=== PATIENT | male | born 1935 | race Caucasian/White ===

== ENCOUNTER 2016-09-10 13:18 | Emergency (ER) | payer MEDICARE, OTHER ==
--- NOTE | 2016-09-10 13:53 | Diagnostic Imaging Report ---
Exam: Portable image of the chest. HISTORY: Chest pain. Portable examination of the chest at 1337 hours reviewed, the study compared to prior examination of 01/09/2016 demonstrates normal aeration of the lung parenchyma bilaterally. Mediastinal structures are midline ,bony thorax is intact. The costophrenic angles are clear. IMPRESSION: No active disease.
[2016-09-10 13:55] LABS: % BASOPHILS 0.4 % (0.0-2.0); % EOSINOPHILS 3.5 % (0.0-5.0); % LYMPHOCYTES 19.5 % (20.0-50.0); % MONOCYTES 5.1 % (2.0-10.0); % NEUTROPHILS 71.5 % (40.0-80.0); HEMATOCRIT 41.7 % (39.0-49.0); MEAN CELL VOLUME 90.7 fl (80-99); MEAN CORPUSCULAR HEMOGLOBIN 30.6 pg (27.0-31.0); MEAN CORPUSCULAR HGB CONC 33.7 pg (28.0-36.0); MEAN PLATELET VOLUME 9.6 fl; NEUTROPHILE ABSOLUTE 7.2 Th/cmm (1.8-8.0); PLATELET COUNT 182 Th/cmm (150-400); RED BLOOD COUNT 4.59 Mil/cmm (3.80-5.80); RED CELL DISTRIBUTION WIDTH 13.1 % (11.5-20.0); WHITE BLOOD COUNT 10.1 Th/cmm (4.8-10.8)
[2016-09-10 14:07] LABS: ALB/GLOB RATIO 0.9 (1.0-1.8); ALKALINE PHOSPHATASE 86 U/L (34-104); ANION GAP 8.6 (7.0-16.0); BILIRUBIN,TOTAL 0.8 mg/dL (0.3-1.0); BUN - UREA NITROGEN 19 mg/dL (7-25); BUN/CREATININE RATIO 21.1; CALCIUM SERUM 9.9 mg/dL (8.6-10.3); CARBON DIOXIDE 26.8 mEq/L (21.0-31.0); CHLORIDE 99 mEq/L (98-107); CREATININE - SERUM 0.9 mg/dL (0.7-1.3); GLUCOSE 88 mg/dL (70-105); POTASSIUM SERUM 4.4 mEq/L (3.5-5.1); SGOT 18 U/L (13-39); SGPT/ALT 11 U/L (7-52); SODIUM SERUM 130 mEq/L (136-145)
[2016-09-10 14:08] LABS: CHOLESTEROL 113 mg/dL (<200); TRIGLYCERIDES 129 mg/dL (<150)
--- NOTE | 2016-09-10 14:08 | ED Physician Chart ---
Chief Complaint/HPI - Patient Information Date Seen:: 09/10/16 Time Seen:: 13:40 Chief Complaint:: VOMITING History of Present Illness:: THIS IS AN 80 YR OLD MALE SENT SNF FOR AN EVALUATION AND TREATMENT. THE VOMITING HAS BEEN ON GOING FOR THREE WEEKS. THE PATIENT IS A NO CODE. THE PATIENT IS NOT HAVING DIARRHEA OR CONSTIPATION AND HAS DIFFICULTY WITH THOUGHT PROCESS. Allergies:: Allergies Allergy/AdvReac Type Severity Reaction Status Date / Time piperacillin Allergy Verified 09/10/16 13:25 tazobactam Allergy Verified 09/10/16 13:26 Vitals:: Vital Signs - 8 hr 09/10/16 13:26 Temp 97.4 F HR 61 RR 18 BP 135/72 O2 Sat % 98 Historian:: Family Member Review:: Nurse's Note Reviewed, Old Chart Reviewed, Transfer documents Reviewed , Patient unable to respond Review of Systems - Review of Systems General/Constitutional: Other (THIS PATIENT IS UNABLE TO GIVE A REVIEW OF SYSTEM.) Past Medical History - Past Medical History Obtainable: Yes Past Medical History: HTN, DM, Asthma/COPD, Arthritis, Dementia Family History: None Social History: Non Smoker, No Alcohol, No Drug Use, Care Facility Surgical History: PEG/GTube Psychiatricy History: Dementia Medication: Reviewed Family Medical History - Family Member Father History Unknown: Yes Ethnicity: Unknown Living Status: Unknown Physical Exam - Physical Examination General/Constitutional: Awake, Well-developed, well-nourished, Alert, No distress, GCS 15, Non-toxic appearing, Ambulatory Head: Atraumatic Eyes: Lids, conjuctiva normal, PERRL, EOMI Skin: Nl inspection, No rash, No skin lesions, No ecchymosis, Well hydrated, No lymphadenopathy ENMT: External ears, nose nl, Nasal exam nl, Lips, teeth, gums nl Neck: Nontender, Full ROM w/o pain, No JVD, No nuchal rigidity, No bruit, No mass, No stridor Respiratory: Nl effort/Exclusion, Clear to Auscultation Other Respiratory comments:: BILATERAL RHONCHI HEARD Cardio Vascular: RRR, No murmur, gallop, rubs, NL S1 S2 GI: No tenderness/rebounding/guarding, No organomegaly, No hernia, Normal BS's, Nondistended, No mass/bruits, No McBurney tenderness : No CVA tenderness Extremities: No tenderness or effusion, Full ROM, normal strength in all extremities, No edema, Normal digits & nails Neuro/Psych: DTR's symmetric, Normal sensory exam, Normal motor strength, Mood normal, Normal gait, No focal deficits Other Neuro/Psych comments:: THE PATIENT IS DISORIENT TIMES FOUR. Misc: normal gait, Normal back, No paraspinal tenderness Labs/Radiology/EKG Results - EKG Interpretations EKG Time:: 13:41 Rate & Rhythm: 61 , SINUS Blanchard: RIGHT Intervals: NO ECTOPY SEEN ED Septic Shock - . Is Septic Shock (SBP<90, OR Lactate>4 mmol\L) present?: No - <6hrs of presentation: Vital Signs: Vital Signs - 8 hr 09/10/16 13:26 Temp 97.4 F HR 61 RR 18 BP 135/72 O2 Sat % 98
[2016-09-10 14:17] LABS: INR 0.9 (0.5-1.4); PROTHROMBIN TIME (TEST) 9.3 SECONDS (9.5-11.5)
[2016-09-10 14:29] LABS: URINE BILIRUBIN NEGATIVE (NEGATIVE); URINE BLOOD MODERATE (NEGATIVE); URINE COLOR YELLOW; URINE GLUCOSE (UA) NEGATIVE (NEGATIVE); URINE KETONE NEGATIVE (NEGATIVE); URINE PROTEIN NEGATIVE (NEGATIVE); URINE UROBILINOGEN 0.2 E.U./dL (0.2 - 1.0)
[2016-09-10 14:30] LABS: URINE AMORPHOUS SEDIMENT MODERATE URATES (NONE SEEN); URINE BACTERIA FEW /hpf (NONE SEEN); URINE EPITHELIAL CELLS OCCASIONAL /lpf (FEW)
== END 2016-09-10 18:32 ==
LOC: ER 13:18
DX: R11.10 Vomiting, unspecified (principal); I10 Essential (primary) hypertension; E11.9 Type 2 diabetes mellitus without complications; J45.909 Unspecified asthma, uncomplicated; J44.9 Chronic obstructive pulmonary disease, unspecified; Z88.1 Allergy status to other antibiotic agents; Z88.8 Allergy status to other drugs, medicaments and biological substances
CPT/HCPCS: 99285; 96372; 93005; 71010; 84484; 36415; 84443; 86592; 85025; 85610; 85730; 81001; 80053; 80061; J0696; Z7502; Z7610

== ENCOUNTER 2016-10-03 14:03 | Inpatient (IN) | payer MEDICARE, OTHER ==
[2016-10-03] MEDS ORDERED: Sodium Chloride 0.9% 1,000 ML IV ONE (14:09)
--- NOTE | 2016-10-03 14:16 | ED Physician Chart ---
Chief Complaint/HPI - Patient Information Date Seen:: 10/03/16 Time Seen:: 14:00 Chief Complaint:: G-Tube Stoma Redness History of Present Illness:: onset x 2 days of G-Tube Stoma redness, swelling, and erythema; no report of H/ As, Neck pain, Chest Pain, cough, Dyspnea, Abd. Pain, A/N/V/D/C, fever, chills, or urinary s/s Allergies:: Allergies Allergy/AdvReac Type Severity Reaction Status Date / Time piperacillin Allergy Verified 09/10/16 13:25 tazobactam Allergy Verified 09/10/16 13:26 Historian:: EMS Review:: Nurse's Note Reviewed Review of Systems - Review of Systems General/Constitutional: Fever, Chills, No weight loss, Weakness, No diaphoresis , No edema, No loss of appetite Skin: Skin lesions, No rash, No bruising Head: No headache, No light-headedness Eyes: No loss of vision, No pain, No diplopia ENT: No earache, No nasal drainage, No sore throat, No tinnitus Neck: No neck pain, No swelling, No thyromegaly, No stiffness, No mass noted Cardio Vascular: No chest pain, No palpitations, No PND, No orthopnea, No edema Pulmonary: SOB, Cough, No sputum, Wheezing GI: Nausea, Vomiting, Diarrhea, No pain, No melena, No hematochezia, No constipation, No hematemesis G/U: No dysuria, No frequency, No hematuria Musculoskeletal: No bone or joint pain, No back pain, No muscle pain Endocrine: No polyuria, No polydipsia Psychiatric: No prior psych history, No depression, No anxiety, No suicidal ideation, No homicidal ideation, No auditory hallucination, No visual hallucination Hematopoietic: No bruising, No lymphadenopathy Allergic/Immuno: No urticaria, No angioedema Neurological: No syncope, No focal symptoms, Weakness, No paresthesia, No headache, No seizure, No dizziness, Confusion, No vertigo Past Medical History - Past Medical History Obtainable: Yes Past Medical History: HTN, DM, Asthma/COPD, Seizures Family History: Diabetes Melitus, HTN Social History: Non Smoker, No Alcohol, No Drug Use, Single, Care Facility Surgical History: PEG/GTube Psychiatricy History: Dementia Medication: Reviewed Family Medical History - Family Member Father History Unknown: Yes Ethnicity: Unknown Living Status: Unknown Physical Exam - Physical Examination General/Constitutional: Awake, Well-developed, well-nourished, Alert, No distress, GCS 15, Non-toxic appearing, Ambulatory Head: Atraumatic Eyes: Lids, conjuctiva normal, PERRL, EOMI Skin: Nl inspection, No rash, No skin lesions, No ecchymosis, Well hydrated, No lymphadenopathy Other Skin comments:: + Cellulitis around G-Tube region ENMT: External ears, nose nl, Nasal exam nl, Lips, teeth, gums nl Neck: Nontender, Full ROM w/o pain, No JVD, No nuchal rigidity, No bruit, No mass, No stridor Respiratory: Nl effort/Exclusion, Clear to Auscultation, No Wheeze/Rhonchi/Rales Cardio Vascular: RRR, No murmur, gallop, rubs, NL S1 S2 GI: No tenderness/rebounding/guarding, No organomegaly, No hernia, Normal BS's, Nondistended, No mass/bruits, No McBurney tenderness : No CVA tenderness Extremities: No tenderness or effusion, Full ROM, normal strength in all extremities, No edema, Normal digits & nails Neuro/Psych: Alert/oriented, DTR's symmetric, Normal sensory exam, Normal motor strength, Judgement/insight normal, Mood normal, Normal gait, No focal deficits Other Neuro/Psych comments:: Disoriented and Confused Misc: normal gait, Normal back, No paraspinal tenderness Labs/Radiology/EKG Results - Lab Results Results: Na+: 128' Cl-: 95 - Radiology Results Results: NAD - EKG Interpretations EKG Time:: 14:25 Rate & Rhythm: NSR Comments:: non-specific st-t changes ED Septic Shock - . Is Septic Shock (SBP<90, OR Lactate>4 mmol\L) present?: No Reassessment (Disposition) - Reassessment Reassessment Condition:: Improved - Diagnosis Diagnosis:: Cellulitis; Hyponatremia; G-Tube Cellulitis - Aftercare/Follow up Instructions Aftercare/Follow-Up Instructions:: Counseled pt regarding lab results/diagnosis & need follow up, Counseled pt & family regarding lab results/diagnosis & need follow up - Patient Disposition Discharge/Transfer:: Acute Care w/in this hosp Accepting Physician:: Dr. Patel Time Called:: [id number] Time Responded:: 16:15 Admitted to:: Med/Surg Spoke to:: Dr. Patel Admitting Medical Physician:: Dr. Patel Condition at Disposition:: Stable, Improved
[2016-10-03] MEDS ORDERED: Levofloxacin 500mg/100mL 500 MG/100 ML BAG IV ONE ×2 (14:18→14:29)
[2016-10-03 14:34] LABS: % BASOPHILS 0.4 % (0.0-2.0); % LYMPHOCYTES 11.2 % (20.0-50.0); % MONOCYTES 6.1 % (2.0-10.0); % NEUTROPHILS 78.3 % (40.0-80.0); HEMATOCRIT 38.8 % (39.0-49.0); HEMOGLOBIN 12.9 gm/dL (12.6-17.4); MEAN CELL VOLUME 91.3 fl (80-99); MEAN CORPUSCULAR HEMOGLOBIN 30.4 pg (27.0-31.0); MEAN CORPUSCULAR HGB CONC 33.3 pg (28.0-36.0); MEAN PLATELET VOLUME 8.8 fl; NEUTROPHILE ABSOLUTE 7.6 Th/cmm (1.8-8.0); RED BLOOD COUNT 4.25 Mil/cmm (3.80-5.80); RED CELL DISTRIBUTION WIDTH 13.2 % (11.5-20.0); WHITE BLOOD COUNT 9.7 Th/cmm (4.8-10.8)
[2016-10-03 14:46] LABS: INR 0.99 (0.5-1.4); PROTHROMBIN TIME (TEST) 10.3 SECONDS (9.5-11.5)
--- NOTE | 2016-10-03 14:46 | Diagnostic Imaging Report ---
Portable chest x-ray HISTORY: Pain Compared with the prior exam of September 10, 2016, there has developed density within the right and left lower hemithoracic regions consistent with bilateral pleural effusions. The heart size appears generous. Atherosclerotic calcification seen in the aorta. IMPRESSION: 1. Findings consistent with interval development of bilateral pleural effusions since a prior exam of September 10, 2016.
[2016-10-03 14:48] LABS: ALB/GLOB RATIO 0.8 (1.0-1.8); ALKALINE PHOSPHATASE 91 U/L (34-104); AMYLASE SERUM 27 U/L (29-103); ANION GAP 13.6 (7.0-16.0); BILIRUBIN,TOTAL 0.4 mg/dL (0.3-1.0); BUN - UREA NITROGEN 21 mg/dL (7-25); BUN/CREATININE RATIO 19.1; CALCIUM SERUM 10.3 mg/dL (8.6-10.3); CARBON DIOXIDE 24.1 mEq/L (21.0-31.0); CHLORIDE 95 mEq/L (98-107); CREATININE - SERUM 1.1 mg/dL (0.7-1.3); GLUCOSE 68 mg/dL (70-105); POTASSIUM SERUM 4.7 mEq/L (3.5-5.1); SGOT 17 U/L (13-39); SGPT/ALT 9 U/L (7-52); SODIUM SERUM 128 mEq/L (136-145)
[2016-10-03 15:08] LABS: PLATELET COUNT 303 Th/cmm (150-400)
[2016-10-03 15:13] LABS: LIPASE 3 U/L (11-82)
[2016-10-03] MEDS ORDERED: GUAIFENESIN GT PRN (18:07)
[2016-10-03] MEDS ORDERED: Magnesium Hydroxide (MOM) 30 mL UDC GT PRN (18:07)
[2016-10-03] MEDS ORDERED: Sodium Chloride 0.9% 1,000 ML IV SCH (18:15)
[2016-10-03] MEDS: Levofloxacin 500mg/100mL 500 MG/100 ML BAG IV SCH (20:01)
[2016-10-03] MEDS ORDERED: LEVALBUTEROL 0.63 MG IH SCH (21:00)
[2016-10-03] MEDS ORDERED: LACTOBACILLUS ACIDOPHILUS GT SCH (21:00)
[2016-10-03] MEDS ORDERED: IPRATROPIUM BROMIDE 0.02% IH SCH (21:00)
[2016-10-03] MEDS ORDERED: [UNRECOGNIZED DRUG - OTHER] GT SCH (21:00)
--- NOTE | 2016-10-03 21:02 | History and Physical ---
History of Present Illness - HPI Chief Complaint: pus coming out around gt, redness HPI: 81 yo male w ho dm, parkinson, htn dementia sent from snf 2 pus coming around gt area. pt previosly on po bactrim but condition was not improving. pt also noted to be more lethargic and felt feverish per nursing staff pt seen by dr begum in th e er and recommended for pt to be admitted w high lactic acid pt is nonverbal Vital Signs: Last Vital Signs Temp 97.8 F 10/03/16 20:00 Pulse 81 10/03/16 20:00 Resp 18 10/03/16 20:00 BP 137/73 10/03/16 20:00 Pulse Ox 95 10/03/16 20:00 Past Medical History Cardiovascular: Report: HTN Pulmonary: Report: COPD [employer]: Report: Dementia GI: Report: Gastritis Psych: Report: No Pertinent Hx Musculoskeletal: Report: Muscle Atrophy, Stiffness Rheumatologic: Report: No pertinent Hx Infectious Disease: Report: No Pertinent Hx Renal/: Report: No Pertinent Hx Endocrine: Report: No Pertinent Hx Dermatology: Report: No Pertinent Hx - Past Surgical History Past Surgical History: Other (gt) Family Medical History - Family Member Father History Unknown: Yes Ethnicity: Living Status: Unknown Hx Family Cancer: No Hx Family Coronary Artery Disease: No Hx Family Congestive Heart Failure: No Hx Family Hypertension: No Hx Family Stroke: No Hx Family Diabetes: No Hx Family Seizures: No Hx Family Dementia: No Hx Family AIDS: No Hx Family HIV: No Hx Family COPD: No Hx Family Hepatitis: No Hx Family Psychiatric Problems: No Hx Family Tuberculosis: No Social History Smoke: No Alcohol: None Drugs: None Lives: [facility] Domestic Violence: Negative - Medications Home Medications: Home Medication Medication Instructions Recorded Type Magnesium Hydroxide [Milk of 30 ml GT DAILY PRN 01/08/13 History Magnesia] Insulin Human Regular [NovoLIN R*] 0 units SUBQ BID 02/17/13 History Carbidopa/Levodopa [Carbidopa-Levo 2 odt GT BID 03/07/14 History 25-100 mg Odt] Donepezil Hcl [Aricept] 10 mg GT HS 03/07/14 History Ascorbic Acid [Vitamin C] 500 mg GT DAILY 01/09/16 History Bisacodyl [Dulcolax 10 Mg Supp] 10 mg RC DAILY PRN 01/09/16 History Bismuth Subsalicylate 30 ml GT Q8H PRN 01/09/16 History [Pepto-Bismol] Levalbuterol [Xopenex] 0.63 mg IH QID 01/09/16 History Metoprolol Tartrate [Lopressor] 100 mg GT BID 01/09/16 History Acetaminophen [Tylenol] 650 mg GT Q8H PRN 09/10/16 History Esomeprazole Magnesium [Nexium] 40 mg GT DAILY 09/10/16 History Ferrous Sulfate 7.5 ml GT DAILY 09/10/16 History Glipizide [Glucotrol] 5 mg GT BID 09/10/16 History Guaifenesin 1.5 tab GT Q4H PRN 09/10/16 History Ipratropium Lignite [Atrovent Hfa] 0.02 % IH QID 09/10/16 History Lactobacillus Acidophilus/La1 2 ctb GT TID 09/10/16 History [Floranex 0.2 mg-0.2 mg] Loperamide HCl [Anti-Diarrheal] 2 mg GT Q4H PRN 09/10/16 History Metformin HCl [Glucophage] 1,000 mg GT BID 09/10/16 History Multivitamin [Multi-Delyn 5 ml] 5 ml GT DAILY 09/10/16 History Oxybutynin Chloride [Ditropan] 5 mg GT BID 09/10/16 History Timolol Maleate/Pf [Timoptic 0.5% 1 each OP BID 09/10/16 History Ocudose Drop] Sulfamethoxazole/TMP [Bactrim Ds] 1 tab GT BID 10/03/16 History - Allergies Allergies/Adverse Reactions: Allergies Allergy/AdvReac Type Severity Reaction Status Date / Time piperacillin Allergy Verified 09/10/16 13:25 tazobactam Allergy Verified 09/10/16 13:26 Review of Systems - Review of Systems Constitutional: Report: Weakness Eyes: Report: No Significant ENT: Report: No Significant Respiratory: Report: Cough Cardiovascular: Report: No Significant Gastrointestinal: Report: Abdominal Pain Genitourinary: Report: No Significant Musculoskeletal: Report: No Significant Skin: Report: No Significant Neurological: Report: No Significant Physical Exam - Physical Exam HEENT: Report: Ears Nose Throat within normal limits Neck: Report: Within normal limits Cardiovascular Systems: Report: +s1/s2 noted, Regular, Rate and Rhythm, Systolic Murmur Respiratory: Report: Crackles, Rhonchi Abdomen: Report: Rebound upon palpation, Bowel Sounds are within normal limits Back: Report: Inspection of back is within normal limits. Extremities: Report: Extremities are contracted Skin: Report: Color of skin is within normal limits Neuro/Psych: Report: Disoriented to name time or place, Depressed affect - Lab Results All Lab Results last 24 hours: Laboratory Last Values WBC 9.7 Th/cmm (4.8-10.8) 10/03/16 14:22 RBC 4.25 Mil/cmm (3.80-5.80) 10/03/16 14:22 Hgb 12.9 gm/dL (12.6-17.4) 10/03/16 14:22 Hct 38.8 % (39.0-49.0) L 10/03/16 14:22 MCV 91.3 fl (80-99) 10/03/16 14:22 MCH 30.4 pg (27.0-31.0) 10/03/16 14:22 MCHC Differential 33.3 pg (28.0-36.0) 10/03/16 14:22 RDW 13.2 % (11.5-20.0) 10/03/16 14:22 Plt Count 303 Th/cmm (150-400) D 10/03/16 14:22 MPV 8.8 fl 10/03/16 14:22 Neutrophils % 78.3 % (40.0-80.0) 10/03/16 14:22 Lymphocytes % 11.2 % (20.0-50.0) L 10/03/16 14:22 Monocytes % 6.1 % (2.0-10.0) 10/03/16 14:22 Eosinophils % 4.0 % (0.0-5.0) 10/03/16 14:22 Basophils % 0.4 % (0.0-2.0) 10/03/16 14:22 PT 10.3 SECONDS (9.5-11.5) 10/03/16 14:22 INR 0.99 (0.5-1.4) 10/03/16 14:22 PTT (Actin FS) 27.0 SECONDS (26.0-38.0) 10/03/16 14:22 Sodium 128 mEq/L (136-145) L 10/03/16 14:22 Potassium 4.7 mEq/L (3.5-5.1) 10/03/16 14:22 Chloride 95 mEq/L (98-107) L 10/03/16 14:22 Carbon Dioxide 24.1 mEq/L (21.0-31.0) 10/03/16 14:22 Anion Gap 13.6 (7.0-16.0) 10/03/16 14:22 BUN 21 mg/dL (7-25) 10/03/16 14:22 Creatinine 1.1 mg/dL (0.7-1.3) 10/03/16 14:22 Est GFR ( Amer) TNP 10/03/16 14:22 Est GFR (Non-Af Amer) TNP 10/03/16 14:22 BUN/Creatinine Ratio 19.1 10/03/16 14:22 Glucose 68 mg/dL (70-105) L 10/03/16 14:22 Whole Bld Lactic Acid 4.46 mmol/L (0.60-1.99) H* 10/03/16 16:48 Calcium 10.3 mg/dL (8.6-10.3) 10/03/16 14:22 Total Bilirubin 0.4 mg/dL (0.3-1.0) 10/03/16 14:22 AST 17 U/L (13-39) 10/03/16 14:22 ALT 9 U/L (7-52) 10/03/16 14:22 Alkaline Phosphatase 91 U/L (34-104) 10/03/16 14:22 Creatine Kinase 40 U/L (30-223) 10/03/16 14:22 Troponin I 0.01 ng/mL (0.01-0.05) 10/03/16 14:22 Total Protein 8.6 gm/dL (6.0-8.3) H 10/03/16 14:22 Albumin 3.9 gm/dL (4.2-5.5) L 10/03/16 14:22 Globulin 4.7 gm/dL 10/03/16 14:22 Albumin/Globulin Ratio 0.8 (1.0-1.8) L 10/03/16 14:22 Amylase 27 U/L (29-103) L 10/03/16 14:22 Lipase 3 U/L (11-82) L 10/03/16 14:22 Laboratory Results - last 24 hr 10/03/16 16:48 Whole Bld Lactic Acid 4.46 H* - Assessment Assessment: gt cellulitis parkinson dementia dm dysphagia contracture htn lactic acidosis hyponatremia anemia Current Active Problems Problem Status Onset REDNESS AND TENDERNESS TO GASTRIC STOMA Acute - Plan Plan: pt failed bactrim outpt cont on iv levaquin and iv vancomycin will dc metformin for now cont on ada cont w aggressive iv hydration cont w currnt care see order dw rn
[2016-10-03] MEDS: Sodium Chloride 0.9% 1,000 ML IV SCH (23:46)
--- NOTE | 2016-10-04 04:26 | Admit Criteria Form ---
Admit Criteria Forms - Admit Criteria Diagnosis: CELLULITIS Clinical Indications for Admission to Inpatient Care (Place 'X' for any and all applicable criteria): Admission is indicated for ANY ONE of the following(1)(2)(3)(4)(5): [ ]I. Limb-threatening infection [ ]II. High-risk comorbid condition as indicated by ANY ONE of the following: [ ]a) Uncontrolled diabetes (eg, HbA1c greater than 10% (0.1)) [ ]b) Cirrhosis [ ]c) Neutropenia [ ]d) Asplenia [ ]e) Immunosuppression [ ]f) Symptomatic heart failure [ ]III. Failure of outpatient therapy as indicated by ALL of the following: [ ]a) Progression or no improvement after adequate trial (minimum of 48 hours, with longer period for stable lower extremity infection) [ ]b) Adequate antibiotic regimen as indicated by use of ANY ONE of the following: [ ]i) First-generation cephalosporin (e.g., cephalexin) [ ]ii) Antistaphylococcal penicillin (e.g., dicloxacillin) [ ]iii) Penicillin-allergic patient regimen (clindamycin, extended-spectrum fluoroquinolone, or doxycycline) [ ]iv) Resistant organism (eg, methicillin-resistant Staphylococcus aureus) regimen (6) [ ]c) Outpatient intravenous therapy regimen is not appropriate due to ANY ONE of the following. (7)(8)(9)(10): [ ]i) It was tried and was not successful (eg, progression of infection). [ ]ii) It is not available or cannot be arranged in a clinically appropriate time frame (e.g., the next day). [ ]iii) Clinical presentation (eg, acuity of infection, rapidity of progression, confirmed or suspected bacteremia) is judged to require ALL of the following: [ ]1) Immediate initiation of intravenous therapy ( eg, cannot wait for next day) [ ]2) Intensity of patient monitoring and observation (eg, vital sign measurement, checks for infection progression) that cannot be provided at other than inpatient level of care [ ]IV. Mental status changes [ ]V. Bacteremia [ ]. Hemodynamic instability [ ]VII. Suspected necrotizing soft tissue infection (e.g., gas in tissue)(11)( 12) [ ]VIII. Orbital infection (13)(14) [ ]IX. Associated surgical procedure (e.g., abscess drainage, debridement) not amenable to outpatient, emergency department, or observation care [ ]X. Cutaneous gangrene [ ]XI. High fever (temperature greater than 39.5 degrees C (103.1 degrees F) (oral)) not responsive to outpatient, emergency department, or observation care therapy [ X]XIII. Inpatient admission required rather than observation care (Also use Cellulitis: Observation Care as appropriate) because of ANY ONE of the following : [ ]a) Periorbital or perineal infection that is severe or worsening [ ]b) Severe pain requiring acute inpatient management [ ]c) IV fluid to replace significant ongoing (e.g., for over 24 hours) losses (greater than 3L/m2 per day) [ ]d) Compartment syndrome monitoring (17) [ ]e) Strict or protective (eg, laminar flow) isolation [ ]f) Urgent debridement or skin grafting [ ]g) Bone or joint debridement [ ]h) Immediate inpatient surgery [X ]i) Other condition, treatment or monitoring requiring inpatient admission Extended stay beyond goal length of stay may be needed for (1)(18): [ ]a) Necrotizing soft tissue infection or fasciitis [ ]b) Gram-negative infection [ ]c) Methicillin-resistant Staphylococcal aureus (MRSA) infection [ ]d) Peripheral venous insufficiency with cellulitis [ ]e) Extensive edema [ ]f) Sepsis or continued Hemodynamic instability [ ]g) Continued high fever or mental status change [ ]h) Bacteremia [ ]i) Active serious comorbid conditions ( eg, heart failure, renal insufficiency) The original [facility] [employer] content created by [facility] [facility] [employer] has been revised. The portions of the content which have been revised are identified through the use of italic text or in bold, and [facility] has neither reviewed nor approved the modified material. All other unmodified content is copyright [facility] Please see references footnoted in the original [facility] edition 2016 Admit Criteria Met?: Yes
[2016-10-04 07:17] LABS: % BASOPHILS 0.4 % (0.0-2.0); % EOSINOPHILS 3.5 % (0.0-5.0); % LYMPHOCYTES 14.8 % (20.0-50.0); % MONOCYTES 7.3 % (2.0-10.0); HEMOGLOBIN 12.3 gm/dL (12.6-17.4); MEAN CELL VOLUME 90.2 fl (80-99); MEAN CORPUSCULAR HEMOGLOBIN 30.8 pg (27.0-31.0); MEAN CORPUSCULAR HGB CONC 34.1 pg (28.0-36.0); MEAN PLATELET VOLUME 9.1 fl; NEUTROPHILE ABSOLUTE 4.8 Th/cmm (1.8-8.0); RED CELL DISTRIBUTION WIDTH 12.8 % (11.5-20.0)
[2016-10-04 07:21] LABS: PLATELET COUNT 236 Th/cmm (150-400); WHITE BLOOD COUNT 6.5 Th/cmm (4.8-10.8)
[2016-10-04 07:33] LABS: ANION GAP 12.1 (7.0-16.0); BUN - UREA NITROGEN 16 mg/dL (7-25); CALCIUM SERUM 9.6 mg/dL (8.6-10.3); CARBON DIOXIDE 23.2 mEq/L (21.0-31.0); CHLORIDE 98 mEq/L (98-107); GLUCOSE 87 mg/dL (70-105); MAGNESIUM 1.9 mg/dL (1.9-2.7); POTASSIUM SERUM 4.3 mEq/L (3.5-5.1); SODIUM SERUM 129 mEq/L (136-145)
[2016-10-04] MEDS: Ascorbic Acid 500 mg/5 mL UDC GT SCH (08:49)
[2016-10-04] MEDS: Pantoprazole 40 mg/Packet GT SCH (08:50)
[2016-10-04] MEDS ORDERED: Non-Formulary Item 1 EA (Ferrous Sulfate [Ferrous Sulfate] 7.5 ML) GT SCH (09:00)
[2016-10-04] MEDS ORDERED: TIMOLOL MALEATE OP SCH (09:00)
[2016-10-04] MEDS: Multivitamin 5 mL UDC GT SCH (09:59)
--- NOTE | 2016-10-04 12:30 | Internal Medicine Prog Note ---
Internal Medicine Subjective - Subjective Service Date: 10/04/16 Patient seen and examined:: with staff Patient is:: awake Per staff patient has:: other (PUS DRAINING FROM GT) Internal Medicine Objective - Results Result Diagrams: 10/04/16 06:20 10/04/16 06:20 Recent Labs: Laboratory Last Values WBC 6.5 Th/cmm (4.8-10.8) D 10/04/16 06:20 RBC 4.00 Mil/cmm (3.80-5.80) 10/04/16 06:20 Hgb 12.3 gm/dL (12.6-17.4) L 10/04/16 06:20 Hct 36.0 % (39.0-49.0) L 10/04/16 06:20 MCV 90.2 fl (80-99) 10/04/16 06:20 MCH 30.8 pg (27.0-31.0) 10/04/16 06:20 MCHC Differential 34.1 pg (28.0-36.0) 10/04/16 06:20 RDW 12.8 % (11.5-20.0) 10/04/16 06:20 Plt Count 236 Th/cmm (150-400) D 10/04/16 06:20 MPV 9.1 fl 10/04/16 06:20 Neutrophils % 74.0 % (40.0-80.0) 10/04/16 06:20 Lymphocytes % 14.8 % (20.0-50.0) L 10/04/16 06:20 Monocytes % 7.3 % (2.0-10.0) 10/04/16 06:20 Eosinophils % 3.5 % (0.0-5.0) 10/04/16 06:20 Basophils % 0.4 % (0.0-2.0) 10/04/16 06:20 PT 10.3 SECONDS (9.5-11.5) 10/03/16 14:22 INR 0.99 (0.5-1.4) 10/03/16 14:22 PTT (Actin FS) 27.0 SECONDS (26.0-38.0) 10/03/16 14:22 Sodium 129 mEq/L (136-145) L 10/04/16 06:20 Potassium 4.3 mEq/L (3.5-5.1) 10/04/16 06:20 Chloride 98 mEq/L (98-107) 10/04/16 06:20 Carbon Dioxide 23.2 mEq/L (21.0-31.0) 10/04/16 06:20 Anion Gap 12.1 (7.0-16.0) 10/04/16 06:20 BUN 16 mg/dL (7-25) 10/04/16 06:20 Creatinine 1.0 mg/dL (0.7-1.3) 10/04/16 06:20 Est GFR ( Amer) TNP 10/04/16 06:20 Est GFR (Non-Af Amer) TNP 10/04/16 06:20 BUN/Creatinine Ratio 16.0 10/04/16 06:20 Glucose 87 mg/dL (70-105) 10/04/16 06:20 Hemoglobin A1c % 5.7 % (4.0-6.0) 10/04/16 06:20 Whole Bld Lactic Acid 4.46 mmol/L (0.60-1.99) H* 10/03/16 16:48 Calcium 9.6 mg/dL (8.6-10.3) 10/04/16 06:20 Magnesium 1.9 mg/dL (1.9-2.7) 10/04/16 06:20 Total Bilirubin 0.4 mg/dL (0.3-1.0) 10/03/16 14:22 AST 17 U/L (13-39) 10/03/16 14:22 ALT 9 U/L (7-52) 10/03/16 14:22 Alkaline Phosphatase 91 U/L (34-104) 10/03/16 14:22 Ammonia 50 umol/L (16-53) 10/04/16 06:20 Creatine Kinase 40 U/L (30-223) 10/03/16 14:22 Troponin I 0.01 ng/mL (0.01-0.05) 10/03/16 14:22 Total Protein 8.6 gm/dL (6.0-8.3) H 10/03/16 14:22 Albumin 3.9 gm/dL (4.2-5.5) L 10/03/16 14:22 Globulin 4.7 gm/dL 10/03/16 14:22 Albumin/Globulin Ratio 0.8 (1.0-1.8) L 10/03/16 14:22 Amylase 27 U/L (29-103) L 10/03/16 14:22 Lipase 3 U/L (11-82) L 10/03/16 14:22 - Physical Exam Vitals and I&O: Vital Signs Temp 98.4 F 10/04/16 08:00 Pulse 88 10/04/16 08:49 Resp 19 10/04/16 08:00 BP 146/95 10/04/16 08:49 Pulse Ox 95 10/04/16 08:00 Intake & Output 10/03/16 10/04/16 10/04/16 18:59 06:59 18:59 Intake Total 575 250 Balance 575 250 Weight (lbs) 175 lb 153 lb Intake: Intake, IV Amount 250 250 Vancomycin HCl 0.75 gm In 250 250 Sodium Chloride 0.9% 250 ml @ 165 mls/hr IV Q12H [facility] Rx#:[id number] Oral 0 Tube Feeding 325 Other: # Voids 1 Active Medications: Current Medications Acetaminophen (Tylenol 650mg/20.3ml Suspension) 650 mg GT Q8H PRN PRN Reason: PAIN/TEMP>101 Stop: 12/02/16 18:06 Acetaminophen (Tylenol) 650 mg PO Q4H PRN PRN Reason: Pain Or Fever above 101 Stop: 12/02/16 18:10 Ascorbic Acid (Vitamin C) 500 mg GT DAILY [facility] Stop: 12/03/16 08:59 Last Admin: 10/04/16 08:49 Dose: 500 mg Bisacodyl (Dulcolax 10 Mg Supp) 10 mg RC DAILY PRN PRN Reason: Constipation Stop: 12/02/16 18:06 Donepezil HCl (Aricept) 10 mg GT HS [facility] Stop: 12/02/16 20:59 Last Admin: 10/03/16 23:42 Dose: 10 mg Ferrous Sulfate (Iron) 450 mg GT DAILY [facility] Stop: 12/04/16 08:59 Glipizide (Glucotrol) 5 mg GT BID [facility] Stop: 12/03/16 08:59 Last Admin: 10/04/16 08:50 Dose: 5 mg Guaifenesin (Mucinex) 900 mg PO Q4H PRN PRN Reason: CONGESTION Stop: 12/03/16 10:16 Heparin Sodium (Porcine) (Heparin) 5,000 units SUBQ Q12HR [facility] Stop: 12/02/16 20:59 Last Admin: 10/04/16 08:49 Dose: 5,000 units Levofloxacin (Levaquin Pb) 500 mg in 100 mls @ 100 mls/hr IV Q24HR [facility] Stop: 12/02/16 18:14 Last Admin: 10/03/16 20:01 Dose: Not Given Vancomycin HCl 0.75 gm/ Sodium (Chloride) 250 mls @ 165 mls/hr IV Q12H [facility] Stop: 12/02/16 19:59 Last Infusion: 10/04/16 10:20 Dose: Infused Sodium Chloride (Nacl 0.9%) 1,000 mls @ 100 mls/hr IV .Q10H [facility] Stop: 12/02/16 18:14 Last Admin: 10/03/16 23:46 Dose: 100 mls/hr Lactobacillus Rhamnosus (Culturelle) 2 each PO TID [facility] Stop: 12/03/16 13:59 Loperamide HCl (Imodium 1mg/5ml Suspension) 2 mg GT Q4H PRN PRN Reason: Diarrhea Magnesium Hydroxide (Milk Of Magnesia) 30 ml GT DAILY PRN PRN Reason: Constipation Stop: 12/02/16 18:06 Metoprolol Tartrate (Lopressor) 100 mg GT BID [facility] Stop: 12/03/16 08:59 Last Admin: 10/04/16 08:49 Dose: 100 mg Miscellaneous (Carbidopa/Levodopa [Carbidopa-Levo 25-100 Mg Odt]) 2 odt GT BID [facility] Stop: 12/03/16 08:59 Miscellaneous (Ipratropium [place] [Atrovent Hfa]) 0.02 % IH QID [facility] Stop: 12/02/16 20:59 Miscellaneous (Levalbuterol [Xopenex]) 0.63 mg IH QID [facility] Stop: 12/02/16 20:59 Miscellaneous (Vancomycin Iv Per Pharmacy) 1 ea MC DAILY [facility] Stop: 12/03/16 08:59 Multivitamins/Vitamin C (Theragran) 5 ml GT DAILY [facility] Stop: 12/03/16 08:59 Last Admin: 10/04/16 09:59 Dose: Not Given Ondansetron HCl (Zofran) 4 mg IV Q8H PRN PRN Reason: Nausea / Vomiting Stop: 12/02/16 18:10 Oxybutynin Chloride (Ditropan) 5 mg GT BID [facility] Stop: 12/03/16 08:59 Last Admin: 10/04/16 08:50 Dose: 5 mg Pantoprazole Sodium (Protonix) 40 mg GT DAILY [facility] Stop: 12/03/16 08:59 Last Admin: 10/04/16 08:50 Dose: 40 mg Timolol Maleate (Timoptic 0.5% Ophth Soln) 1 drop EACH EYE BID [facility] Stop: 12/03/16 16:59 General: weak, alert HEENT: NC/AT, PERRLA Neck: Supple Lungs: CTAB Cardiovascular: RRR, Normal S1, Normal S2, without murmur Abdomen: soft, non-distended, distended, +GT - redness, +GT - discharge Extremities: excoriation Neurological: no change - Procedures Procedures: Procedures Procedure Code Date BLOOD TRANSFUSION SERVICE 62449 02/17/13 CHANGE FEEDING DEVICE IN UP INTEST TRACT, 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 [id number] 01/09/16 CHANGE GASTROSTOMY TUBE 73333 01/09/[address] GASTROSTOMY TUBE 63147 03/07/14 EMERGENCY DEPT VISIT 27152 06/07/11 FREEING OF BOWEL ADHESION 31845 01/08/13 INJECT ANTICOAGULANT 99.19 06/07/11 OTH LYSIS-PERITONEAL ADHES 54.59 01/08/13 OTHER ENDOSCOPY OF SM INTEST 45.13 03/07/14 PACKED CELL TRANSFUSION 99.04 02/17/13 PRP I/LINDSAY INIT REDUC >5 YR 13956 01/08/13 REPLACE GASTROSTOMY TUBE 97.02 03/07/14 UNILAT ING LINDSAY REP NOS 53.00 01/08/13 Internal Medicine Assmt/Plan - Assessment Assessment: gt cellulitis parkinson dementia dm dysphagia contracture htn lactic acidosis hyponatremia anemia - Plan Plan: CULTURE GT SITE TODAY AM LABS IVF FOR HYDRATION EMPIRIC IVABX CONTINUE CURRENT PLAN OF CARE
[2016-10-04] MEDS: Lactobacillus Rhamnosus 10 Billion CFU Capsule PO SCH ×2 (13:58→23:11)
[2016-10-04] MEDS: Albuterol Nebulizer 2.5mg/3mL HHN SCH ×2 (15:38→19:26)
[2016-10-04] MEDS: Ipratropium Neb 0.5 mg/2.5 mL UD IH SCH ×2 (15:39→19:26)
[2016-10-04] MEDS: Levofloxacin 500mg/100mL 500 MG/100 ML BAG IV SCH (20:41)
[2016-10-05] MEDS: Albuterol Nebulizer 2.5mg/3mL HHN SCH ×4 (07:15→19:15)
[2016-10-05] MEDS: Ipratropium Neb 0.5 mg/2.5 mL UD IH SCH ×4 (07:15→19:15)
[2016-10-05 07:30] LABS: % BASOPHILS 0.2 % (0.0-2.0); % EOSINOPHILS 5.2 % (0.0-5.0); % LYMPHOCYTES 16.1 % (20.0-50.0); % MONOCYTES 7.1 % (2.0-10.0); % NEUTROPHILS 71.4 % (40.0-80.0); HEMATOCRIT 37.6 % (39.0-49.0); HEMOGLOBIN 12.5 gm/dL (12.6-17.4); MEAN CORPUSCULAR HEMOGLOBIN 30.5 pg (27.0-31.0); MEAN CORPUSCULAR HGB CONC 33.2 pg (28.0-36.0); MEAN PLATELET VOLUME 8.8 fl; NEUTROPHILE ABSOLUTE 4.6 Th/cmm (1.8-8.0); PLATELET COUNT 250 Th/cmm (150-400); RED BLOOD COUNT 4.09 Mil/cmm (3.80-5.80); RED CELL DISTRIBUTION WIDTH 13.2 % (11.5-20.0); WHITE BLOOD COUNT 6.3 Th/cmm (4.8-10.8)
[2016-10-05 07:45] LABS: ANION GAP 11.4 (7.0-16.0); BUN - UREA NITROGEN 11 mg/dL (7-25); BUN/CREATININE RATIO 12.2; CALCIUM SERUM 9.5 mg/dL (8.6-10.3); CARBON DIOXIDE 21.5 mEq/L (21.0-31.0); CHLORIDE 100 mEq/L (98-107); CREATININE - SERUM 0.9 mg/dL (0.7-1.3); GLUCOSE 106 mg/dL (70-105); POTASSIUM SERUM 3.9 mEq/L (3.5-5.1); SODIUM SERUM 129 mEq/L (136-145)
[2016-10-05 11:12] LABS: FOLIC ACID >20.0 ng/mL (>3.0)
--- NOTE | 2016-10-05 11:28 | Internal Medicine Prog Note ---
Internal Medicine Subjective - Subjective Service Date: 10/05/16 Patient seen and examined:: with staff Patient is:: awake, non-verbal, in bed Per staff patient has:: other (PUS DRAINING FROM GT) Internal Medicine Objective - Results Result Diagrams: 10/05/16 07:19 10/05/16 07:19 Recent Labs: Laboratory Last Values WBC 6.3 Th/cmm (4.8-10.8) 10/05/16 07:19 RBC 4.09 Mil/cmm (3.80-5.80) 10/05/16 07:19 Hgb 12.5 gm/dL (12.6-17.4) L 10/05/16 07:19 Hct 37.6 % (39.0-49.0) L 10/05/16 07:19 MCV 92.0 fl (80-99) 10/05/16 07:19 MCH 30.5 pg (27.0-31.0) 10/05/16 07:19 MCHC Differential 33.2 pg (28.0-36.0) 10/05/16 07:19 RDW 13.2 % (11.5-20.0) 10/05/16 07:19 Plt Count 250 Th/cmm (150-400) 10/05/16 07:19 MPV 8.8 fl 10/05/16 07:19 Neutrophils % 71.4 % (40.0-80.0) 10/05/16 07:19 Lymphocytes % 16.1 % (20.0-50.0) L 10/05/16 07:19 Monocytes % 7.1 % (2.0-10.0) 10/05/16 07:19 Eosinophils % 5.2 % (0.0-5.0) H 10/05/16 07:19 Basophils % 0.2 % (0.0-2.0) 10/05/16 07:19 PT 10.3 SECONDS (9.5-11.5) 10/03/16 14:22 INR 0.99 (0.5-1.4) 10/03/16 14:22 PTT (Actin FS) 27.0 SECONDS (26.0-38.0) 10/03/16 14:22 Sodium 129 mEq/L (136-145) L 10/05/16 07:19 Potassium 3.9 mEq/L (3.5-5.1) 10/05/16 07:19 Chloride 100 mEq/L (98-107) 10/05/16 07:19 Carbon Dioxide 21.5 mEq/L (21.0-31.0) 10/05/16 07:19 Anion Gap 11.4 (7.0-16.0) 10/05/16 07:19 BUN 11 mg/dL (7-25) 10/05/16 07:19 Creatinine 0.9 mg/dL (0.7-1.3) 10/05/16 07:19 Est GFR ( Amer) TNP 10/05/16 07:19 Est GFR (Non-Af Amer) TNP 10/05/16 07:19 BUN/Creatinine Ratio 12.2 10/05/16 07:19 Glucose 106 mg/dL (70-105) H 10/05/16 07:19 Hemoglobin A1c % 5.7 % (4.0-6.0) 10/04/16 06:20 Whole Bld Lactic Acid 4.46 mmol/L (0.60-1.99) H* 10/03/16 16:48 Calcium 9.5 mg/dL (8.6-10.3) 10/05/16 07:19 Magnesium 1.9 mg/dL (1.9-2.7) 10/04/16 06:20 Total Bilirubin 0.4 mg/dL (0.3-1.0) 10/03/16 14:22 AST 17 U/L (13-39) 10/03/16 14:22 ALT 9 U/L (7-52) 10/03/16 14:22 Alkaline Phosphatase 91 U/L (34-104) 10/03/16 14:22 Ammonia 50 umol/L (16-53) 10/04/16 06:20 Creatine Kinase 40 U/L (30-223) 10/03/16 14:22 Troponin I 0.01 ng/mL (0.01-0.05) 10/03/16 14:22 Total Protein 8.6 gm/dL (6.0-8.3) H 10/03/16 14:22 Albumin 3.9 gm/dL (4.2-5.5) L 10/03/16 14:22 Globulin 4.7 gm/dL 10/03/16 14:22 Albumin/Globulin Ratio 0.8 (1.0-1.8) L 10/03/16 14:22 Amylase 27 U/L (29-103) L 10/03/16 14:22 Lipase 3 U/L (11-82) L 10/03/16 14:22 Vitamin B12 306 pg/mL (211-946) 10/04/16 06:20 Folic Acid >20.0 ng/mL (>3.0) 10/04/16 06:20 Vancomycin Trough 15.4 ug/mL (10-20) 10/05/16 07:19 - Physical Exam Vitals and I&O: Vital Signs Temp 98.3 F 10/05/16 08:25 Pulse 91 10/05/16 08:25 Resp 19 10/05/16 08:25 BP 174/96 10/05/16 08:25 Pulse Ox 100 10/05/16 08:25 Intake & Output 10/04/16 10/05/16 10/05/16 18:59 06:59 18:59 Intake Total 250 250 Balance 250 250 Weight (lbs) 153 lb Intake: Intake, IV Amount 250 250 Vancomycin HCl 0.75 gm In 250 250 Sodium Chloride 0.9% 250 ml @ 165 mls/hr IV Q12H [facility] Rx#:[id number] Active Medications: Current Medications Acetaminophen (Tylenol 650mg/20.3ml Suspension) 650 mg GT Q4H PRN PRN Reason: PAIN/TEMP>101 Stop: 12/02/16 18:06 Albuterol Sulfate (Albuterol 2.5mg/3ml Neb Ud) 2.5 mg HHN QIDRT [facility] Stop: 12/03/16 14:59 Last Admin: 10/05/16 07:15 Dose: 2.5 mg Ascorbic Acid (Vitamin C) 500 mg GT DAILY [facility] Stop: 12/03/16 08:59 Last Admin: 10/04/16 08:49 Dose: 500 mg Bisacodyl (Dulcolax 10 Mg Supp) 10 mg RC DAILY PRN PRN Reason: Constipation Stop: 12/02/16 18:06 Carbidopa/Levodopa (Sinemet 25mg-100 Mg) 2 tab GT BID [facility] Stop: 12/03/16 08:59 Donepezil HCl (Aricept) 10 mg GT HS [facility] Stop: 12/02/16 20:59 Last Admin: 10/03/16 23:42 Dose: 10 mg Ferrous Sulfate (Iron) 450 mg GT DAILY [facility] Stop: 12/04/16 08:59 Glipizide (Glucotrol) 5 mg GT BID [facility] Stop: 12/03/16 08:59 Last Admin: 10/04/16 16:31 Dose: Not Given Guaifenesin (Mucinex) 900 mg PO Q4H PRN PRN Reason: CONGESTION Stop: 12/03/16 10:16 Heparin Sodium (Porcine) (Heparin) 5,000 units SUBQ Q12HR [facility] Stop: 12/02/16 20:59 Last Admin: 10/05/16 08:48 Dose: 5,000 units Levofloxacin (Levaquin Pb) 500 mg in 100 mls @ 100 mls/hr IV Q24HR [facility] Stop: 12/02/16 18:14 Last Admin: 10/04/16 20:41 Dose: 100 mls/hr Vancomycin HCl 0.75 gm/ Sodium (Chloride) 250 mls @ 165 mls/hr IV Q12H [facility] Stop: 12/02/16 19:59 Last Admin: 10/05/16 08:47 Dose: 165 mls/hr Sodium Chloride (Nacl 0.9%) 1,000 mls @ 100 mls/hr IV .Q10H [facility] Stop: 12/02/16 18:14 Last Admin: 10/03/16 23:46 Dose: 100 mls/hr Ipratropium [place] (Atrovent Neb 0.5mg/2.5ml) 0.5 mg IH QIDRT [facility] Stop: 12/03/16 14:59 Last Admin: 10/05/16 07:15 Dose: 0.5 mg Lactobacillus Rhamnosus (Culturelle) 2 each PO TID [facility] Stop: 12/03/16 13:59 Last Admin: 10/04/16 23:11 Dose: Not Given Loperamide HCl (Imodium 1mg/5ml Suspension) 2 mg GT Q4H PRN PRN Reason: Diarrhea Magnesium Hydroxide (Milk Of Magnesia) 30 ml GT DAILY PRN PRN Reason: Constipation Stop: 12/02/16 18:06 Metoprolol Tartrate (Lopressor) 100 mg GT BID [facility] Stop: 12/03/16 08:59 Last Admin: 10/04/16 16:29 Dose: Not Given Miscellaneous (Vancomycin Iv Per Pharmacy) 1 ea MC DAILY [facility] Stop: 12/03/16 08:59 Multivitamins/Vitamin C (Theragran) 5 ml GT DAILY [facility] Stop: 12/03/16 08:59 Last Admin: 10/04/16 09:59 Dose: Not Given Ondansetron HCl (Zofran) 4 mg IV Q8H PRN PRN Reason: Nausea / Vomiting Stop: 12/02/16 18:10 Oxybutynin Chloride (Ditropan) 5 mg GT BID [facility] Stop: 12/03/16 08:59 Last Admin: 10/04/16 16:31 Dose: Not Given Pantoprazole Sodium (Protonix) 40 mg GT DAILY [facility] Stop: 12/03/16 08:59 Last Admin: 10/04/16 08:50 Dose: 40 mg Timolol Maleate (Timoptic 0.5% Oph Soln) 1 drop EACH EYE BID [facility] Stop: 12/03/16 16:59 Last Admin: 10/05/16 08:48 Dose: 1 drop General: weak, alert HEENT: NC/AT, PERRLA Neck: Supple Lungs: CTAB Cardiovascular: RRR, Normal S1, Normal S2, without murmur Abdomen: soft, non-distended, distended, +GT - redness, +GT - discharge Extremities: excoriation Neurological: no change - Procedures Procedures: Procedures Procedure Code Date BLOOD TRANSFUSION SERVICE 03204 02/17/13 CHANGE FEEDING DEVICE IN UP INTEST TRACT, 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 [id number] 01/09/16 CHANGE GASTROSTOMY TUBE 04901 01/09/[address] GASTROSTOMY TUBE 42437 03/07/14 EMERGENCY DEPT VISIT 73277 06/07/11 FREEING OF BOWEL ADHESION 30511 01/08/13 INJECT ANTICOAGULANT 99.19 06/07/11 OTH LYSIS-PERITONEAL ADHES 54.59 01/08/13 OTHER ENDOSCOPY OF SM INTEST 45.13 03/07/14 PACKED CELL TRANSFUSION 99.04 02/17/13 PRP I/LINDSAY INIT REDUC >5 YR 98925 01/08/13 REPLACE GASTROSTOMY TUBE 97.02 03/07/14 UNILAT ING LINDSAY REP NOS 53.00 01/08/13 Internal Medicine Assmt/Plan - Assessment Assessment: gt cellulitis parkinson dementia dm dysphagia contracture htn lactic acidosis hyponatremia anemia - Plan Plan: AM LABS IVF FOR HYDRATION EMPIRIC IVABX CONTINUE CURRENT PLAN OF CARE Nutritional Asmnt/Malnutr-PDOC - Dietary Evaluation Malnutrition Findings (Please click <Entered> for more info): Nutritional Asmnt/Malnutrition Start: 10/04/16 15: 39 Text: Status: Complete Freq: Document 10/04/16 15:39 GSUN (Rec: 10/04/16 16:00 GSUN [email or web address]) Nutritional Asmnt/Malnutrition Patient General Information Nutritional Screening High Risk Screening Diagnosis Gtube cellulitis, DM, lactic acidosis Pertinent Medical Hx/Surgical Hx HTN, COPD, dementia, gastritis , muscle atrophy, stiffness, g -tube, Parkinson's Subjective Information 81 year old male from SNF. H&P : "dc metformin for now, agressive IV hydration." Visited pt around 11am, observed Isosource infusing at 65ml/hr. Re-visited pt around 3:30pm, observed tube feeding off, spoke to RN, RN stated gtube malfunction, pending replacement tomorrow. Pt appeared appropriate, no significant wasting noted. CBW 155.6lb via bedscale. Current Diet Order/ Nutrition Support Unclear tube feeding order, currently NPO. Pertinent Medications Vitamin C, Iron, Dulcolax, Iron, Glucotrol, Culturelle, MOM, Vancomycin, Theragran, Zofran, Protonix, Nacl 0.9% Pertinent Labs 10/03: glucose 68L Nutritional Hx/Data Height 5 ft 8 in Height (Calculated Centimeters) 172.7 Current Weight (lbs) 155 lb 9.6 oz Weight (Calculated Kilograms) 70.6 Weight (Calculated Grams) 94804.0 [place] Body Weight 154 Weight Status Approriate GI Symptoms Food Allergies No Cultural/Ethnic/[employer] [facility] : Jevity 1.2 at 65ml/hr x 20hrs, providing 1300ml total volume, 1560kcal, 70g protein. Skin Integrity/Comment: Ron 14. G-tube site cellulitis. Estimated Nutritional Goals BEE in Kcals: Using Current wt Calories/Kcals/Kg CBW 155.6lb/70.7kg Kcals Calculated 1768-2121kcal (25-30kcal/kg) Protein: Using Current wt Protein Calculated 71g (1g/kg) Fluid: ml 1768-2121ml (1ml/kcal) Nutritional Problem 1. Problem Problem Inadequate nutrition intake from enteral nutrition infusion related to Etiology g-tube malfunction, g-tube site cellulitis aeb Signs/Symptoms: g-tube replacement pending Intervention/Recommendation Comments 1. When g-tube replaced and appropriate to resume feeding, recommend Fibersource at 65ml /hr x 24hrs, providing 1560ml total volume, 1872kcal, 84g protein. Expected Outcomes/Goals Expected Outcomes/Goals 1. Pt to meet 100% of estimated nutritional needs on tube feeding with tolerance.
[2016-10-05] MEDS: Ascorbic Acid 500 mg/5 mL UDC GT SCH (12:31)
[2016-10-05] MEDS: Ferrous Sulfate 300 MG/5 ML UDC GT SCH (12:31)
[2016-10-05] MEDS: Multivitamin 5 mL UDC GT SCH (12:32)
[2016-10-05] MEDS: Lactobacillus Rhamnosus 10 Billion CFU Capsule PO SCH ×3 (12:32→22:46)
[2016-10-05] MEDS: Pantoprazole 40 mg/Packet GT SCH (12:33)
--- NOTE | 2016-10-05 13:46 | Operative Report ---
DATE OF SURGERY: 10/05/2016 NAME OF PROCEDURE: G-tube change. REFERRING PHYSICIAN: Dr. Patel. REASON FOR PROCEDURE: Malfunctioning G-tube, dysphagia. PREOPERATIVE DIAGNOSES: Malfunctioning G-tube and dysphagia. POSTOPERATIVE DIAGNOSIS: New 20-Bulgarian gastrostomy tube placed. DESCRIPTION OF PROCEDURE: The patient was placed on his back. The old G-tube was identified, is actually a Miranda tube that was in place and the internal balloon was not inflated. At this point, the Miranda was removed by pulling it out. A new gastrostomy tube was lubricated at the tip and inserted into the stomach lumen. Internal balloon was inflated with 15 mL of sterile saline. Outer flange was secured in position. Procedure was then completed. COMPLICATIONS: None. FINDINGS: New 20-Bulgarian gastrostomy tube placed in the stomach. RECOMMENDATIONS: 1. KUB or Gastrografin to confirm placement. 2. If it is in stomach, may begin using it. Thank you for allowing me to participate. Please call me if any questions. JOB# [id number]
[2016-10-05] MEDS: Sodium Chloride 0.9% 1,000 ML IV SCH (14:07)
--- NOTE | 2016-10-05 15:56 | Diagnostic Imaging Report ---
CT abdomen and pelvis without intravenous contrast Indication: G-tube site cellulitis, pain Comparison: None, Technique: Axial images were obtained from the lung bases to the bilateral proximal femurs without IV contrast. Coronal reconstructions were made. total DLP: 449, CTDI9.3 FINDINGS: There are multifocal nodular right basal infiltrates the largest measuring 8 mm. No pleural effusions. Assessment of the solid organs is limited due to lack of IV contrast. Interposed bowel loops are seen under the right hemidiaphragm. There is a subcentimeter low-density lesion within the right lobe of liver too small to characterize but suggestive of a cyst. No focal splenic lesions. Nonspecific calcification is seen adjacent to the spleen. soft tissue density also seen in this region. This area measures up to 1.8 cm. Severe pancreatic gland atrophy is noted. No focal adrenal lesions. No hydronephrosis or nephrolithiasis. Distended urinary bladder is seen with calcification seen along the posterior aspect measuring 1.1 cm. Prostate gland calcifications are noted. Diverticulosis is noted. There is minimal haziness of the perisigmoid fat planes. Appendix is not well-visualized. A percutaneous gastric feeding tube is seen with inflammatory changes seen along the entrance site. No evidence of free abdominal air or free fluid. An IVC filter is seen at the L1/L2 level. There is a small fat-containing right inguinal hernia. Degenerative changes of the spine and pelvis are noted. There is also a 2 mm anterolisthesis of L4 on L5 likely due to facet arthropathy. IMPRESSION: Percutaneous gastric feeding tube noted. There are inflammatory changes and prominent soft tissue density along the entrance site. Findings may be due to cellulitis of the G-tube site, given patient's clinical history. Diverticulosis. Minimal haziness of the perisigmoid fat planes are noted. Changes associated with mild diverticulitis cannot be excluded. No evidence of free fluid. Distended urinary bladder. 1.2 cm calcification along the posterior aspect may represent small urinary bladder stones versus less likely bladder wall calcifications. Small right fat-containing right inguinal hernia. 1.8 cm soft tissue density calcifications adjacent to the spleen nonspecific but may be due to infectious or inflammatory process. Multifocal bibasal nodular infiltrates in largest measuring 7 mm. Neoplastic process cannot be excluded. As such, follow up CTs surveillance examination 3-4 months is recommended. Atherosclerotic vascular disease. IVC filter. Please refer to above for details.
[2016-10-05] MEDS ORDERED: Diatrizoate Meglumine/Diatri 30 mL Sol ONE (20:49)
--- NOTE | 2016-10-06 00:28 | Consultation ---
DATE OF CONSULTATION: 10/05/2016 INPATIENT CONSULTATION NOTE REFERRING PHYSICIAN: Dr. Patel. REASON FOR CONSULTATION: Malfunctioning G-tube. HISTORY OF PRESENT ILLNESS: An 81-year-old male with multiple medical problems who was sent to the hospital because of some discharge coming from the G-tube. The patient was admitted and being treated for cellulitis around the G-tube site. The patient is otherwise a poor historian. PAST MEDICAL HISTORY: Hypertension, COPD, dementia, gastritis. PAST SURGICAL HISTORY: G-tube. FAMILY HISTORY: Noncontributory. SOCIAL HISTORY: No tobacco, alcohol or IV drug usage. ALLERGIES: ZOSYN. CURRENT MEDICATIONS: Tylenol, amikacin, vitamin C, ____, Aricept, iron, Glucotrol, Mucinex, heparin, Imodium, milk of magnesia, Lopressor, Zofran, Protonix. REVIEW OF SYSTEMS: Unobtainable. PHYSICAL EXAMINATION: VITAL SIGNS: Temperature 98.3, breathing 19, pulse of 91, blood pressure ____, satting 100%. GENERAL: In no apparent distress. HEENT: Normocephalic, atraumatic. Moist mucous membranes. Eyes are anicteric. NECK: Soft, supple. LUNGS: Some coarse breath sounds. CARDIOVASCULAR: Regular rate and rhythm. ABDOMEN: Soft, nontender, nondistended with the G-tube. SKIN: Warm and dry. EXTREMITIES: Reveal no cyanosis. PSYCHOLOGICAL: Awake. LABORATORY DATA: Show white count of 6.3, hemoglobin 12.5, platelets of 250. INR is 0.99. LFTs were within normal limits. Lipase within normal limits. IMPRESSION: An 81-year-old male with a malfunctioning G-tube, underlying dysphagia, has some leakage coming from it. PLAN: 1.G-tube can be changed. 2.Have a CT scan can make sure that there is no abscess below the surface. 3.Continue antibiotics per primary team. Thank you for allowing me to participate. Please call me if any questions. JOB# [id number]
[2016-10-06] MEDS: Sodium Chloride 0.9% 1,000 ML IV SCH ×2 (01:13→23:17)
[2016-10-06 07:27] LABS: BUN - UREA NITROGEN 11 mg/dL (7-25); BUN/CREATININE RATIO 13.8; CALCIUM SERUM 8.4 mg/dL (8.6-10.3); CARBON DIOXIDE 19.3 mEq/L (21.0-31.0); CHLORIDE 104 mEq/L (98-107); CREATININE - SERUM 0.8 mg/dL (0.7-1.3); GLUCOSE 114 mg/dL (70-105); POTASSIUM SERUM 3.3 mEq/L (3.5-5.1); SODIUM SERUM 133 mEq/L (136-145)
[2016-10-06] MEDS: Ipratropium Neb 0.5 mg/2.5 mL UD IH SCH ×4 (07:28→19:53)
[2016-10-06] MEDS: Albuterol Nebulizer 2.5mg/3mL HHN SCH ×4 (07:28→19:52)
[2016-10-06 07:53] LABS: % BASOPHILS 0.1 % (0.0-2.0); % EOSINOPHILS 1.1 % (0.0-5.0); % MONOCYTES 4.6 % (2.0-10.0); % NEUTROPHILS 81.2 % (40.0-80.0); HEMATOCRIT 36.6 % (39.0-49.0); HEMOGLOBIN 12.6 gm/dL (12.6-17.4); MEAN CELL VOLUME 90.8 fl (80-99); MEAN CORPUSCULAR HEMOGLOBIN 31.2 pg (27.0-31.0); MEAN CORPUSCULAR HGB CONC 34.3 pg (28.0-36.0); MEAN PLATELET VOLUME 9.9 fl; NEUTROPHILE ABSOLUTE 7.4 Th/cmm (1.8-8.0); PLATELET COUNT 249 Th/cmm (150-400); RED BLOOD COUNT 4.03 Mil/cmm (3.80-5.80); RED CELL DISTRIBUTION WIDTH 12.9 % (11.5-20.0)
[2016-10-06 07:56] LABS: WHITE BLOOD COUNT 9.1 Th/cmm (4.8-10.8)
--- NOTE | 2016-10-06 09:23 | Diagnostic Imaging Report ---
Upper GI with Gastrografin HISTORY: G-tube confirmation COMPARISON: CT abdomen and pelvis performed the same day FINDINGS: Lead [employer] Developer view demonstrates a percutaneous feeding tube. Generalized gas-filled loops of bowel are noted. An IVC filter is seen at the L2/L3 level. The second image demonstrates contrast opacification of the stomach and proximal small bowel loops. Note, when compared to recent CT examination performed same day, the distal stomach courses superiorly to the right upper quadrant. IMPRESSION: Intraluminal confirmation of patient's percutaneous gastric feeding tube. Possible mild ileus.
[2016-10-06] MEDS: Ferrous Sulfate 300 MG/5 ML UDC GT SCH (10:01)
[2016-10-06] MEDS: Lactobacillus Rhamnosus 10 Billion CFU Capsule PO SCH ×3 (10:01→21:50)
[2016-10-06] MEDS: Ascorbic Acid 500 mg/5 mL UDC GT SCH (10:01)
[2016-10-06] MEDS: Multivitamin 5 mL UDC GT SCH (10:02)
[2016-10-06] MEDS ORDERED: Metoclopramide 5 mg/mL 2mL Vial IVP PRN (10:54)
--- NOTE | 2016-10-06 11:14 | Internal Medicine Prog Note ---
Internal Medicine Subjective - Subjective Service Date: 10/06/16 Patient seen and examined:: with staff Patient is:: awake, non-verbal, in bed Per staff patient has:: other (PUS DRAINING FROM GT) Internal Medicine Objective - Results Result Diagrams: 10/06/16 06:26 10/06/16 06:26 Recent Labs: Laboratory Last Values WBC 9.1 Th/cmm (4.8-10.8) D 10/06/16 06:26 RBC 4.03 Mil/cmm (3.80-5.80) 10/06/16 06:26 Hgb 12.6 gm/dL (12.6-17.4) 10/06/16 06:26 Hct 36.6 % (39.0-49.0) L 10/06/16 06:26 MCV 90.8 fl (80-99) 10/06/16 06:26 MCH 31.2 pg (27.0-31.0) H 10/06/16 06:26 MCHC Differential 34.3 pg (28.0-36.0) 10/06/16 06:26 RDW 12.9 % (11.5-20.0) 10/06/16 06:26 Plt Count 249 Th/cmm (150-400) 10/06/16 06:26 MPV 9.9 fl 10/06/16 06:26 Neutrophils % 81.2 % (40.0-80.0) H 10/06/16 06:26 Lymphocytes % 13.0 % (20.0-50.0) L 10/06/16 06:26 Monocytes % 4.6 % (2.0-10.0) 10/06/16 06:26 Eosinophils % 1.1 % (0.0-5.0) 10/06/16 06:26 Basophils % 0.1 % (0.0-2.0) 10/06/16 06:26 PT 10.3 SECONDS (9.5-11.5) 10/03/16 14:22 INR 0.99 (0.5-1.4) 10/03/16 14:22 PTT (Actin FS) 27.0 SECONDS (26.0-38.0) 10/03/16 14:22 Sodium 133 mEq/L (136-145) L 10/06/16 06:26 Potassium 3.3 mEq/L (3.5-5.1) L 10/06/16 06:26 Chloride 104 mEq/L (98-107) 10/06/16 06:26 Carbon Dioxide 19.3 mEq/L (21.0-31.0) L 10/06/16 06:26 Anion Gap 13.0 (7.0-16.0) 10/06/16 06:26 BUN 11 mg/dL (7-25) 10/06/16 06:26 Creatinine 0.8 mg/dL (0.7-1.3) 10/06/16 06:26 Est GFR ( Amer) TNP 10/06/16 06:26 Est GFR (Non-Af Amer) TNP 10/06/16 06:26 BUN/Creatinine Ratio 13.8 10/06/16 06:26 Glucose 114 mg/dL (70-105) H 10/06/16 06:26 Hemoglobin A1c % 5.7 % (4.0-6.0) 10/04/16 06:20 Whole Bld Lactic Acid 4.46 mmol/L (0.60-1.99) H* 10/03/16 16:48 Calcium 8.4 mg/dL (8.6-10.3) L 10/06/16 06:26 Magnesium 1.9 mg/dL (1.9-2.7) 10/04/16 06:20 Total Bilirubin 0.4 mg/dL (0.3-1.0) 10/03/16 14:22 AST 17 U/L (13-39) 10/03/16 14:22 ALT 9 U/L (7-52) 10/03/16 14:22 Alkaline Phosphatase 91 U/L (34-104) 10/03/16 14:22 Ammonia 50 umol/L (16-53) 10/04/16 06:20 Creatine Kinase 40 U/L (30-223) 10/03/16 14:22 Troponin I 0.01 ng/mL (0.01-0.05) 10/03/16 14:22 Total Protein 8.6 gm/dL (6.0-8.3) H 10/03/16 14:22 Albumin 3.9 gm/dL (4.2-5.5) L 10/03/16 14:22 Globulin 4.7 gm/dL 10/03/16 14:22 Albumin/Globulin Ratio 0.8 (1.0-1.8) L 10/03/16 14:22 Amylase 27 U/L (29-103) L 10/03/16 14:22 Lipase 3 U/L (11-82) L 10/03/16 14:22 Vitamin B12 306 pg/mL (211-946) 10/04/16 06:20 Folic Acid >20.0 ng/mL (>3.0) 10/04/16 06:20 Vancomycin Trough 15.4 ug/mL (10-20) 10/05/16 07:19 - Physical Exam Vitals and I&O: Vital Signs Temp 96.6 F 10/06/16 10:54 Pulse 83 10/06/16 10:54 Resp 14 10/06/16 10:56 BP 128/78 10/06/16 10:54 Pulse Ox 100 10/06/16 10:54 Intake & Output 10/05/16 10/06/16 10/06/16 18:59 06:59 18:59 Intake Total 101.6 1000 Balance 101.6 1000 Weight (lbs) 150 lb 151 lb Intake: Intake, IV Amount 101.6 1000 Amikacin 400 mg In 101.6 Dextrose 5% 100 ml @ 100 mls/hr IV Q12H [facility] Rx#: [id number] Sodium Chloride 0.9% 1, 1000 000 ml @ 100 mls/hr IV . Q10H [facility] Rx#:[id number] Other: # Voids 1 Active Medications: Current Medications Acetaminophen (Tylenol 650mg/20.3ml Suspension) 650 mg GT Q4H PRN PRN Reason: PAIN/TEMP>101 Stop: 12/02/16 18:06 Albuterol Sulfate (Albuterol 2.5mg/3ml Neb Ud) 2.5 mg HHN QIDRT [facility] Stop: 12/03/16 14:59 Last Admin: 10/06/16 10:40 Dose: 2.5 mg Ascorbic Acid (Vitamin C) 500 mg GT DAILY [facility] Stop: 12/03/16 08:59 Last Admin: 10/06/16 10:01 Dose: Not Given Bisacodyl (Dulcolax 10 Mg Supp) 10 mg RC DAILY PRN PRN Reason: Constipation Stop: 12/02/16 18:06 Carbidopa/Levodopa (Sinemet 25mg-100 Mg) 2 tab GT BID REBA Stop: 12/03/16 08:59 Last Admin: 10/06/16 10:00 Dose: Not Given Donepezil HCl (Aricept) 10 mg GT HS REBA Stop: 12/02/16 20:59 Last Admin: 10/05/16 22:48 Dose: 10 mg Ferrous Sulfate (Iron) 450 mg GT DAILY REBA Stop: 12/04/16 08:59 Last Admin: 10/06/16 10:01 Dose: Not Given Glipizide (Glucotrol) 5 mg GT BID REBA Stop: 12/03/16 08:59 Last Admin: 10/06/16 10:01 Dose: Not Given Guaifenesin (Mucinex) 900 mg PO Q4H PRN PRN Reason: CONGESTION Stop: 12/03/16 10:16 Heparin Sodium (Porcine) (Heparin) 5,000 units SUBQ Q12HR [facility] Stop: 12/02/16 20:59 Last Admin: 10/06/16 10:07 Dose: 5,000 units Sodium Chloride (Nacl 0.9%) 1,000 mls @ 100 mls/hr IV .Q10H [facility] Stop: 12/02/16 18:14 Last Admin: 10/06/16 01:13 Dose: 100 mls/hr Amikacin Sulfate 400 mg/ (Dextrose) 101.6 mls @ 100 mls/hr IV Q12H [facility] Stop: 12/04/16 13:59 Last Admin: 10/06/16 01:13 Dose: 100 mls/hr Ipratropium [place] (Atrovent Neb 0.5mg/2.5ml) 0.5 mg IH QIDRT RE[facility] Stop: 12/03/16 14:59 Last Admin: 10/06/16 10:40 Dose: 0.5 mg Lactobacillus Rhamnosus (Culturelle) 2 each PO TID REBA Stop: 12/03/16 13:59 Last Admin: 10/06/16 10:01 Dose: Not Given Loperamide HCl (Imodium 1mg/5ml Suspension) 2 mg GT Q4H PRN PRN Reason: Diarrhea Magnesium Hydroxide (Milk Of Magnesia) 30 ml GT DAILY PRN PRN Reason: Constipation Stop: 12/02/16 18:06 Metoclopramide HCl (Reglan) 5 mg IVP Q4HR PRN PRN Reason: Vomiting Stop: 12/05/16 10:53 Metoprolol Tartrate (Lopressor) 100 mg GT BID REBA Stop: 12/03/16 08:59 Last Admin: 10/06/16 10:02 Dose: Not Given Miscellaneous (Amikacin Iv Per Pharmacy) 1 ea MC PRN PRN PRN Reason: RX DOSING Stop: 12/04/16 12:12 Multivitamins/Vitamin C (Theragran) 5 ml GT DAILY REBA Stop: 12/03/16 08:59 Last Admin: 10/06/16 10:02 Dose: Not Given Ondansetron HCl (Zofran) 4 mg IV Q8H PRN PRN Reason: Nausea / Vomiting Stop: 12/02/16 18:10 Last Admin: 10/06/16 01:04 Dose: 4 mg Oxybutynin Chloride (Ditropan) 5 mg GT BID [facility] Stop: 12/03/16 08:59 Last Admin: 10/06/16 10:02 Dose: Not Given Pantoprazole Sodium (Protonix) 40 mg IVP Q12HR [facility] Stop: 12/05/16 03:59 Last Admin: 10/06/16 04:27 Dose: 40 mg Timolol Maleate (Timoptic 0.5% Oph Sol) 1 drop EACH EYE BID [facility] Stop: 12/03/16 16:59 Last Admin: 10/06/16 10:02 Dose: Not Given General: weak, alert HEENT: NC/AT, PERRLA Neck: Supple Lungs: CTAB Cardiovascular: RRR, Normal S1, Normal S2, without murmur Abdomen: soft, non-distended, distended, +GT - redness, +GT - discharge Extremities: excoriation Neurological: no change - Procedures Procedures: Procedures Procedure Code Date BLOOD TRANSFUSION SERVICE 73598 02/17/13 CHANGE FEEDING DEVICE IN UP INTEST TRACT, [employer] APPROACH [id number] 01/09/16 CHANGE GASTROSTOMY TUBE 76518 01/09/[address] GASTROSTOMY TUBE 81818 03/07/14 EMERGENCY DEPT VISIT 92168 06/07/11 FREEING OF BOWEL ADHESION 46224 01/08/13 INJECT ANTICOAGULANT 99.19 06/07/11 OTH LYSIS-PERITONEAL ADHES 54.59 01/08/13 OTHER ENDOSCOPY OF SM INTEST 45.13 03/07/14 PACKED CELL TRANSFUSION 99.04 02/17/13 PRP I/LINDSAY INIT REDUC >5 YR 76241 01/08/13 REPLACE GASTROSTOMY TUBE 97.02 03/07/14 UNILAT ING LINDSAY REP NOS 53.00 01/08/13 Internal Medicine Assmt/Plan - Assessment Assessment: gt cellulitis parkinson dementia dm dysphagia contracture htn lactic acidosis hyponatremia anemia - Plan Plan: AM LABS IVF FOR HYDRATION EMPIRIC IVABX CONTINUE CURRENT PLAN OF CARE Nutritional Asmnt/Malnutr-PDOC - Dietary Evaluation Malnutrition Findings (Please click <Entered> for more info): Nutritional Asmnt/Malnutrition Start: 10/04/16 15: 39 Text: Status: Complete Freq: Document 10/04/16 15:39 GSCESARIO (Rec: 10/04/16 16:00 GSCESARIO [email or web address]) Nutritional Asmnt/Malnutrition Patient General Information Nutritional Screening High Risk Screening Diagnosis Gtube cellulitis, DM, lactic acidosis Pertinent Medical Hx/Surgical Hx HTN, COPD, dementia, gastritis , muscle atrophy, stiffness, g -tube, Parkinson's Subjective Information 81 year old male from SNF. H&P : "dc metformin for now, agressive IV hydration." Visited pt around 11am, observed Isosource infusing at 65ml/hr. Re-visited pt around 3:30pm, observed tube feeding off, spoke to RN, RN stated gtube malfunction, pending replacement tomorrow. Pt appeared appropriate, no significant wasting noted. CBW 155.6lb via bedscale. Current Diet Order/ Nutrition Support Unclear tube feeding order, currently NPO. Pertinent Medications Vitamin C, Iron, Dulcolax, Iron, Glucotrol, Culturelle, MOM, Vancomycin, Theragran, Zofran, Protonix, Nacl 0.9% Pertinent Labs 10/03: glucose 68L Nutritional Hx/Data Height 5 ft 8 in Height (Calculated Centimeters) 172.7 Current Weight (lbs) 155 lb 9.6 oz Weight (Calculated Kilograms) 70.6 Weight (Calculated Grams) 85523.0 [place] Body Weight 154 Weight Status Approriate GI Symptoms Food Allergies No Cultural/Ethnic/[employer] Belief [facility] : Jevity 1.2 at 65ml/hr x 20hrs, providing 1300ml total volume, 1560kcal, 70g protein. Skin Integrity/Comment: Ron 14. G-tube site cellulitis. Estimated Nutritional Goals BEE in Kcals: Using Current wt Calories/Kcals/Kg CBW 155.6lb/70.7kg Kcals Calculated 1768-2121kcal (25-30kcal/kg) Protein: Using Current wt Protein Calculated 71g (1g/kg) Fluid: ml 1768-2121ml (1ml/kcal) Nutritional Problem 1. Problem Problem Inadequate nutrition intake from enteral nutrition infusion related to Etiology g-tube malfunction, g-tube site cellulitis aeb Signs/Symptoms: g-tube replacement pending Intervention/Recommendation Comments 1. When g-tube replaced and appropriate to resume feeding, recommend Fibersource at 65ml /hr x 24hrs, providing 1560ml total volume, 1872kcal, 84g protein. Expected Outcomes/Goals Expected Outcomes/Goals 1. Pt to meet 100% of estimated nutritional needs on tube feeding with tolerance.
[2016-10-06] MEDS ORDERED: Potassium Chloride 20 mEq ER Tab PO ONE (11:15)
[2016-10-07 05:29] LABS: % BASOPHILS 1.5 % (0.0-2.0); % EOSINOPHILS 6.2 % (0.0-5.0); % LYMPHOCYTES 19.7 % (20.0-50.0); % MONOCYTES 4.7 % (2.0-10.0); % NEUTROPHILS 67.9 % (40.0-80.0); HEMATOCRIT 35.6 % (39.0-49.0); HEMOGLOBIN 11.9 gm/dL (12.6-17.4); MEAN CELL VOLUME 90.4 fl (80-99); MEAN CORPUSCULAR HEMOGLOBIN 30.1 pg (27.0-31.0); MEAN CORPUSCULAR HGB CONC 33.3 pg (28.0-36.0); MEAN PLATELET VOLUME 9.3 fl; NEUTROPHILE ABSOLUTE 5.2 Th/cmm (1.8-8.0); PLATELET COUNT 227 Th/cmm (150-400); RED BLOOD COUNT 3.94 Mil/cmm (3.80-5.80); RED CELL DISTRIBUTION WIDTH 13.1 % (11.5-20.0); WHITE BLOOD COUNT 7.7 Th/cmm (4.8-10.8)
[2016-10-07 06:12] LABS: ANION GAP 9.9 (7.0-16.0); BUN - UREA NITROGEN 13 mg/dL (7-25); BUN/CREATININE RATIO 16.3; CARBON DIOXIDE 21.1 mEq/L (21.0-31.0); CHLORIDE 104 mEq/L (98-107); CREATININE - SERUM 0.8 mg/dL (0.7-1.3); GLUCOSE 113 mg/dL (70-105); SODIUM SERUM 131 mEq/L (136-145)
[2016-10-07] MEDS: Ipratropium Neb 0.5 mg/2.5 mL UD IH SCH ×4 (06:56→19:28)
[2016-10-07] MEDS: Albuterol Nebulizer 2.5mg/3mL HHN SCH ×4 (06:56→19:28)
[2016-10-07] MEDS: Ferrous Sulfate 300 MG/5 ML UDC GT SCH (08:06)
[2016-10-07] MEDS: Lactobacillus Rhamnosus 10 Billion CFU Capsule PO SCH ×3 (08:07→21:33)
[2016-10-07] MEDS: Ascorbic Acid 500 mg/5 mL UDC GT SCH (08:07)
[2016-10-07] MEDS: Multivitamin 5 mL UDC GT SCH (10:41)
[2016-10-07] MEDS: Sodium Chloride 0.9% 1,000 ML IV SCH ×2 (11:44→23:43)
--- NOTE | 2016-10-07 13:12 | Internal Medicine Prog Note ---
Internal Medicine Subjective - Subjective Service Date: 10/07/16 Patient is:: awake, non-verbal, in bed Per staff patient has:: other (PUS DRAINING FROM GT) Internal Medicine Objective - Results Result Diagrams: 10/07/16 05:15 10/07/16 05:15 Recent Labs: Laboratory Last Values WBC 7.7 Th/cmm (4.8-10.8) 10/07/16 05:15 RBC 3.94 Mil/cmm (3.80-5.80) 10/07/16 05:15 Hgb 11.9 gm/dL (12.6-17.4) L 10/07/16 05:15 Hct 35.6 % (39.0-49.0) L 10/07/16 05:15 MCV 90.4 fl (80-99) 10/07/16 05:15 MCH 30.1 pg (27.0-31.0) 10/07/16 05:15 MCHC Differential 33.3 pg (28.0-36.0) 10/07/16 05:15 RDW 13.1 % (11.5-20.0) 10/07/16 05:15 Plt Count 227 Th/cmm (150-400) 10/07/16 05:15 MPV 9.3 fl 10/07/16 05:15 Neutrophils % 67.9 % (40.0-80.0) 10/07/16 05:15 Lymphocytes % 19.7 % (20.0-50.0) L 10/07/16 05:15 Monocytes % 4.7 % (2.0-10.0) 10/07/16 05:15 Eosinophils % 6.2 % (0.0-5.0) H 10/07/16 05:15 Basophils % 1.5 % (0.0-2.0) 10/07/16 05:15 PT 10.3 SECONDS (9.5-11.5) 10/03/16 14:22 INR 0.99 (0.5-1.4) 10/03/16 14:22 PTT (Actin FS) 27.0 SECONDS (26.0-38.0) 10/03/16 14:22 Sodium 131 mEq/L (136-145) L 10/07/16 05:15 Potassium 4.0 mEq/L (3.5-5.1) 10/07/16 05:15 Chloride 104 mEq/L (98-107) 10/07/16 05:15 Carbon Dioxide 21.1 mEq/L (21.0-31.0) 10/07/16 05:15 Anion Gap 9.9 (7.0-16.0) 10/07/16 05:15 BUN 13 mg/dL (7-25) 10/07/16 05:15 Creatinine 0.8 mg/dL (0.7-1.3) 10/07/16 05:15 Est GFR ( Amer) TNP 10/07/16 05:15 Est GFR (Non-Af Amer) TNP 10/07/16 05:15 BUN/Creatinine Ratio 16.3 10/07/16 05:15 Glucose 113 mg/dL (70-105) H 10/07/16 05:15 Hemoglobin A1c % 5.7 % (4.0-6.0) 10/04/16 06:20 Whole Bld Lactic Acid 4.46 mmol/L (0.60-1.99) H* 10/03/16 16:48 Calcium 9.0 mg/dL (8.6-10.3) 10/07/16 05:15 Magnesium 1.9 mg/dL (1.9-2.7) 10/04/16 06:20 Total Bilirubin 0.4 mg/dL (0.3-1.0) 10/03/16 14:22 AST 17 U/L (13-39) 10/03/16 14:22 ALT 9 U/L (7-52) 10/03/16 14:22 Alkaline Phosphatase 91 U/L (34-104) 10/03/16 14:22 Ammonia 50 umol/L (16-53) 10/04/16 06:20 Creatine Kinase 40 U/L (30-223) 10/03/16 14:22 Troponin I 0.01 ng/mL (0.01-0.05) 10/03/16 14:22 Total Protein 8.6 gm/dL (6.0-8.3) H 10/03/16 14:22 Albumin 3.9 gm/dL (4.2-5.5) L 10/03/16 14:22 Globulin 4.7 gm/dL 10/03/16 14:22 Albumin/Globulin Ratio 0.8 (1.0-1.8) L 10/03/16 14:22 Amylase 27 U/L (29-103) L 10/03/16 14:22 Lipase 3 U/L (11-82) L 10/03/16 14:22 Vitamin B12 306 pg/mL (211-946) 10/04/16 06:20 Folic Acid >20.0 ng/mL (>3.0) 10/04/16 06:20 Vancomycin Trough 15.4 ug/mL (10-20) 10/05/16 07:19 - Physical Exam Vitals and I&O: Vital Signs Temp 98.0 F 10/07/16 04:00 Pulse 52 10/07/16 11:08 Resp 12 10/07/16 11:08 BP 122/59 10/07/16 08:09 Pulse Ox 97 10/07/16 11:08 Intake & Output 10/06/16 10/07/16 10/07/16 18:59 06:59 18:59 Intake Total 280 1101.6 1000 Balance 280 1101.6 1000 Weight (lbs) 151 lb 150 lb Intake: Intake, IV Amount 1101.6 1000 Amikacin 400 mg In 101.6 Dextrose 5% 100 ml @ 100 mls/hr IV Q12H [facility] Rx#: [id number] Sodium Chloride 0.9% 1, 1000 1000 000 ml @ 100 mls/hr IV . Q10H [facility] Rx#:[id number] Tube Feeding 280 Active Medications: Current Medications Acetaminophen (Tylenol 650mg/20.3ml Suspension) 650 mg GT Q4H PRN PRN Reason: PAIN/TEMP>101 Stop: 12/02/16 18:06 Albuterol Sulfate (Albuterol 2.5mg/3ml Neb Ud) 2.5 mg HHN QIDRT [facility] Stop: 12/03/16 14:59 Last Admin: 10/07/16 10:53 Dose: 2.5 mg Ascorbic Acid (Vitamin C) 500 mg GT DAILY [facility] Stop: 12/03/16 08:59 Last Admin: 10/07/16 08:07 Dose: 500 mg Bisacodyl (Dulcolax 10 Mg Supp) 10 mg RC DAILY PRN PRN Reason: Constipation Stop: 12/02/16 18:06 Carbidopa/Levodopa (Sinemet 25mg-100 Mg) 2 tab GT BID [facility] Stop: 12/03/16 08:59 Last Admin: 10/07/16 08:07 Dose: 2 tab Donepezil HCl (Aricept) 10 mg GT HS REBA Stop: 12/02/16 20:59 Last Admin: 10/05/16 22:48 Dose: 10 mg Ferrous Sulfate (Iron) 450 mg GT DAILY [facility] Stop: 12/04/16 08:59 Last Admin: 10/07/16 08:06 Dose: 450 mg Glipizide (Glucotrol) 5 mg GT BID [facility] Stop: 12/03/16 08:59 Last Admin: 10/07/16 08:06 Dose: 5 mg Guaifenesin (Mucinex) 900 mg PO Q4H PRN PRN Reason: CONGESTION Stop: 12/03/16 10:16 Heparin Sodium (Porcine) (Heparin) 5,000 units SUBQ Q12HR [facility] Stop: 12/02/16 20:59 Last Admin: 10/07/16 08:06 Dose: 5,000 units Sodium Chloride (Nacl 0.9%) 1,000 mls @ 100 mls/hr IV .Q10H [facility] Stop: 12/02/16 18:14 Last Admin: 10/07/16 11:44 Dose: 100 mls/hr Amikacin Sulfate 400 mg/ (Dextrose) 101.6 mls @ 100 mls/hr IV Q12H [facility] Stop: 12/04/16 13:59 Last Admin: 10/07/16 04:34 Dose: 100 mls/hr Ipratropium [place] (Atrovent Neb 0.5mg/2.5ml) 0.5 mg IH QIDRT [facility] Stop: 12/03/16 14:59 Last Admin: 10/07/16 10:53 Dose: 0.5 mg Lactobacillus Rhamnosus (Culturelle) 2 each PO TID [facility] Stop: 12/03/16 13:59 Last Admin: 10/07/16 08:07 Dose: 2 each Loperamide HCl (Imodium 1mg/5ml Suspension) 2 mg GT Q4H PRN PRN Reason: Diarrhea Magnesium Hydroxide (Milk Of Magnesia) 30 ml GT DAILY PRN PRN Reason: Constipation Stop: 12/02/16 18:06 Metoclopramide HCl (Reglan) 5 mg IVP Q4HR PRN PRN Reason: Vomiting Stop: 12/05/16 10:53 Last Admin: 10/06/16 12:52 Dose: 5 mg Metoprolol Tartrate (Lopressor) 100 mg GT BID [facility] Stop: 12/03/16 08:59 Last Admin: 10/07/16 08:09 Dose: 100 mg Miscellaneous (Amikacin Iv Per Pharmacy) 1 ea MC PRN PRN PRN Reason: RX DOSING Stop: 12/04/16 12:12 Multivitamins/Vitamin C (Theragran) 5 ml GT DAILY [facility] Stop: 12/03/16 08:59 Last Admin: 10/07/16 10:41 Dose: Not Given Ondansetron HCl (Zofran) 4 mg IV Q8H PRN PRN Reason: Nausea / Vomiting Stop: 12/02/16 18:10 Last Admin: 10/06/16 01:04 Dose: 4 mg Oxybutynin Chloride (Ditropan) 5 mg GT BID [facility] Stop: 12/03/16 08:59 Last Admin: 10/07/16 08:07 Dose: 5 mg Pantoprazole Sodium (Protonix) 40 mg IVP Q12HR [facility] Stop: 12/05/16 03:59 Last Admin: 10/07/16 10:42 Dose: Not Given Timolol Maleate (Timoptic 0.5% [facility]) 1 drop EACH EYE BID [facility] Stop: 12/03/16 16:59 Last Admin: 10/07/16 08:07 Dose: 1 drop General: weak, alert HEENT: NC/AT, PERRLA Neck: Supple Lungs: CTAB Cardiovascular: RRR, Normal S1, Normal S2, without murmur Abdomen: soft, non-distended, distended, +GT - redness, +GT - discharge Extremities: excoriation Neurological: no change - Procedures Procedures: Procedures Procedure Code Date BLOOD TRANSFUSION SERVICE 63313 02/17/13 CHANGE FEEDING DEVICE IN UP INTEST TRACT, SENIOR [employer]AFF [employer]ED EMPLOYMENT APPROACH [id number] 01/09/16 CHANGE GASTROSTOMY TUBE 58160 01/09/[address] GASTROSTOMY TUBE 90739 03/07/14 EMERGENCY DEPT VISIT 80985 06/07/11 FREEING OF BOWEL ADHESION 12390 01/08/13 INJECT ANTICOAGULANT 99.19 06/07/11 OTH LYSIS-PERITONEAL ADHES 54.59 10/31/13 OTHER ENDOSCOPY OF SM INTEST 45.13 03/07/14 PACKED CELL TRANSFUSION 99.04 02/17/13 PRP I/LINDSAY INIT REDUC >5 YR 58483 01/08/13 REPLACE GASTROSTOMY TUBE 97.02 03/07/14 UNILAT ING LINDSAY REP NOS 53.00 01/08/13 Internal Medicine Assmt/Plan - Assessment Assessment: gt cellulitis parkinson dementia dm dysphagia contracture htn lactic acidosis hyponatremia anemia - Plan Plan: AM LABS IVF FOR HYDRATION EMPIRIC IVABX CONTINUE CURRENT PLAN OF CARE Nutritional Asmnt/Malnutr-PDOC - Dietary Evaluation Malnutrition Findings (Please click <Entered> for more info): Nutritional Asmnt/Malnutrition Start: 10/04/16 15: 39 Text: Status: Complete Freq: Document 10/04/16 15:39 GSUN (Rec: 10/04/16 16:00 GSCESARIO [email or web address]) Nutritional Asmnt/Malnutrition Patient General Information Nutritional Screening High Risk Screening Diagnosis Gtube cellulitis, DM, lactic acidosis Pertinent Medical Hx/Surgical Hx HTN, COPD, dementia, gastritis , muscle atrophy, stiffness, g -tube, Parkinson's Subjective Information 81 year old male from SNF. H&P : "dc metformin for now, agressive IV hydration." Visited pt around 11am, observed Isosource infusing at 65ml/hr. Re-visited pt around 3:30pm, observed tube feeding off, spoke to RN, RN stated gtube malfunction, pending replacement tomorrow. Pt appeared appropriate, no significant wasting noted. CBW 155.6lb via bedscale. Current Diet Order/ Nutrition Support Unclear tube feeding order, currently NPO. Pertinent Medications Vitamin C, Iron, Dulcolax, Iron, Glucotrol, Culturelle, MOM, Vancomycin, Theragran, Zofran, Protonix, Nacl 0.9% Pertinent Labs 10/03: glucose 68L Nutritional Hx/Data Height 5 ft 8 in Height (Calculated Centimeters) 172.7 Current Weight (lbs) 155 lb 9.6 oz Weight (Calculated Kilograms) 70.6 Weight (Calculated Grams) 83645.0 [place] Body Weight 154 Weight Status Approriate GI Symptoms Food Allergies No Cultural/Ethnic/Rastafarian Belief [facility] : Jevity 1.2 at 65ml/hr x 20hrs, providing 1300ml total volume, 1560kcal, 70g protein. Skin Integrity/Comment: Ron 14. G-tube site cellulitis. Estimated Nutritional Goals BEE in Kcals: Using Current wt Calories/Kcals/Kg CBW 155.6lb/70.7kg Kcals Calculated 1768-2121kcal (25-30kcal/kg) Protein: Using Current wt Protein Calculated 71g (1g/kg) Fluid: ml 1768-2121ml (1ml/kcal) Nutritional Problem 1. Problem Problem Inadequate nutrition intake from enteral nutrition infusion related to Etiology g-tube malfunction, g-tube site cellulitis aeb Signs/Symptoms: g-tube replacement pending Intervention/Recommendation Comments 1. When g-tube replaced and appropriate to resume feeding, recommend Fibersource at 65ml /hr x 24hrs, providing 1560ml total volume, 1872kcal, 84g protein. Expected Outcomes/Goals Expected Outcomes/Goals 1. Pt to meet 100% of estimated nutritional needs on tube feeding with tolerance.
[2016-10-08 05:56] LABS: % BASOPHILS 1.8 % (0.0-2.0); % EOSINOPHILS 5.8 % (0.0-5.0); % LYMPHOCYTES 15.9 % (20.0-50.0); % MONOCYTES 5.2 % (2.0-10.0); % NEUTROPHILS 71.3 % (40.0-80.0); HEMOGLOBIN 13.5 gm/dL (12.6-17.4); MEAN CELL VOLUME 91.4 fl (80-99); MEAN CORPUSCULAR HEMOGLOBIN 30.8 pg (27.0-31.0); MEAN CORPUSCULAR HGB CONC 33.7 pg (28.0-36.0); MEAN PLATELET VOLUME 9.2 fl; NEUTROPHILE ABSOLUTE 5.6 Th/cmm (1.8-8.0); PLATELET COUNT 256 Th/cmm (150-400); RED BLOOD COUNT 4.37 Mil/cmm (3.80-5.80); RED CELL DISTRIBUTION WIDTH 13.4 % (11.5-20.0); WHITE BLOOD COUNT 7.7 Th/cmm (4.8-10.8)
[2016-10-08 06:07] LABS: ANION GAP 7.8 (7.0-16.0); BUN - UREA NITROGEN 8 mg/dL (7-25); CALCIUM SERUM 9.7 mg/dL (8.6-10.3); CHLORIDE 100 mEq/L (98-107); CREATININE - SERUM 0.8 mg/dL (0.7-1.3); GLUCOSE 115 mg/dL (70-105); POTASSIUM SERUM 3.8 mEq/L (3.5-5.1); SODIUM SERUM 130 mEq/L (136-145)
[2016-10-08] MEDS: Albuterol Nebulizer 2.5mg/3mL HHN SCH ×2 (07:08→10:37)
[2016-10-08] MEDS: Ipratropium Neb 0.5 mg/2.5 mL UD IH SCH ×2 (07:08→10:37)
[2016-10-08] MEDS: Ascorbic Acid 500 mg/5 mL UDC GT SCH (09:36)
[2016-10-08] MEDS: Ferrous Sulfate 300 MG/5 ML UDC GT SCH (09:36)
[2016-10-08] MEDS: Lactobacillus Rhamnosus 10 Billion CFU Capsule PO SCH ×3 (09:37→21:38)
--- NOTE | 2016-10-08 12:11 | Internal Medicine Prog Note ---
Internal Medicine Subjective - Subjective Service Date: 10/08/16 Patient is:: awake, non-verbal, in bed Per staff patient has:: other (PUS DRAINING FROM [facility]) Internal Medicine Objective - Results Result Diagrams: 10/08/16 05:15 10/08/16 05:15 Recent Labs: Laboratory Last Values WBC 7.7 Th/cmm (4.8-10.8) 10/08/16 05:15 RBC 4.37 Mil/cmm (3.80-5.80) 10/08/16 05:15 Hgb 13.5 gm/dL (12.6-17.4) 10/08/16 05:15 Hct 40.0 % (39.0-49.0) D 10/08/16 05:15 MCV 91.4 fl (80-99) 10/08/16 05:15 MCH 30.8 pg (27.0-31.0) 10/08/16 05:15 MCHC Differential 33.7 pg (28.0-36.0) 10/08/16 05:15 RDW 13.4 % (11.5-20.0) 10/08/16 05:15 Plt Count 256 Th/cmm (150-400) 10/08/16 05:15 MPV 9.2 fl 10/08/16 05:15 Neutrophils % 71.3 % (40.0-80.0) 10/08/16 05:15 Lymphocytes % 15.9 % (20.0-50.0) L 10/08/16 05:15 Monocytes % 5.2 % (2.0-10.0) 10/08/16 05:15 Eosinophils % 5.8 % (0.0-5.0) H 10/08/16 05:15 Basophils % 1.8 % (0.0-2.0) 10/08/16 05:15 PT 10.3 SECONDS (9.5-11.5) 10/03/16 14:22 INR 0.99 (0.5-1.4) 10/03/16 14:22 PTT (Actin FS) 27.0 SECONDS (26.0-38.0) 10/03/16 14:22 Sodium 130 mEq/L (136-145) L 10/08/16 05:15 Potassium 3.8 mEq/L (3.5-5.1) 10/08/16 05:15 Chloride 100 mEq/L (98-107) 10/08/16 05:15 Carbon Dioxide 26.0 mEq/L (21.0-31.0) 10/08/16 05:15 Anion Gap 7.8 (7.0-16.0) 10/08/16 05:15 BUN 8 mg/dL (7-25) 10/08/16 05:15 Creatinine 0.8 mg/dL (0.7-1.3) 10/08/16 05:15 Est GFR ( Amer) TNP 10/08/16 05:15 Est GFR (Non-Af Amer) TNP 10/08/16 05:15 BUN/Creatinine Ratio 10.0 10/08/16 05:15 Glucose 115 mg/dL (70-105) H 10/08/16 05:15 Hemoglobin A1c % 5.7 % (4.0-6.0) 10/04/16 06:20 Whole Bld Lactic Acid 4.46 mmol/L (0.60-1.99) H* 10/03/16 16:48 Calcium 9.7 mg/dL (8.6-10.3) 10/08/16 05:15 Magnesium 1.9 mg/dL (1.9-2.7) 10/04/16 06:20 Total Bilirubin 0.4 mg/dL (0.3-1.0) 10/03/16 14:22 AST 17 U/L (13-39) 10/03/16 14:22 ALT 9 U/L (7-52) 10/03/16 14:22 Alkaline Phosphatase 91 U/L (34-104) 10/03/16 14:22 Ammonia 50 umol/L (16-53) 10/04/16 06:20 Creatine Kinase 40 U/L (30-223) 10/03/16 14:22 Troponin I 0.01 ng/mL (0.01-0.05) 10/03/16 14:22 Total Protein 8.6 gm/dL (6.0-8.3) H 10/03/16 14:22 Albumin 3.9 gm/dL (4.2-5.5) L 10/03/16 14:22 Globulin 4.7 gm/dL 10/03/16 14:22 Albumin/Globulin Ratio 0.8 (1.0-1.8) L 10/03/16 14:22 Amylase 27 U/L (29-103) L 10/03/16 14:22 Lipase 3 U/L (11-82) L 10/03/16 14:22 Vitamin B12 306 pg/mL (211-946) 10/04/16 06:20 Folic Acid >20.0 ng/mL (>3.0) 10/04/16 06:20 Amikacin Peak 31.2 ug/mL (20.0-30.0) H 10/06/16 15:45 Amikacin Trough 7.1 ug/mL (1.0-8.0) 10/06/16 13:00 Vancomycin Trough 15.4 ug/mL (10-20) 10/05/16 07:19 - Physical Exam Vitals and I&O: Vital Signs Temp 97.3 F 10/08/16 11:50 Pulse 93 10/08/16 11:50 Resp 18 10/08/16 11:50 BP 149/90 10/08/16 11:50 Pulse Ox 95 10/08/16 11:50 Intake & Output 10/07/16 10/08/16 10/08/16 18:59 06:59 18:59 Intake Total 1101.6 1000 Balance 1101.6 1000 Weight (lbs) 149 lb Intake: Intake, IV Amount 1101.6 1000 Amikacin 400 mg In 101.6 Dextrose 5% 100 ml @ 100 mls/hr IV Q12H [facility] Rx#: [id number] Sodium Chloride 0.9% 1, 1000 1000 000 ml @ 100 mls/hr IV . Q10H [facility] Rx#:[id number] Active Medications: Current Medications Acetaminophen (Tylenol 650mg/20.3ml Suspension) 650 mg GT Q4H PRN PRN Reason: PAIN/TEMP>101 Stop: 12/02/16 18:06 Albuterol Sulfate (Albuterol 2.5mg/3ml Neb Ud) 2.5 mg HHN QIDRT [facility] Stop: 12/03/16 14:59 Last Admin: 10/08/16 10:37 Dose: 2.5 mg Ascorbic Acid (Vitamin C) 500 mg GT DAILY [facility] Stop: 12/03/16 08:59 Last Admin: 10/08/16 09:36 Dose: 500 mg Bisacodyl (Dulcolax 10 Mg Supp) 10 mg RC DAILY PRN PRN Reason: Constipation Stop: 12/02/16 18:06 Carbidopa/Levodopa (Sinemet 25mg-100 Mg) 2 tab GT BID REBA Stop: 12/03/16 08:59 Last Admin: 10/08/16 09:36 Dose: 2 tab Donepezil HCl (Aricept) 10 mg GT HS REBA Stop: 12/02/16 20:59 Last Admin: 10/07/16 21:33 Dose: 10 mg Ferrous Sulfate (Iron) 450 mg GT DAILY REBA Stop: 12/04/16 08:59 Last Admin: 10/08/16 09:36 Dose: 450 mg Glipizide (Glucotrol) 5 mg GT BID REBA Stop: 12/03/16 08:59 Last Admin: 10/08/16 09:37 Dose: 5 mg Guaifenesin (Mucinex) 900 mg PO Q4H PRN PRN Reason: CONGESTION Stop: 12/03/16 10:16 Heparin Sodium (Porcine) (Heparin) 5,000 units SUBQ Q12HR REBA Stop: 12/02/16 20:59 Last Admin: 10/08/16 09:36 Dose: 5,000 units Sodium Chloride (Nacl 0.9%) 1,000 mls @ 100 mls/hr IV .Q10H RE[facility] Stop: 12/02/16 18:14 Last Admin: 10/07/16 23:43 Dose: 100 mls/hr Amikacin Sulfate 400 mg/ (Dextrose) 101.6 mls @ 100 mls/hr IV Q12H RE[facility] Stop: 12/04/16 13:59 Last Admin: 10/08/16 01:48 Dose: 100 mls/hr Ipratropium [place] (Atrovent Neb 0.5mg/2.5ml) 0.5 mg IH QIDRT REBA Stop: 12/03/16 14:59 Last Admin: 10/08/16 10:37 Dose: 0.5 mg Lactobacillus Rhamnosus (Culturelle) 2 each PO TID REBA Stop: 12/03/16 13:59 Last Admin: 10/08/16 09:37 Dose: 2 each Loperamide HCl (Imodium 1mg/5ml Suspension) 2 mg GT Q4H PRN PRN Reason: Diarrhea Magnesium Hydroxide (Milk Of Magnesia) 30 ml GT DAILY PRN PRN Reason: Constipation Stop: 12/02/16 18:06 Metoclopramide HCl (Reglan) 5 mg IVP Q4HR PRN PRN Reason: Vomiting Stop: 12/05/16 10:53 Last Admin: 10/06/16 12:52 Dose: 5 mg Metoprolol Tartrate (Lopressor) 100 mg GT BID REBA Stop: 12/03/16 08:59 Last Admin: 10/08/16 09:37 Dose: 100 mg Miscellaneous (Amikacin Iv Per Pharmacy) 1 ea MC PRN PRN PRN Reason: RX DOSING Stop: 12/04/16 12:12 Multivitamins/Vitamin C (Theragran) 5 ml GT DAILY REBA Stop: 12/03/16 08:59 Last Admin: 10/07/16 10:41 Dose: Not Given Ondansetron HCl (Zofran) 4 mg IV Q8H PRN PRN Reason: Nausea / Vomiting Stop: 12/02/16 18:10 Last Admin: 10/08/16 09:33 Dose: 4 mg Oxybutynin Chloride (Ditropan) 5 mg GT BID REBA Stop: 12/03/16 08:59 Last Admin: 10/08/16 09:37 Dose: 5 mg Pantoprazole Sodium (Protonix) 40 mg IVP Q12HR REBA Stop: 12/05/16 03:59 Last Admin: 10/07/16 21:47 Dose: Not Given Timolol Maleate (Timoptic 0.5% Oph Soln) 1 drop EACH EYE BID REBA Stop: 12/03/16 16:59 Last Admin: 10/08/16 09:36 Dose: 1 drop General: weak, alert HEENT: NC/AT, PERRLA Neck: Supple Lungs: CTAB Cardiovascular: RRR, Normal S1, Normal S2, without murmur Abdomen: soft, non-distended, distended, +GT - redness, +GT - discharge Extremities: excoriation Neurological: no change - Procedures Procedures: Procedures Procedure Code Date BLOOD TRANSFUSION SERVICE 85031 02/17/13 CHANGE FEEDING DEVICE IN UP INTEST TRACT, 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 [id number] 10/03/16 CHANGE GASTROSTOMY TUBE 44117 10/03/[address] GASTROSTOMY TUBE 74046 03/07/14 EMERGENCY DEPT VISIT 14602 06/07/11 FREEING OF BOWEL ADHESION 67306 01/08/13 INJECT ANTICOAGULANT 99.19 06/07/11 OTH LYSIS-PERITONEAL ADHES 54.59 01/08/13 OTHER ENDOSCOPY OF SM INTEST 45.13 03/07/14 PACKED CELL TRANSFUSION 99.04 02/17/13 PRP I/LINDSAY INIT REDUC >5 YR 90282 01/08/13 REPLACE GASTROSTOMY TUBE 97.02 03/07/14 UNILAT ING LINDSAY REP NOS 53.00 01/08/13 Internal Medicine Assmt/Plan - Assessment Assessment: gt cellulitis parkinson dementia dm dysphagia contracture htn lactic acidosis hyponatremia anemia - Plan Plan: AM LABS IVF FOR HYDRATION EMPIRIC IVABX CONTINUE CURRENT PLAN OF CARE Nutritional Asmnt/Malnutr-PDOC - Dietary Evaluation Malnutrition Findings (Please click <Entered> for more info): Nutritional Asmnt/Malnutrition Start: 10/04/16 15: 39 Text: Status: Complete Freq: Document 10/04/16 15:39 GSUN (Rec: 10/04/16 16:00 GSUN [email or web address]) Nutritional Asmnt/Malnutrition Patient General Information Nutritional Screening High Risk Screening Diagnosis Gtube cellulitis, DM, lactic acidosis Pertinent Medical Hx/Surgical Hx HTN, COPD, dementia, gastritis , muscle atrophy, stiffness, g -tube, Parkinson's Subjective Information 81 year old male from SNF. H&P : "dc metformin for now, agressive IV hydration." Visited pt around 11am, observed Isosource infusing at 65ml/hr. Re-visited pt around 3:30pm, observed tube feeding off, spoke to RN, RN stated gtube malfunction, pending replacement tomorrow. Pt appeared appropriate, no significant wasting noted. CBW 155.6lb via bedscale. Current Diet Order/ Nutrition Support Unclear tube feeding order, currently NPO. Pertinent Medications Vitamin C, Iron, Dulcolax, Iron, Glucotrol, Culturelle, MOM, Vancomycin, Theragran, Zofran, Protonix, Nacl 0.9% Pertinent Labs 10/03: glucose 68L Nutritional Hx/Data Height 5 ft 8 in Height (Calculated Centimeters) 172.7 Current Weight (lbs) 155 lb 9.6 oz Weight (Calculated Kilograms) 70.6 Weight (Calculated Grams) 44581.0 [place] Body Weight 154 Weight Status Approriate GI Symptoms Food Allergies No Cultural/Ethnic/Confucianist Belief [facility] : Jevity 1.2 at 65ml/hr x 20hrs, providing 1300ml total volume, 1560kcal, 70g protein. Skin Integrity/Comment: Ron 14. G-tube site cellulitis. Estimated Nutritional Goals BEE in Kcals: Using Current wt Calories/Kcals/Kg CBW 155.6lb/70.7kg Kcals Calculated 1768-2121kcal (25-30kcal/kg) Protein: Using Current wt Protein Calculated 71g (1g/kg) Fluid: ml 1768-2121ml (1ml/kcal) Nutritional Problem 1. Problem Problem Inadequate nutrition intake from enteral nutrition infusion related to Etiology g-tube malfunction, g-tube site cellulitis aeb Signs/Symptoms: g-tube replacement pending Intervention/Recommendation Comments 1. When g-tube replaced and appropriate to resume feeding, recommend Fibersource at 65ml /hr x 24hrs, providing 1560ml total volume, 1872kcal, 84g protein. Expected Outcomes/Goals Expected Outcomes/Goals 1. Pt to meet 100% of estimated nutritional needs on tube feeding with tolerance.
--- NOTE | 2016-10-08 12:41 | Internal Medicine Prog Note ---
Internal Medicine Subjective - Subjective Service Date: 10/08/16 ([id number]) Patient is:: awake, non-verbal, in bed Per staff patient has:: other (PUS DRAINING FROM [facility]) Internal Medicine Objective - Results Result Diagrams: 10/08/16 05:15 10/08/16 05:15 Recent Labs: Laboratory Last Values WBC 7.7 Th/cmm (4.8-10.8) 10/08/16 05:15 RBC 4.37 Mil/cmm (3.80-5.80) 10/08/16 05:15 Hgb 13.5 gm/dL (12.6-17.4) 10/08/16 05:15 Hct 40.0 % (39.0-49.0) D 10/08/16 05:15 MCV 91.4 fl (80-99) 10/08/16 05:15 MCH 30.8 pg (27.0-31.0) 10/08/16 05:15 MCHC Differential 33.7 pg (28.0-36.0) 10/08/16 05:15 RDW 13.4 % (11.5-20.0) 10/08/16 05:15 Plt Count 256 Th/cmm (150-400) 10/08/16 05:15 MPV 9.2 fl 10/08/16 05:15 Neutrophils % 71.3 % (40.0-80.0) 10/08/16 05:15 Lymphocytes % 15.9 % (20.0-50.0) L 10/08/16 05:15 Monocytes % 5.2 % (2.0-10.0) 10/08/16 05:15 Eosinophils % 5.8 % (0.0-5.0) H 10/08/16 05:15 Basophils % 1.8 % (0.0-2.0) 10/08/16 05:15 PT 10.3 SECONDS (9.5-11.5) 10/03/16 14:22 INR 0.99 (0.5-1.4) 10/03/16 14:22 PTT (Actin FS) 27.0 SECONDS (26.0-38.0) 10/03/16 14:22 Sodium 130 mEq/L (136-145) L 10/08/16 05:15 Potassium 3.8 mEq/L (3.5-5.1) 10/08/16 05:15 Chloride 100 mEq/L (98-107) 10/08/16 05:15 Carbon Dioxide 26.0 mEq/L (21.0-31.0) 10/08/16 05:15 Anion Gap 7.8 (7.0-16.0) 10/08/16 05:15 BUN 8 mg/dL (7-25) 10/08/16 05:15 Creatinine 0.8 mg/dL (0.7-1.3) 10/08/16 05:15 Est GFR ( Amer) TNP 10/08/16 05:15 Est GFR (Non-Af Amer) TNP 10/08/16 05:15 BUN/Creatinine Ratio 10.0 10/08/16 05:15 Glucose 115 mg/dL (70-105) H 10/08/16 05:15 Hemoglobin A1c % 5.7 % (4.0-6.0) 10/04/16 06:20 Whole Bld Lactic Acid 4.46 mmol/L (0.60-1.99) H* 10/03/16 16:48 Calcium 9.7 mg/dL (8.6-10.3) 10/08/16 05:15 Magnesium 1.9 mg/dL (1.9-2.7) 10/04/16 06:20 Total Bilirubin 0.4 mg/dL (0.3-1.0) 10/03/16 14:22 AST 17 U/L (13-39) 10/03/16 14:22 ALT 9 U/L (7-52) 10/03/16 14:22 Alkaline Phosphatase 91 U/L (34-104) 10/03/16 14:22 Ammonia 50 umol/L (16-53) 10/04/16 06:20 Creatine Kinase 40 U/L (30-223) 10/03/16 14:22 Troponin I 0.01 ng/mL (0.01-0.05) 10/03/16 14:22 Total Protein 8.6 gm/dL (6.0-8.3) H 10/03/16 14:22 Albumin 3.9 gm/dL (4.2-5.5) L 10/03/16 14:22 Globulin 4.7 gm/dL 10/03/16 14:22 Albumin/Globulin Ratio 0.8 (1.0-1.8) L 10/03/16 14:22 Amylase 27 U/L (29-103) L 10/03/16 14:22 Lipase 3 U/L (11-82) L 10/03/16 14:22 Vitamin B12 306 pg/mL (211-946) 10/04/16 06:20 Folic Acid >20.0 ng/mL (>3.0) 10/04/16 06:20 Amikacin Peak 31.2 ug/mL (20.0-30.0) H 10/06/16 15:45 Amikacin Trough 7.1 ug/mL (1.0-8.0) 10/06/16 13:00 Vancomycin Trough 15.4 ug/mL (10-20) 10/05/16 07:19 - Physical Exam Vitals and I&O: Vital Signs Temp 97.3 F 10/08/16 11:50 Pulse 93 10/08/16 11:50 Resp 18 10/08/16 11:50 BP 149/90 10/08/16 11:50 Pulse Ox 95 10/08/16 11:50 Intake & Output 10/07/16 10/08/16 10/08/16 18:59 06:59 18:59 Intake Total 1101.6 1000 Balance 1101.6 1000 Weight (lbs) 149 lb Intake: Intake, IV Amount 1101.6 1000 Amikacin 400 mg In 101.6 Dextrose 5% 100 ml @ 100 mls/hr IV Q12H COUNTS INCLUDE 234 BEDS AT THE [facility] Rx#: [id number] Sodium Chloride 0.9% 1, 1000 1000 000 ml @ 100 mls/hr IV . Q10H COUNTS INCLUDE 234 BEDS AT THE [facility] Rx#:[id number] Active Medications: Current Medications Acetaminophen (Tylenol 650mg/20.3ml Suspension) 650 mg GT Q4H PRN PRN Reason: PAIN/TEMP>101 Stop: 12/02/16 18:06 Albuterol Sulfate (Albuterol 2.5mg/3ml Neb Ud) 2.5 mg HHN QIDRT COUNTS INCLUDE 234 BEDS AT THE [facility] Stop: 12/03/16 14:59 Last Admin: 10/08/16 10:37 Dose: 2.5 mg Ascorbic Acid (Vitamin C) 500 mg GT DAILY COUNTS INCLUDE 234 BEDS AT THE [facility] Stop: 12/03/16 08:59 Last Admin: 10/08/16 09:36 Dose: 500 mg Bisacodyl (Dulcolax 10 Mg Supp) 10 mg RC DAILY PRN PRN Reason: Constipation Stop: 12/02/16 18:06 Carbidopa/Levodopa (Sinemet 25mg-100 Mg) 2 tab GT BID REBA Stop: 12/03/16 08:59 Last Admin: 10/08/16 09:36 Dose: 2 tab Donepezil HCl (Aricept) 10 mg GT HS REBA Stop: 12/02/16 20:59 Last Admin: 10/07/16 21:33 Dose: 10 mg Ferrous Sulfate (Iron) 450 mg GT DAILY REBA Stop: 12/04/16 08:59 Last Admin: 10/08/16 09:36 Dose: 450 mg Glipizide (Glucotrol) 5 mg GT BID REBA Stop: 12/03/16 08:59 Last Admin: 10/08/16 09:37 Dose: 5 mg Guaifenesin (Mucinex) 900 mg PO Q4H PRN PRN Reason: CONGESTION Stop: 12/03/16 10:16 Heparin Sodium (Porcine) (Heparin) 5,000 units SUBQ Q12HR REBA Stop: 12/02/16 20:59 Last Admin: 10/08/16 09:36 Dose: 5,000 units Sodium Chloride (Nacl 0.9%) 1,000 mls @ 100 mls/hr IV .Q10H RE[facility] Stop: 12/02/16 18:14 Last Admin: 10/07/16 23:43 Dose: 100 mls/hr Amikacin Sulfate 400 mg/ (Dextrose) 101.6 mls @ 100 mls/hr IV Q12H REBA Stop: 12/04/16 13:59 Last Admin: 10/08/16 01:48 Dose: 100 mls/hr Ipratropium [place] (Atrovent Neb 0.5mg/2.5ml) 0.5 mg IH QIDRT REBA Stop: 12/03/16 14:59 Last Admin: 10/08/16 10:37 Dose: 0.5 mg Lactobacillus Rhamnosus (Culturelle) 2 each PO TID REBA Stop: 12/03/16 13:59 Last Admin: 10/08/16 09:37 Dose: 2 each Loperamide HCl (Imodium 1mg/5ml Suspension) 2 mg GT Q4H PRN PRN Reason: Diarrhea Magnesium Hydroxide (Milk Of Magnesia) 30 ml GT DAILY PRN PRN Reason: Constipation Stop: 12/02/16 18:06 Metoclopramide HCl (Reglan) 5 mg IVP Q4HR PRN PRN Reason: Vomiting Stop: 12/05/16 10:53 Last Admin: 10/06/16 12:52 Dose: 5 mg Metoprolol Tartrate (Lopressor) 100 mg GT BID REBA Stop: 12/03/16 08:59 Last Admin: 10/08/16 09:37 Dose: 100 mg Miscellaneous (Amikacin Iv Per Pharmacy) 1 ea MC PRN PRN PRN Reason: RX DOSING Stop: 12/04/16 12:12 Multivitamins/Vitamin C (Theragran) 5 ml GT DAILY REBA Stop: 12/03/16 08:59 Last Admin: 10/07/16 10:41 Dose: Not Given Ondansetron HCl (Zofran) 4 mg IV Q8H PRN PRN Reason: Nausea / Vomiting Stop: 12/02/16 18:10 Last Admin: 10/08/16 09:33 Dose: 4 mg Oxybutynin Chloride (Ditropan) 5 mg GT BID REBA Stop: 12/03/16 08:59 Last Admin: 10/08/16 09:37 Dose: 5 mg Pantoprazole Sodium (Protonix) 40 mg IVP Q12HR COUNTS INCLUDE 234 BEDS AT THE [facility] Stop: 12/05/16 03:59 Last Admin: 10/07/16 21:47 Dose: Not Given Timolol Maleate (Timoptic 0.5% Oph Soln) 1 drop EACH EYE BID REBA Stop: 12/03/16 16:59 Last Admin: 10/08/16 09:36 Dose: 1 drop General: weak, alert HEENT: NC/AT, PERRLA Neck: Supple Lungs: CTAB Cardiovascular: RRR, Normal S1, Normal S2, without murmur Abdomen: soft, non-distended, distended, +GT - redness, +GT - discharge Extremities: excoriation Neurological: no change - Procedures Procedures: Procedures Procedure Code Date BLOOD TRANSFUSION SERVICE 88711 02/17/13 CHANGE FEEDING DEVICE IN UP INTEST TRACT, 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 [id number] 10/03/16 CHANGE GASTROSTOMY TUBE 93162 10/03/[address] GASTROSTOMY TUBE 02342 03/07/14 EMERGENCY DEPT VISIT 46130 06/07/11 FREEING OF BOWEL ADHESION 32358 01/08/13 INJECT ANTICOAGULANT 99.19 06/07/11 OTH LYSIS-PERITONEAL ADHES 54.59 01/08/13 OTHER ENDOSCOPY OF SM INTEST 45.13 03/07/14 PACKED CELL TRANSFUSION 99.04 02/17/13 PRP I/LINDSAY INIT REDUC >5 YR 92841 01/08/13 REPLACE GASTROSTOMY TUBE 97.02 03/07/14 UNILAT ING LINDSAY REP NOS 53.00 01/08/13 Internal Medicine Assmt/Plan - Assessment Assessment: gt cellulitis parkinson dementia dm dysphagia contracture htn lactic acidosis hyponatremia anemia Nutritional Asmnt/Malnutr-PDOC - Dietary Evaluation Malnutrition Findings (Please click <Entered> for more info): Nutritional Asmnt/Malnutrition Start: 10/04/16 15: 39 Text: Status: Complete Freq: Document 10/04/16 15:39 GSUN (Rec: 10/04/16 16:00 GSUN [email or web address]) Nutritional Asmnt/Malnutrition Patient General Information Nutritional Screening High Risk Screening Diagnosis Gtube cellulitis, DM, lactic acidosis Pertinent Medical Hx/Surgical Hx HTN, COPD, dementia, gastritis , muscle atrophy, stiffness, g -tube, Parkinson's Subjective Information 81 year old male from SNF. H&P : "dc metformin for now, agressive IV hydration." Visited pt around 11am, observed Isosource infusing at 65ml/hr. Re-visited pt around 3:30pm, observed tube feeding off, spoke to RN, RN stated gtube malfunction, pending replacement tomorrow. Pt appeared appropriate, no significant wasting noted. CBW 155.6lb via bedscale. Current Diet Order/ Nutrition Support Unclear tube feeding order, currently NPO. Pertinent Medications Vitamin C, Iron, Dulcolax, Iron, Glucotrol, Culturelle, MOM, Vancomycin, Theragran, Zofran, Protonix, Nacl 0.9% Pertinent Labs 10/03: glucose 68L Nutritional Hx/Data Height 5 ft 8 in Height (Calculated Centimeters) 172.7 Current Weight (lbs) 155 lb 9.6 oz Weight (Calculated Kilograms) 70.6 Weight (Calculated Grams) 14666.0 [place] Body Weight 154 Weight Status Approriate GI Symptoms Food Allergies No Cultural/Ethnic/[facility] Belief [facility] : Jevity 1.2 at 65ml/hr x 20hrs, providing 1300ml total volume, 1560kcal, 70g protein. Skin Integrity/Comment: Ron 14. G-tube site cellulitis. Estimated Nutritional Goals BEE in Kcals: Using Current wt Calories/Kcals/Kg CBW 155.6lb/70.7kg Kcals Calculated 1768-2121kcal (25-30kcal/kg) Protein: Using Current wt Protein Calculated 71g (1g/kg) Fluid: ml 1768-2121ml (1ml/kcal) Nutritional Problem 1. Problem Problem Inadequate nutrition intake from enteral nutrition infusion related to Etiology g-tube malfunction, g-tube site cellulitis aeb Signs/Symptoms: g-tube replacement pending Intervention/Recommendation Comments 1. When g-tube replaced and appropriate to resume feeding, recommend Fibersource at 65ml /hr x 24hrs, providing 1560ml total volume, 1872kcal, 84g protein. Expected Outcomes/Goals Expected Outcomes/Goals 1. Pt to meet 100% of estimated nutritional needs on tube feeding with tolerance.
[2016-10-08] MEDS: Multivitamin 5 mL UDC GT SCH (15:51)
--- NOTE | 2016-10-08 19:43 | Discharge Summary ---
DATE OF DISCHARGE: 10/08/2016 DISCHARGE DIAGNOSES: G-tube cellulitis, Parkinson dementia, diabetes, dysphagia, contractures, hypertension, lactic acidosis, hyponatremia, anemia. HISTORY OF PRESENT ILLNESS: This is an 81-year-old male with a history of diabetes, Parkinson's, hypertension, dementia, sent from [facility] secondary to blood coming around the G-tube area. The patient previously on p.o. Bactrim, but condition was not improving. The patient was noted to be lethargic and with fever. For this reason, the patient was admitted to [facility] [place]. PHYSICAL EXAMINATION: GENERAL: The patient is well developed, well nourished, no acute distress. VITAL SIGNS: Stable. HEENT: Normocephalic, atraumatic. NECK: Supple. No mass. LUNGS: Clear bilaterally. CARDIOVASCULAR: Regular rate and rhythm. ABDOMEN: Soft, nontender. HOSPITAL COURSE: During the hospital stay, the patient was admitted to the Med/Surg unit. The patient was on IV Levaquin and IV vancomycin and also patient had a consultation with GI. The patient had upper GI series done on 10/05/2016 and the impression is intraluminal confirmation of patient's percutaneous PEG tubing. The patient had a PEG replaced on 10/05/2016. The patient tolerated the procedure well. The patient's culture around his G-tube site was positive for E. coli, so patient's vancomycin was discontinued. The patient was placed on Merrem. The patient did not have any fevers during the hospital stay. For this reason, the patient is stable for discharge. CONDITION UPON DISCHARGE: Fair. DISPOSITION: The patient is going back to [facility]. JOB# [id number]
== END 2016-10-08 21:50 | DRG 393 ==
LOC: ER 14:03 → MSI 16:23
PROVIDERS: ADMIT Internal Medicine; ATTEND Internal Medicine
PROC: 0D20XUZ Change Feeding Device in Upper Intestinal Tract, External Approach (ICD-10-PCS; principal; 2016-10-05)
DX: K94.22 Gastrostomy infection (principal); R53.2 Functional quadriplegia; E87.2 Acidosis; G20 Parkinson's disease; F03.90 Unspecified dementia, unspecified severity, without behavioral disturbance, psychotic disturbance, mood disturbance, and anxiety; R13.10 Dysphagia, unspecified; E87.1 Hypo-osmolality and hyponatremia; L03.311 Cellulitis of abdominal wall; F02.80 Dementia in other diseases classified elsewhere, unspecified severity, without behavioral disturbance, psychotic disturbance, mood disturbance, and anxiety; K94.23 Gastrostomy malfunction; B96.20 Unspecified Escherichia coli [E. coli] as the cause of diseases classified elsewhere; E11.9 Type 2 diabetes mellitus without complications; I10 Essential (primary) hypertension; D64.9 Anemia, unspecified; J44.9 Chronic obstructive pulmonary disease, unspecified; J45.909 Unspecified asthma, uncomplicated; R56.9 Unspecified convulsions; Y83.8 Other surgical procedures as the cause of abnormal reaction of the patient, or of later complication, without mention of misadventure at the time of the procedure; Y92.89 Other specified places as the place of occurrence of the external cause; Z83.3 Family history of diabetes mellitus; Z82.49 Family history of ischemic heart disease and other diseases of the circulatory system; Z79.4 Long term (current) use of insulin; Z88.8 Allergy status to other drugs, medicaments and biological substances
CPT/HCPCS: 36415-UA; 71010-TC; 80048-TC; 80053-TC; 80150-TC; 80202-TC; 82140-TC; 82150-TC; 82550-TC; 82607-90; 82746-90; 83036-90; 83605; 83690-TC; 83735-TC; 84484-TC; 85025-TC; 85610-TC; 85730-TC; 87070-90; 90779; 94640; 94760; C9113; J0278; J1644; J1956; J2405; J2765; J3370; J7030; J7613; Z7610

== ENCOUNTER 2016-11-26 14:58 | Inpatient (IN) | payer MEDICARE, OTHER ==
[2016-11-26 15:36] LABS: % BASOPHILS 0.7 % (0.0-2.0); % EOSINOPHILS 3.4 % (0.0-5.0); % LYMPHOCYTES 15.2 % (20.0-50.0); % NEUTROPHILS 74.7 % (40.0-80.0); HEMOGLOBIN 14.9 gm/dL (12-16); MEAN CELL VOLUME 91.4 fl (80-99); MEAN CORPUSCULAR HEMOGLOBIN 30.7 pg (27.0-31.0); MEAN CORPUSCULAR HGB CONC 33.6 pg (28.0-36.0); MEAN PLATELET VOLUME 9.9 fl; NEUTROPHILE ABSOLUTE 7.6 Th/cmm (1.8-8.0); PLATELET COUNT 218 Th/cmm (150-400); RED BLOOD COUNT 4.84 Mil/cmm (3.80-5.80)
[2016-11-26 15:40] LABS: HEMATOCRIT 44.3 % (41.0-60); WHITE BLOOD COUNT 10.3 Th/cmm (4.8-10.8)
--- NOTE | 2016-11-26 15:52 | ED Physician Chart ---
ED Chief Complaint/HPI - Patient Information Date Seen:: 11/26/16 Time Seen:: 15:16 Chief Complaint:: DIARRHEA History of Present Illness:: THIS IS AN 81 YR OLD MALE SENT TO ER FOR AN EVALUATION OF HIS DIARRHEA FROM THE CUSTODIAL. THE PATIENT DENIES HAVING ANY DIARRHEA TODAY. HE IS ORIENTED TO PLACE AND SITUATION. Allergies:: Allergies Allergy/AdvReac Type Severity Reaction Status Date / Time piperacillin Allergy Verified 09/10/16 13:25 tazobactam Allergy Verified 09/10/16 13:26 Vitals:: Vital Signs - 8 hr 11/26/16 15:31 Temp 97.7 F HR 60 RR 17 BP 144/81 O2 Sat % 96 ED Past Medical History - Past Medical History Obtainable: Yes Past Medical History: DM, Dementia, Other (PARKINSON'S) Family History: None Social History: Non Smoker, No Alcohol, No Drug Use, Care Facility Surgical History: PEG/GTube Psychiatricy History: None Family Medical History - Family Member Father History Unknown: Yes Ethnicity: Living Status: Unknown Hx Family Cancer: No Hx Family Coronary Artery Disease: No Hx Family Congestive Heart Failure: No Hx Family Hypertension: No Hx Family Stroke: No Hx Family Diabetes: No Hx Family Seizures: No Hx Family Dementia: No Hx Family AIDS: No Hx Family HIV: No Hx Family COPD: No Hx Family Hepatitis: No Hx Family Psychiatric Problems: No Hx Family Tuberculosis: No ED Physical Exam - Physical Examination General/Constitutional: Awake, Well-developed, well-nourished, Alert, No distress, GCS 15, Non-toxic appearing, Ambulatory Head: Atraumatic Eyes: Lids, conjuctiva normal, PERRL, EOMI Skin: Nl inspection, No rash, No skin lesions, No ecchymosis, Well hydrated, No lymphadenopathy ENMT: External ears, nose nl, Nasal exam nl, Lips, teeth, gums nl Neck: Nontender, Full ROM w/o pain, No JVD, No nuchal rigidity, No bruit, No mass, No stridor Respiratory: Nl effort/Exclusion, Clear to Auscultation, No Wheeze/Rhonchi/Rales Cardio Vascular: RRR, No murmur, gallop, rubs, NL S1 S2 GI: No tenderness/rebounding/guarding, No organomegaly, No hernia, Normal BS's, Nondistended, No mass/bruits, No McBurney tenderness Other GI comments:: NORMAL FUNCTIONING G-TUBE NOTED IN THE LEFT ABDOMINAL AREA. : No CVA tenderness Extremities: No tenderness or effusion, Full ROM, normal strength in all extremities, No edema, Normal digits & nails Neuro/Psych: Alert/oriented, DTR's symmetric, Normal sensory exam, Normal motor strength, Judgement/insight normal, Mood normal, Normal gait, No focal deficits Misc: normal gait, Normal back, No paraspinal tenderness ED Labs/Radiology/EKG Results - Lab Results Results: Laboratory Tests 11/26/16 15:25 WBC 10.3 D RBC 4.84 Hgb 14.9 Hct 44.3 D MCV 91.4 MCH 30.7 MCHC Differential 33.6 RDW 13.0 Plt Count 218 MPV 9.9 Neutrophils % 74.7 Lymphocytes % 15.2 L Monocytes % 6.0 Eosinophils % 3.4 Basophils % 0.7 - EKG Interpretations EKG Time:: 15:42 Rate & Rhythm: RATE =57 NSR Sargents: RIGHT ED Assessment - Assessment General Assessment: DIARRHEA ED Septic Shock - . Is Septic Shock (SBP<90, OR Lactate>4 mmol\L) present?: No - <6hrs of presentation: Vital Signs: Vital Signs - 8 hr 11/26/16 15:31 Temp 97.7 F HR 60 RR 17 BP 144/81 O2 Sat % 96 ED Reassessment (Disposition) - Reassessment Reassessment Condition:: Unchanged - Diagnosis Diagnosis:: VOMITING AND DIARRHEA DEHYDRATION DEMENTIA - Aftercare/Follow up Instructions Aftercare/Follow-Up Instructions:: Counseled pt regarding lab results/diagnosis & need follow up, Refer to Discharge Instructions, Counseled pt & family regarding lab results/diagnosis & need follow up - Patient Disposition Discharge/Transfer:: Acute Care w/in this hosp Admitting Medical Physician:: Nikhil Patel Condition at Disposition:: Improved ED Discharge Plan - Patient Disposition Admit/Discharge/Transfer: PT DISCHARGED HOME Condition at Disposition: Unchanged
[2016-11-26 15:54] LABS: INR 0.96 (0.5-1.4)
[2016-11-26 15:58] LABS: ALB/GLOB RATIO 0.9 (1.0-1.8); ALKALINE PHOSPHATASE 98 U/L (34-104); ANION GAP 9.5 (7.0-16.0); BUN - UREA NITROGEN 30 mg/dL (7-25); CALCIUM SERUM 10.3 mg/dL (8.6-10.3); CARBON DIOXIDE 29.2 mEq/L (21.0-31.0); CHLORIDE 100 mEq/L (98-107); GLUCOSE 154 mg/dL (70-105); POTASSIUM SERUM 4.7 mEq/L (3.5-5.1); SGOT 18 U/L (13-39); SGPT/ALT 11 U/L (7-52); SODIUM SERUM 134 mEq/L (136-145)
[2016-11-26 15:59] LABS: CHOLESTEROL 141 mg/dL (<200); TRIGLYCERIDES 198 mg/dL (<150)
[2016-11-26] MEDS ORDERED: Magnesium Hydroxide (MOM) 30 mL UDC GT PRN (19:18)
[2016-11-26] MEDS ORDERED: Hydrocodone/APAP 5mg/325mg Tab PO PRN (19:21)
[2016-11-26] MEDS ORDERED: Albuterol Nebulizer 2.5mg/3mL HHN PRN (19:21)
[2016-11-26] MEDS ORDERED: Ipratropium Neb 0.5 mg/2.5 mL UD HHN PRN (19:21)
[2016-11-26 21:15] VITALS: BP 147/72
[2016-11-26] MEDS: Lactobacillus Rhamnosus 10 Billion CFU Capsule GT SCH (22:16)
[2016-11-26] MEDS: Sodium Chloride 0.45% 1,000 ML IV SCH (22:16)
--- NOTE | 2016-11-27 08:09 | Diagnostic Imaging Report ---
CHEST X-RAY: AP view INDICATION: Shortness of breath COMPARISON: 10/03/2016 Findings: There is mild elevation of the right hemidiaphragm. No focal consolidation or effusions. Heart size is normal. Mild tortuous aorta is noted with atherosclerosis. Interposed loops of bowel are seen under the right hemidiaphragm. No evidence of free air. Degenerative changes of the spine are noted. IMPRESSION: Chronic lung changes with no focal consolidation identified. Atherosclerotic vascular disease.
[2016-11-27] MEDS: Multivitamin w/ Minerals Tab GT SCH (08:27)
[2016-11-27] MEDS: Lactobacillus Rhamnosus 10 Billion CFU Capsule GT SCH ×3 (08:27→21:52)
[2016-11-27] MEDS: Ferrous Sulfate 300 MG/5 ML UDC GT SCH (08:28)
[2016-11-27] MEDS ORDERED: Non-Formulary Item 1 EA (Collagenase Clostridium Hist. [Santyl] 1 APPL) TP SCH (09:00)
[2016-11-27] MEDS ORDERED: guaiFENesin 200 MG/10 ML UDC GT PRN (09:30)
[2016-11-27] MEDS ORDERED: VTE Chemical Prophylaxis Screen/Admission MC PRN (11:33)
[2016-11-27] MEDS: Sodium Chloride 0.45% 1,000 ML IV SCH (11:38)
--- NOTE | 2016-11-27 12:26 | Internal Medicine Prog Note ---
Internal Medicine Subjective - Subjective Service Date: 11/27/16 ([id number] HNP DICTATED) Internal Medicine Objective - Results Result Diagrams: 11/26/16 15:25 11/26/16 15:25 Recent Labs: Laboratory Last Values WBC 10.3 Th/cmm (4.8-10.8) D 11/26/16 15:25 RBC 4.84 Mil/cmm (3.80-5.80) 11/26/16 15:25 Hgb 14.9 gm/dL (12-16) 11/26/16 15:25 Hct 44.3 % (41.0-60) D 11/26/16 15:25 MCV 91.4 fl (80-99) 11/26/16 15:25 MCH 30.7 pg (27.0-31.0) 11/26/16 15:25 MCHC Differential 33.6 pg (28.0-36.0) 11/26/16 15:25 RDW 13.0 % (11.5-20.0) 11/26/16 15:25 Plt Count 218 Th/cmm (150-400) 11/26/16 15:25 MPV 9.9 fl 11/26/16 15:25 Neutrophils % 74.7 % (40.0-80.0) 11/26/16 15:25 Lymphocytes % 15.2 % (20.0-50.0) L 11/26/16 15:25 Monocytes % 6.0 % (2.0-10.0) 11/26/16 15:25 Eosinophils % 3.4 % (0.0-5.0) 11/26/16 15:25 Basophils % 0.7 % (0.0-2.0) 11/26/16 15:25 PT 10.0 SECONDS (9.5-11.5) 11/26/16 15:25 INR 0.96 (0.5-1.4) 11/26/16 15:25 PTT (Actin FS) 27.3 SECONDS (26.0-38.0) 11/26/16 15:25 Sodium 134 mEq/L (136-145) L 11/26/16 15:25 Potassium 4.7 mEq/L (3.5-5.1) 11/26/16 15:25 Chloride 100 mEq/L (98-107) 11/26/16 15:25 Carbon Dioxide 29.2 mEq/L (21.0-31.0) 11/26/16 15:25 Anion Gap 9.5 (7.0-16.0) 11/26/16 15:25 BUN 30 mg/dL (7-25) H 11/26/16 15:25 Creatinine 1.0 mg/dL (0.7-1.3) 11/26/16 15:25 Est GFR ( Amer) TNP 11/26/16 15:25 Est GFR (Non-Af Amer) TNP 11/26/16 15:25 BUN/Creatinine Ratio 30.0 11/26/16 15:25 Glucose 154 mg/dL (70-105) H 11/26/16 15:25 POC Glucose 146 MG/DL (70 - 105) H 11/27/16 11:57 Calcium 10.3 mg/dL (8.6-10.3) 11/26/16 15:25 Total Bilirubin 1.0 mg/dL (0.3-1.0) 11/26/16 15:25 AST 18 U/L (13-39) 11/26/16 15:25 ALT 11 U/L (7-52) 11/26/16 15:25 Alkaline Phosphatase 98 U/L (34-104) 11/26/16 15:25 Troponin I 0.01 ng/mL (0.01-0.05) 11/26/16 15:25 Total Protein 8.4 gm/dL (6.0-8.3) H 11/26/16 15:25 Albumin 4.0 gm/dL (4.2-5.5) L 11/26/16 15:25 Globulin 4.4 gm/dL 11/26/16 15:25 Albumin/Globulin Ratio 0.9 (1.0-1.8) L 11/26/16 15:25 Triglycerides 198 mg/dL (<150) H 11/26/16 15:25 Cholesterol 141 mg/dL (<200) 11/26/16 15:25 LDL Cholesterol Direct 85 mg/dL (75-193) 11/26/16 15:25 HDL Cholesterol 38 mg/dL (23-92) 11/26/16 15:25 TSH 0.99 uIU/ml (0.34-5.60) 11/26/16 15:25 RPR NONREACTIVE (NONREACTIVE) 11/26/16 15:25 - Physical Exam Vitals and I&O: Vital Signs Temp 97.2 F 11/27/16 08:07 Pulse 49 11/27/16 08:07 Resp 18 11/27/16 08:07 BP 152/75 11/27/16 08:07 Pulse Ox 100 11/27/16 08:07 Intake & Output 11/26/16 11/27/16 11/27/16 18:59 06:59 18:59 Intake Total 100 1000 Balance 100 1000 Weight (lbs) 137 lb 1.6 oz Intake: Intake, IV Amount 1000 Sodium Chloride 0.45% 1, 1000 000 ml @ 80 mls/hr IV . [id number] [facility] Rx#:[id number] Other 100 Other: # Voids 2 # Bowel Movements 2 Stool Characteristics Liquid Active Medications: Current Medications Acetaminophen (Tylenol) 650 mg GT Q8H PRN PRN Reason: PAIN/TEMP>101 Stop: 01/25/17 19:17 Acetaminophen (Tylenol) 650 mg PO Q4H PRN PRN Reason: Pain Or Fever above 101 Stop: 01/25/17 19:20 Acetaminophen/Hydrocodone Bitart ([place] 5mg/325mg) 1 tab PO Q4H PRN PRN Reason: Pain (Severe) Stop: 01/25/17 19:20 Albuterol Sulfate (Albuterol 2.5mg/3ml Neb Ud) 2.5 mg HHN Q2HRT PRN PRN Reason: Shortness of Breath or Wheeze Stop: 01/25/17 19:20 Ascorbic Acid (Vitamin C) 500 mg GT DAILY REBA Stop: 01/26/17 08:59 Last Admin: 11/27/16 08:28 Dose: 500 mg Bisacodyl (Dulcolax 10 Mg Supp) 10 mg RC DAILY PRN PRN Reason: Constipation Stop: 01/25/17 19:17 Carbidopa/Levodopa (Sinemet 25mg-100 Mg) 2 tab GT BID [facility] Stop: 01/26/17 08:59 Last Admin: 11/27/16 08:27 Dose: 2 tab Donepezil HCl (Aricept) 10 mg GT HS REBA Stop: 01/25/17 20:59 Last Admin: 11/26/16 22:14 Dose: 10 mg Famotidine (Pepcid) 20 mg GT Q12H [facility] Stop: 01/25/17 19:29 Last Admin: 11/27/16 06:51 Dose: 20 mg Ferrous Sulfate (Iron) 440 mg GT DAILY [facility] Stop: 01/26/17 08:59 Last Admin: 11/27/16 08:28 Dose: 440 mg Guaifenesin (Robitussin) 200 mg GT Q4H PRN PRN Reason: CoughING Stop: 01/26/17 09:29 Heparin Sodium (Porcine) (Heparin) 5,000 units SUBQ Q12HR [facility] Stop: 01/26/17 20:59 Sodium Chloride (Nacl 0.45%) 1,000 mls @ 80 mls/hr IV .[id number] [facility] Stop: 01/25/17 19:29 Last Admin: 11/27/16 11:38 Dose: 80 mls/hr Insulin Aspart (Novolog Insulin Sliding Scale) 0 units SUBQ Q6HR [facility] PRN Reason: Protocol Stop: 01/26/17 11:59 Ipratropium [place] (Atrovent Neb 0.5mg/2.5ml) 0.5 mg HHN Q2HRT PRN PRN Reason: Shortness of Breath or Wheeze Stop: 01/25/17 19:20 Lactobacillus Rhamnosus (Culturelle) 2 each GT TID [facility] Stop: 01/25/17 20:59 Last Admin: 11/27/16 08:27 Dose: 2 each Loperamide HCl (Imodium 1mg/5ml Suspension) 2 mg GT Q4H PRN PRN Reason: Diarrhea Magnesium Hydroxide (Milk Of Magnesia) 30 ml GT DAILY PRN PRN Reason: Constipation Stop: 01/25/17 19:17 Metoprolol Tartrate (Lopressor) 100 mg GT Q12H [facility] Stop: 01/25/17 19:29 Last Admin: 11/27/16 06:45 Dose: 100 mg Metronidazole (Flagyl) 250 mg PO TID [facility] Stop: 01/25/17 20:59 Last Admin: 11/27/16 08:27 Dose: 250 mg Miscellaneous (Collagenase Clostridium Hist. [Santyl]) 1 appl TP DAILY [facility] Stop: 01/26/17 08:59 Miscellaneous (Ipratropium [place] [Atrovent Hfa]) 0.02 % IH QID [facility] Stop: 01/25/17 20:59 Miscellaneous (Levalbuterol [Xopenex]) 0.63 mg IH QID [facility] Stop: 01/25/17 20:59 Miscellaneous (Vte Chemical Prophylaxis Screen/ Admission) 1 ea MC PRN PRN PRN Reason: PROTOCOL Stop: 01/26/17 11:32 Ondansetron HCl (Zofran) 4 mg IV Q8H PRN PRN Reason: Nausea / Vomiting Stop: 01/25/17 19:20 Oxybutynin Chloride (Ditropan) 5 mg GT Q12H [facility] Stop: 01/25/17 19:29 Last Admin: 11/27/16 06:44 Dose: 5 mg Timolol Maleate (Timoptic 0.5% [facility]) 1 drop EACH EYE BID [facility] Stop: 01/26/17 08:59 Last Admin: 11/27/16 10:50 Dose: 1 drop - Procedures Procedures: Procedures Procedure Code Date BLOOD TRANSFUSION SERVICE 17073 02/17/13 CHANGE FEEDING DEVICE IN UP INTEST TRACT, SWIMMING POOL SERVICEPERSON APPROACH [id number] 10/03/16 CHANGE GASTROSTOMY TUBE 90210 10/03/[address] GASTROSTOMY TUBE 69313 03/07/14 EMERGENCY DEPT VISIT 42214 06/07/11 FREEING OF BOWEL ADHESION 20494 01/08/13 INJECT ANTICOAGULANT 99.19 06/07/11 OTH LYSIS-PERITONEAL ADHES 54.59 01/08/13 OTHER ENDOSCOPY OF SM INTEST 45.13 03/07/14 PACKED CELL TRANSFUSION 99.04 02/17/13 PRP I/LINDSAY INIT REDUC >5 YR 42145 01/08/13 REPLACE GASTROSTOMY TUBE 97.02 03/07/14 UNILAT ING LINDSAY REP NOS 53.00 01/08/13 Internal Medicine Assmt/Plan - Assessment Assessment: vomiting diarrhea dehydratioN hyponatremia protein calorie malnutrition htn dm2 parkinson's dementia
[2016-11-27] MEDS: INSULIN ASPART SLIDING SCALE 100 UNITS/ML UNIT SUBQ SCH ×2 (12:56→17:26)
--- NOTE | 2016-11-27 14:19 | History & Physical ---
ADMIT DATE: 11/27/2016 CHIEF COMPLAINT: Diarrhea. HISTORY OF PRESENT ILLNESS: This is an 81-year-old male who is a resident of [facility], was brought here to [facility] for 1-day history of diarrhea. The patient did not have any fevers or any chills at the nursing facility. PAST MEDICAL HISTORY: Diabetes, Parkinson's, hypertension, dementia. PAST SURGICAL HISTORY: PEG. ALLERGIES: No drug allergies. MEDICATIONS: Tylenol, Sinemet, glipizide, lactobacillus, loperamide, magnesium, metoprolol, oxybutynin. FAMILY HISTORY: Noncontributory. SOCIAL HISTORY: The patient is a long-term resident, requiring 24-hour nursing care. REVIEW OF SYSTEMS: GENERAL: Denies any fever vision, chills. CARDIOVASCULAR: Denies chest pain. RESPIRATORY: Denies any shortness of breath. GASTROINTESTINAL: Denies any abdominal pain, but complains of diarrhea. GENITOURINARY: Denies dysuria. All other systems are reviewed by me and are negative. PHYSICAL EXAMINATION: EXTREMITIES: The patient is well developed, well nourished, no acute distress. VITAL SIGNS: Temperature 97.2, heart rate 49, blood pressure 152/75, respirations 18, O2 100%. HEENT: Head; normocephalic, atraumatic. NECK: Supple. No mass. LUNGS: Clear bilaterally. HEART: Regular rate and rhythm. ABDOMEN: Soft, nontender. LABORATORY DATA: WBC ____, H and H 14.8 and 44.3, platelet 218. Sodium 134, potassium 4.7, chloride 100, BUN 30, creatinine 1.0. Glucose 154. Albumin 4.0. DIAGNOSTICS: The patient had a chest x-ray done and the impression is, chronic lung changes with no focal consolidation identified, atherosclerotic vascular disease. ASSESSMENT: Vomiting, diarrhea, dehydration, hypertension, Parkinson's, type 2 diabetes. PLAN: The patient to be admitted to the med/surg unit. The patient to be kept n.p.o. for now. We will collect stool for C. diff and for cultures. Keep the patient on IV fluids for hydration. The patient will be on empiric antibiotic. We will monitor patient's electrolytes level. JOB# [id number]
[2016-11-28] MEDS: INSULIN ASPART SLIDING SCALE 100 UNITS/ML UNIT SUBQ SCH ×4 (00:20→17:20)
[2016-11-28 06:08] LABS: % BASOPHILS 0.2 % (0.0-2.0); % EOSINOPHILS 4.4 % (0.0-5.0); % LYMPHOCYTES 20.6 % (20.0-50.0); % MONOCYTES 6.8 % (2.0-10.0); HEMATOCRIT 42.4 % (41.0-60); HEMOGLOBIN 14.6 gm/dL (12-16); MEAN CELL VOLUME 89.7 fl (80-99); MEAN CORPUSCULAR HEMOGLOBIN 30.8 pg (27.0-31.0); MEAN CORPUSCULAR HGB CONC 34.3 pg (28.0-36.0); MEAN PLATELET VOLUME 10.8 fl; NEUTROPHILE ABSOLUTE 6.9 Th/cmm (1.8-8.0); PLATELET COUNT 196 Th/cmm (150-400); RED BLOOD COUNT 4.73 Mil/cmm (3.80-5.80); RED CELL DISTRIBUTION WIDTH 12.8 % (11.5-20.0); WHITE BLOOD COUNT 10.1 Th/cmm (4.8-10.8)
[2016-11-28 06:29] LABS: ALB/GLOB RATIO 0.9 (1.0-1.8); ALKALINE PHOSPHATASE 94 U/L (34-104); ANION GAP 12.9 (7.0-16.0); BILIRUBIN,TOTAL 1.7 mg/dL (0.3-1.0); BUN - UREA NITROGEN 18 mg/dL (7-25); BUN/CREATININE RATIO 22.5; CALCIUM SERUM 9.6 mg/dL (8.6-10.3); CARBON DIOXIDE 22.8 mEq/L (21.0-31.0); CHLORIDE 98 mEq/L (98-107); CREATININE - SERUM 0.8 mg/dL (0.7-1.3); GLUCOSE 90 mg/dL (70-105); MAGNESIUM 1.9 mg/dL (1.9-2.7); POTASSIUM SERUM 3.7 mEq/L (3.5-5.1); SGOT 25 U/L (13-39); SGPT/ALT 9 U/L (7-52); SODIUM SERUM 130 mEq/L (136-145)
[2016-11-28] MEDS: Multivitamin w/ Minerals Tab GT SCH (08:51)
[2016-11-28] MEDS: Ferrous Sulfate 300 MG/5 ML UDC GT SCH (08:51)
[2016-11-28] MEDS: Lactobacillus Rhamnosus 10 Billion CFU Capsule GT SCH ×2 (09:11→13:08)
[2016-11-28] MEDS ORDERED: Albuterol Nebulizer 2.5mg/3mL HHN SCH (11:00)
[2016-11-28] MEDS ORDERED: Ipratropium Neb 0.5 mg/2.5 mL UD HHN SCH (11:00)
[2016-11-28] MEDS: Sodium Chloride 0.45% 1,000 ML IV SCH (11:53)
--- NOTE | 2016-11-28 13:04 | Internal Medicine Prog Note ---
Internal Medicine Subjective - Subjective Service Date: 11/28/16 Patient seen and examined:: with staff Patient is:: awake Per staff patient has:: no adverse event Internal Medicine Objective - Results Result Diagrams: 11/28/16 05:35 11/28/16 05:35 Recent Labs: Laboratory Last Values WBC 10.1 Th/cmm (4.8-10.8) 11/28/16 05:35 RBC 4.73 Mil/cmm (3.80-5.80) 11/28/16 05:35 Hgb 14.6 gm/dL (12-16) 11/28/16 05:35 Hct 42.4 % (41.0-60) 11/28/16 05:35 MCV 89.7 fl (80-99) 11/28/16 05:35 MCH 30.8 pg (27.0-31.0) 11/28/16 05:35 MCHC Differential 34.3 pg (28.0-36.0) 11/28/16 05:35 RDW 12.8 % (11.5-20.0) 11/28/16 05:35 Plt Count 196 Th/cmm (150-400) 11/28/16 05:35 MPV 10.8 fl 11/28/16 05:35 Neutrophils % 68.0 % (40.0-80.0) 11/28/16 05:35 Lymphocytes % 20.6 % (20.0-50.0) 11/28/16 05:35 Monocytes % 6.8 % (2.0-10.0) 11/28/16 05:35 Eosinophils % 4.4 % (0.0-5.0) 11/28/16 05:35 Basophils % 0.2 % (0.0-2.0) 11/28/16 05:35 PT 10.0 SECONDS (9.5-11.5) 11/26/16 15:25 INR 0.96 (0.5-1.4) 11/26/16 15:25 PTT (Actin FS) 27.3 SECONDS (26.0-38.0) 11/26/16 15:25 Sodium 130 mEq/L (136-145) L 11/28/16 05:35 Potassium 3.7 mEq/L (3.5-5.1) 11/28/16 05:35 Chloride 98 mEq/L (98-107) 11/28/16 05:35 Carbon Dioxide 22.8 mEq/L (21.0-31.0) 11/28/16 05:35 Anion Gap 12.9 (7.0-16.0) 11/28/16 05:35 BUN 18 mg/dL (7-25) 11/28/16 05:35 Creatinine 0.8 mg/dL (0.7-1.3) 11/28/16 05:35 Est GFR ( Amer) TNP 11/28/16 05:35 Est GFR (Non-Af Amer) TNP 11/28/16 05:35 BUN/Creatinine Ratio 22.5 11/28/16 05:35 Glucose 90 mg/dL (70-105) 11/28/16 05:35 POC Glucose 118 MG/DL (70 - 105) H 11/28/16 12:02 Calcium 9.6 mg/dL (8.6-10.3) 11/28/16 05:35 Magnesium 1.9 mg/dL (1.9-2.7) 11/28/16 05:35 Total Bilirubin 1.7 mg/dL (0.3-1.0) H 11/28/16 05:35 AST 25 U/L (13-39) 11/28/16 05:35 ALT 9 U/L (7-52) 11/28/16 05:35 Alkaline Phosphatase 94 U/L (34-104) 11/28/16 05:35 Ammonia 45 umol/L (16-53) 11/28/16 05:35 Troponin I 0.01 ng/mL (0.01-0.05) 11/26/16 15:25 B-Natriuretic Peptide 28.5 pg/mL (5.0-100.0) 11/28/16 05:35 Total Protein 8.1 gm/dL (6.0-8.3) 11/28/16 05:35 Albumin 3.9 gm/dL (4.2-5.5) L 11/28/16 05:35 Globulin 4.2 gm/dL 11/28/16 05:35 Albumin/Globulin Ratio 0.9 (1.0-1.8) L 11/28/16 05:35 Triglycerides 198 mg/dL (<150) H 11/26/16 15:25 Cholesterol 141 mg/dL (<200) 11/26/16 15:25 LDL Cholesterol Direct 85 mg/dL (75-193) 11/26/16 15:25 HDL Cholesterol 38 mg/dL (23-92) 11/26/16 15:25 TSH 0.99 uIU/ml (0.34-5.60) 11/26/16 15:25 RPR NONREACTIVE (NONREACTIVE) 11/26/16 15:25 - Physical Exam Vitals and I&O: Vital Signs Temp 97.7 F 11/28/16 11:50 Pulse 51 11/28/16 11:50 Resp 16 11/28/16 11:50 BP 146/76 11/28/16 11:50 Pulse Ox 97 11/28/16 11:50 Intake & Output 11/27/16 11/28/16 11/28/16 18:59 06:59 18:59 Intake Total 1600 1000 Balance 1600 1000 Weight (lbs) 137 lb 1.6 oz 150 lb 6.4 oz Intake: Intake, IV Amount 1000 1000 Sodium Chloride 0.45% 1, 1000 1000 000 ml @ 80 mls/hr IV . [id number] [facility] Rx#:[id number] Other 600 Other: # Voids 3 4 # Bowel Movements 0 Active Medications: Current Medications Acetaminophen (Tylenol) 650 mg GT Q8H PRN PRN Reason: PAIN/TEMP>101 Stop: 01/25/17 19:17 Acetaminophen (Tylenol) 650 mg PO Q4H PRN PRN Reason: Pain Or Fever above 101 Stop: 01/25/17 19:20 Acetaminophen/Hydrocodone Bitart ([place] 5mg/325mg) 1 tab PO Q4H PRN PRN Reason: Pain (Severe) Stop: 01/25/17 19:20 Albuterol Sulfate (Albuterol 2.5mg/3ml Neb Ud) 2.5 mg HHN QIDRT [facility] Stop: 01/27/17 10:59 Albuterol Sulfate (Albuterol 2.5mg/3ml Neb Ud) 2.5 mg HHN Q2HRT PRN PRN Reason: Shortness of Breath or Wheeze Stop: 01/25/17 19:20 Ascorbic Acid (Vitamin C) 500 mg GT DAILY [facility] Stop: 01/26/17 08:59 Last Admin: 11/28/16 08:52 Dose: 500 mg Bisacodyl (Dulcolax 10 Mg Supp) 10 mg RC DAILY PRN PRN Reason: Constipation Stop: 01/25/17 19:17 Carbidopa/Levodopa (Sinemet 25mg-100 Mg) 2 tab GT BID [facility] Stop: 01/26/17 08:59 Last Admin: 11/28/16 08:51 Dose: 2 tab Donepezil HCl (Aricept) 10 mg GT HS [facility] Stop: 01/25/17 20:59 Last Admin: 11/27/16 21:55 Dose: 10 mg Famotidine (Pepcid) 20 mg GT Q12H [facility] Stop: 01/25/17 19:29 Last Admin: 11/28/16 06:36 Dose: 20 mg Ferrous Sulfate (Iron) 440 mg GT DAILY [facility] Stop: 01/26/17 08:59 Last Admin: 11/28/16 08:51 Dose: 440 mg Guaifenesin (Robitussin) 200 mg GT Q4H PRN PRN Reason: CoughING Stop: 01/26/17 09:29 Heparin Sodium (Porcine) (Heparin) 5,000 units SUBQ Q12HR [facility] Stop: 01/26/17 20:59 Last Admin: 11/28/16 08:47 Dose: 5,000 units Sodium Chloride (Nacl 0.45%) 1,000 mls @ 80 mls/hr IV .[id number] [facility] Stop: 01/25/17 19:29 Last Admin: 11/28/16 11:53 Dose: 80 mls/hr Insulin Aspart (Novolog Insulin Sliding Scale) 0 units SUBQ Q6HR [facility] PRN Reason: Protocol Stop: 01/26/17 11:59 Last Admin: 11/28/16 12:02 Dose: Not Given Ipratropium [place] (Atrovent Neb 0.5mg/2.5ml) 0.5 mg HHN QIDRT [facility] Stop: 01/27/17 10:59 Ipratropium [place] (Atrovent Neb 0.5mg/2.5ml) 0.5 mg HHN Q2HRT PRN PRN Reason: Shortness of Breath or Wheeze Stop: 01/25/17 19:20 Lactobacillus Rhamnosus (Culturelle) 2 each GT TID [facility] Stop: 01/25/17 20:59 Last Admin: 11/28/16 09:11 Dose: 2 each Loperamide HCl (Imodium 1mg/5ml Suspension) 2 mg GT Q4H PRN PRN Reason: Diarrhea Magnesium Hydroxide (Milk Of Magnesia) 30 ml GT DAILY PRN PRN Reason: Constipation Stop: 01/25/17 19:17 Metoprolol Tartrate (Lopressor) 100 mg GT Q12H [facility] Stop: 01/25/17 19:29 Last Admin: 11/28/16 06:34 Dose: 100 mg Metronidazole (Flagyl) 250 mg PO TID [facility] Stop: 01/25/17 20:59 Last Admin: 11/28/16 08:51 Dose: 250 mg Miscellaneous (Vte Chemical Prophylaxis Screen/ Admission) 1 ea MC PRN PRN PRN Reason: PROTOCOL Stop: 01/26/17 11:32 Ondansetron HCl (Zofran) 4 mg IV Q8H PRN PRN Reason: Nausea / Vomiting Stop: 01/25/17 19:20 Oxybutynin Chloride (Ditropan) 5 mg GT Q12H [facility] Stop: 01/25/17 19:29 Last Admin: 11/28/16 06:36 Dose: 5 mg Timolol Maleate (Timoptic 0.5% [facility]) 1 drop EACH EYE BID [facility] Stop: 01/26/17 08:59 Last Admin: 11/28/16 08:51 Dose: 1 drop General: weak, alert HEENT: NC/AT, PERRLA Neck: Supple Lungs: CTAB Cardiovascular: RRR, Normal S1, Normal S2, without murmur Abdomen: soft, non-tender, non-distended, +GT Extremities: excoriation Neurological: alert - Procedures Procedures: Procedures Procedure Code Date BLOOD TRANSFUSION SERVICE 01431 02/17/13 CHANGE FEEDING DEVICE IN UP INTEST TRACT, TIRE MANAGER APPROACH [id number] 10/03/16 CHANGE GASTROSTOMY TUBE 10448 10/03/[address] GASTROSTOMY TUBE 55383 03/07/14 EMERGENCY DEPT VISIT 23372 06/07/11 FREEING OF BOWEL ADHESION 67069 01/08/13 INJECT ANTICOAGULANT 99.19 06/07/11 OTH LYSIS-PERITONEAL ADHES 54.59 01/08/13 OTHER ENDOSCOPY OF SM INTEST 45.13 03/07/14 PACKED CELL TRANSFUSION 99.04 02/17/13 PRP I/LINDSAY INIT REDUC >5 YR 40086 01/08/13 REPLACE GASTROSTOMY TUBE 97.02 03/07/14 UNILAT ING LINDSAY REP NOS 53.00 01/08/13 Internal Medicine Assmt/Plan - Assessment Assessment: vomiting diarrhea dehydratioN hyponatremia protein calorie malnutrition htn dm2 parkinson's dementia - Plan Plan: continue gtf discharge planning once patient tolerates feeding am labs
[2016-11-30 05:11] LABS: FOLIC ACID >20.0 ng/mL (>3.0)
--- NOTE | 2016-12-07 20:34 | Discharge Summary ---
DATE OF DISCHARGE: 11/28/[address] Nikhil Patel. DISCHARGE DIAGNOSES: Vomiting, resolved; diarrhea, resolved; dehydration, resolved; hyponatremia; protein-calorie malnutrition; hypertension; diabetes, and Parkinson's dementia. HISTORY OF PRESENT ILLNESS: This is an 81-year-old male resident of [facility] who was brought to [facility] for 1-day history of diarrhea. The patient does not have any fevers or any chills at the nursing facility. PHYSICAL EXAMINATION: GENERAL: The patient is well developed, well nourished, no acute distress. VITAL SIGNS: Stable. HEENT: Head is normocephalic and atraumatic. NECK: Supple. No mass. LUNGS: Clear bilaterally. HEART: Regular rate and rhythm. ABDOMEN: Soft and nontender. HOSPITAL COURSE: During the hospital stay, the patient was admitted to the med/surg unit. The patient was on IV fluids for hydration. We collected stool for C. difficile and also stool cultures as well. The patient was kept on the empiric IV antibiotics. The patient was negative for C. diff. Stool cultures were negative as well. For this reason, the patient is stable for discharge. CONDITION UPON DISCHARGE: Fair. [facility]# [id number]
== END 2016-11-28 18:30 | disposition home or self-care (01) | DRG 641 ==
LOC: ER 14:58 → MSI 16:42
PROVIDERS: ADMIT Internal Medicine; ATTEND Internal Medicine
DX: E87.1 Hypo-osmolality and hyponatremia (principal); E86.0 Dehydration; E44.0 Moderate protein-calorie malnutrition; G20 Parkinson's disease; F03.90 Unspecified dementia, unspecified severity, without behavioral disturbance, psychotic disturbance, mood disturbance, and anxiety; Z93.1 Gastrostomy status; I10 Essential (primary) hypertension; E11.9 Type 2 diabetes mellitus without complications; R11.10 Vomiting, unspecified; R19.7 Diarrhea, unspecified; Z68.22 Body mass index [BMI] 22.0-22.9, adult; Z88.8 Allergy status to other drugs, medicaments and biological substances
CPT/HCPCS: 36415-UA; 71010-TC; 80053-TC; 80061-TC; 82140-TC; 82607-90; 82746-90; 82948-90; 83735-TC; 83880-TC; 84443-TC; 84484-TC; 85025-TC; 85610-TC; 85730-TC; 86592-TC; 87230-TC; 93005; 94760; J1644; J1815; J7030; Z7610

== ENCOUNTER 2017-01-13 18:23 | Inpatient (IN) | payer MEDICARE, OTHER ==
--- NOTE | 2017-01-13 18:40 | ED Physician Chart ---
ED Chief Complaint/HPI - Patient Information Date Seen:: 01/13/17 Time Seen:: 18:26 Chief Complaint:: Pt is here for G-tube replacement. History of Present Illness:: Brought in by ambulance from nursing facility because pt's G-tube was pulled out accidentally. A [place] catheter was already inserted to keep stoma open. Pt appears to be comfortable and is in no distress. Pt has h/o dementia and is essentially nonverbal. H & P are limited because pt is not cooperative. Info is primarily from review of limited transfer documents. Allergies:: Allergies Allergy/AdvReac Type Severity Reaction Status Date / Time piperacillin Allergy Verified 09/10/16 13:25 tazobactam Allergy Verified 09/10/16 13:26 Vitals:: see Nurse Note. Historian:: Medical Records (from transferring facility) Family MD/PCP:: Dr. Ham Ocampo LMP:: N/A Review:: Nurse's Note Reviewed, Transfer documents Reviewed ED Review of Systems - Review of Systems General/Constitutional: Other (Pt does not cooperate for ROS.) ED Past Medical History - Past Medical History Past Medical History: HTN, DM, Asthma/COPD, PUD/GERD, Dementia, Other (Parkinson 's Disease.) Family History: Other (Pt does not cooperate to provide info on FHx.) Social History: Care Facility, Other (Pt does not cooperate to provide info on SHx.) Surgical History: other (Pt does not cooperate to provide info on Surgical Hx.) Psychiatricy History: Dementia Medication: Reviewed Family Medical History - Family Member Father History Unknown: Yes Ethnicity: Living Status: Unknown Hx Family Cancer: No Hx Family Coronary Artery Disease: No Hx Family Congestive Heart Failure: No Hx Family Hypertension: No Hx Family Stroke: No Hx Family Diabetes: No Hx Family Seizures: No Hx Family Dementia: No Hx Family AIDS: No Hx Family HIV: No Hx Family COPD: No Hx Family Hepatitis: No Hx Family Psychiatric Problems: No Hx Family Tuberculosis: No ED Physical Exam - Physical Examination General/Constitutional: Awake, Well-developed, well-nourished, Alert, No distress Other Gen/Cons comments:: Breathes comfortably, responds to tactile stimuli. Pt is essentially nonverbal. Head: Atraumatic Eyes: Lids, conjuctiva normal, PERRL, EOMI Skin: No ecchymosis, No lymphadenopathy ENMT: External ears, nose nl, Nasal exam nl, Oropharynx nl Other ENMT comments:: Mucous membrane appears to be dry. Neck: Nontender, Full ROM w/o pain, No JVD, No nuchal rigidity, No mass, No stridor Respiratory: Nl effort/Exclusion, Clear to Auscultation, No Wheeze/Rhonchi/Rales Cardio Vascular: RRR, No murmur, gallop, rubs GI: No tenderness/rebounding/guarding, No organomegaly, No hernia, Normal BS's, Nondistended, No mass/bruits Other GI comments:: A catheter is in place in epigastric region with clean dressing. Stoma appears to be clean without erythema or exudate. No bleeding. Extremities: No edema Other Extremities comments:: There is mild erythema in R groin area without swelling or open wound. No red steaking. Other Neuro/Psych comments:: Alert and responsive to voice and tactile stimuli. Spontaneous movements noticed in all 4 extremities. Pt does not cooperate for full neurological exam. ED Labs/Radiology/EKG Results - Lab Results Results: Laboratory Tests 01/13/17 01/13/17 01/13/17 18:50 19:13 19:13 WBC 21.0 H* D RBC 4.30 Hgb 13.2 Hct 39.9 L MCV 92.6 MCH 30.6 MCHC Differential 33.0 RDW 16.7 Plt Count 258 D MPV 14.2 Band Neutrophils % 1 Neutrophils (Manual) 79 Lymphocytes 15 L Monocytes 4 Platelet Estimate ADEQUATE PT 10.3 INR 0.99 PTT (Actin FS) 22.9 L Sodium Potassium Chloride Carbon Dioxide Anion Gap BUN Creatinine Est GFR ( Amer) Est GFR (Non-Af Amer) BUN/Creatinine Ratio Glucose POC Glucose 116 H Whole Bld Lactic Acid Calcium Total Bilirubin AST ALT Alkaline Phosphatase Total Protein Albumin Globulin Albumin/Globulin Ratio Urine Source Urine Color Urine Clarity Urine pH Ur Specific [place] Urine Protein Urine Glucose (UA) Urine Ketones Urine Blood Urine Nitrate Urine Bilirubin Urine Urobilinogen Ur Leukocyte Esterase Urine RBC Urine WBC Ur Epithelial Cells Urine Bacteria Urine Yeast 01/13/17 01/13/17 01/13/17 19:13 19:13 19:30 WBC RBC Hgb Hct MCV MCH MCHC Differential RDW Plt Count MPV Band Neutrophils % Neutrophils (Manual) Lymphocytes Monocytes Platelet Estimate PT INR PTT (Actin FS) Sodium 160 H* D Potassium 4.1 Chloride 127 H Carbon Dioxide 23.9 Anion Gap 13.2 BUN 100 H* Creatinine 1.8 H Est GFR ( Amer) TNP Est GFR (Non-Af Amer) TNP BUN/Creatinine Ratio 55.6 Glucose 114 POC Glucose Whole Bld Lactic Acid 3.09 H* Calcium 10.7 H Total Bilirubin 0.3 AST 24 ALT 4 L Alkaline Phosphatase 121 H Total Protein 9.3 H Albumin 3.1 L Globulin 6.2 Albumin/Globulin Ratio 0.5 L Urine Source [place] Urine Color YELLOW Urine Clarity HAZY Urine pH 5.5 Ur Specific [place] 1.015 Urine Protein TRACE Urine Glucose (UA) NEGATIVE Urine Ketones NEGATIVE Urine Blood NEGATIVE Urine Nitrate NEGATIVE Urine Bilirubin NEGATIVE Urine Urobilinogen 0.2 Ur Leukocyte Esterase SMALL H Urine RBC NONE SEEN Urine WBC 2-5 H Ur Epithelial Cells OCCASIONAL Urine Bacteria FEW Urine Yeast MANY H ED Septic Shock - . Is Septic Shock (SBP<90, OR Lactate>4 mmol\L) present?: No ED Reassessment (Disposition) - Reassessment Reassessment:: 2009 Pt has been repeatedly evaluated. Pt has been receiving IV hydration. Pt is now more awake and responsive. Lab results just became available and have been reviewed. Pt is to be given antibiotic therapy with Levaquin. Admitting physician is to be contacted. 2047 Pt remains stable. Case was discussed with Dr. Patel with pertinent H & P , and lab findings reviewed. He concurred with present management. Pt is to be admitted to Tele[facility] under his care. Reassessment Condition:: Improved - Diagnosis Diagnosis:: Early cellulitis of R groin region. Dehydration with hypernatremia and renal insufficiency. Diabetes mellitus G-tube dislodgement. Yeast noticed in urinalysis of unknown significance. Dementia - Patient Disposition Admitted to:: Telemetry Admitting Medical Physician:: Nikhil Patel Time:: 20:49 Condition at Disposition:: Stable, Improved ED Discharge Plan - Patient Disposition Admit/Discharge/Transfer: Acute Care w/in this hosp
[2017-01-13] MEDS ORDERED: Sodium Chloride 0.9% 1,000 ML IV ONE ×2 (18:51)
[2017-01-13 19:23] LABS: EOSINOPHILE ABSOLUTE 0.3 Th/cmm (0.1-0.4); HEMATOCRIT 39.9 % (41.0-60); HEMOGLOBIN 13.2 gm/dL (12-16); MANUAL DIFF REQUIRED? YES; MEAN CELL VOLUME 92.6 fl (80-99); MEAN CORPUSCULAR HEMOGLOBIN 30.6 pg (27.0-31.0); MEAN PLATELET VOLUME 14.2 fl; MONOCYTE ABSOLUTE 0.9 Th/cmm (0.3-1.0); NEUTROPHILE ABSOLUTE 17.8 Th/cmm (1.8-8.0); RED CELL DISTRIBUTION WIDTH 16.7 % (11.5-20.0)
[2017-01-13 19:25] LABS: PLATELET COUNT 258 Th/cmm (150-400)
[2017-01-13 19:31] LABS: URINE BILIRUBIN NEGATIVE (NEGATIVE); URINE BLOOD NEGATIVE (NEGATIVE); URINE GLUCOSE (UA) NEGATIVE (NEGATIVE); URINE KETONE NEGATIVE (NEGATIVE); URINE LEUKOCYTE ESTERASE SMALL (NEGATIVE); URINE MICROSCOPIC INDICATED? YES; URINE NITRATE NEGATIVE (NEGATIVE); URINE PH 5.5 (4.6 - 8.0); URINE PROTEIN TRACE mg/dL (NEGATIVE); URINE SOURCE FOLEY PORT; URINE UROBILINOGEN 0.2 E.U./dL (0.2 - 1.0)
[2017-01-13 19:31] LABS: INR 0.99 (0.5-1.4); PROTHROMBIN TIME (TEST) 10.3 SECONDS (9.5-11.5)
[2017-01-13 19:35] LABS: ALB/GLOB RATIO 0.5 (1.0-1.8); ALBUMIN 3.1 gm/dL (4.2-5.5); ALKALINE PHOSPHATASE 121 U/L (34-104); ANION GAP 13.2 (7.0-16.0); BILIRUBIN,TOTAL 0.3 mg/dL (0.3-1.0); CALCIUM SERUM 10.7 mg/dL (8.6-10.3); CARBON DIOXIDE 23.9 mEq/L (21.0-31.0); CHLORIDE 127 mEq/L (98-107); CREATININE - SERUM 1.8 mg/dL (0.7-1.3); GLUCOSE 114 mg/dL; POTASSIUM SERUM 4.1 mEq/L (3.5-5.1); SGOT 24 U/L (13-39); SGPT/ALT 4 U/L (7-52); TOTAL PROTEIN,SERUM 9.3 gm/dL (6.0-8.3)
[2017-01-13 19:49] LABS: URINE CLARITY HAZY (CLEAR); URINE COLOR YELLOW; URINE RBC NONE SEEN /hpf (0-5)
[2017-01-13 19:50] LABS: URINE BACTERIA FEW /hpf (NONE SEEN); URINE EPITHELIAL CELLS OCCASIONAL /lpf (FEW); URINE YEAST MANY /hpf (NONE SEEN)
[2017-01-13 19:54] LABS: SODIUM SERUM 160 mEq/L (136-145)
[2017-01-13 19:55] LABS: BUN - UREA NITROGEN 100 mg/dL (7-25)
[2017-01-13 20:07] LABS: BAND NEUTROPHILE 1 % (0-10); LYMPHOCYTE 15 % (20-50); MONOCYTE 4 % (2-10); NEUTROPHILS 79 % (40-80); PLATELET ESTIMATE ADEQUATE (NORMAL)
[2017-01-13] MEDS ORDERED: Levofloxacin 500mg/100mL 500 MG/100 ML BAG IV ONE ×4 (20:23→20:52)
[2017-01-13] MEDS ORDERED: Maalox 30 mL Cup GT PRN ×2 (20:52)
[2017-01-13] MEDS ORDERED: Magnesium Hydroxide (MOM) 30 mL UDC GT PRN ×2 (20:52)
[2017-01-13] MEDS ORDERED: Hydrocodone/APAP 5mg/325mg Tab PO PRN ×2 (20:55)
[2017-01-13] MEDS: Sodium Chloride 0.45% 1,000 ML IV SCH ×2 (23:17)
[2017-01-13] MEDS: Insulin Detemir 100 units/mL 10mL Vial SUBQ SCH ×2 (23:32)
[2017-01-13 23:53] VITALS: BP 102/54
--- NOTE | 2017-01-14 00:57 | History & Physical ---
ADMIT DATE: 01/13/2017 CHIEF COMPLAINT: Fever and G-tube came out per the nursing staff. HISTORY OF PRESENT ILLNESS: This is a 81-year-old male well known to my service, recently discharged from long-term acute care with multiple medical problems including dysphagia with G-tube, malnutrition, diabetes, Parkinson's, dementia, hypertension, decubitus ulcer, was admitted per nursing facility secondary to reported low-grade fever, recent G-tube came out and unable to be put back by the nursing staff. There is no Miranda catheter in place. The patient was evaluated in the ER by ____, noted the patient to have elevated white count and lactic acid and low-grade fever. The patient admitted for further management. PAST MEDICAL HISTORY: As mentioned in history present illness. PAST SURGICAL HISTORY: Status post G-tube. ALLERGIES: ZOSYN. MEDICATIONS: Insulin, metformin, Tylenol, amino acid, ascorbic acid, Sinemet, Nexium, glipizide, Lantus, albuterol, Atrovent, oxybutynin, zinc. FAMILY HISTORY: Noncontributory. SOCIAL HISTORY: The patient is a senior living patient requiring 24-hour total care. REVIEW OF SYSTEMS: This is limited secondary to the patient's current mental state. We will try to obtain more detailed review of system at a later date by talking to family members as well as from nursing staff from [facility] at [phone]. PHYSICAL EXAMINATION: VITAL SIGNS: Blood pressure 123/66, respiration 20, pulse 96, temperature 99.6. GENERAL: Elderly male, appears stated age, appears chronically ill. NECK: Supple. No mass. LUNGS: Equal breath sounds, few rhonchi. HEART: Regular rate and rhythm without systolic ejection murmur. ABDOMEN: Soft, globular. EXTREMITIES: Positive excoriations. NEUROLOGIC: Limited, moving all 4 extremities. LABORATORY DATA: WBC 21, hemoglobin 13, platelets 258. Sodium 160, potassium 4.1, BUN 100, creatinine 1.8. Lactic acid 3.09. Calcium 10.7, albumin 3.1. UA, 5 WBC, many yeast. ASSESSMENT: Fever, sepsis, lactic acidosis, leukocytosis, malfunction G-tube, acute hypernatremia, acute renal failure, moderate protein-calorie malnutrition, candiduria, diabetes, Parkinson's, dementia, hypertension, and decubitus ulceration. PLAN: We will continue the patient on oxygen and bronchodilator treatments, continue Lantus insulin sliding scale. We will start the patient on Maxipime as well as IV hydration. We will follow the patient's urine C and S as well as blood culture. We will admit the patient to telemetry. The patient's condition is guarded. JOB# [id number]
--- NOTE | 2017-01-14 00:57 | History & Physical ---
ADMIT DATE: 01/13/2017 CHIEF COMPLAINT: Fever and G-tube came out per the nursing staff. HISTORY OF PRESENT ILLNESS: This is a 81-year-old male well known to my service, recently discharged from long-term acute care with multiple medical problems including dysphagia with G-tube, malnutrition, diabetes, Parkinson's, dementia, hypertension, decubitus ulcer, was admitted per nursing facility secondary to reported low-grade fever, recent G-tube came out and unable to be put back by the nursing staff. There is no Miranda catheter in place. The patient was evaluated in the ER by ____, noted the patient to have elevated white count and lactic acid and low-grade fever. The patient admitted for further management. PAST MEDICAL HISTORY: As mentioned in history present illness. PAST SURGICAL HISTORY: Status post G-tube. ALLERGIES: ZOSYN. MEDICATIONS: Insulin, metformin, Tylenol, amino acid, ascorbic acid, Sinemet, Nexium, glipizide, Lantus, albuterol, Atrovent, oxybutynin, zinc. FAMILY HISTORY: Noncontributory. SOCIAL HISTORY: The patient is a fdc patient requiring 24-hour total care. REVIEW OF SYSTEMS: This is limited secondary to the patient's current mental state. We will try to obtain more detailed review of system at a later date by talking to family members as well as from nursing staff from [facility] at [phone]. PHYSICAL EXAMINATION: VITAL SIGNS: Blood pressure 123/66, respiration 20, pulse 96, temperature 99.6. GENERAL: Elderly male, appears stated age, appears chronically ill. NECK: Supple. No mass. LUNGS: Equal breath sounds, few rhonchi. HEART: Regular rate and rhythm without systolic ejection murmur. ABDOMEN: Soft, globular. EXTREMITIES: Positive excoriations. NEUROLOGIC: Limited, moving all 4 extremities. LABORATORY DATA: WBC 21, hemoglobin 13, platelets 258. Sodium 160, potassium 4.1, BUN 100, creatinine 1.8. Lactic acid 3.09. Calcium 10.7, albumin 3.1. UA, 5 WBC, many yeast. ASSESSMENT: Fever, sepsis, lactic acidosis, leukocytosis, malfunction G-tube, acute hypernatremia, acute renal failure, moderate protein-calorie malnutrition, candiduria, diabetes, Parkinson's, dementia, hypertension, and decubitus ulceration. PLAN: We will continue the patient on oxygen and bronchodilator treatments, continue Lantus insulin sliding scale. We will start the patient on Maxipime as well as IV hydration. We will follow the patient's urine C and S as well as blood culture. We will admit the patient to telemetry. The patient's condition is guarded. JOB# [id number]
[2017-01-14 06:37] LABS: ANION GAP 12.5 (7.0-16.0); CALCIUM SERUM 10.2 mg/dL (8.6-10.3); CARBON DIOXIDE 21.7 mEq/L (21.0-31.0); CHLORIDE 129 mEq/L (98-107); CREATININE - SERUM 2.2 mg/dL (0.7-1.3); GLUCOSE 105 mg/dL; POTASSIUM SERUM 4.2 mEq/L (3.5-5.1)
[2017-01-14 06:39] LABS: % BASOPHILS 0.4 % (0.0-2.0); % EOSINOPHILS 1.5 % (0.0-5.0); % LYMPHOCYTES 10.3 % (20.0-50.0); % MONOCYTES 4.9 % (2.0-10.0); % NEUTROPHILS 82.9 % (40.0-80.0); BASOPHILE ABSOLUTE 0.1 Th/cumm (0-0.2); EOSINOPHILE ABSOLUTE 0.3 Th/cmm (0.1-0.4); HEMOGLOBIN 11.7 gm/dL (12-16); LYMPHOCYTE ABSOLUTE 1.7 Th/cmm (1.5-3.0); MEAN CELL VOLUME 93.5 fl (80-99); MEAN CORPUSCULAR HEMOGLOBIN 30.3 pg (27.0-31.0); MEAN CORPUSCULAR HGB CONC 32.5 pg (28.0-36.0); MEAN PLATELET VOLUME 11.6 fl; MONOCYTE ABSOLUTE 0.8 Th/cmm (0.3-1.0); PLATELET COUNT 121 Th/cmm (150-400); RED BLOOD COUNT 3.86 Mil/cmm (3.80-5.80)
[2017-01-14] MEDS: Albuterol Nebulizer 2.5mg/3mL HHN SCH ×8 (06:39→19:31)
[2017-01-14 06:48] LABS: WHITE BLOOD COUNT 16.9 Th/cmm (4.8-10.8)
[2017-01-14] MEDS ORDERED: Ipratropium Neb 0.5 mg/2.5 mL UD IH SCH ×2 (07:00)
[2017-01-14 07:17] LABS: BUN - UREA NITROGEN 108 mg/dL (7-25); SODIUM SERUM 159 mEq/L (136-145)
[2017-01-14 07:38] LABS: BNP 20.2 pg/mL (5.0-100.0)
[2017-01-14] MEDS ORDERED: [UNRECOGNIZED DRUG - OTHER] GT SCH ×2 (09:00)
[2017-01-14] MEDS ORDERED: Non-Formulary Item 1 EA (Amino Acids/Protein Hydrolys [Pro-Stat Sugar Free Liquid] 30 ML) GT SCH ×2 (09:00)
[2017-01-14] MEDS: Ascorbic Acid 500 mg/5 mL UDC GT SCH ×2 (09:07)
[2017-01-14] MEDS: Multivitamin w/ Minerals Tab GT SCH ×2 (09:08)
[2017-01-14] MEDS: Pantoprazole 40 mg/Packet GT SCH ×2 (09:09)
[2017-01-14] MEDS ORDERED: Diatrizoate Meglumine/Diatri 30 mL Sol PO ONE ×2 (10:40)
[2017-01-14] MEDS: Ipratropium Neb 0.5 mg/2.5 mL UD HHN SCH ×6 (10:50→19:31)
[2017-01-14] MEDS ORDERED: Albuterol Nebulizer 2.5mg/3mL HHN SCH ×2 (11:00)
[2017-01-14] MEDS: Sodium Chloride 0.45% 1,000 ML IV SCH ×4 (11:03→22:29)
[2017-01-14] MEDS: Insulin Detemir 100 units/mL 10mL Vial SUBQ SCH ×4 (11:23→22:34)
--- NOTE | 2017-01-14 11:24 | Diagnostic Imaging Report ---
Upper GI (Limited) HISTORY: Gastrostomy tube placement Water-soluble contrast was instilled through the patient's gastrostomy tube. The exam demonstrates opacification of the gastric lumen. Flow contrast into the small bowel. IMPRESSION: 1. Confirmation of gastrostomy tube within the gastric lumen.
--- NOTE | 2017-01-14 12:49 | Internal Medicine Prog Note ---
Internal Medicine Subjective - Subjective Service Date: 01/14/17 Patient seen and examined:: with staff Patient is:: awake, confused Per staff patient has:: tolerating meds Internal Medicine Objective - Results Result Diagrams: 01/14/17 05:50 01/14/17 05:50 Recent Labs: Laboratory Last Values WBC 16.9 Th/cmm (4.8-10.8) H 01/14/17 05:50 RBC 3.86 Mil/cmm (3.80-5.80) 01/14/17 05:50 Hgb 11.7 gm/dL (12-16) L 01/14/17 05:50 Hct 36.0 % (41.0-60) L 01/14/17 05:50 MCV 93.5 fl (80-99) 01/14/17 05:50 MCH 30.3 pg (27.0-31.0) 01/14/17 05:50 MCHC Differential 32.5 pg (28.0-36.0) 01/14/17 05:50 RDW 17.0 % (11.5-20.0) 01/14/17 05:50 Plt Count 121 Th/cmm (150-400) L D 01/14/17 05:50 MPV 11.6 fl 01/14/17 05:50 Neutrophils % 82.9 % (40.0-80.0) H 01/14/17 05:50 Band Neutrophils % 1 % (0-10) 01/13/17 19:13 Lymphocytes % 10.3 % (20.0-50.0) L 01/14/17 05:50 Monocytes % 4.9 % (2.0-10.0) 01/14/17 05:50 Eosinophils % 1.5 % (0.0-5.0) 01/14/17 05:50 Basophils % 0.4 % (0.0-2.0) 01/14/17 05:50 Neutrophils (Manual) 79 % (40-80) 01/13/17 19:13 Lymphocytes 15 % (20-50) L 01/13/17 19:13 Monocytes 4 % (2-10) 01/13/17 19:13 Platelet Estimate ADEQUATE (NORMAL) 01/13/17 19:13 PT 10.3 SECONDS (9.5-11.5) 01/13/17 19:13 INR 0.99 (0.5-1.4) 01/13/17 19:13 PTT (Actin FS) 22.9 SECONDS (26.0-38.0) L 01/13/17 19:13 Sodium 159 mEq/L (136-145) H* 01/14/17 05:50 Potassium 4.2 mEq/L (3.5-5.1) 01/14/17 05:50 Chloride 129 mEq/L (98-107) H 01/14/17 05:50 Carbon Dioxide 21.7 mEq/L (21.0-31.0) 01/14/17 05:50 Anion Gap 12.5 (7.0-16.0) 01/14/17 05:50 BUN 108 mg/dL (7-25) H* 01/14/17 05:50 Creatinine 2.2 mg/dL (0.7-1.3) H 01/14/17 05:50 Est GFR ( Amer) TNP 01/14/17 05:50 Est GFR (Non-Af Amer) TNP 01/14/17 05:50 BUN/Creatinine Ratio 49.1 01/14/17 05:50 Glucose 105 mg/dL 01/14/17 05:50 POC Glucose 113 MG/DL (70 - 105) H 01/14/17 09:40 Hemoglobin A1c % 8.0 % (4.0-6.0) H D 01/14/17 05:50 Whole Bld Lactic Acid 2.94 mmol/L (0.60-1.99) H* 01/13/17 21:34 Calcium 10.2 mg/dL (8.6-10.3) 01/14/17 05:50 Total Bilirubin 0.3 mg/dL (0.3-1.0) 01/13/17 19:13 AST 24 U/L (13-39) 01/13/17 19:13 ALT 4 U/L (7-52) L 01/13/17 19:13 Alkaline Phosphatase 121 U/L (34-104) H 01/13/17 19:13 Ammonia 52 umol/L (16-53) 01/14/17 05:50 B-Natriuretic Peptide 20.2 pg/mL (5.0-100.0) 01/14/17 05:50 Total Protein 9.3 gm/dL (6.0-8.3) H 01/13/17 19:13 Albumin 3.1 gm/dL (4.2-5.5) L 01/13/17 19:13 Globulin 6.2 gm/dL 01/13/17 19:13 Albumin/Globulin Ratio 0.5 (1.0-1.8) L 01/13/17 19:13 TSH 1.45 uIU/ml (0.34-5.60) 01/14/17 05:50 Urine Source [place] 01/13/17 19:30 Urine Color YELLOW 01/13/17 19:30 Urine Clarity HAZY (CLEAR) 01/13/17 19:30 Urine pH 5.5 (4.6 - 8.0) 01/13/17 19:30 Ur Specific [place] 1.015 (1.005-1.030) 01/13/17 19:30 Urine Protein TRACE mg/dL (NEGATIVE) 01/13/17 19:30 Urine Glucose (UA) NEGATIVE mg/dL (NEGATIVE) 01/13/17 19:30 Urine Ketones NEGATIVE mg/dL (NEGATIVE) 01/13/17 19:30 Urine Blood NEGATIVE (NEGATIVE) 01/13/17 19:30 Urine Nitrate NEGATIVE (NEGATIVE) 01/13/17 19:30 Urine Bilirubin NEGATIVE (NEGATIVE) 01/13/17 19:30 Urine Urobilinogen 0.2 E.U./dL (0.2 - 1.0) 01/13/17 19:30 Ur Leukocyte Esterase SMALL (NEGATIVE) H 01/13/17 19:30 Urine RBC NONE SEEN /hpf (0-5) 01/13/17 19:30 Urine WBC 2-5 /hpf (0-5) H 01/13/17 19:30 Ur Epithelial Cells OCCASIONAL /lpf (FEW) 01/13/17 19:30 Urine Bacteria FEW /hpf (NONE SEEN) 01/13/17 19:30 Urine Yeast MANY /hpf (NONE SEEN) H 01/13/17 19:30 - Physical Exam Vitals and I&O: Vital Signs Temp 98.8 F 01/14/17 11:30 Pulse 82 01/14/17 11:30 Resp 18 01/14/17 11:30 BP 120/63 01/14/17 11:30 Pulse Ox 97 01/14/17 11:30 Intake & Output 01/13/17 01/14/17 01/14/17 18:59 06:59 18:59 Intake Total 1000 Output Total 250 Balance -250 1000 Weight (lbs) 144 lb Intake: Intake, IV Amount 1000 Sodium Chloride 0.45% 1, 1000 000 ml @ 100 mls/hr IV . Q10H [facility] Rx#:[id number] Output: Urine 250 Other: # Bowel Movements 0 Active Medications: Current Medications Acetaminophen (Tylenol) 650 mg GT Q8H PRN PRN Reason: PAIN/TEMP>100 Stop: 03/14/17 20:51 Acetaminophen/Hydrocodone Bitart ([place] 5mg/325mg) 1 tab PO Q4H PRN PRN Reason: Pain (Severe) Stop: 03/14/17 20:54 Al Hydrox/Mg Hydrox/Simethicone (Maalox) 30 ml GT Q3HR PRN PRN Reason: Indigestion Stop: 03/14/17 20:51 Albuterol Sulfate (Albuterol 2.5mg/3ml Neb Ud) 2.5 mg HHN QIDRT [facility] Stop: 03/15/17 06:59 Last Admin: 01/14/17 10:50 Dose: 2.5 mg Ascorbic Acid (Vitamin C) 500 mg GT DAILY [facility] Stop: 03/15/17 08:59 Last Admin: 01/14/17 09:07 Dose: Not Given Carbidopa/Levodopa (Sinemet 25mg-100 Mg) 2 tab GT BID [facility] Stop: 03/15/17 08:59 Last Admin: 01/14/17 09:07 Dose: Not Given Donepezil HCl (Aricept) 10 mg GT HS [facility] Stop: 03/14/17 20:59 Last Admin: 01/13/17 23:32 Dose: Not Given Glipizide (Glucotrol) 5 mg GT BID [facility] Stop: 03/15/17 08:59 Last Admin: 01/14/17 09:08 Dose: Not Given Heparin Sodium (Porcine) (Heparin) 5,000 units SUBQ Q12HR [facility] Stop: 03/14/17 20:59 Last Admin: 01/14/17 09:00 Dose: 5,000 units Cefepime HCl 1 gm/ Dextrose 50 mls @ 100 mls/hr IV Q24H [facility] Stop: 03/14/17 21:59 Last Admin: 01/13/17 23:22 Dose: 100 mls/hr Sodium Chloride (Nacl 0.45%) 1,000 mls @ 100 mls/hr IV .Q10H [facility] Stop: 03/14/17 20:59 Last Admin: 01/14/17 11:03 Dose: 100 mls/hr Vancomycin HCl 1.25 gm/ Sodium (Chloride) 250 mls @ 165 mls/hr IV Q24H [facility] Stop: 03/15/17 10:59 Last Admin: 01/14/17 11:01 Dose: 165 mls/hr Insulin Detemir (Levemir Insulin) 18 units SUBQ Q12H [facility] Stop: 03/14/17 20:59 Last Admin: 01/14/17 11:23 Dose: Not Given Ipratropium [place] (Atrovent Neb 0.5mg/2.5ml) 0.5 mg HHN QIDRT [facility] Stop: 03/15/17 10:59 Last Admin: 01/14/17 10:50 Dose: 0.5 mg Ipratropium [place] (Atrovent Neb 0.5mg/2.5ml) 0.5 mg IH QIDRT [facility] Stop: 03/15/17 06:59 Last Admin: 01/14/17 06:39 Dose: 0.5 mg Magnesium Hydroxide (Milk Of Magnesia) 30 ml GT DAILY PRN PRN Reason: Constipation Stop: 03/14/17 20:51 Metoprolol Tartrate (Lopressor) 100 mg GT BID [facility] Stop: 03/15/17 08:59 Last Admin: 01/14/17 09:08 Dose: Not Given Miscellaneous (Amino Acids/Protein Hydrolys [Pro-Stat Sugar Free Liquid]) 30 ml GT BID [facility] Stop: 03/15/17 08:59 Miscellaneous (Juren Powder Pake) 1 pkg GT DAILY [facility] Stop: 03/15/17 08:59 Miscellaneous (Vancomycin Iv Per Pharmacy) 1 ea MC DAILY [facility] Stop: 03/16/17 08:59 Nitroglycerin (Nitrostat) 0.4 mg SL Q5MIN PRN PRN Reason: Chest Pain Stop: 03/14/17 20:51 Ondansetron HCl (Zofran) 4 mg IV Q8H PRN PRN Reason: Nausea / Vomiting Stop: 03/14/17 20:54 Last Admin: 01/14/17 11:46 Dose: 4 mg Oxybutynin Chloride (Ditropan) 5 mg GT BID [facility] Stop: 03/15/17 08:59 Last Admin: 01/14/17 09:09 Dose: Not Given Pantoprazole Sodium (Protonix) 40 mg GT DAILY [facility] Stop: 03/15/17 08:59 Last Admin: 01/14/17 09:09 Dose: Not Given Pneumococcal Polyvalent Vaccine (Pneumovax) 0.5 ml IM .ONCE ONE Stop: 01/16/17 09:01 Timolol Maleate (Timoptic 0.5% Ophth Soln) 1 drop EACH EYE BID [facility] Stop: 03/15/17 08:59 Last Admin: 01/14/17 11:02 Dose: 1 drop Zinc Sulfate (Zinc Sulfate) 220 mg GT DAILY [facility] Stop: 03/15/17 08:59 Last Admin: 01/14/17 09:09 Dose: Not Given General: weak, alert HEENT: NC/AT, PERRLA Neck: Supple Lungs: ronchi Cardiovascular: RRR, Normal S1, Normal S2, without murmur Abdomen: soft, non-tender, non-distended, positive bowel sound Extremities: excoriation Neurological: alert - Procedures Procedures: Procedures Procedure Code Date BLOOD TRANSFUSION SERVICE 45116 02/17/13 CHANGE FEEDING DEVICE IN UP INTEST TRACT, DENTAL LABORATORY MANAGER APPROACH [id number] 10/03/16 CHANGE GASTROSTOMY TUBE 94144 10/03/[address] GASTROSTOMY TUBE 10536 03/07/14 EMERGENCY DEPT VISIT 08781 06/07/11 FREEING OF BOWEL ADHESION 90954 01/08/13 INJECT ANTICOAGULANT 99.19 06/07/11 OTH LYSIS-PERITONEAL ADHES 54.59 01/08/13 OTHER ENDOSCOPY OF SM INTEST 45.13 03/07/14 PACKED CELL TRANSFUSION 99.04 02/17/13 PRP I/LINDSAY INIT REDUC >5 YR 35414 01/08/13 REPLACE GASTROSTOMY TUBE 97.02 03/07/14 UNILAT ING LINDSAY REP NOS 53.00 01/08/13 Internal Medicine Assmt/Plan - Assessment Assessment: fever sepsis lactic acidosis leukocytosis malfunction gt acute hypernatremia acute renal failure moderate protein calorie malnutrition candiduria dm-2 parkinsons dementia htn decubitus ulcer - Plan Plan: continue ivf and iv antibiotics wound care monitor glucose am labs continue current plan of care Nutritional Asmnt/Malnutr-PDOC - Dietary Evaluation Malnutrition Findings (Please click <Entered> for more info): Nutritional Asmnt/Malnutrition Start: 01/14/17 12: 05 Text: Status: Active Freq: Document 01/14/17 12:06 KAVITA (Rec: 01/14/17 12:27 KAVITA [email or web address]) Nutritional Asmnt/Malnutrition Patient General Information Nutritional Screening High Risk Consult Diagnosis Malfunctioning G-Tube, Sepsis, Acute Renal Failure Pertinent Medical Hx/Surgical Hx Dementia, HTN, DM, Althma/COPD , PUD/GERD, Parkinson's Disease Subjective Information Pt came from SNF, admitted for G-Tube replacement. Noted pt is nonverbal. TF resumed this morning... Current Diet Order/ Nutrition Support Nutren Pulmonary start with 10ml/hr, increase to goal rate [id number] Pertinent Medications Vitamin C, Glucontrol, Levemir Insulin, Nacl 100ml/hr, Zn Pertinent Labs 01/14: Na 159H, K 4.2, Cl 129H, BUN 108H, Cr 2.2H, A1C 8.0, Ca 10.2 01/13: Alb 3.1 L POC: 113-116 (01/13-01/14) Nutritional Hx/Data Height 5 ft 8 in Height (Calculated Centimeters) 172.7 Current Weight (lbs) 144 lb Weight (Calculated Kilograms) 65.3 Weight (Calculated Grams) 41637.3 [place] Body Weight 154 % [place] Body Weight 94 Body Mass Index (BMI) 21.9 Weight Status Approriate GI Symptoms Usual diet at home [facility]oc[facility] 65ml/hr x 24hr daily
--- NOTE | 2017-01-14 12:49 | Internal Medicine Prog Note ---
Internal Medicine Subjective - Subjective Service Date: 01/14/17 Patient seen and examined:: with staff Patient is:: awake, confused Per staff patient has:: tolerating meds Internal Medicine Objective - Results Result Diagrams: 01/14/17 05:50 01/14/17 05:50 Recent Labs: Laboratory Last Values WBC 16.9 Th/cmm (4.8-10.8) H 01/14/17 05:50 RBC 3.86 Mil/cmm (3.80-5.80) 01/14/17 05:50 Hgb 11.7 gm/dL (12-16) L 01/14/17 05:50 Hct 36.0 % (41.0-60) L 01/14/17 05:50 MCV 93.5 fl (80-99) 01/14/17 05:50 MCH 30.3 pg (27.0-31.0) 01/14/17 05:50 MCHC Differential 32.5 pg (28.0-36.0) 01/14/17 05:50 RDW 17.0 % (11.5-20.0) 01/14/17 05:50 Plt Count 121 Th/cmm (150-400) L D 01/14/17 05:50 MPV 11.6 fl 01/14/17 05:50 Neutrophils % 82.9 % (40.0-80.0) H 01/14/17 05:50 Band Neutrophils % 1 % (0-10) 01/13/17 19:13 Lymphocytes % 10.3 % (20.0-50.0) L 01/14/17 05:50 Monocytes % 4.9 % (2.0-10.0) 01/14/17 05:50 Eosinophils % 1.5 % (0.0-5.0) 01/14/17 05:50 Basophils % 0.4 % (0.0-2.0) 01/14/17 05:50 Neutrophils (Manual) 79 % (40-80) 01/13/17 19:13 Lymphocytes 15 % (20-50) L 01/13/17 19:13 Monocytes 4 % (2-10) 01/13/17 19:13 Platelet Estimate ADEQUATE (NORMAL) 01/13/17 19:13 PT 10.3 SECONDS (9.5-11.5) 01/13/17 19:13 INR 0.99 (0.5-1.4) 01/13/17 19:13 PTT (Actin FS) 22.9 SECONDS (26.0-38.0) L 01/13/17 19:13 Sodium 159 mEq/L (136-145) H* 01/14/17 05:50 Potassium 4.2 mEq/L (3.5-5.1) 01/14/17 05:50 Chloride 129 mEq/L (98-107) H 01/14/17 05:50 Carbon Dioxide 21.7 mEq/L (21.0-31.0) 01/14/17 05:50 Anion Gap 12.5 (7.0-16.0) 01/14/17 05:50 BUN 108 mg/dL (7-25) H* 01/14/17 05:50 Creatinine 2.2 mg/dL (0.7-1.3) H 01/14/17 05:50 Est GFR ( Amer) TNP 01/14/17 05:50 Est GFR (Non-Af Amer) TNP 01/14/17 05:50 BUN/Creatinine Ratio 49.1 01/14/17 05:50 Glucose 105 mg/dL 01/14/17 05:50 POC Glucose 113 MG/DL (70 - 105) H 01/14/17 09:40 Hemoglobin A1c % 8.0 % (4.0-6.0) H D 01/14/17 05:50 Whole Bld Lactic Acid 2.94 mmol/L (0.60-1.99) H* 01/13/17 21:34 Calcium 10.2 mg/dL (8.6-10.3) 01/14/17 05:50 Total Bilirubin 0.3 mg/dL (0.3-1.0) 01/13/17 19:13 AST 24 U/L (13-39) 01/13/17 19:13 ALT 4 U/L (7-52) L 01/13/17 19:13 Alkaline Phosphatase 121 U/L (34-104) H 01/13/17 19:13 Ammonia 52 umol/L (16-53) 01/14/17 05:50 B-Natriuretic Peptide 20.2 pg/mL (5.0-100.0) 01/14/17 05:50 Total Protein 9.3 gm/dL (6.0-8.3) H 01/13/17 19:13 Albumin 3.1 gm/dL (4.2-5.5) L 01/13/17 19:13 Globulin 6.2 gm/dL 01/13/17 19:13 Albumin/Globulin Ratio 0.5 (1.0-1.8) L 01/13/17 19:13 TSH 1.45 uIU/ml (0.34-5.60) 01/14/17 05:50 Urine Source [place] 01/13/17 19:30 Urine Color YELLOW 01/13/17 19:30 Urine Clarity HAZY (CLEAR) 01/13/17 19:30 Urine pH 5.5 (4.6 - 8.0) 01/13/17 19:30 Ur Specific [place] 1.015 (1.005-1.030) 01/13/17 19:30 Urine Protein TRACE mg/dL (NEGATIVE) 01/13/17 19:30 Urine Glucose (UA) NEGATIVE mg/dL (NEGATIVE) 01/13/17 19:30 Urine Ketones NEGATIVE mg/dL (NEGATIVE) 01/13/17 19:30 Urine Blood NEGATIVE (NEGATIVE) 01/13/17 19:30 Urine Nitrate NEGATIVE (NEGATIVE) 01/13/17 19:30 Urine Bilirubin NEGATIVE (NEGATIVE) 01/13/17 19:30 Urine Urobilinogen 0.2 E.U./dL (0.2 - 1.0) 01/13/17 19:30 Ur Leukocyte Esterase SMALL (NEGATIVE) H 01/13/17 19:30 Urine RBC NONE SEEN /hpf (0-5) 01/13/17 19:30 Urine WBC 2-5 /hpf (0-5) H 01/13/17 19:30 Ur Epithelial Cells OCCASIONAL /lpf (FEW) 01/13/17 19:30 Urine Bacteria FEW /hpf (NONE SEEN) 01/13/17 19:30 Urine Yeast MANY /hpf (NONE SEEN) H 01/13/17 19:30 - Physical Exam Vitals and I&O: Vital Signs Temp 98.8 F 01/14/17 11:30 Pulse 82 01/14/17 11:30 Resp 18 01/14/17 11:30 BP 120/63 01/14/17 11:30 Pulse Ox 97 01/14/17 11:30 Intake & Output 01/13/17 01/14/17 01/14/17 18:59 06:59 18:59 Intake Total 1000 Output Total 250 Balance -250 1000 Weight (lbs) 144 lb Intake: Intake, IV Amount 1000 Sodium Chloride 0.45% 1, 1000 000 ml @ 100 mls/hr IV . Q10H [facility] Rx#:[id number] Output: Urine 250 Other: # Bowel Movements 0 Active Medications: Current Medications Acetaminophen (Tylenol) 650 mg GT Q8H PRN PRN Reason: PAIN/TEMP>100 Stop: 03/14/17 20:51 Acetaminophen/Hydrocodone Bitart ([place] 5mg/325mg) 1 tab PO Q4H PRN PRN Reason: Pain (Severe) Stop: 03/14/17 20:54 Al Hydrox/Mg Hydrox/Simethicone (Maalox) 30 ml GT Q3HR PRN PRN Reason: Indigestion Stop: 03/14/17 20:51 Albuterol Sulfate (Albuterol 2.5mg/3ml Neb Ud) 2.5 mg HHN QIDRT [facility] Stop: 03/15/17 06:59 Last Admin: 01/14/17 10:50 Dose: 2.5 mg Ascorbic Acid (Vitamin C) 500 mg GT DAILY [facility] Stop: 03/15/17 08:59 Last Admin: 01/14/17 09:07 Dose: Not Given Carbidopa/Levodopa (Sinemet 25mg-100 Mg) 2 tab GT BID [facility] Stop: 03/15/17 08:59 Last Admin: 01/14/17 09:07 Dose: Not Given Donepezil HCl (Aricept) 10 mg GT HS [facility] Stop: 03/14/17 20:59 Last Admin: 01/13/17 23:32 Dose: Not Given Glipizide (Glucotrol) 5 mg GT BID [facility] Stop: 03/15/17 08:59 Last Admin: 01/14/17 09:08 Dose: Not Given Heparin Sodium (Porcine) (Heparin) 5,000 units SUBQ Q12HR [facility] Stop: 03/14/17 20:59 Last Admin: 01/14/17 09:00 Dose: 5,000 units Cefepime HCl 1 gm/ Dextrose 50 mls @ 100 mls/hr IV Q24H [facility] Stop: 03/14/17 21:59 Last Admin: 01/13/17 23:22 Dose: 100 mls/hr Sodium Chloride (Nacl 0.45%) 1,000 mls @ 100 mls/hr IV .Q10H [facility] Stop: 03/14/17 20:59 Last Admin: 01/14/17 11:03 Dose: 100 mls/hr Vancomycin HCl 1.25 gm/ Sodium (Chloride) 250 mls @ 165 mls/hr IV Q24H [facility] Stop: 03/15/17 10:59 Last Admin: 01/14/17 11:01 Dose: 165 mls/hr Insulin Detemir (Levemir Insulin) 18 units SUBQ Q12H [facility] Stop: 03/14/17 20:59 Last Admin: 01/14/17 11:23 Dose: Not Given Ipratropium [place] (Atrovent Neb 0.5mg/2.5ml) 0.5 mg HHN QIDRT [facility] Stop: 03/15/17 10:59 Last Admin: 01/14/17 10:50 Dose: 0.5 mg Ipratropium [place] (Atrovent Neb 0.5mg/2.5ml) 0.5 mg IH QIDRT [facility] Stop: 03/15/17 06:59 Last Admin: 01/14/17 06:39 Dose: 0.5 mg Magnesium Hydroxide (Milk Of Magnesia) 30 ml GT DAILY PRN PRN Reason: Constipation Stop: 03/14/17 20:51 Metoprolol Tartrate (Lopressor) 100 mg GT BID [facility] Stop: 03/15/17 08:59 Last Admin: 01/14/17 09:08 Dose: Not Given Miscellaneous (Amino Acids/Protein Hydrolys [Pro-Stat Sugar Free Liquid]) 30 ml GT BID [facility] Stop: 03/15/17 08:59 Miscellaneous (Juren Powder Pake) 1 pkg GT DAILY [facility] Stop: 03/15/17 08:59 Miscellaneous (Vancomycin Iv Per Pharmacy) 1 ea MC DAILY [facility] Stop: 03/16/17 08:59 Nitroglycerin (Nitrostat) 0.4 mg SL Q5MIN PRN PRN Reason: Chest Pain Stop: 03/14/17 20:51 Ondansetron HCl (Zofran) 4 mg IV Q8H PRN PRN Reason: Nausea / Vomiting Stop: 03/14/17 20:54 Last Admin: 01/14/17 11:46 Dose: 4 mg Oxybutynin Chloride (Ditropan) 5 mg GT BID [facility] Stop: 03/15/17 08:59 Last Admin: 01/14/17 09:09 Dose: Not Given Pantoprazole Sodium (Protonix) 40 mg GT DAILY [facility] Stop: 03/15/17 08:59 Last Admin: 01/14/17 09:09 Dose: Not Given Pneumococcal Polyvalent Vaccine (Pneumovax) 0.5 ml IM .ONCE ONE Stop: 01/16/17 09:01 Timolol Maleate (Timoptic 0.5% Ophth Soln) 1 drop EACH EYE BID [facility] Stop: 03/15/17 08:59 Last Admin: 01/14/17 11:02 Dose: 1 drop Zinc Sulfate (Zinc Sulfate) 220 mg GT DAILY [facility] Stop: 03/15/17 08:59 Last Admin: 01/14/17 09:09 Dose: Not Given General: weak, alert HEENT: NC/AT, PERRLA Neck: Supple Lungs: ronchi Cardiovascular: RRR, Normal S1, Normal S2, without murmur Abdomen: soft, non-tender, non-distended, positive bowel sound Extremities: excoriation Neurological: alert - Procedures Procedures: Procedures Procedure Code Date BLOOD TRANSFUSION SERVICE 57661 02/17/13 CHANGE FEEDING DEVICE IN UP INTEST TRACT, TRANSFER DRIVER APPROACH [id number] 10/03/16 CHANGE GASTROSTOMY TUBE 24580 10/03/[address] GASTROSTOMY TUBE 66664 03/07/14 EMERGENCY DEPT VISIT 30583 06/07/11 FREEING OF BOWEL ADHESION 26791 01/08/13 INJECT ANTICOAGULANT 99.19 06/07/11 OTH LYSIS-PERITONEAL ADHES 54.59 01/08/13 OTHER ENDOSCOPY OF SM INTEST 45.13 03/07/14 PACKED CELL TRANSFUSION 99.04 02/17/13 PRP I/LINDSAY INIT REDUC >5 YR 82816 01/08/13 REPLACE GASTROSTOMY TUBE 97.02 03/07/14 UNILAT ING LINDSAY REP NOS 53.00 01/08/13 Internal Medicine Assmt/Plan - Assessment Assessment: fever sepsis lactic acidosis leukocytosis malfunction gt acute hypernatremia acute renal failure moderate protein calorie malnutrition candiduria dm-2 parkinsons dementia htn decubitus ulcer - Plan Plan: continue ivf and iv antibiotics wound care monitor glucose am labs continue current plan of care Nutritional Asmnt/Malnutr-PDOC - Dietary Evaluation Malnutrition Findings (Please click <Entered> for more info): Nutritional Asmnt/Malnutrition Start: 01/14/17 12: 05 Text: Status: Active Freq: Document 01/14/17 12:06 KAVITA (Rec: 01/14/17 12:27 [email or web address]) Nutritional Asmnt/Malnutrition Patient General Information Nutritional Screening High Risk Consult Diagnosis Malfunctioning G-Tube, Sepsis, Acute Renal Failure Pertinent Medical Hx/Surgical Hx Dementia, HTN, DM, Althma/COPD , PUD/GERD, Parkinson's Disease Subjective Information Pt came from SNF, admitted for G-Tube replacement. Noted pt is nonverbal. TF resumed this morning... Current Diet Order/ Nutrition Support Nutren Pulmonary start with 10ml/hr, increase to goal rate [id number] Pertinent Medications Vitamin C, Glucontrol, Levemir Insulin, Nacl 100ml/hr, Zn Pertinent Labs 01/14: Na 159H, K 4.2, Cl 129H, BUN 108H, Cr 2.2H, A1C 8.0, Ca 10.2 01/13: Alb 3.1 L POC: 113-116 (01/13-01/14) Nutritional Hx/Data Height 5 ft 8 in Height (Calculated Centimeters) 172.7 Current Weight (lbs) 144 lb Weight (Calculated Kilograms) 65.3 Weight (Calculated Grams) 34301.3 [place] Body Weight 154 % [place] Body Weight 94 Body Mass Index (BMI) 21.9 Weight Status Approriate GI Symptoms Usual diet at home [facility] 65ml/hr x 24hr daily
--- NOTE | 2017-01-14 12:49 | Internal Medicine Prog Note ---
Internal Medicine Subjective - Subjective Service Date: 01/14/17 Patient seen and examined:: with staff Patient is:: awake, confused Per staff patient has:: tolerating meds Internal Medicine Objective - Results Result Diagrams: 01/14/17 05:50 01/14/17 05:50 Recent Labs: Laboratory Last Values WBC 16.9 Th/cmm (4.8-10.8) H 01/14/17 05:50 RBC 3.86 Mil/cmm (3.80-5.80) 01/14/17 05:50 Hgb 11.7 gm/dL (12-16) L 01/14/17 05:50 Hct 36.0 % (41.0-60) L 01/14/17 05:50 MCV 93.5 fl (80-99) 01/14/17 05:50 MCH 30.3 pg (27.0-31.0) 01/14/17 05:50 MCHC Differential 32.5 pg (28.0-36.0) 01/14/17 05:50 RDW 17.0 % (11.5-20.0) 01/14/17 05:50 Plt Count 121 Th/cmm (150-400) L D 01/14/17 05:50 MPV 11.6 fl 01/14/17 05:50 Neutrophils % 82.9 % (40.0-80.0) H 01/14/17 05:50 Band Neutrophils % 1 % (0-10) 01/13/17 19:13 Lymphocytes % 10.3 % (20.0-50.0) L 01/14/17 05:50 Monocytes % 4.9 % (2.0-10.0) 01/14/17 05:50 Eosinophils % 1.5 % (0.0-5.0) 01/14/17 05:50 Basophils % 0.4 % (0.0-2.0) 01/14/17 05:50 Neutrophils (Manual) 79 % (40-80) 01/13/17 19:13 Lymphocytes 15 % (20-50) L 01/13/17 19:13 Monocytes 4 % (2-10) 01/13/17 19:13 Platelet Estimate ADEQUATE (NORMAL) 01/13/17 19:13 PT 10.3 SECONDS (9.5-11.5) 01/13/17 19:13 INR 0.99 (0.5-1.4) 01/13/17 19:13 PTT (Actin FS) 22.9 SECONDS (26.0-38.0) L 01/13/17 19:13 Sodium 159 mEq/L (136-145) H* 01/14/17 05:50 Potassium 4.2 mEq/L (3.5-5.1) 01/14/17 05:50 Chloride 129 mEq/L (98-107) H 01/14/17 05:50 Carbon Dioxide 21.7 mEq/L (21.0-31.0) 01/14/17 05:50 Anion Gap 12.5 (7.0-16.0) 01/14/17 05:50 BUN 108 mg/dL (7-25) H* 01/14/17 05:50 Creatinine 2.2 mg/dL (0.7-1.3) H 01/14/17 05:50 Est GFR ( Amer) TNP 01/14/17 05:50 Est GFR (Non-Af Amer) TNP 01/14/17 05:50 BUN/Creatinine Ratio 49.1 01/14/17 05:50 Glucose 105 mg/dL 01/14/17 05:50 POC Glucose 113 MG/DL (70 - 105) H 01/14/17 09:40 Hemoglobin A1c % 8.0 % (4.0-6.0) H D 01/14/17 05:50 Whole Bld Lactic Acid 2.94 mmol/L (0.60-1.99) H* 01/13/17 21:34 Calcium 10.2 mg/dL (8.6-10.3) 01/14/17 05:50 Total Bilirubin 0.3 mg/dL (0.3-1.0) 01/13/17 19:13 AST 24 U/L (13-39) 01/13/17 19:13 ALT 4 U/L (7-52) L 01/13/17 19:13 Alkaline Phosphatase 121 U/L (34-104) H 01/13/17 19:13 Ammonia 52 umol/L (16-53) 01/14/17 05:50 B-Natriuretic Peptide 20.2 pg/mL (5.0-100.0) 01/14/17 05:50 Total Protein 9.3 gm/dL (6.0-8.3) H 01/13/17 19:13 Albumin 3.1 gm/dL (4.2-5.5) L 01/13/17 19:13 Globulin 6.2 gm/dL 01/13/17 19:13 Albumin/Globulin Ratio 0.5 (1.0-1.8) L 01/13/17 19:13 TSH 1.45 uIU/ml (0.34-5.60) 01/14/17 05:50 Urine Source [place] 01/13/17 19:30 Urine Color YELLOW 01/13/17 19:30 Urine Clarity HAZY (CLEAR) 01/13/17 19:30 Urine pH 5.5 (4.6 - 8.0) 01/13/17 19:30 Ur Specific [place] 1.015 (1.005-1.030) 01/13/17 19:30 Urine Protein TRACE mg/dL (NEGATIVE) 01/13/17 19:30 Urine Glucose (UA) NEGATIVE mg/dL (NEGATIVE) 01/13/17 19:30 Urine Ketones NEGATIVE mg/dL (NEGATIVE) 01/13/17 19:30 Urine Blood NEGATIVE (NEGATIVE) 01/13/17 19:30 Urine Nitrate NEGATIVE (NEGATIVE) 01/13/17 19:30 Urine Bilirubin NEGATIVE (NEGATIVE) 01/13/17 19:30 Urine Urobilinogen 0.2 E.U./dL (0.2 - 1.0) 01/13/17 19:30 Ur Leukocyte Esterase SMALL (NEGATIVE) H 01/13/17 19:30 Urine RBC NONE SEEN /hpf (0-5) 01/13/17 19:30 Urine WBC 2-5 /hpf (0-5) H 01/13/17 19:30 Ur Epithelial Cells OCCASIONAL /lpf (FEW) 01/13/17 19:30 Urine Bacteria FEW /hpf (NONE SEEN) 01/13/17 19:30 Urine Yeast MANY /hpf (NONE SEEN) H 01/13/17 19:30 - Physical Exam Vitals and I&O: Vital Signs Temp 98.8 F 01/14/17 11:30 Pulse 82 01/14/17 11:30 Resp 18 01/14/17 11:30 BP 120/63 01/14/17 11:30 Pulse Ox 97 01/14/17 11:30 Intake & Output 01/13/17 01/14/17 01/14/17 18:59 06:59 18:59 Intake Total 1000 Output Total 250 Balance -250 1000 Weight (lbs) 144 lb Intake: Intake, IV Amount 1000 Sodium Chloride 0.45% 1, 1000 000 ml @ 100 mls/hr IV . Q10H [facility] Rx#:[id number] Output: Urine 250 Other: # Bowel Movements 0 Active Medications: Current Medications Acetaminophen (Tylenol) 650 mg GT Q8H PRN PRN Reason: PAIN/TEMP>100 Stop: 03/14/17 20:51 Acetaminophen/Hydrocodone Bitart ([place] 5mg/325mg) 1 tab PO Q4H PRN PRN Reason: Pain (Severe) Stop: 03/14/17 20:54 Al Hydrox/Mg Hydrox/Simethicone (Maalox) 30 ml GT Q3HR PRN PRN Reason: Indigestion Stop: 03/14/17 20:51 Albuterol Sulfate (Albuterol 2.5mg/3ml Neb Ud) 2.5 mg HHN QIDRT [facility] Stop: 03/15/17 06:59 Last Admin: 01/14/17 10:50 Dose: 2.5 mg Ascorbic Acid (Vitamin C) 500 mg GT DAILY [facility] Stop: 03/15/17 08:59 Last Admin: 01/14/17 09:07 Dose: Not Given Carbidopa/Levodopa (Sinemet 25mg-100 Mg) 2 tab GT BID [facility] Stop: 03/15/17 08:59 Last Admin: 01/14/17 09:07 Dose: Not Given Donepezil HCl (Aricept) 10 mg GT HS [facility] Stop: 03/14/17 20:59 Last Admin: 01/13/17 23:32 Dose: Not Given Glipizide (Glucotrol) 5 mg GT BID [facility] Stop: 03/15/17 08:59 Last Admin: 01/14/17 09:08 Dose: Not Given Heparin Sodium (Porcine) (Heparin) 5,000 units SUBQ Q12HR [facility] Stop: 03/14/17 20:59 Last Admin: 01/14/17 09:00 Dose: 5,000 units Cefepime HCl 1 gm/ Dextrose 50 mls @ 100 mls/hr IV Q24H [facility] Stop: 03/14/17 21:59 Last Admin: 01/13/17 23:22 Dose: 100 mls/hr Sodium Chloride (Nacl 0.45%) 1,000 mls @ 100 mls/hr IV .Q10H [facility] Stop: 03/14/17 20:59 Last Admin: 01/14/17 11:03 Dose: 100 mls/hr Vancomycin HCl 1.25 gm/ Sodium (Chloride) 250 mls @ 165 mls/hr IV Q24H [facility] Stop: 03/15/17 10:59 Last Admin: 01/14/17 11:01 Dose: 165 mls/hr Insulin Detemir (Levemir Insulin) 18 units SUBQ Q12H [facility] Stop: 03/14/17 20:59 Last Admin: 01/14/17 11:23 Dose: Not Given Ipratropium [place] (Atrovent Neb 0.5mg/2.5ml) 0.5 mg HHN QIDRT [facility] Stop: 03/15/17 10:59 Last Admin: 01/14/17 10:50 Dose: 0.5 mg Ipratropium [place] (Atrovent Neb 0.5mg/2.5ml) 0.5 mg IH QIDRT [facility] Stop: 03/15/17 06:59 Last Admin: 01/14/17 06:39 Dose: 0.5 mg Magnesium Hydroxide (Milk Of Magnesia) 30 ml GT DAILY PRN PRN Reason: Constipation Stop: 03/14/17 20:51 Metoprolol Tartrate (Lopressor) 100 mg GT BID [facility] Stop: 03/15/17 08:59 Last Admin: 01/14/17 09:08 Dose: Not Given Miscellaneous (Amino Acids/Protein Hydrolys [Pro-Stat Sugar Free Liquid]) 30 ml GT BID [facility] Stop: 03/15/17 08:59 Miscellaneous (Juren Powder Pake) 1 pkg GT DAILY [facility] Stop: 03/15/17 08:59 Miscellaneous (Vancomycin Iv Per Pharmacy) 1 ea MC DAILY [facility] Stop: 03/16/17 08:59 Nitroglycerin (Nitrostat) 0.4 mg SL Q5MIN PRN PRN Reason: Chest Pain Stop: 03/14/17 20:51 Ondansetron HCl (Zofran) 4 mg IV Q8H PRN PRN Reason: Nausea / Vomiting Stop: 03/14/17 20:54 Last Admin: 01/14/17 11:46 Dose: 4 mg Oxybutynin Chloride (Ditropan) 5 mg GT BID [facility] Stop: 03/15/17 08:59 Last Admin: 01/14/17 09:09 Dose: Not Given Pantoprazole Sodium (Protonix) 40 mg GT DAILY [facility] Stop: 03/15/17 08:59 Last Admin: 01/14/17 09:09 Dose: Not Given Pneumococcal Polyvalent Vaccine (Pneumovax) 0.5 ml IM .ONCE ONE Stop: 01/16/17 09:01 Timolol Maleate (Timoptic 0.5% Ophth Soln) 1 drop EACH EYE BID [facility] Stop: 03/15/17 08:59 Last Admin: 01/14/17 11:02 Dose: 1 drop Zinc Sulfate (Zinc Sulfate) 220 mg GT DAILY [facility] Stop: 03/15/17 08:59 Last Admin: 01/14/17 09:09 Dose: Not Given General: weak, alert HEENT: NC/AT, PERRLA Neck: Supple Lungs: ronchi Cardiovascular: RRR, Normal S1, Normal S2, without murmur Abdomen: soft, non-tender, non-distended, positive bowel sound Extremities: excoriation Neurological: alert - Procedures Procedures: Procedures Procedure Code Date BLOOD TRANSFUSION SERVICE 05309 02/17/13 CHANGE FEEDING DEVICE IN UP INTEST TRACT, SORT OPERATIONS SUPERVISOR APPROACH [id number] 10/03/16 CHANGE GASTROSTOMY TUBE 19370 10/03/[address] GASTROSTOMY TUBE 08829 03/07/14 EMERGENCY DEPT VISIT 10418 06/07/11 FREEING OF BOWEL ADHESION 67835 01/08/13 INJECT ANTICOAGULANT 99.19 06/07/11 OTH LYSIS-PERITONEAL ADHES 54.59 01/08/13 OTHER ENDOSCOPY OF SM INTEST 45.13 03/07/14 PACKED CELL TRANSFUSION 99.04 02/17/13 PRP I/LINDSAY INIT REDUC >5 YR 79952 01/08/13 REPLACE GASTROSTOMY TUBE 97.02 03/07/14 UNILAT ING LINDSAY REP NOS 53.00 01/08/13 Internal Medicine Assmt/Plan - Assessment Assessment: fever sepsis lactic acidosis leukocytosis malfunction gt acute hypernatremia acute renal failure moderate protein calorie malnutrition candiduria dm-2 parkinsons dementia htn decubitus ulcer - Plan Plan: continue ivf and iv antibiotics wound care monitor glucose am labs continue current plan of care Nutritional Asmnt/Malnutr-PDOC - Dietary Evaluation Malnutrition Findings (Please click <Entered> for more info): Nutritional Asmnt/Malnutrition Start: 01/14/17 12: 05 Text: Status: Active Freq: Document 01/14/17 12:06 KAVITA (Rec: 01/14/17 12:27 KAVITA [email or web address]) Nutritional Asmnt/Malnutrition Patient General Information Nutritional Screening High Risk Consult Diagnosis Malfunctioning G-Tube, Sepsis, Acute Renal Failure Pertinent Medical Hx/Surgical Hx Dementia, HTN, DM, Althma/COPD , PUD/GERD, Parkinson's Disease Subjective Information Pt came from SNF, admitted for G-Tube replacement. Noted pt is nonverbal. TF resumed this morning... Current Diet Order/ Nutrition Support Nutren Pulmonary start with 10ml/hr, increase to goal rate [id number] Pertinent Medications Vitamin C, Glucontrol, Levemir Insulin, Nacl 100ml/hr, Zn Pertinent Labs 01/14: Na 159H, K 4.2, Cl 129H, BUN 108H, Cr 2.2H, A1C 8.0, Ca 10.2 01/13: Alb 3.1 L POC: 113-116 (01/13-01/14) Nutritional Hx/Data Height 5 ft 8 in Height (Calculated Centimeters) 172.7 Current Weight (lbs) 144 lb Weight (Calculated Kilograms) 65.3 Weight (Calculated Grams) 94846.3 [place] Body Weight 154 % [place] Body Weight 94 Body Mass Index (BMI) 21.9 Weight Status Approriate GI Symptoms Usual diet at home [facility] 65ml/hr x 24hr daily
--- NOTE | 2017-01-14 14:32 | Operative Report ---
DATE OF SURGERY: 01/14/2017 INPATIENT G-TUBE CHANGE PROCEDURALIST: Usman Beckwith MD PREOPERATIVE DIAGNOSIS: G-tube malfunction. POSTOPERATIVE DIAGNOSIS: G-tube replacement. INDICATION: The patient is an 81-year-old male, who is a permanent resident of a nursing facility with Parkinson's dementia and dysphagia, who by report pulled out his G-tube yesterday. He is now here for replacement. Consent was not obtained prior to this change given this procedure is a bedside procedure and not requiring anesthesia or endoscopy. PROCEDURE IN DETAIL: There was a Miranda catheter taped to the abdomen with the distal edge inserted into the gastrocutaneous fistula. The Miranda catheter was gently pulled out of the gastrocutaneous fistula and a new 20-N[place]ien G-tube was inserted with ease into the gastrocutaneous tract. There was no resistance on insertion. The internal balloon was then blown up to 15 mL as per the bank messenger recommendation. Gentle traction on this new G-tube showed that it was likely in place within the stomach lumen. The site was then cleaned and gauze was placed on the skin. There was no sign of complication at the end of this procedure. RECOMMENDATIONS: 1. We will confirm placement with a contrast KUB study. 2. If confirmed, the G-tube can be used immediately for medications and feeding. 3. Hold for residuals greater than 100 mL. 4. Flush with water 100 mL every 6 hours. 5. Please ensure that an abdominal binder is in place to prevent the tube from being pulled out in the future. Thank you for allowing me to participate in this patient's care. Please call with any further questions. JOB# [id number]
--- NOTE | 2017-01-14 14:32 | Operative Report ---
DATE OF SURGERY: 01/14/2017 INPATIENT G-TUBE CHANGE PROCEDURALIST: Usman Beckwith MD PREOPERATIVE DIAGNOSIS: G-tube malfunction. POSTOPERATIVE DIAGNOSIS: G-tube replacement. INDICATION: The patient is an 81-year-old male, who is a permanent resident of a nursing facility with Parkinson's dementia and dysphagia, who by report pulled out his G-tube yesterday. He is now here for replacement. Consent was not obtained prior to this change given this procedure is a bedside procedure and not requiring anesthesia or endoscopy. PROCEDURE IN DETAIL: There was a Miranda catheter taped to the abdomen with the distal edge inserted into the gastrocutaneous fistula. The Miranda catheter was gently pulled out of the gastrocutaneous fistula and a new 20-Cym[place] G-tube was inserted with ease into the gastrocutaneous tract. There was no resistance on insertion. The internal balloon was then blown up to 15 mL as per the architectural technologist recommendation. Gentle traction on this new G-tube showed that it was likely in place within the stomach lumen. The site was then cleaned and gauze was placed on the skin. There was no sign of complication at the end of this procedure. RECOMMENDATIONS: 1. We will confirm placement with a contrast KUB study. 2. If confirmed, the G-tube can be used immediately for medications and feeding. 3. Hold for residuals greater than 100 mL. 4. Flush with water 100 mL every 6 hours. 5. Please ensure that an abdominal binder is in place to prevent the tube from being pulled out in the future. Thank you for allowing me to participate in this patient's care. Please call with any further questions. JOB# [id number]
--- NOTE | 2017-01-14 14:32 | Operative Report ---
DATE OF SURGERY: 01/14/2017 INPATIENT G-TUBE CHANGE PROCEDURALIST: Usman Beckwith MD PREOPERATIVE DIAGNOSIS: G-tube malfunction. POSTOPERATIVE DIAGNOSIS: G-tube replacement. INDICATION: The patient is an 81-year-old male, who is a permanent resident of a nursing facility with Parkinson's dementia and dysphagia, who by report pulled out his G-tube yesterday. He is now here for replacement. Consent was not obtained prior to this change given this procedure is a bedside procedure and not requiring anesthesia or endoscopy. PROCEDURE IN DETAIL: There was a [place]nada catheter taped to the abdomen with the distal edge inserted into the gastrocutaneous fistula. The Miranda catheter was gently pulled out of the gastrocutaneous fistula and a new 20-Monts[place]ian G-tube was inserted with ease into the gastrocutaneous tract. There was no resistance on insertion. The internal balloon was then blown up to 15 mL as per the first line supervisor recommendation. Gentle traction on this new G-tube showed that it was likely in place within the stomach lumen. The site was then cleaned and gauze was placed on the skin. There was no sign of complication at the end of this procedure. RECOMMENDATIONS: 1. We will confirm placement with a contrast KUB study. 2. If confirmed, the G-tube can be used immediately for medications and feeding. 3. Hold for residuals greater than 100 mL. 4. Flush with water 100 mL every 6 hours. 5. Please ensure that an abdominal binder is in place to prevent the tube from being pulled out in the future. Thank you for allowing me to participate in this patient's care. Please call with any further questions. JOB# [id number]
[2017-01-15 05:34] LABS: HEMOGLOBIN 10.3 gm/dL (12-16); MEAN CELL VOLUME 92.1 fl (80-99); MEAN CORPUSCULAR HEMOGLOBIN 31.4 pg (27.0-31.0); MEAN PLATELET VOLUME 13.6 fl; PLATELET COUNT 144 Th/cmm (150-400); RED CELL DISTRIBUTION WIDTH 16.9 % (11.5-20.0)
[2017-01-15 05:40] LABS: ANION GAP 8.3 (7.0-16.0); CALCIUM SERUM 9.3 mg/dL (8.6-10.3); CARBON DIOXIDE 24.2 mEq/L (21.0-31.0); CHLORIDE 123 mEq/L (98-107); CREATININE - SERUM 3.1 mg/dL (0.7-1.3); GLUCOSE 217 mg/dL; POTASSIUM SERUM 4.5 mEq/L (3.5-5.1); SODIUM SERUM 151 mEq/L (136-145)
[2017-01-15 05:46] LABS: MANUAL DIFF REQUIRED? YES; WHITE BLOOD COUNT 13.9 Th/cmm (4.8-10.8)
[2017-01-15 05:47] LABS: HEMATOCRIT 30.4 % (41.0-60)
[2017-01-15 05:55] LABS: BUN - UREA NITROGEN 117 mg/dL (7-25)
[2017-01-15 06:05] LABS: TOTAL CELLS COUNTED 100
[2017-01-15 06:06] LABS: BAND NEUTROPHILE 3 % (0-10); EOSINOPHIL 7 % (0-5); LYMPHOCYTE 7 % (20-50); MONOCYTE 2 % (2-10); NEUTROPHILS 81 % (40-80)
[2017-01-15] MEDS: Ipratropium Neb 0.5 mg/2.5 mL UD HHN SCH ×8 (07:19→19:24)
[2017-01-15] MEDS: Albuterol Nebulizer 2.5mg/3mL HHN SCH ×8 (07:19→19:24)
--- NOTE | 2017-01-15 07:22 | Consultation ---
DATE OF CONSULTATION: 01/14/2017 INPATIENT GI CONSULTATION CONSULTING PHYSICIAN: Dr. Patel. REASON FOR CONSULTATION: Malfunctioning G-tube. HISTORY OF PRESENT ILLNESS: The patient is an 81-year-old male, who has past medical history significant for dysphagia, type 2 diabetes, Parkinson's dementia and decubitus ulcer, who is sent from his nursing facility given fever and G-tube malfunction. By report, the patient's G-tube was pulled out either yesterday or the day before at the nursing facility and was unable to be replaced. At the time of his presentation, he did not have a Miranda catheter within the gastrocutaneous fistula, although at the current time, there is a Miranda catheter there. In the ER, it was determined that the G-tube was unable to be replaced at bedside and thus he was admitted. Additionally, the patient had a mild lactate and low grade fever. PAST MEDICAL HISTORY: Parkinson's dementia, G-tube dependence, type 2 diabetes, hypertension, and decubitus ulcer. PAST SURGICAL HISTORY: G-tube placement. FAMILY HISTORY: Noncontributory. SOCIAL HISTORY: The patient is a permanent resident of a correction. There is no history of alcohol or cigarettes use. ALLERGIES: Reports an allergy to Zosyn. MEDICATIONS: Insulin, metformin, Tylenol, ascorbic acid, Sinemet, Nexium, glipizide, Lantus, albuterol, Atrovent, oxybutynin, and zinc. REVIEW OF SYSTEMS: Limited review of systems was negative other than the pertinent positives mentioned in the history of present illness given that the patient has reduced mental status and unable to communicate. PHYSICAL EXAMINATION: VITAL SIGNS: Blood pressure is 116/63, temperature 97.4, pulse of 94 beats per minute, respiratory rate 19, and oxygenation 96%. GENERAL: The patient is lying flat in bed. He is alert and oriented x 0, no apparent distress. HEAD, EARS, EYES, NOSE, AND THROAT: There is no scleral icterus. Pupils are equal and reactive to light. Extraocular muscles are intact. Moist mucous membranes. Normocephalic head otherwise. NECK: Supple, no JVD, no thyromegaly, no lymphadenopathy. CHEST: Clear to auscultation bilaterally with reduced breath sounds at the bases. CARDIOVASCULAR: S1 and S2 are present, regular rate and rhythm. ABDOMEN: There is a Miranda catheter taped in place with the distal end of the catheter within the gastrocutaneous fistula. The fistula itself appears noninfected and nonerythematous. There is no guarding or rebound. EXTREMITIES: There is mild nonpitting edema. SKIN: No obvious jaundice or other rashes on the legs. LABORATORY DATA AND DIAGNOSTIC STUDIES: White blood cell count was 21 on admission, is 16.9 today; hemoglobin is 11.7; platelet count 121. INR 0.9. Sodium 159, BUN 108, creatinine 2.2. AST 24, ALT 4. There is no imaging performed. IMPRESSION: This is an 81-year-old man with Parkinson's dementia and dysphagia, who is G-tube dependent, who had his G-tube pulled out either yesterday or the day before and is now admitted for replacement and leukocytosis. 1. G-tube malfunction. 2. Leukocytosis. 3. Low grade fever. 4. History of Parkinson's dementia and dysphagia. DISCUSSION: The patient currently has a Miranda tube within the gastrocutaneous fistula and thus it should be rather straightforward to replace the G-tube at bedside, so the patient can regain enteral feeding. He also has leukocytosis on presentation that he may have sepsis as well. RECOMMENDATION: 1. We will plan on bedside G-tube change. 2. We will need to confirm G-tube after change with contrast study. After confirmation, the G-tube can be used immediately for feeds and medication. 3. We will need to ensure that there is an abdominal binder in place to prevent patient from pulling out his G-tube in the future. Thank you for allowing me to participate in this patient's care. Please call with any further questions. JOB# [id number]
[2017-01-15] MEDS: Pantoprazole 40 mg/Packet GT SCH ×2 (09:42)
--- NOTE | 2017-01-15 09:42 | GI Progress Note ---
Subjective - Review of Systems Service Date: 01/15/17 Subjective: G tube confirmed, tolerating feeds. Objective - Results Result Diagrams: 01/15/17 05:05 01/15/17 05:05 Recent Labs: Laboratory Last Values WBC 13.9 Th/cmm (4.8-10.8) H 01/15/17 05:05 RBC 3.30 Mil/cmm (3.80-5.80) L 01/15/17 05:05 Hgb 10.3 gm/dL (12-16) L 01/15/17 05:05 Hct 30.4 % (41.0-60) L D 01/15/17 05:05 MCV 92.1 fl (80-99) 01/15/17 05:05 MCH 31.4 pg (27.0-31.0) H 01/15/17 05:05 MCHC Differential 34.0 pg (28.0-36.0) 01/15/17 05:05 RDW 16.9 % (11.5-20.0) 01/15/17 05:05 Plt Count 144 Th/cmm (150-400) L 01/15/17 05:05 MPV 13.6 fl 01/15/17 05:05 Neutrophils % 82.9 % (40.0-80.0) H 01/14/17 05:50 Band Neutrophils % 3 % (0-10) 01/15/17 05:05 Lymphocytes % 10.3 % (20.0-50.0) L 01/14/17 05:50 Monocytes % 4.9 % (2.0-10.0) 01/14/17 05:50 Eosinophils % 1.5 % (0.0-5.0) 01/14/17 05:50 Basophils % 0.4 % (0.0-2.0) 01/14/17 05:50 Neutrophils (Manual) 81 % (40-80) H 01/15/17 05:05 Lymphocytes 7 % (20-50) L 01/15/17 05:05 Monocytes 2 % (2-10) 01/15/17 05:05 Eosinophils 7 % (0-5) H 01/15/17 05:05 Nucleated RBCs 1.0 % (0-0) H 01/15/17 05:05 Platelet Estimate ADEQUATE (NORMAL) 01/13/17 19:13 PT 10.3 SECONDS (9.5-11.5) 01/13/17 19:13 INR 0.99 (0.5-1.4) 01/13/17 19:13 PTT (Actin FS) 22.9 SECONDS (26.0-38.0) L 01/13/17 19:13 Sodium 151 mEq/L (136-145) H 01/15/17 05:05 Potassium 4.5 mEq/L (3.5-5.1) 01/15/17 05:05 Chloride 123 mEq/L (98-107) H 01/15/17 05:05 Carbon Dioxide 24.2 mEq/L (21.0-31.0) 01/15/17 05:05 Anion Gap 8.3 (7.0-16.0) 01/15/17 05:05 BUN 117 mg/dL (7-25) H* 01/15/17 05:05 Creatinine 3.1 mg/dL (0.7-1.3) H 01/15/17 05:05 Est GFR ( Amer) TNP 01/15/17 05:05 Est GFR (Non-Af Amer) TNP 01/15/17 05:05 BUN/Creatinine Ratio 37.7 01/15/17 05:05 Glucose 217 mg/dL 01/15/17 05:05 POC Glucose 219 MG/DL (70 - 105) H 01/14/17 22:33 Hemoglobin A1c % 8.0 % (4.0-6.0) H D 01/14/17 05:50 Whole Bld Lactic Acid 2.94 mmol/L (0.60-1.99) H* 01/13/17 21:34 Calcium 9.3 mg/dL (8.6-10.3) 01/15/17 05:05 Total Bilirubin 0.3 mg/dL (0.3-1.0) 01/13/17 19:13 AST 24 U/L (13-39) 01/13/17 19:13 ALT 4 U/L (7-52) L 01/13/17 19:13 Alkaline Phosphatase 121 U/L (34-104) H 01/13/17 19:13 Ammonia 52 umol/L (16-53) 01/14/17 05:50 B-Natriuretic Peptide 20.2 pg/mL (5.0-100.0) 01/14/17 05:50 Total Protein 9.3 gm/dL (6.0-8.3) H 01/13/17 19:13 Albumin 3.1 gm/dL (4.2-5.5) L 01/13/17 19:13 Globulin 6.2 gm/dL 01/13/17 19:13 Albumin/Globulin Ratio 0.5 (1.0-1.8) L 01/13/17 19:13 TSH 1.45 uIU/ml (0.34-5.60) 01/14/17 05:50 Urine Source [place] 01/13/17 19:30 Urine Color YELLOW 01/13/17 19:30 Urine Clarity HAZY (CLEAR) 01/13/17 19:30 Urine pH 5.5 (4.6 - 8.0) 01/13/17 19:30 Ur Specific [place] 1.015 (1.005-1.030) 01/13/17 19:30 Urine Protein TRACE mg/dL (NEGATIVE) 01/13/17 19:30 Urine Glucose (UA) NEGATIVE mg/dL (NEGATIVE) 01/13/17 19:30 Urine Ketones NEGATIVE mg/dL (NEGATIVE) 01/13/17 19:30 Urine Blood NEGATIVE (NEGATIVE) 01/13/17 19:30 Urine Nitrate NEGATIVE (NEGATIVE) 01/13/17 19:30 Urine Bilirubin NEGATIVE (NEGATIVE) 01/13/17 19:30 Urine Urobilinogen 0.2 E.U./dL (0.2 - 1.0) 01/13/17 19:30 Ur Leukocyte Esterase SMALL (NEGATIVE) H 01/13/17 19:30 Urine RBC NONE SEEN /hpf (0-5) 01/13/17 19:30 Urine WBC 2-5 /hpf (0-5) H 01/13/17 19:30 Ur Epithelial Cells OCCASIONAL /lpf (FEW) 01/13/17 19:30 Urine Bacteria FEW /hpf (NONE SEEN) 01/13/17 19:30 Urine Yeast MANY /hpf (NONE SEEN) H 01/13/17 19:30 - Physical Exam Vitals and I&O: Vital Signs Temp 97.5 F 01/15/17 08:00 Pulse 86 01/15/17 08:00 Resp 20 01/15/17 08:00 BP 116/52 01/15/17 08:00 Pulse Ox 94 01/15/17 08:00 Intake & Output 01/14/17 01/15/17 01/15/17 18:59 06:59 18:59 Intake Total 1000 1780 Output Total 250 Balance 1000 1530 Weight (lbs) 65.317 kg Intake: Intake, IV Amount 1000 1000 Sodium Chloride 0.45% 1, 1000 1000 000 ml @ 100 mls/hr IV . Q10H [facility] Rx#:[id number] Tube Feeding 780 Output: Urine 250 Active Medications: Current Medications Acetaminophen (Tylenol) 650 mg GT Q8H PRN PRN Reason: PAIN/TEMP>100 Stop: 03/14/17 20:51 Acetaminophen/Hydrocodone Bitart ([place] 5mg/325mg) 1 tab PO Q4H PRN PRN Reason: Pain (Severe) Stop: 03/14/17 20:54 Al Hydrox/Mg Hydrox/Simethicone (Maalox) 30 ml GT Q3HR PRN PRN Reason: Indigestion Stop: 03/14/17 20:51 Albuterol Sulfate (Albuterol 2.5mg/3ml Neb Ud) 2.5 mg HHN QIDRT [facility] Stop: 03/15/17 06:59 Last Admin: 01/15/17 07:19 Dose: 2.5 mg Ascorbic Acid (Vitamin C) 500 mg GT DAILY [facility] Stop: 03/15/17 08:59 Last Admin: 01/14/17 09:07 Dose: Not Given Carbidopa/Levodopa (Sinemet 25mg-100 Mg) 2 tab GT BID [facility] Stop: 03/15/17 08:59 Last Admin: 01/14/17 17:11 Dose: 2 tab Donepezil HCl (Aricept) 10 mg GT HS [facility] Stop: 03/14/17 20:59 Last Admin: 01/14/17 21:10 Dose: 10 mg Glipizide (Glucotrol) 5 mg GT BID [facility] Stop: 03/15/17 08:59 Last Admin: 01/14/17 17:10 Dose: 5 mg Heparin Sodium (Porcine) (Heparin) 5,000 units SUBQ Q12HR [facility] Stop: 03/14/17 20:59 Last Admin: 01/14/17 21:10 Dose: 5,000 units Cefepime HCl 1 gm/ Dextrose 50 mls @ 100 mls/hr IV Q24H [facility] Stop: 03/14/17 21:59 Last Admin: 01/14/17 21:09 Dose: 100 mls/hr Sodium Chloride (Nacl 0.45%) 1,000 mls @ 100 mls/hr IV .Q10H [facility] Stop: 03/14/17 20:59 Last Admin: 01/14/17 22:29 Dose: 100 mls/hr Vancomycin HCl 1.25 gm/ Sodium (Chloride) 250 mls @ 165 mls/hr IV Q24H [facility] Stop: 03/15/17 10:59 Last Admin: 01/14/17 11:01 Dose: 165 mls/hr Insulin Detemir (Levemir Insulin) 18 units SUBQ Q12H [facility] Stop: 03/14/17 20:59 Last Admin: 01/14/17 22:34 Dose: 18 units Ipratropium [place] (Atrovent Neb 0.5mg/2.5ml) 0.5 mg HHN QIDRT [facility] Stop: 03/15/17 10:59 Last Admin: 01/15/17 07:19 Dose: 0.5 mg Magnesium Hydroxide (Milk Of Magnesia) 30 ml GT DAILY PRN PRN Reason: Constipation Stop: 03/14/17 20:51 Metoprolol Tartrate (Lopressor) 100 mg GT BID [facility] Stop: 03/15/17 08:59 Last Admin: 01/14/17 17:18 Dose: 100 mg Miscellaneous (Vancomycin Iv Per Pharmacy) 1 ea MC DAILY [facility] Stop: 03/16/17 08:59 Nitroglycerin (Nitrostat) 0.4 mg SL Q5MIN PRN PRN Reason: Chest Pain Stop: 03/14/17 20:51 Ondansetron HCl (Zofran) 4 mg IV Q8H PRN PRN Reason: Nausea / Vomiting Stop: 03/14/17 20:54 Last Admin: 01/14/17 11:46 Dose: 4 mg Oxybutynin Chloride (Ditropan) 5 mg GT BID [facility] Stop: 03/15/17 08:59 Last Admin: 01/14/17 17:10 Dose: 5 mg Pantoprazole Sodium (Protonix) 40 mg GT DAILY [facility] Stop: 03/15/17 08:59 Last Admin: 01/14/17 09:09 Dose: Not Given Pneumococcal Polyvalent Vaccine (Pneumovax) 0.5 ml IM .ONCE ONE Stop: 01/16/17 09:01 Timolol Maleate (Timoptic 0.5% Ophth Soln) 1 drop EACH EYE BID [facility] Stop: 03/15/17 08:59 Last Admin: 01/14/17 17:10 Dose: 1 drop Zinc Sulfate (Zinc Sulfate) 220 mg GT DAILY [facility] Stop: 03/15/17 08:59 Last Admin: 01/14/17 09:09 Dose: Not Given General: Alert Abdomen: Soft, Other (non tender, G tube c/d/i) - Procedures Procedures: Procedures Procedure Code Date BLOOD TRANSFUSION SERVICE 79141 02/17/13 CHANGE FEEDING DEVICE IN UP INTEST TRACT, FASHION INTERN APPROACH [id number] 10/03/16 CHANGE GASTROSTOMY TUBE 88131 10/03/[address] GASTROSTOMY TUBE 88259 03/07/14 EMERGENCY DEPT VISIT 77186 06/07/11 FREEING OF BOWEL ADHESION 56129 01/08/13 INJECT ANTICOAGULANT 99.19 06/07/11 OTH LYSIS-PERITONEAL ADHES 54.59 01/08/13 OTHER ENDOSCOPY OF SM INTEST 45.13 03/07/14 PACKED CELL TRANSFUSION 99.04 02/17/13 PRP I/LINDSAY INIT REDUC >5 YR 00541 01/08/13 REPLACE GASTROSTOMY TUBE 97.02 03/07/14 UNILAT ING LINDSAY REP NOS 53.00 01/08/13 Assessment/Plan - Problem List Patient Problems: All Active Problems Gastrostomy tube dysfunction (Acute) K94.23 Malfunction of gastrostomy tube (Acute) K94.23 NAUSEA AND VOMITING (Acute) NAUSEA VOMITING AND DIARRHEA (Acute) REDNESS AND TENDERNESS TO GASTRIC STOMA (Acute) - Assessment Assessment: # Sepsis # G tube malfunction G tube replaced at bedside 01/14/17, confirmed and now functioning well. Plan: - continue feeding - antibiotic management as per primary GI to see as needed. Thank you for this consultation
--- NOTE | 2017-01-15 09:42 | GI Progress Note ---
Subjective - Review of Systems Service Date: 01/15/17 Subjective: G tube confirmed, tolerating feeds. Objective - Results Result Diagrams: 01/15/17 05:05 01/15/17 05:05 Recent Labs: Laboratory Last Values WBC 13.9 Th/cmm (4.8-10.8) H 01/15/17 05:05 RBC 3.30 Mil/cmm (3.80-5.80) L 01/15/17 05:05 Hgb 10.3 gm/dL (12-16) L 01/15/17 05:05 Hct 30.4 % (41.0-60) L D 01/15/17 05:05 MCV 92.1 fl (80-99) 01/15/17 05:05 MCH 31.4 pg (27.0-31.0) H 01/15/17 05:05 MCHC Differential 34.0 pg (28.0-36.0) 01/15/17 05:05 RDW 16.9 % (11.5-20.0) 01/15/17 05:05 Plt Count 144 Th/cmm (150-400) L 01/15/17 05:05 MPV 13.6 fl 01/15/17 05:05 Neutrophils % 82.9 % (40.0-80.0) H 01/14/17 05:50 Band Neutrophils % 3 % (0-10) 01/15/17 05:05 Lymphocytes % 10.3 % (20.0-50.0) L 01/14/17 05:50 Monocytes % 4.9 % (2.0-10.0) 01/14/17 05:50 Eosinophils % 1.5 % (0.0-5.0) 01/14/17 05:50 Basophils % 0.4 % (0.0-2.0) 01/14/17 05:50 Neutrophils (Manual) 81 % (40-80) H 01/15/17 05:05 Lymphocytes 7 % (20-50) L 01/15/17 05:05 Monocytes 2 % (2-10) 01/15/17 05:05 Eosinophils 7 % (0-5) H 01/15/17 05:05 Nucleated RBCs 1.0 % (0-0) H 01/15/17 05:05 Platelet Estimate ADEQUATE (NORMAL) 01/13/17 19:13 PT 10.3 SECONDS (9.5-11.5) 01/13/17 19:13 INR 0.99 (0.5-1.4) 01/13/17 19:13 PTT (Actin FS) 22.9 SECONDS (26.0-38.0) L 01/13/17 19:13 Sodium 151 mEq/L (136-145) H 01/15/17 05:05 Potassium 4.5 mEq/L (3.5-5.1) 01/15/17 05:05 Chloride 123 mEq/L (98-107) H 01/15/17 05:05 Carbon Dioxide 24.2 mEq/L (21.0-31.0) 01/15/17 05:05 Anion Gap 8.3 (7.0-16.0) 01/15/17 05:05 BUN 117 mg/dL (7-25) H* 01/15/17 05:05 Creatinine 3.1 mg/dL (0.7-1.3) H 01/15/17 05:05 Est GFR ( Amer) TNP 01/15/17 05:05 Est GFR (Non-Af Amer) TNP 01/15/17 05:05 BUN/Creatinine Ratio 37.7 01/15/17 05:05 Glucose 217 mg/dL 01/15/17 05:05 POC Glucose 219 MG/DL (70 - 105) H 01/14/17 22:33 Hemoglobin A1c % 8.0 % (4.0-6.0) H D 01/14/17 05:50 Whole Bld Lactic Acid 2.94 mmol/L (0.60-1.99) H* 01/13/17 21:34 Calcium 9.3 mg/dL (8.6-10.3) 01/15/17 05:05 Total Bilirubin 0.3 mg/dL (0.3-1.0) 01/13/17 19:13 AST 24 U/L (13-39) 01/13/17 19:13 ALT 4 U/L (7-52) L 01/13/17 19:13 Alkaline Phosphatase 121 U/L (34-104) H 01/13/17 19:13 Ammonia 52 umol/L (16-53) 01/14/17 05:50 B-Natriuretic Peptide 20.2 pg/mL (5.0-100.0) 01/14/17 05:50 Total Protein 9.3 gm/dL (6.0-8.3) H 01/13/17 19:13 Albumin 3.1 gm/dL (4.2-5.5) L 01/13/17 19:13 Globulin 6.2 gm/dL 01/13/17 19:13 Albumin/Globulin Ratio 0.5 (1.0-1.8) L 01/13/17 19:13 TSH 1.45 uIU/ml (0.34-5.60) 01/14/17 05:50 Urine Source [place] 01/13/17 19:30 Urine Color YELLOW 01/13/17 19:30 Urine Clarity HAZY (CLEAR) 01/13/17 19:30 Urine pH 5.5 (4.6 - 8.0) 01/13/17 19:30 Ur Specific [place] 1.015 (1.005-1.030) 01/13/17 19:30 Urine Protein TRACE mg/dL (NEGATIVE) 01/13/17 19:30 Urine Glucose (UA) NEGATIVE mg/dL (NEGATIVE) 01/13/17 19:30 Urine Ketones NEGATIVE mg/dL (NEGATIVE) 01/13/17 19:30 Urine Blood NEGATIVE (NEGATIVE) 01/13/17 19:30 Urine Nitrate NEGATIVE (NEGATIVE) 01/13/17 19:30 Urine Bilirubin NEGATIVE (NEGATIVE) 01/13/17 19:30 Urine Urobilinogen 0.2 E.U./dL (0.2 - 1.0) 01/13/17 19:30 Ur Leukocyte Esterase SMALL (NEGATIVE) H 01/13/17 19:30 Urine RBC NONE SEEN /hpf (0-5) 01/13/17 19:30 Urine WBC 2-5 /hpf (0-5) H 01/13/17 19:30 Ur Epithelial Cells OCCASIONAL /lpf (FEW) 01/13/17 19:30 Urine Bacteria FEW /hpf (NONE SEEN) 01/13/17 19:30 Urine Yeast MANY /hpf (NONE SEEN) H 01/13/17 19:30 - Physical Exam Vitals and I&O: Vital Signs Temp 97.5 F 01/15/17 08:00 Pulse 86 01/15/17 08:00 Resp 20 01/15/17 08:00 BP 116/52 01/15/17 08:00 Pulse Ox 94 01/15/17 08:00 Intake & Output 01/14/17 01/15/17 01/15/17 18:59 06:59 18:59 Intake Total 1000 1780 Output Total 250 Balance 1000 1530 Weight (lbs) 65.317 kg Intake: Intake, IV Amount 1000 1000 Sodium Chloride 0.45% 1, 1000 1000 000 ml @ 100 mls/hr IV . Q10H [facility] Rx#:[id number] Tube Feeding 780 Output: Urine 250 Active Medications: Current Medications Acetaminophen (Tylenol) 650 mg GT Q8H PRN PRN Reason: PAIN/TEMP>100 Stop: 03/14/17 20:51 Acetaminophen/Hydrocodone Bitart ([place] 5mg/325mg) 1 tab PO Q4H PRN PRN Reason: Pain (Severe) Stop: 03/14/17 20:54 Al Hydrox/Mg Hydrox/Simethicone (Maalox) 30 ml GT Q3HR PRN PRN Reason: Indigestion Stop: 03/14/17 20:51 Albuterol Sulfate (Albuterol 2.5mg/3ml Neb Ud) 2.5 mg HHN QIDRT [facility] Stop: 03/15/17 06:59 Last Admin: 01/15/17 07:19 Dose: 2.5 mg Ascorbic Acid (Vitamin C) 500 mg GT DAILY [facility] Stop: 03/15/17 08:59 Last Admin: 01/14/17 09:07 Dose: Not Given Carbidopa/Levodopa (Sinemet 25mg-100 Mg) 2 tab GT BID [facility] Stop: 03/15/17 08:59 Last Admin: 01/14/17 17:11 Dose: 2 tab Donepezil HCl (Aricept) 10 mg GT HS [facility] Stop: 03/14/17 20:59 Last Admin: 01/14/17 21:10 Dose: 10 mg Glipizide (Glucotrol) 5 mg GT BID [facility] Stop: 03/15/17 08:59 Last Admin: 01/14/17 17:10 Dose: 5 mg Heparin Sodium (Porcine) (Heparin) 5,000 units SUBQ Q12HR [facility] Stop: 03/14/17 20:59 Last Admin: 01/14/17 21:10 Dose: 5,000 units Cefepime HCl 1 gm/ Dextrose 50 mls @ 100 mls/hr IV Q24H [facility] Stop: 03/14/17 21:59 Last Admin: 01/14/17 21:09 Dose: 100 mls/hr Sodium Chloride (Nacl 0.45%) 1,000 mls @ 100 mls/hr IV .Q10H [facility] Stop: 03/14/17 20:59 Last Admin: 01/14/17 22:29 Dose: 100 mls/hr Vancomycin HCl 1.25 gm/ Sodium (Chloride) 250 mls @ 165 mls/hr IV Q24H [facility] Stop: 03/15/17 10:59 Last Admin: 01/14/17 11:01 Dose: 165 mls/hr Insulin Detemir (Levemir Insulin) 18 units SUBQ Q12H [facility] Stop: 03/14/17 20:59 Last Admin: 01/14/17 22:34 Dose: 18 units Ipratropium [place] (Atrovent Neb 0.5mg/2.5ml) 0.5 mg HHN QIDRT [facility] Stop: 03/15/17 10:59 Last Admin: 01/15/17 07:19 Dose: 0.5 mg Magnesium Hydroxide (Milk Of Magnesia) 30 ml GT DAILY PRN PRN Reason: Constipation Stop: 03/14/17 20:51 Metoprolol Tartrate (Lopressor) 100 mg GT BID [facility] Stop: 03/15/17 08:59 Last Admin: 01/14/17 17:18 Dose: 100 mg Miscellaneous (Vancomycin Iv Per Pharmacy) 1 ea MC DAILY [facility] Stop: 03/16/17 08:59 Nitroglycerin (Nitrostat) 0.4 mg SL Q5MIN PRN PRN Reason: Chest Pain Stop: 03/14/17 20:51 Ondansetron HCl (Zofran) 4 mg IV Q8H PRN PRN Reason: Nausea / Vomiting Stop: 03/14/17 20:54 Last Admin: 01/14/17 11:46 Dose: 4 mg Oxybutynin Chloride (Ditropan) 5 mg GT BID [facility] Stop: 03/15/17 08:59 Last Admin: 01/14/17 17:10 Dose: 5 mg Pantoprazole Sodium (Protonix) 40 mg GT DAILY [facility] Stop: 03/15/17 08:59 Last Admin: 01/14/17 09:09 Dose: Not Given Pneumococcal Polyvalent Vaccine (Pneumovax) 0.5 ml IM .ONCE ONE Stop: 01/16/17 09:01 Timolol Maleate (Timoptic 0.5% Ophth Soln) 1 drop EACH EYE BID [facility] Stop: 03/15/17 08:59 Last Admin: 01/14/17 17:10 Dose: 1 drop Zinc Sulfate (Zinc Sulfate) 220 mg GT DAILY [facility] Stop: 03/15/17 08:59 Last Admin: 01/14/17 09:09 Dose: Not Given General: Alert Abdomen: Soft, Other (non tender, G tube c/d/i) - Procedures Procedures: Procedures Procedure Code Date BLOOD TRANSFUSION SERVICE 26963 02/17/13 CHANGE FEEDING DEVICE IN UP INTEST TRACT, SPRINKLING SYSTEM INSTALLER APPROACH [id number] 10/03/16 CHANGE GASTROSTOMY TUBE 30138 10/03/[address] GASTROSTOMY TUBE 72897 03/07/14 EMERGENCY DEPT VISIT 15426 06/07/11 FREEING OF BOWEL ADHESION 46617 01/08/13 INJECT ANTICOAGULANT 99.19 06/07/11 OTH LYSIS-PERITONEAL ADHES 54.59 01/08/13 OTHER ENDOSCOPY OF SM INTEST 45.13 03/07/14 PACKED CELL TRANSFUSION 99.04 02/17/13 PRP I/LINDSAY INIT REDUC >5 YR 30719 01/08/13 REPLACE GASTROSTOMY TUBE 97.02 03/07/14 UNILAT ING LINDSAY REP NOS 53.00 01/08/13 Assessment/Plan - Problem List Patient Problems: All Active Problems Gastrostomy tube dysfunction (Acute) K94.23 Malfunction of gastrostomy tube (Acute) K94.23 NAUSEA AND VOMITING (Acute) NAUSEA VOMITING AND DIARRHEA (Acute) REDNESS AND TENDERNESS TO GASTRIC STOMA (Acute) - Assessment Assessment: # Sepsis # G tube malfunction G tube replaced at bedside 01/14/17, confirmed and now functioning well. Plan: - continue feeding - antibiotic management as per primary GI to see as needed. Thank you for this consultation
--- NOTE | 2017-01-15 09:42 | GI Progress Note ---
Subjective - Review of Systems Service Date: 01/15/17 Subjective: G tube confirmed, tolerating feeds. Objective - Results Result Diagrams: 01/15/17 05:05 01/15/17 05:05 Recent Labs: Laboratory Last Values WBC 13.9 Th/cmm (4.8-10.8) H 01/15/17 05:05 RBC 3.30 Mil/cmm (3.80-5.80) L 01/15/17 05:05 Hgb 10.3 gm/dL (12-16) L 01/15/17 05:05 Hct 30.4 % (41.0-60) L D 01/15/17 05:05 MCV 92.1 fl (80-99) 01/15/17 05:05 MCH 31.4 pg (27.0-31.0) H 01/15/17 05:05 MCHC Differential 34.0 pg (28.0-36.0) 01/15/17 05:05 RDW 16.9 % (11.5-20.0) 01/15/17 05:05 Plt Count 144 Th/cmm (150-400) L 01/15/17 05:05 MPV 13.6 fl 01/15/17 05:05 Neutrophils % 82.9 % (40.0-80.0) H 01/14/17 05:50 Band Neutrophils % 3 % (0-10) 01/15/17 05:05 Lymphocytes % 10.3 % (20.0-50.0) L 01/14/17 05:50 Monocytes % 4.9 % (2.0-10.0) 01/14/17 05:50 Eosinophils % 1.5 % (0.0-5.0) 01/14/17 05:50 Basophils % 0.4 % (0.0-2.0) 01/14/17 05:50 Neutrophils (Manual) 81 % (40-80) H 01/15/17 05:05 Lymphocytes 7 % (20-50) L 01/15/17 05:05 Monocytes 2 % (2-10) 01/15/17 05:05 Eosinophils 7 % (0-5) H 01/15/17 05:05 Nucleated RBCs 1.0 % (0-0) H 01/15/17 05:05 Platelet Estimate ADEQUATE (NORMAL) 01/13/17 19:13 PT 10.3 SECONDS (9.5-11.5) 01/13/17 19:13 INR 0.99 (0.5-1.4) 01/13/17 19:13 PTT (Actin FS) 22.9 SECONDS (26.0-38.0) L 01/13/17 19:13 Sodium 151 mEq/L (136-145) H 01/15/17 05:05 Potassium 4.5 mEq/L (3.5-5.1) 01/15/17 05:05 Chloride 123 mEq/L (98-107) H 01/15/17 05:05 Carbon Dioxide 24.2 mEq/L (21.0-31.0) 01/15/17 05:05 Anion Gap 8.3 (7.0-16.0) 01/15/17 05:05 BUN 117 mg/dL (7-25) H* 01/15/17 05:05 Creatinine 3.1 mg/dL (0.7-1.3) H 01/15/17 05:05 Est GFR ( Amer) TNP 01/15/17 05:05 Est GFR (Non-Af Amer) TNP 01/15/17 05:05 BUN/Creatinine Ratio 37.7 01/15/17 05:05 Glucose 217 mg/dL 01/15/17 05:05 POC Glucose 219 MG/DL (70 - 105) H 01/14/17 22:33 Hemoglobin A1c % 8.0 % (4.0-6.0) H D 01/14/17 05:50 Whole Bld Lactic Acid 2.94 mmol/L (0.60-1.99) H* 01/13/17 21:34 Calcium 9.3 mg/dL (8.6-10.3) 01/15/17 05:05 Total Bilirubin 0.3 mg/dL (0.3-1.0) 01/13/17 19:13 AST 24 U/L (13-39) 01/13/17 19:13 ALT 4 U/L (7-52) L 01/13/17 19:13 Alkaline Phosphatase 121 U/L (34-104) H 01/13/17 19:13 Ammonia 52 umol/L (16-53) 01/14/17 05:50 B-Natriuretic Peptide 20.2 pg/mL (5.0-100.0) 01/14/17 05:50 Total Protein 9.3 gm/dL (6.0-8.3) H 01/13/17 19:13 Albumin 3.1 gm/dL (4.2-5.5) L 01/13/17 19:13 Globulin 6.2 gm/dL 01/13/17 19:13 Albumin/Globulin Ratio 0.5 (1.0-1.8) L 01/13/17 19:13 TSH 1.45 uIU/ml (0.34-5.60) 01/14/17 05:50 Urine Source [place] 01/13/17 19:30 Urine Color YELLOW 01/13/17 19:30 Urine Clarity HAZY (CLEAR) 01/13/17 19:30 Urine pH 5.5 (4.6 - 8.0) 01/13/17 19:30 Ur Specific [place] 1.015 (1.005-1.030) 01/13/17 19:30 Urine Protein TRACE mg/dL (NEGATIVE) 01/13/17 19:30 Urine Glucose (UA) NEGATIVE mg/dL (NEGATIVE) 01/13/17 19:30 Urine Ketones NEGATIVE mg/dL (NEGATIVE) 01/13/17 19:30 Urine Blood NEGATIVE (NEGATIVE) 01/13/17 19:30 Urine Nitrate NEGATIVE (NEGATIVE) 01/13/17 19:30 Urine Bilirubin NEGATIVE (NEGATIVE) 01/13/17 19:30 Urine Urobilinogen 0.2 E.U./dL (0.2 - 1.0) 01/13/17 19:30 Ur Leukocyte Esterase SMALL (NEGATIVE) H 01/13/17 19:30 Urine RBC NONE SEEN /hpf (0-5) 01/13/17 19:30 Urine WBC 2-5 /hpf (0-5) H 01/13/17 19:30 Ur Epithelial Cells OCCASIONAL /lpf (FEW) 01/13/17 19:30 Urine Bacteria FEW /hpf (NONE SEEN) 01/13/17 19:30 Urine Yeast MANY /hpf (NONE SEEN) H 01/13/17 19:30 - Physical Exam Vitals and I&O: Vital Signs Temp 97.5 F 01/15/17 08:00 Pulse 86 01/15/17 08:00 Resp 20 01/15/17 08:00 BP 116/52 01/15/17 08:00 Pulse Ox 94 01/15/17 08:00 Intake & Output 01/14/17 01/15/17 01/15/17 18:59 06:59 18:59 Intake Total 1000 1780 Output Total 250 Balance 1000 1530 Weight (lbs) 65.317 kg Intake: Intake, IV Amount 1000 1000 Sodium Chloride 0.45% 1, 1000 1000 000 ml @ 100 mls/hr IV . Q10H [facility] Rx#:[id number] Tube Feeding 780 Output: Urine 250 Active Medications: Current Medications Acetaminophen (Tylenol) 650 mg GT Q8H PRN PRN Reason: PAIN/TEMP>100 Stop: 03/14/17 20:51 Acetaminophen/Hydrocodone Bitart ([place] 5mg/325mg) 1 tab PO Q4H PRN PRN Reason: Pain (Severe) Stop: 03/14/17 20:54 Al Hydrox/Mg Hydrox/Simethicone (Maalox) 30 ml GT Q3HR PRN PRN Reason: Indigestion Stop: 03/14/17 20:51 Albuterol Sulfate (Albuterol 2.5mg/3ml Neb Ud) 2.5 mg HHN QIDRT [facility] Stop: 03/15/17 06:59 Last Admin: 01/15/17 07:19 Dose: 2.5 mg Ascorbic Acid (Vitamin C) 500 mg GT DAILY [facility] Stop: 03/15/17 08:59 Last Admin: 01/14/17 09:07 Dose: Not Given Carbidopa/Levodopa (Sinemet 25mg-100 Mg) 2 tab GT BID [facility] Stop: 03/15/17 08:59 Last Admin: 01/14/17 17:11 Dose: 2 tab Donepezil HCl (Aricept) 10 mg GT HS [facility] Stop: 03/14/17 20:59 Last Admin: 01/14/17 21:10 Dose: 10 mg Glipizide (Glucotrol) 5 mg GT BID [facility] Stop: 03/15/17 08:59 Last Admin: 01/14/17 17:10 Dose: 5 mg Heparin Sodium (Porcine) (Heparin) 5,000 units SUBQ Q12HR [facility] Stop: 03/14/17 20:59 Last Admin: 01/14/17 21:10 Dose: 5,000 units Cefepime HCl 1 gm/ Dextrose 50 mls @ 100 mls/hr IV Q24H [facility] Stop: 03/14/17 21:59 Last Admin: 01/14/17 21:09 Dose: 100 mls/hr Sodium Chloride (Nacl 0.45%) 1,000 mls @ 100 mls/hr IV .Q10H [facility] Stop: 03/14/17 20:59 Last Admin: 01/14/17 22:29 Dose: 100 mls/hr Vancomycin HCl 1.25 gm/ Sodium (Chloride) 250 mls @ 165 mls/hr IV Q24H [facility] Stop: 03/15/17 10:59 Last Admin: 01/14/17 11:01 Dose: 165 mls/hr Insulin Detemir (Levemir Insulin) 18 units SUBQ Q12H [facility] Stop: 03/14/17 20:59 Last Admin: 01/14/17 22:34 Dose: 18 units Ipratropium [place] (Atrovent Neb 0.5mg/2.5ml) 0.5 mg HHN QIDRT [facility] Stop: 03/15/17 10:59 Last Admin: 01/15/17 07:19 Dose: 0.5 mg Magnesium Hydroxide (Milk Of Magnesia) 30 ml GT DAILY PRN PRN Reason: Constipation Stop: 03/14/17 20:51 Metoprolol Tartrate (Lopressor) 100 mg GT BID [facility] Stop: 03/15/17 08:59 Last Admin: 01/14/17 17:18 Dose: 100 mg Miscellaneous (Vancomycin Iv Per Pharmacy) 1 ea MC DAILY [facility] Stop: 03/16/17 08:59 Nitroglycerin (Nitrostat) 0.4 mg SL Q5MIN PRN PRN Reason: Chest Pain Stop: 03/14/17 20:51 Ondansetron HCl (Zofran) 4 mg IV Q8H PRN PRN Reason: Nausea / Vomiting Stop: 03/14/17 20:54 Last Admin: 01/14/17 11:46 Dose: 4 mg Oxybutynin Chloride (Ditropan) 5 mg GT BID [facility] Stop: 03/15/17 08:59 Last Admin: 01/14/17 17:10 Dose: 5 mg Pantoprazole Sodium (Protonix) 40 mg GT DAILY [facility] Stop: 03/15/17 08:59 Last Admin: 01/14/17 09:09 Dose: Not Given Pneumococcal Polyvalent Vaccine (Pneumovax) 0.5 ml IM .ONCE ONE Stop: 01/16/17 09:01 Timolol Maleate (Timoptic 0.5% Ophth Soln) 1 drop EACH EYE BID [facility] Stop: 03/15/17 08:59 Last Admin: 01/14/17 17:10 Dose: 1 drop Zinc Sulfate (Zinc Sulfate) 220 mg GT DAILY [facility] Stop: 03/15/17 08:59 Last Admin: 01/14/17 09:09 Dose: Not Given General: Alert Abdomen: Soft, Other (non tender, G tube c/d/i) - Procedures Procedures: Procedures Procedure Code Date BLOOD TRANSFUSION SERVICE 72770 02/17/13 CHANGE FEEDING DEVICE IN UP INTEST TRACT, FAMILY NURSE APPROACH [id number] 10/03/16 CHANGE GASTROSTOMY TUBE 07773 10/03/[address] GASTROSTOMY TUBE 41346 03/07/14 EMERGENCY DEPT VISIT 23891 06/07/11 FREEING OF BOWEL ADHESION 20384 01/08/13 INJECT ANTICOAGULANT 99.19 06/07/11 OTH LYSIS-PERITONEAL ADHES 54.59 01/08/13 OTHER ENDOSCOPY OF SM INTEST 45.13 03/07/14 PACKED CELL TRANSFUSION 99.04 02/17/13 PRP I/LINDSAY INIT REDUC >5 YR 56531 01/08/13 REPLACE GASTROSTOMY TUBE 97.02 03/07/14 UNILAT ING LINDSAY REP NOS 53.00 01/08/13 Assessment/Plan - Problem List Patient Problems: All Active Problems Gastrostomy tube dysfunction (Acute) K94.23 Malfunction of gastrostomy tube (Acute) K94.23 NAUSEA AND VOMITING (Acute) NAUSEA VOMITING AND DIARRHEA (Acute) REDNESS AND TENDERNESS TO GASTRIC STOMA (Acute) - Assessment Assessment: # Sepsis # G tube malfunction G tube replaced at bedside 01/14/17, confirmed and now functioning well. Plan: - continue feeding - antibiotic management as per primary GI to see as needed. Thank you for this consultation
[2017-01-15] MEDS: Multivitamin w/ Minerals Tab GT SCH ×2 (09:48)
[2017-01-15] MEDS: Insulin Detemir 100 units/mL 10mL Vial SUBQ SCH ×4 (09:48→20:26)
[2017-01-15] MEDS: Ascorbic Acid 500 mg/5 mL UDC GT SCH ×2 (09:52)
--- NOTE | 2017-01-15 10:43 | Internal Medicine Prog Note ---
Internal Medicine Subjective - Subjective Patient is:: awake, confused Per staff patient has:: tolerating meds Internal Medicine Objective - Results Result Diagrams: 01/15/17 05:05 01/15/17 05:05 Recent Labs: Laboratory Last Values WBC 13.9 Th/cmm (4.8-10.8) H 01/15/17 05:05 RBC 3.30 Mil/cmm (3.80-5.80) L 01/15/17 05:05 Hgb 10.3 gm/dL (12-16) L 01/15/17 05:05 Hct 30.4 % (41.0-60) L D 01/15/17 05:05 MCV 92.1 fl (80-99) 01/15/17 05:05 MCH 31.4 pg (27.0-31.0) H 01/15/17 05:05 MCHC Differential 34.0 pg (28.0-36.0) 01/15/17 05:05 RDW 16.9 % (11.5-20.0) 01/15/17 05:05 Plt Count 144 Th/cmm (150-400) L 01/15/17 05:05 MPV 13.6 fl 01/15/17 05:05 Neutrophils % 82.9 % (40.0-80.0) H 01/14/17 05:50 Band Neutrophils % 3 % (0-10) 01/15/17 05:05 Lymphocytes % 10.3 % (20.0-50.0) L 01/14/17 05:50 Monocytes % 4.9 % (2.0-10.0) 01/14/17 05:50 Eosinophils % 1.5 % (0.0-5.0) 01/14/17 05:50 Basophils % 0.4 % (0.0-2.0) 01/14/17 05:50 Neutrophils (Manual) 81 % (40-80) H 01/15/17 05:05 Lymphocytes 7 % (20-50) L 01/15/17 05:05 Monocytes 2 % (2-10) 01/15/17 05:05 Eosinophils 7 % (0-5) H 01/15/17 05:05 Nucleated RBCs 1.0 % (0-0) H 01/15/17 05:05 Platelet Estimate ADEQUATE (NORMAL) 01/13/17 19:13 PT 10.3 SECONDS (9.5-11.5) 01/13/17 19:13 INR 0.99 (0.5-1.4) 01/13/17 19:13 PTT (Actin FS) 22.9 SECONDS (26.0-38.0) L 01/13/17 19:13 Sodium 151 mEq/L (136-145) H 01/15/17 05:05 Potassium 4.5 mEq/L (3.5-5.1) 01/15/17 05:05 Chloride 123 mEq/L (98-107) H 01/15/17 05:05 Carbon Dioxide 24.2 mEq/L (21.0-31.0) 01/15/17 05:05 Anion Gap 8.3 (7.0-16.0) 01/15/17 05:05 BUN 117 mg/dL (7-25) H* 01/15/17 05:05 Creatinine 3.1 mg/dL (0.7-1.3) H 01/15/17 05:05 Est GFR ( Amer) TNP 01/15/17 05:05 Est GFR (Non-Af Amer) TNP 01/15/17 05:05 BUN/Creatinine Ratio 37.7 01/15/17 05:05 Glucose 217 mg/dL 01/15/17 05:05 POC Glucose 219 MG/DL (70 - 105) H 01/14/17 22:33 Hemoglobin A1c % 8.0 % (4.0-6.0) H D 01/14/17 05:50 Whole Bld Lactic Acid 2.94 mmol/L (0.60-1.99) H* 01/13/17 21:34 Calcium 9.3 mg/dL (8.6-10.3) 01/15/17 05:05 Total Bilirubin 0.3 mg/dL (0.3-1.0) 01/13/17 19:13 AST 24 U/L (13-39) 01/13/17 19:13 ALT 4 U/L (7-52) L 01/13/17 19:13 Alkaline Phosphatase 121 U/L (34-104) H 01/13/17 19:13 Ammonia 52 umol/L (16-53) 01/14/17 05:50 B-Natriuretic Peptide 20.2 pg/mL (5.0-100.0) 01/14/17 05:50 Total Protein 9.3 gm/dL (6.0-8.3) H 01/13/17 19:13 Albumin 3.1 gm/dL (4.2-5.5) L 01/13/17 19:13 Globulin 6.2 gm/dL 01/13/17 19:13 Albumin/Globulin Ratio 0.5 (1.0-1.8) L 01/13/17 19:13 TSH 1.45 uIU/ml (0.34-5.60) 01/14/17 05:50 Urine Source [place] 01/13/17 19:30 Urine Color YELLOW 01/13/17 19:30 Urine Clarity HAZY (CLEAR) 01/13/17 19:30 Urine pH 5.5 (4.6 - 8.0) 01/13/17 19:30 Ur Specific [place] 1.015 (1.005-1.030) 01/13/17 19:30 Urine Protein TRACE mg/dL (NEGATIVE) 01/13/17 19:30 Urine Glucose (UA) NEGATIVE mg/dL (NEGATIVE) 01/13/17 19:30 Urine Ketones NEGATIVE mg/dL (NEGATIVE) 01/13/17 19:30 Urine Blood NEGATIVE (NEGATIVE) 01/13/17 19:30 Urine Nitrate NEGATIVE (NEGATIVE) 01/13/17 19:30 Urine Bilirubin NEGATIVE (NEGATIVE) 01/13/17 19:30 Urine Urobilinogen 0.2 E.U./dL (0.2 - 1.0) 01/13/17 19:30 Ur Leukocyte Esterase SMALL (NEGATIVE) H 01/13/17 19:30 Urine RBC NONE SEEN /hpf (0-5) 01/13/17 19:30 Urine WBC 2-5 /hpf (0-5) H 01/13/17 19:30 Ur Epithelial Cells OCCASIONAL /lpf (FEW) 01/13/17 19:30 Urine Bacteria FEW /hpf (NONE SEEN) 01/13/17 19:30 Urine Yeast MANY /hpf (NONE SEEN) H 01/13/17 19:30 - Physical Exam Vitals and I&O: Vital Signs Temp 97.5 F 01/15/17 08:00 Pulse 86 01/15/17 09:42 Resp 20 01/15/17 08:00 BP 116/52 01/15/17 09:42 Pulse Ox 94 01/15/17 08:00 Intake & Output 01/14/17 01/15/17 01/15/17 18:59 06:59 18:59 Intake Total 1000 1780 Output Total 250 Balance 1000 1530 Weight (lbs) 144 lb Intake: Intake, IV Amount 1000 1000 Sodium Chloride 0.45% 1, 1000 1000 000 ml @ 100 mls/hr IV . Q10H [facility] Rx#:[id number] Tube Feeding 780 Output: Urine 250 Active Medications: Current Medications Acetaminophen (Tylenol) 650 mg GT Q8H PRN PRN Reason: PAIN/TEMP>100 Stop: 03/14/17 20:51 Acetaminophen/Hydrocodone Bitart ([place] 5mg/325mg) 1 tab PO Q4H PRN PRN Reason: Pain (Severe) Stop: 03/14/17 20:54 Al Hydrox/Mg Hydrox/Simethicone (Maalox) 30 ml GT Q3HR PRN PRN Reason: Indigestion Stop: 03/14/17 20:51 Albuterol Sulfate (Albuterol 2.5mg/3ml Neb Ud) 2.5 mg HHN QIDRT [facility] Stop: 03/15/17 06:59 Last Admin: 01/15/17 07:19 Dose: 2.5 mg Ascorbic Acid (Vitamin C) 500 mg PO DAILY [facility] Stop: 03/16/17 10:14 Carbidopa/Levodopa (Sinemet 25mg-100 Mg) 2 tab GT BID [facility] Stop: 03/15/17 08:59 Last Admin: 01/15/17 09:44 Dose: 2 tab Donepezil HCl (Aricept) 10 mg GT HS [facility] Stop: 03/14/17 20:59 Last Admin: 01/14/17 21:10 Dose: 10 mg Glipizide (Glucotrol) 5 mg GT BID [facility] Stop: 03/15/17 08:59 Last Admin: 01/15/17 09:44 Dose: 5 mg Heparin Sodium (Porcine) (Heparin) 5,000 units SUBQ Q12HR [facility] Stop: 03/14/17 20:59 Last Admin: 01/15/17 09:42 Dose: 5,000 units Cefepime HCl 1 gm/ Dextrose 50 mls @ 100 mls/hr IV Q24H [facility] Stop: 03/14/17 21:59 Last Admin: 01/14/17 21:09 Dose: 100 mls/hr Sodium Chloride (Nacl 0.45%) 1,000 mls @ 100 mls/hr IV .Q10H [facility] Stop: 03/14/17 20:59 Last Admin: 01/14/17 22:29 Dose: 100 mls/hr Insulin Detemir (Levemir Insulin) 18 units SUBQ Q12H [facility] Stop: 03/14/17 20:59 Last Admin: 01/15/17 09:48 Dose: 18 units Ipratropium [place] (Atrovent Neb 0.5mg/2.5ml) 0.5 mg HHN QIDRT [facility] Stop: 03/15/17 10:59 Last Admin: 01/15/17 07:19 Dose: 0.5 mg Magnesium Hydroxide (Milk Of Magnesia) 30 ml GT DAILY PRN PRN Reason: Constipation Stop: 03/14/17 20:51 Metoprolol Tartrate (Lopressor) 100 mg GT BID [facility] Stop: 03/15/17 08:59 Last Admin: 01/15/17 09:42 Dose: 100 mg Miscellaneous (Vancomycin Iv Per Pharmacy) 1 ea MC DAILY [facility] Stop: 03/16/17 08:59 Nitroglycerin (Nitrostat) 0.4 mg SL Q5MIN PRN PRN Reason: Chest Pain Stop: 03/14/17 20:51 Ondansetron HCl (Zofran) 4 mg IV Q8H PRN PRN Reason: Nausea / Vomiting Stop: 03/14/17 20:54 Last Admin: 01/14/17 11:46 Dose: 4 mg Oxybutynin Chloride (Ditropan) 5 mg GT BID [facility] Stop: 03/15/17 08:59 Last Admin: 01/15/17 09:48 Dose: 5 mg Pantoprazole Sodium (Protonix) 40 mg GT DAILY [facility] Stop: 03/15/17 08:59 Last Admin: 01/15/17 09:42 Dose: 40 mg Pneumococcal Polyvalent Vaccine (Pneumovax) 0.5 ml IM .ONCE ONE Stop: 01/16/17 09:01 Timolol Maleate (Timoptic 0.5% Ophth Soln) 1 drop EACH EYE BID [facility] Stop: 01/05/18 08:59 Last Admin: 01/15/17 09:41 Dose: 1 drop Zinc Sulfate (Zinc Sulfate) 220 mg GT DAILY [facility] Stop: 03/15/17 08:59 Last Admin: 01/15/17 09:43 Dose: 220 mg General: weak, alert HEENT: NC/AT, PERRLA Neck: Supple Lungs: ronchi Cardiovascular: RRR, Normal S1, Normal S2, without murmur Abdomen: soft, non-tender, non-distended, positive bowel sound Extremities: excoriation Neurological: alert - Procedures Procedures: Procedures Procedure Code Date BLOOD TRANSFUSION SERVICE 09032 02/17/13 CHANGE FEEDING DEVICE IN UP INTEST TRACT, TOOL ROOM GEAR MACHINE OPERATOR APPROACH [id number] 10/03/16 CHANGE GASTROSTOMY TUBE 63473 10/03/[address] GASTROSTOMY TUBE 54012 03/07/14 EMERGENCY DEPT VISIT 93643 06/07/11 FREEING OF BOWEL ADHESION 18446 01/08/13 INJECT ANTICOAGULANT 99.19 06/07/11 OTH LYSIS-PERITONEAL ADHES 54.59 01/08/13 OTHER ENDOSCOPY OF SM INTEST 45.13 03/07/14 PACKED CELL TRANSFUSION 99.04 02/17/13 PRP I/LINDSAY INIT REDUC >5 YR 97455 01/08/13 REPLACE GASTROSTOMY TUBE 97.02 03/07/14 UNILAT ING LINDSAY REP NOS 53.00 01/08/13 Internal Medicine Assmt/Plan - Assessment Assessment: fever sepsis lactic acidosis leukocytosis malfunction gt acute hypernatremia acute renal failure moderate protein calorie malnutrition candiduria dm-2 parkinsons dementia htn decubitus ulcer - Plan Plan: continue ivf and iv antibiotics wound care monitor glucose am labs continue current plan of care Nutritional Asmnt/Malnutr-PDOC - Dietary Evaluation Malnutrition Findings (Please click <Entered> for more info): Nutritional Asmnt/Malnutrition Start: 01/14/17 12: 05 Text: Status: Active Freq: Document 01/14/17 12:06 KAVITA (Rec: 01/14/17 12:27 KAVITA [email or web address]) Nutritional Asmnt/Malnutrition Patient General Information Nutritional Screening High Risk Consult Diagnosis Malfunctioning G-Tube, Sepsis, Acute Renal Failure Pertinent Medical Hx/Surgical Hx Dementia, HTN, DM, Althma/COPD , PUD/GERD, Parkinson's Disease Subjective Information Pt came from SNF, admitted for G-Tube replacement. Consult for Wound and low [place] score received. Pt was awake during the time of visit, able to answer questions. Noted pt does not have teeth. 01/14 G- tube replacement. Started Nutren Pulmonary at 10ml/hr, currently running at 20ml/hr. Pt stated nausea, made aware of RN. H&P noted moderate protein-calorie malnutrition. Performed physical exam, mild muscal wasting noted. UBW 153lb on 10/04/16 per EMR. Possible wt loss. Current Diet Order/ Nutrition Support Nutren Pulmonary start with 10ml/hr, increase to goal rate [id number] Pertinent Medications Vitamin C, Glucontrol, Levemir Insulin, Nacl 100ml/hr, Zn Pertinent Labs 01/14: Na 159H, K 4.2, Cl 129H, BUN 108H, Cr 2.2H, A1C 8.0, Ca 10.2 01/13: Alb 3.1 L POC: 113-116 (01/13-01/14) Nutritional Hx/Data Height 5 ft 8 in Height (Calculated Centimeters) 172.7 Current Weight (lbs) 144 lb Weight (Calculated Kilograms) 65.3 Weight (Calculated Grams) 82930.3 Usual body Weight (lbs) 153 % Usual Body Weight 94 [place] Body Weight 154 % [place] Body Weight 94 Body Mass Index (BMI) 21.9 Recent Weight Change Yes Weight Status Approriate GI Symptoms GI Symptoms Nausea Usual diet at home Pulmocare 65ml/hr x 24hr daily Skin Integrity/Comment: small non-intact area to left buttock Estimated Nutritional Goals BEE in Kcals: Using Current wt Calories/Kcals/Kg 30-35 Kcals Calculated [id number] Protein: Using Current wt Protein g/k.2-1.5 Protein Calculated 79-98g monitor renal labs Fluid: ml Per MD d/t acute renal failure Nutritional Problem 1. Problem Problem Increased nutrition needs ( calorie and protein) Etiology increased meltabolic demands with wound healing and sepsis Signs/Symptoms: dx of sepsis, [place] score 14 Malnutrition Alert Muscle Mass (Non-Severe) Mild Depletion Protein-Calorie Malnutrition N/A Is there a minimum of two criteria No selected? Query Text:Check all the applicable criteria. A minimum of two criteria are recommended for diagnosis of either severe or non-severe malnutrition. Intervention/Recommendation Comments 1. Continue current TF regimen , goal rate 65ml/hr x 24hr will provide 2340kcal, 106g protein and 782ml free water, meeting 100% of nutritional needs. 2. consider discontinuing Zinc supplementation as TF is adequate to meet high micronutrient needs for wound healing Expected Outcomes/Goals Expected Outcomes/Goals 1. Monitor TF tolerance and residual, nausea/vomiting 2. pt to meet 100% nutritional needs once TF approcah to goal rate 3. Monitor wt weekly, wt to remain stable 4. Monitor skin condition, wound to improve 5. F/U as high risk in 2-3 days, 01/16-01/17
--- NOTE | 2017-01-15 10:43 | Internal Medicine Prog Note ---
Internal Medicine Subjective - Subjective Patient is:: awake, confused Per staff patient has:: tolerating meds Internal Medicine Objective - Results Result Diagrams: 01/15/17 05:05 01/15/17 05:05 Recent Labs: Laboratory Last Values WBC 13.9 Th/cmm (4.8-10.8) H 01/15/17 05:05 RBC 3.30 Mil/cmm (3.80-5.80) L 01/15/17 05:05 Hgb 10.3 gm/dL (12-16) L 01/15/17 05:05 Hct 30.4 % (41.0-60) L D 01/15/17 05:05 MCV 92.1 fl (80-99) 01/15/17 05:05 MCH 31.4 pg (27.0-31.0) H 01/15/17 05:05 MCHC Differential 34.0 pg (28.0-36.0) 01/15/17 05:05 RDW 16.9 % (11.5-20.0) 01/15/17 05:05 Plt Count 144 Th/cmm (150-400) L 01/15/17 05:05 MPV 13.6 fl 01/15/17 05:05 Neutrophils % 82.9 % (40.0-80.0) H 01/14/17 05:50 Band Neutrophils % 3 % (0-10) 01/15/17 05:05 Lymphocytes % 10.3 % (20.0-50.0) L 01/14/17 05:50 Monocytes % 4.9 % (2.0-10.0) 01/14/17 05:50 Eosinophils % 1.5 % (0.0-5.0) 01/14/17 05:50 Basophils % 0.4 % (0.0-2.0) 01/14/17 05:50 Neutrophils (Manual) 81 % (40-80) H 01/15/17 05:05 Lymphocytes 7 % (20-50) L 01/15/17 05:05 Monocytes 2 % (2-10) 01/15/17 05:05 Eosinophils 7 % (0-5) H 01/15/17 05:05 Nucleated RBCs 1.0 % (0-0) H 01/15/17 05:05 Platelet Estimate ADEQUATE (NORMAL) 01/13/17 19:13 PT 10.3 SECONDS (9.5-11.5) 01/13/17 19:13 INR 0.99 (0.5-1.4) 01/13/17 19:13 PTT (Actin FS) 22.9 SECONDS (26.0-38.0) L 01/13/17 19:13 Sodium 151 mEq/L (136-145) H 01/15/17 05:05 Potassium 4.5 mEq/L (3.5-5.1) 01/15/17 05:05 Chloride 123 mEq/L (98-107) H 01/15/17 05:05 Carbon Dioxide 24.2 mEq/L (21.0-31.0) 01/15/17 05:05 Anion Gap 8.3 (7.0-16.0) 01/15/17 05:05 BUN 117 mg/dL (7-25) H* 01/15/17 05:05 Creatinine 3.1 mg/dL (0.7-1.3) H 01/15/17 05:05 Est GFR ( Amer) TNP 01/15/17 05:05 Est GFR (Non-Af Amer) TNP 01/15/17 05:05 BUN/Creatinine Ratio 37.7 01/15/17 05:05 Glucose 217 mg/dL 01/15/17 05:05 POC Glucose 219 MG/DL (70 - 105) H 01/14/17 22:33 Hemoglobin A1c % 8.0 % (4.0-6.0) H D 01/14/17 05:50 Whole Bld Lactic Acid 2.94 mmol/L (0.60-1.99) H* 01/13/17 21:34 Calcium 9.3 mg/dL (8.6-10.3) 01/15/17 05:05 Total Bilirubin 0.3 mg/dL (0.3-1.0) 01/13/17 19:13 AST 24 U/L (13-39) 01/13/17 19:13 ALT 4 U/L (7-52) L 01/13/17 19:13 Alkaline Phosphatase 121 U/L (34-104) H 01/13/17 19:13 Ammonia 52 umol/L (16-53) 01/14/17 05:50 B-Natriuretic Peptide 20.2 pg/mL (5.0-100.0) 01/14/17 05:50 Total Protein 9.3 gm/dL (6.0-8.3) H 01/13/17 19:13 Albumin 3.1 gm/dL (4.2-5.5) L 01/13/17 19:13 Globulin 6.2 gm/dL 01/13/17 19:13 Albumin/Globulin Ratio 0.5 (1.0-1.8) L 01/13/17 19:13 TSH 1.45 uIU/ml (0.34-5.60) 01/14/17 05:50 Urine Source [place] 01/13/17 19:30 Urine Color YELLOW 01/13/17 19:30 Urine Clarity HAZY (CLEAR) 01/13/17 19:30 Urine pH 5.5 (4.6 - 8.0) 01/13/17 19:30 Ur Specific [place] 1.015 (1.005-1.030) 01/13/17 19:30 Urine Protein TRACE mg/dL (NEGATIVE) 01/13/17 19:30 Urine Glucose (UA) NEGATIVE mg/dL (NEGATIVE) 01/13/17 19:30 Urine Ketones NEGATIVE mg/dL (NEGATIVE) 01/13/17 19:30 Urine Blood NEGATIVE (NEGATIVE) 01/13/17 19:30 Urine Nitrate NEGATIVE (NEGATIVE) 01/13/17 19:30 Urine Bilirubin NEGATIVE (NEGATIVE) 01/13/17 19:30 Urine Urobilinogen 0.2 E.U./dL (0.2 - 1.0) 01/13/17 19:30 Ur Leukocyte Esterase SMALL (NEGATIVE) H 01/13/17 19:30 Urine RBC NONE SEEN /hpf (0-5) 01/13/17 19:30 Urine WBC 2-5 /hpf (0-5) H 01/13/17 19:30 Ur Epithelial Cells OCCASIONAL /lpf (FEW) 01/13/17 19:30 Urine Bacteria FEW /hpf (NONE SEEN) 01/13/17 19:30 Urine Yeast MANY /hpf (NONE SEEN) H 01/13/17 19:30 - Physical Exam Vitals and I&O: Vital Signs Temp 97.5 F 01/15/17 08:00 Pulse 86 01/15/17 09:42 Resp 20 01/15/17 08:00 BP 116/52 01/15/17 09:42 Pulse Ox 94 01/15/17 08:00 Intake & Output 01/14/17 01/15/17 01/15/17 18:59 06:59 18:59 Intake Total 1000 1780 Output Total 250 Balance 1000 1530 Weight (lbs) 144 lb Intake: Intake, IV Amount 1000 1000 Sodium Chloride 0.45% 1, 1000 1000 000 ml @ 100 mls/hr IV . Q10H [facility] Rx#:[id number] Tube Feeding 780 Output: Urine 250 Active Medications: Current Medications Acetaminophen (Tylenol) 650 mg GT Q8H PRN PRN Reason: PAIN/TEMP>100 Stop: 03/14/17 20:51 Acetaminophen/Hydrocodone Bitart ([place] 5mg/325mg) 1 tab PO Q4H PRN PRN Reason: Pain (Severe) Stop: 03/14/17 20:54 Al Hydrox/Mg Hydrox/Simethicone (Maalox) 30 ml GT Q3HR PRN PRN Reason: Indigestion Stop: 03/14/17 20:51 Albuterol Sulfate (Albuterol 2.5mg/3ml Neb Ud) 2.5 mg HHN QIDRT [facility] Stop: 03/15/17 06:59 Last Admin: 01/15/17 07:19 Dose: 2.5 mg Ascorbic Acid (Vitamin C) 500 mg PO DAILY [facility] Stop: 03/16/17 10:14 Carbidopa/Levodopa (Sinemet 25mg-100 Mg) 2 tab GT BID [facility] Stop: 03/15/17 08:59 Last Admin: 01/15/17 09:44 Dose: 2 tab Donepezil HCl (Aricept) 10 mg GT HS [facility] Stop: 03/14/17 20:59 Last Admin: 01/14/17 21:10 Dose: 10 mg Glipizide (Glucotrol) 5 mg GT BID [facility] Stop: 03/15/17 08:59 Last Admin: 01/15/17 09:44 Dose: 5 mg Heparin Sodium (Porcine) (Heparin) 5,000 units SUBQ Q12HR [facility] Stop: 03/14/17 20:59 Last Admin: 01/15/17 09:42 Dose: 5,000 units Cefepime HCl 1 gm/ Dextrose 50 mls @ 100 mls/hr IV Q24H [facility] Stop: 03/14/17 21:59 Last Admin: 01/14/17 21:09 Dose: 100 mls/hr Sodium Chloride (Nacl 0.45%) 1,000 mls @ 100 mls/hr IV .Q10H [facility] Stop: 03/14/17 20:59 Last Admin: 01/14/17 22:29 Dose: 100 mls/hr Insulin Detemir (Levemir Insulin) 18 units SUBQ Q12H [facility] Stop: 03/14/17 20:59 Last Admin: 01/15/17 09:48 Dose: 18 units Ipratropium [place] (Atrovent Neb 0.5mg/2.5ml) 0.5 mg HHN QIDRT [facility] Stop: 03/15/17 10:59 Last Admin: 01/15/17 07:19 Dose: 0.5 mg Magnesium Hydroxide (Milk Of Magnesia) 30 ml GT DAILY PRN PRN Reason: Constipation Stop: 03/14/17 20:51 Metoprolol Tartrate (Lopressor) 100 mg GT BID [facility] Stop: 03/15/17 08:59 Last Admin: 01/15/17 09:42 Dose: 100 mg Miscellaneous (Vancomycin Iv Per Pharmacy) 1 ea MC DAILY [facility] Stop: 03/16/17 08:59 Nitroglycerin (Nitrostat) 0.4 mg SL Q5MIN PRN PRN Reason: Chest Pain Stop: 03/14/17 20:51 Ondansetron HCl (Zofran) 4 mg IV Q8H PRN PRN Reason: Nausea / Vomiting Stop: 03/14/17 20:54 Last Admin: 01/14/17 11:46 Dose: 4 mg Oxybutynin Chloride (Ditropan) 5 mg GT BID [facility] Stop: 03/15/17 08:59 Last Admin: 01/15/17 09:48 Dose: 5 mg Pantoprazole Sodium (Protonix) 40 mg GT DAILY [facility] Stop: 03/15/17 08:59 Last Admin: 01/15/17 09:42 Dose: 40 mg Pneumococcal Polyvalent Vaccine (Pneumovax) 0.5 ml IM .ONCE ONE Stop: 01/16/17 09:01 Timolol Maleate (Timoptic 0.5% Ophth Soln) 1 drop EACH EYE BID [facility] Stop: 01/05/18 08:59 Last Admin: 01/15/17 09:41 Dose: 1 drop Zinc Sulfate (Zinc Sulfate) 220 mg GT DAILY [facility] Stop: 03/15/17 08:59 Last Admin: 01/15/17 09:43 Dose: 220 mg General: weak, alert HEENT: NC/AT, PERRLA Neck: Supple Lungs: ronchi Cardiovascular: RRR, Normal S1, Normal S2, without murmur Abdomen: soft, non-tender, non-distended, positive bowel sound Extremities: excoriation Neurological: alert - Procedures Procedures: Procedures Procedure Code Date BLOOD TRANSFUSION SERVICE 99519 02/17/13 CHANGE FEEDING DEVICE IN UP INTEST TRACT, CHIROPRACTOR ASSISTANT APPROACH [id number] 10/03/16 CHANGE GASTROSTOMY TUBE 04245 10/03/[address] GASTROSTOMY TUBE 14632 03/07/14 EMERGENCY DEPT VISIT 83259 06/07/11 FREEING OF BOWEL ADHESION 99716 01/08/13 INJECT ANTICOAGULANT 99.19 06/07/11 OTH LYSIS-PERITONEAL ADHES 54.59 01/08/13 OTHER ENDOSCOPY OF SM INTEST 45.13 03/07/14 PACKED CELL TRANSFUSION 99.04 02/17/13 PRP I/LINDSAY INIT REDUC >5 YR 11119 01/08/13 REPLACE GASTROSTOMY TUBE 97.02 03/07/14 UNILAT ING LINDSAY REP NOS 53.00 01/08/13 Internal Medicine Assmt/Plan - Assessment Assessment: fever sepsis lactic acidosis leukocytosis malfunction gt acute hypernatremia acute renal failure moderate protein calorie malnutrition candiduria dm-2 parkinsons dementia htn decubitus ulcer - Plan Plan: continue ivf and iv antibiotics wound care monitor glucose am labs continue current plan of care Nutritional Asmnt/Malnutr-PDOC - Dietary Evaluation Malnutrition Findings (Please click <Entered> for more info): Nutritional Asmnt/Malnutrition Start: 01/14/17 12: 05 Text: Status: Active Freq: Document 01/14/17 12:06 KAVITA (Rec: 01/14/17 12:27 [email or web address]) Nutritional Asmnt/Malnutrition Patient General Information Nutritional Screening High Risk Consult Diagnosis Malfunctioning G-Tube, Sepsis, Acute Renal Failure Pertinent Medical Hx/Surgical Hx Dementia, HTN, DM, Althma/COPD , PUD/GERD, Parkinson's Disease Subjective Information Pt came from SNF, admitted for G-Tube replacement. Consult for Wound and low [place] score received. Pt was awake during the time of visit, able to answer questions. Noted pt does not have teeth. 01/14 G- tube replacement. Started Nutren Pulmonary at 10ml/hr, currently running at 20ml/hr. Pt stated nausea, made aware of RN. H&P noted moderate protein-calorie malnutrition. Performed physical exam, mild muscal wasting noted. UBW 153lb on 10/04/16 per EMR. Possible wt loss. Current Diet Order/ Nutrition Support Nutren Pulmonary start with 10ml/hr, increase to goal rate [id number] Pertinent Medications Vitamin C, Glucontrol, Levemir Insulin, Nacl 100ml/hr, Zn Pertinent Labs 01/14: Na 159H, K 4.2, Cl 129H, BUN 108H, Cr 2.2H, A1C 8.0, Ca 10.2 01/13: Alb 3.1 L POC: 113-116 (01/13-01/14) Nutritional Hx/Data Height 5 ft 8 in Height (Calculated Centimeters) 172.7 Current Weight (lbs) 144 lb Weight (Calculated Kilograms) 65.3 Weight (Calculated Grams) 25128.3 Usual body Weight (lbs) 153 % Usual Body Weight 94 [place] Body Weight 154 % [place] Body Weight 94 Body Mass Index (BMI) 21.9 Recent Weight Change Yes Weight Status Approriate GI Symptoms GI Symptoms Nausea Usual diet at home [facility] 65ml/hr x 24hr daily Skin Integrity/Comment: small non-intact area to left buttock Estimated Nutritional Goals BEE in Kcals: Using Current wt Calories/Kcals/Kg 30-35 Kcals Calculated 8637-1277 Protein: Using Current wt Protein g/k.2-1.5 Protein Calculated 79-98g monitor renal labs Fluid: ml Per MD d/t acute renal failure Nutritional Problem 1. Problem Problem Increased nutrition needs ( calorie and protein) Etiology increased meltabolic demands with wound healing and sepsis Signs/Symptoms: dx of sepsis, [place] score 14 Malnutrition Alert Muscle Mass (Non-Severe) Mild Depletion Protein-Calorie Malnutrition N/A Is there a minimum of two criteria No selected? Query Text:Check all the applicable criteria. A minimum of two criteria are recommended for diagnosis of either severe or non-severe malnutrition. Intervention/Recommendation Comments 1. Continue current TF regimen , goal rate 65ml/hr x 24hr will provide 2340kcal, 106g protein and 782ml free water, meeting 100% of nutritional needs. 2. consider discontinuing Zinc supplementation as TF is adequate to meet high micronutrient needs for wound healing Expected Outcomes/Goals Expected Outcomes/Goals 1. Monitor TF tolerance and residual, nausea/vomiting 2. pt to meet 100% nutritional needs once TF approcah to goal rate 3. Monitor wt weekly, wt to remain stable 4. Monitor skin condition, wound to improve 5. F/U as high risk in 2-3 days, 01/16-01/17
--- NOTE | 2017-01-15 10:43 | Internal Medicine Prog Note ---
Internal Medicine Subjective - Subjective Patient is:: awake, confused Per staff patient has:: tolerating meds Internal Medicine Objective - Results Result Diagrams: 01/15/17 05:05 01/15/17 05:05 Recent Labs: Laboratory Last Values WBC 13.9 Th/cmm (4.8-10.8) H 01/15/17 05:05 RBC 3.30 Mil/cmm (3.80-5.80) L 01/15/17 05:05 Hgb 10.3 gm/dL (12-16) L 01/15/17 05:05 Hct 30.4 % (41.0-60) L D 01/15/17 05:05 MCV 92.1 fl (80-99) 01/15/17 05:05 MCH 31.4 pg (27.0-31.0) H 01/15/17 05:05 MCHC Differential 34.0 pg (28.0-36.0) 01/15/17 05:05 RDW 16.9 % (11.5-20.0) 01/15/17 05:05 Plt Count 144 Th/cmm (150-400) L 01/15/17 05:05 MPV 13.6 fl 01/15/17 05:05 Neutrophils % 82.9 % (40.0-80.0) H 01/14/17 05:50 Band Neutrophils % 3 % (0-10) 01/15/17 05:05 Lymphocytes % 10.3 % (20.0-50.0) L 01/14/17 05:50 Monocytes % 4.9 % (2.0-10.0) 01/14/17 05:50 Eosinophils % 1.5 % (0.0-5.0) 01/14/17 05:50 Basophils % 0.4 % (0.0-2.0) 01/14/17 05:50 Neutrophils (Manual) 81 % (40-80) H 01/15/17 05:05 Lymphocytes 7 % (20-50) L 01/15/17 05:05 Monocytes 2 % (2-10) 01/15/17 05:05 Eosinophils 7 % (0-5) H 01/15/17 05:05 Nucleated RBCs 1.0 % (0-0) H 01/15/17 05:05 Platelet Estimate ADEQUATE (NORMAL) 01/13/17 19:13 PT 10.3 SECONDS (9.5-11.5) 01/13/17 19:13 INR 0.99 (0.5-1.4) 01/13/17 19:13 PTT (Actin FS) 22.9 SECONDS (26.0-38.0) L 01/13/17 19:13 Sodium 151 mEq/L (136-145) H 01/15/17 05:05 Potassium 4.5 mEq/L (3.5-5.1) 01/15/17 05:05 Chloride 123 mEq/L (98-107) H 01/15/17 05:05 Carbon Dioxide 24.2 mEq/L (21.0-31.0) 01/15/17 05:05 Anion Gap 8.3 (7.0-16.0) 01/15/17 05:05 BUN 117 mg/dL (7-25) H* 01/15/17 05:05 Creatinine 3.1 mg/dL (0.7-1.3) H 01/15/17 05:05 Est GFR ( Amer) TNP 01/15/17 05:05 Est GFR (Non-Af Amer) TNP 01/15/17 05:05 BUN/Creatinine Ratio 37.7 01/15/17 05:05 Glucose 217 mg/dL 01/15/17 05:05 POC Glucose 219 MG/DL (70 - 105) H 01/14/17 22:33 Hemoglobin A1c % 8.0 % (4.0-6.0) H D 01/14/17 05:50 Whole Bld Lactic Acid 2.94 mmol/L (0.60-1.99) H* 01/13/17 21:34 Calcium 9.3 mg/dL (8.6-10.3) 01/15/17 05:05 Total Bilirubin 0.3 mg/dL (0.3-1.0) 01/13/17 19:13 AST 24 U/L (13-39) 01/13/17 19:13 ALT 4 U/L (7-52) L 01/13/17 19:13 Alkaline Phosphatase 121 U/L (34-104) H 01/13/17 19:13 Ammonia 52 umol/L (16-53) 01/14/17 05:50 B-Natriuretic Peptide 20.2 pg/mL (5.0-100.0) 01/14/17 05:50 Total Protein 9.3 gm/dL (6.0-8.3) H 01/13/17 19:13 Albumin 3.1 gm/dL (4.2-5.5) L 01/13/17 19:13 Globulin 6.2 gm/dL 01/13/17 19:13 Albumin/Globulin Ratio 0.5 (1.0-1.8) L 01/13/17 19:13 TSH 1.45 uIU/ml (0.34-5.60) 01/14/17 05:50 Urine Source [place] 01/13/17 19:30 Urine Color YELLOW 01/13/17 19:30 Urine Clarity HAZY (CLEAR) 01/13/17 19:30 Urine pH 5.5 (4.6 - 8.0) 01/13/17 19:30 Ur Specific [place] 1.015 (1.005-1.030) 01/13/17 19:30 Urine Protein TRACE mg/dL (NEGATIVE) 01/13/17 19:30 Urine Glucose (UA) NEGATIVE mg/dL (NEGATIVE) 01/13/17 19:30 Urine Ketones NEGATIVE mg/dL (NEGATIVE) 01/13/17 19:30 Urine Blood NEGATIVE (NEGATIVE) 01/13/17 19:30 Urine Nitrate NEGATIVE (NEGATIVE) 01/13/17 19:30 Urine Bilirubin NEGATIVE (NEGATIVE) 01/13/17 19:30 Urine Urobilinogen 0.2 E.U./dL (0.2 - 1.0) 01/13/17 19:30 Ur Leukocyte Esterase SMALL (NEGATIVE) H 01/13/17 19:30 Urine RBC NONE SEEN /hpf (0-5) 01/13/17 19:30 Urine WBC 2-5 /hpf (0-5) H 01/13/17 19:30 Ur Epithelial Cells OCCASIONAL /lpf (FEW) 01/13/17 19:30 Urine Bacteria FEW /hpf (NONE SEEN) 01/13/17 19:30 Urine Yeast MANY /hpf (NONE SEEN) H 01/13/17 19:30 - Physical Exam Vitals and I&O: Vital Signs Temp 97.5 F 01/15/17 08:00 Pulse 86 01/15/17 09:42 Resp 20 01/15/17 08:00 BP 116/52 01/15/17 09:42 Pulse Ox 94 01/15/17 08:00 Intake & Output 01/14/17 01/15/17 01/15/17 18:59 06:59 18:59 Intake Total 1000 1780 Output Total 250 Balance 1000 1530 Weight (lbs) 144 lb Intake: Intake, IV Amount 1000 1000 Sodium Chloride 0.45% 1, 1000 1000 000 ml @ 100 mls/hr IV . Q10H [facility] Rx#:[id number] Tube Feeding 780 Output: Urine 250 Active Medications: Current Medications Acetaminophen (Tylenol) 650 mg GT Q8H PRN PRN Reason: PAIN/TEMP>100 Stop: 03/14/17 20:51 Acetaminophen/Hydrocodone Bitart ([place] 5mg/325mg) 1 tab PO Q4H PRN PRN Reason: Pain (Severe) Stop: 03/14/17 20:54 Al Hydrox/Mg Hydrox/Simethicone (Maalox) 30 ml GT Q3HR PRN PRN Reason: Indigestion Stop: 03/14/17 20:51 Albuterol Sulfate (Albuterol 2.5mg/3ml Neb Ud) 2.5 mg HHN QIDRT [facility] Stop: 03/15/17 06:59 Last Admin: 01/15/17 07:19 Dose: 2.5 mg Ascorbic Acid (Vitamin C) 500 mg PO DAILY [facility] Stop: 03/16/17 10:14 Carbidopa/Levodopa (Sinemet 25mg-100 Mg) 2 tab GT BID [facility] Stop: 03/15/17 08:59 Last Admin: 01/15/17 09:44 Dose: 2 tab Donepezil HCl (Aricept) 10 mg GT HS [facility] Stop: 03/14/17 20:59 Last Admin: 01/14/17 21:10 Dose: 10 mg Glipizide (Glucotrol) 5 mg GT BID [facility] Stop: 03/15/17 08:59 Last Admin: 01/15/17 09:44 Dose: 5 mg Heparin Sodium (Porcine) (Heparin) 5,000 units SUBQ Q12HR [facility] Stop: 03/14/17 20:59 Last Admin: 01/15/17 09:42 Dose: 5,000 units Cefepime HCl 1 gm/ Dextrose 50 mls @ 100 mls/hr IV Q24H [facility] Stop: 03/14/17 21:59 Last Admin: 01/14/17 21:09 Dose: 100 mls/hr Sodium Chloride (Nacl 0.45%) 1,000 mls @ 100 mls/hr IV .Q10H [facility] Stop: 03/14/17 20:59 Last Admin: 01/14/17 22:29 Dose: 100 mls/hr Insulin Detemir (Levemir Insulin) 18 units SUBQ Q12H [facility] Stop: 03/14/17 20:59 Last Admin: 01/15/17 09:48 Dose: 18 units Ipratropium [place] (Atrovent Neb 0.5mg/2.5ml) 0.5 mg HHN QIDRT [facility] Stop: 03/15/17 10:59 Last Admin: 01/15/17 07:19 Dose: 0.5 mg Magnesium Hydroxide (Milk Of Magnesia) 30 ml GT DAILY PRN PRN Reason: Constipation Stop: 03/14/17 20:51 Metoprolol Tartrate (Lopressor) 100 mg GT BID [facility] Stop: 03/15/17 08:59 Last Admin: 01/15/17 09:42 Dose: 100 mg Miscellaneous (Vancomycin Iv Per Pharmacy) 1 ea MC DAILY [facility] Stop: 03/16/17 08:59 Nitroglycerin (Nitrostat) 0.4 mg SL Q5MIN PRN PRN Reason: Chest Pain Stop: 03/14/17 20:51 Ondansetron HCl (Zofran) 4 mg IV Q8H PRN PRN Reason: Nausea / Vomiting Stop: 03/14/17 20:54 Last Admin: 01/14/17 11:46 Dose: 4 mg Oxybutynin Chloride (Ditropan) 5 mg GT BID [facility] Stop: 03/15/17 08:59 Last Admin: 01/15/17 09:48 Dose: 5 mg Pantoprazole Sodium (Protonix) 40 mg GT DAILY [facility] Stop: 03/15/17 08:59 Last Admin: 01/15/17 09:42 Dose: 40 mg Pneumococcal Polyvalent Vaccine (Pneumovax) 0.5 ml IM .ONCE ONE Stop: 01/16/17 09:01 Timolol Maleate (Timoptic 0.5% Ophth Soln) 1 drop EACH EYE BID [facility] Stop: 01/05/18 08:59 Last Admin: 01/15/17 09:41 Dose: 1 drop Zinc Sulfate (Zinc Sulfate) 220 mg GT DAILY [facility] Stop: 03/15/17 08:59 Last Admin: 01/15/17 09:43 Dose: 220 mg General: weak, alert HEENT: NC/AT, PERRLA Neck: Supple Lungs: ronchi Cardiovascular: RRR, Normal S1, Normal S2, without murmur Abdomen: soft, non-tender, non-distended, positive bowel sound Extremities: excoriation Neurological: alert - Procedures Procedures: Procedures Procedure Code Date BLOOD TRANSFUSION SERVICE 06818 02/17/13 CHANGE FEEDING DEVICE IN UP INTEST TRACT, GENERAL NEUROLOGIST APPROACH [id number] 10/03/16 CHANGE GASTROSTOMY TUBE 78891 10/03/[address] GASTROSTOMY TUBE 01997 03/07/14 EMERGENCY DEPT VISIT 91479 06/07/11 FREEING OF BOWEL ADHESION 52936 01/08/13 INJECT ANTICOAGULANT 99.19 06/07/11 OTH LYSIS-PERITONEAL ADHES 54.59 01/08/13 OTHER ENDOSCOPY OF SM INTEST 45.13 03/07/14 PACKED CELL TRANSFUSION 99.04 02/17/13 PRP I/LINDSAY INIT REDUC >5 YR 52628 01/08/13 REPLACE GASTROSTOMY TUBE 97.02 03/07/14 UNILAT ING LINDSAY REP NOS 53.00 01/08/13 Internal Medicine Assmt/Plan - Assessment Assessment: fever sepsis lactic acidosis leukocytosis malfunction gt acute hypernatremia acute renal failure moderate protein calorie malnutrition candiduria dm-2 parkinsons dementia htn decubitus ulcer - Plan Plan: continue ivf and iv antibiotics wound care monitor glucose am labs continue current plan of care Nutritional Asmnt/Malnutr-PDOC - Dietary Evaluation Malnutrition Findings (Please click <Entered> for more info): Nutritional Asmnt/Malnutrition Start: 01/14/17 12: 05 Text: Status: Active Freq: Document 01/14/17 12:06 KAVITA (Rec: 01/14/17 12:27 KAVITA [email or web address]) Nutritional Asmnt/Malnutrition Patient General Information Nutritional Screening High Risk Consult Diagnosis Malfunctioning G-Tube, Sepsis, Acute Renal Failure Pertinent Medical Hx/Surgical Hx Dementia, HTN, DM, Althma/COPD , PUD/GERD, Parkinson's Disease Subjective Information Pt came from SNF, admitted for G-Tube replacement. Consult for Wound and low [place] score received. Pt was awake during the time of visit, able to answer questions. Noted pt does not have teeth. 01/14 G- tube replacement. Started Nutren Pulmonary at 10ml/hr, currently running at 20ml/hr. Pt stated nausea, made aware of RN. H&P noted moderate protein-calorie malnutrition. Performed physical exam, mild muscal wasting noted. UBW 153lb on 10/04/16 per EMR. Possible wt loss. Current Diet Order/ Nutrition Support Nutren Pulmonary start with 10ml/hr, increase to goal rate [id number] Pertinent Medications Vitamin C, Glucontrol, Levemir Insulin, Nacl 100ml/hr, Zn Pertinent Labs 01/14: Na 159H, K 4.2, Cl 129H, BUN 108H, Cr 2.2H, A1C 8.0, Ca 10.2 01/13: Alb 3.1 L POC: 113-116 (01/13-01/14) Nutritional Hx/Data Height 5 ft 8 in Height (Calculated Centimeters) 172.7 Current Weight (lbs) 144 lb Weight (Calculated Kilograms) 65.3 Weight (Calculated Grams) 18773.3 Usual body Weight (lbs) 153 % Usual Body Weight 94 King Body Weight 154 % King Body Weight 94 Body Mass Index (BMI) 21.9 Recent Weight Change Yes Weight Status Approriate GI Symptoms GI Symptoms Nausea Usual diet at home Pulmocare 65ml/hr x 24hr daily Skin Integrity/Comment: small non-intact area to left buttock Estimated Nutritional Goals BEE in Kcals: Using Current wt Calories/Kcals/Kg 30-35 Kcals Calculated 7065-4508 Protein: Using Current wt Protein g/k.2-1.5 Protein Calculated 79-98g monitor renal labs Fluid: ml Per MD d/t acute renal failure Nutritional Problem 1. Problem Problem Increased nutrition needs ( calorie and protein) Etiology increased meltabolic demands with wound healing and sepsis Signs/Symptoms: dx of sepsis, [place] score 14 Malnutrition Alert Muscle Mass (Non-Severe) Mild Depletion Protein-Calorie Malnutrition N/A Is there a minimum of two criteria No selected? Query Text:Check all the applicable criteria. A minimum of two criteria are recommended for diagnosis of either severe or non-severe malnutrition. Intervention/Recommendation Comments 1. Continue current TF regimen , goal rate 65ml/hr x 24hr will provide 2340kcal, 106g protein and 782ml free water, meeting 100% of nutritional needs. 2. consider discontinuing Zinc supplementation as TF is adequate to meet high micronutrient needs for wound healing Expected Outcomes/Goals Expected Outcomes/Goals 1. Monitor TF tolerance and residual, nausea/vomiting 2. pt to meet 100% nutritional needs once TF approcah to goal rate 3. Monitor wt weekly, wt to remain stable 4. Monitor skin condition, wound to improve 5. F/U as high risk in 2-3 days, 01/16-01/17
--- NOTE | 2017-01-15 10:45 | Internal Medicine Prog Note ---
Internal Medicine Subjective - Subjective Service Date: 01/15/17 Patient seen and examined:: with staff Patient is:: awake, confused Per staff patient has:: tolerating meds Internal Medicine Objective - Results Result Diagrams: 01/15/17 05:05 01/15/17 05:05 Recent Labs: Laboratory Last Values WBC 13.9 Th/cmm (4.8-10.8) H 01/15/17 05:05 RBC 3.30 Mil/cmm (3.80-5.80) L 01/15/17 05:05 Hgb 10.3 gm/dL (12-16) L 01/15/17 05:05 Hct 30.4 % (41.0-60) L D 01/15/17 05:05 MCV 92.1 fl (80-99) 01/15/17 05:05 MCH 31.4 pg (27.0-31.0) H 01/15/17 05:05 MCHC Differential 34.0 pg (28.0-36.0) 01/15/17 05:05 RDW 16.9 % (11.5-20.0) 01/15/17 05:05 Plt Count 144 Th/cmm (150-400) L 01/15/17 05:05 MPV 13.6 fl 01/15/17 05:05 Neutrophils % 82.9 % (40.0-80.0) H 01/14/17 05:50 Band Neutrophils % 3 % (0-10) 01/15/17 05:05 Lymphocytes % 10.3 % (20.0-50.0) L 01/14/17 05:50 Monocytes % 4.9 % (2.0-10.0) 01/14/17 05:50 Eosinophils % 1.5 % (0.0-5.0) 01/14/17 05:50 Basophils % 0.4 % (0.0-2.0) 01/14/17 05:50 Neutrophils (Manual) 81 % (40-80) H 01/15/17 05:05 Lymphocytes 7 % (20-50) L 01/15/17 05:05 Monocytes 2 % (2-10) 01/15/17 05:05 Eosinophils 7 % (0-5) H 01/15/17 05:05 Nucleated RBCs 1.0 % (0-0) H 01/15/17 05:05 Platelet Estimate ADEQUATE (NORMAL) 01/13/17 19:13 PT 10.3 SECONDS (9.5-11.5) 01/13/17 19:13 INR 0.99 (0.5-1.4) 01/13/17 19:13 PTT (Actin FS) 22.9 SECONDS (26.0-38.0) L 01/13/17 19:13 Sodium 151 mEq/L (136-145) H 01/15/17 05:05 Potassium 4.5 mEq/L (3.5-5.1) 01/15/17 05:05 Chloride 123 mEq/L (98-107) H 01/15/17 05:05 Carbon Dioxide 24.2 mEq/L (21.0-31.0) 01/15/17 05:05 Anion Gap 8.3 (7.0-16.0) 01/15/17 05:05 BUN 117 mg/dL (7-25) H* 01/15/17 05:05 Creatinine 3.1 mg/dL (0.7-1.3) H 01/15/17 05:05 Est GFR ( Amer) TNP 01/15/17 05:05 Est GFR (Non-Af Amer) TNP 01/15/17 05:05 BUN/Creatinine Ratio 37.7 01/15/17 05:05 Glucose 217 mg/dL 01/15/17 05:05 POC Glucose 219 MG/DL (70 - 105) H 01/14/17 22:33 Hemoglobin A1c % 8.0 % (4.0-6.0) H D 01/14/17 05:50 Whole Bld Lactic Acid 2.94 mmol/L (0.60-1.99) H* 01/13/17 21:34 Calcium 9.3 mg/dL (8.6-10.3) 01/15/17 05:05 Total Bilirubin 0.3 mg/dL (0.3-1.0) 01/13/17 19:13 AST 24 U/L (13-39) 01/13/17 19:13 ALT 4 U/L (7-52) L 01/13/17 19:13 Alkaline Phosphatase 121 U/L (34-104) H 01/13/17 19:13 Ammonia 52 umol/L (16-53) 01/14/17 05:50 B-Natriuretic Peptide 20.2 pg/mL (5.0-100.0) 01/14/17 05:50 Total Protein 9.3 gm/dL (6.0-8.3) H 01/13/17 19:13 Albumin 3.1 gm/dL (4.2-5.5) L 01/13/17 19:13 Globulin 6.2 gm/dL 01/13/17 19:13 Albumin/Globulin Ratio 0.5 (1.0-1.8) L 01/13/17 19:13 TSH 1.45 uIU/ml (0.34-5.60) 01/14/17 05:50 Urine Source [place] 01/13/17 19:30 Urine Color YELLOW 01/13/17 19:30 Urine Clarity HAZY (CLEAR) 01/13/17 19:30 Urine pH 5.5 (4.6 - 8.0) 01/13/17 19:30 Ur Specific [place] 1.015 (1.005-1.030) 01/13/17 19:30 Urine Protein TRACE mg/dL (NEGATIVE) 01/13/17 19:30 Urine Glucose (UA) NEGATIVE mg/dL (NEGATIVE) 01/13/17 19:30 Urine Ketones NEGATIVE mg/dL (NEGATIVE) 01/13/17 19:30 Urine Blood NEGATIVE (NEGATIVE) 01/13/17 19:30 Urine Nitrate NEGATIVE (NEGATIVE) 01/13/17 19:30 Urine Bilirubin NEGATIVE (NEGATIVE) 01/13/17 19:30 Urine Urobilinogen 0.2 E.U./dL (0.2 - 1.0) 01/13/17 19:30 Ur Leukocyte Esterase SMALL (NEGATIVE) H 01/13/17 19:30 Urine RBC NONE SEEN /hpf (0-5) 01/13/17 19:30 Urine WBC 2-5 /hpf (0-5) H 01/13/17 19:30 Ur Epithelial Cells OCCASIONAL /lpf (FEW) 01/13/17 19:30 Urine Bacteria FEW /hpf (NONE SEEN) 01/13/17 19:30 Urine Yeast MANY /hpf (NONE SEEN) H 01/13/17 19:30 - Physical Exam Vitals and I&O: Vital Signs Temp 97.5 F 01/15/17 08:00 Pulse 86 01/15/17 09:42 Resp 20 01/15/17 08:00 BP 116/52 01/15/17 09:42 Pulse Ox 94 01/15/17 08:00 Intake & Output 01/14/17 01/15/17 01/15/17 18:59 06:59 18:59 Intake Total 1000 1780 Output Total 250 Balance 1000 1530 Weight (lbs) 144 lb Intake: Intake, IV Amount 1000 1000 Sodium Chloride 0.45% 1, 1000 1000 000 ml @ 100 mls/hr IV . Q10H [facility] Rx#:[id number] Tube Feeding 780 Output: Urine 250 Active Medications: Current Medications Acetaminophen (Tylenol) 650 mg GT Q8H PRN PRN Reason: PAIN/TEMP>100 Stop: 03/14/17 20:51 Acetaminophen/Hydrocodone Bitart ([place] 5mg/325mg) 1 tab PO Q4H PRN PRN Reason: Pain (Severe) Stop: 03/14/17 20:54 Al Hydrox/Mg Hydrox/Simethicone (Maalox) 30 ml GT Q3HR PRN PRN Reason: Indigestion Stop: 03/14/17 20:51 Albuterol Sulfate (Albuterol 2.5mg/3ml Neb Ud) 2.5 mg HHN QIDRT [facility] Stop: 03/15/17 06:59 Last Admin: 01/15/17 07:19 Dose: 2.5 mg Ascorbic Acid (Vitamin C) 500 mg PO DAILY [facility] Stop: 03/16/17 10:14 Carbidopa/Levodopa (Sinemet 25mg-100 Mg) 2 tab GT BID [facility] Stop: 03/15/17 08:59 Last Admin: 01/15/17 09:44 Dose: 2 tab Donepezil HCl (Aricept) 10 mg GT HS [facility] Stop: 03/14/17 20:59 Last Admin: 01/14/17 21:10 Dose: 10 mg Glipizide (Glucotrol) 5 mg GT BID [facility] Stop: 03/15/17 08:59 Last Admin: 01/15/17 09:44 Dose: 5 mg Heparin Sodium (Porcine) (Heparin) 5,000 units SUBQ Q12HR [facility] Stop: 03/14/17 20:59 Last Admin: 01/15/17 09:42 Dose: 5,000 units Cefepime HCl 1 gm/ Dextrose 50 mls @ 100 mls/hr IV Q24H [facility] Stop: 03/14/17 21:59 Last Admin: 01/14/17 21:09 Dose: 100 mls/hr Sodium Chloride (Nacl 0.45%) 1,000 mls @ 100 mls/hr IV .Q10H [facility] Stop: 03/14/17 20:59 Last Admin: 01/14/17 22:29 Dose: 100 mls/hr Insulin Detemir (Levemir Insulin) 18 units SUBQ Q12H [facility] Stop: 03/14/17 20:59 Last Admin: 01/15/17 09:48 Dose: 18 units Ipratropium [place] (Atrovent Neb 0.5mg/2.5ml) 0.5 mg HHN QIDRT [facility] Stop: 03/15/17 10:59 Last Admin: 01/15/17 07:19 Dose: 0.5 mg Magnesium Hydroxide (Milk Of Magnesia) 30 ml GT DAILY PRN PRN Reason: Constipation Stop: 03/14/17 20:51 Metoprolol Tartrate (Lopressor) 100 mg GT BID [facility] Stop: 03/15/17 08:59 Last Admin: 01/15/17 09:42 Dose: 100 mg Miscellaneous (Vancomycin Iv Per Pharmacy) 1 ea MC DAILY [facility] Stop: 03/16/17 08:59 Nitroglycerin (Nitrostat) 0.4 mg SL Q5MIN PRN PRN Reason: Chest Pain Stop: 03/14/17 20:51 Ondansetron HCl (Zofran) 4 mg IV Q8H PRN PRN Reason: Nausea / Vomiting Stop: 03/14/17 20:54 Last Admin: 01/14/17 11:46 Dose: 4 mg Oxybutynin Chloride (Ditropan) 5 mg GT BID [facility] Stop: 03/15/17 08:59 Last Admin: 01/15/17 09:48 Dose: 5 mg Pantoprazole Sodium (Protonix) 40 mg GT DAILY [facility] Stop: 03/15/17 08:59 Last Admin: 01/15/17 09:42 Dose: 40 mg Pneumococcal Polyvalent Vaccine (Pneumovax) 0.5 ml IM .ONCE ONE Stop: 01/16/17 09:01 Timolol Maleate (Timoptic 0.5% Ophth Soln) 1 drop EACH EYE BID [facility] Stop: 03/15/17 08:59 Last Admin: 01/15/17 09:41 Dose: 1 drop Zinc Sulfate (Zinc Sulfate) 220 mg GT DAILY [facility] Stop: 03/15/17 08:59 Last Admin: 01/15/17 09:43 Dose: 220 mg General: weak, alert HEENT: NC/AT, PERRLA Neck: Supple Lungs: ronchi Cardiovascular: RRR, Normal S1, Normal S2, without murmur Abdomen: soft, non-tender, non-distended, positive bowel sound Extremities: excoriation Neurological: alert - Procedures Procedures: Procedures Procedure Code Date BLOOD TRANSFUSION SERVICE 85502 02/17/13 CHANGE FEEDING DEVICE IN UP INTEST TRACT, DRESSER TENDER APPROACH [id number] 10/03/16 CHANGE GASTROSTOMY TUBE 65755 10/03/[address] GASTROSTOMY TUBE 37311 03/07/14 EMERGENCY DEPT VISIT 50779 06/07/11 FREEING OF BOWEL ADHESION 83969 01/08/13 INJECT ANTICOAGULANT 99.19 06/07/11 OTH LYSIS-PERITONEAL ADHES 54.59 01/08/13 OTHER ENDOSCOPY OF SM INTEST 45.13 03/07/14 PACKED CELL TRANSFUSION 99.04 02/17/13 PRP I/LINDSAY INIT REDUC >5 YR 85512 01/08/13 REPLACE GASTROSTOMY TUBE 97.02 03/07/14 UNILAT ING LINDSAY REP NOS 53.00 01/08/13 Internal Medicine Assmt/Plan - Assessment Assessment: MRSA nares fever sepsis lactic acidosis leukocytosis malfunction gt s/p peg placement acute hypernatremia acute renal failure moderate protein calorie malnutrition candiduria dm-2 parkinsons dementia htn decubitus ulcer - Plan Plan: will add bactroban continue ivf and iv antibiotics wound care monitor glucose am labs continue current plan of care Nutritional Asmnt/Malnutr-PDOC - Dietary Evaluation Malnutrition Findings (Please click <Entered> for more info): Nutritional Asmnt/Malnutrition Start: 01/14/17 12: 05 Text: Status: Active Freq: Document 01/14/17 12:06 KAVITA (Rec: 01/14/17 12:27 BRYANG [email or web address]) Nutritional Asmnt/Malnutrition Patient General Information Nutritional Screening High Risk Consult Diagnosis Malfunctioning G-Tube, Sepsis, Acute Renal Failure Pertinent Medical Hx/Surgical Hx Dementia, HTN, DM, Althma/COPD , PUD/GERD, Parkinson's Disease Subjective Information Pt came from SNF, admitted for G-Tube replacement. Consult for Wound and low [place] score received. Pt was awake during the time of visit, able to answer questions. Noted pt does not have teeth. 01/14 G- tube replacement. Started Nutren Pulmonary at 10ml/hr, currently running at 20ml/hr. Pt stated nausea, made aware of RN. H&P noted moderate protein-calorie malnutrition. Performed physical exam, mild muscal wasting noted. UBW 153lb on 10/04/16 per EMR. Possible wt loss. Current Diet Order/ Nutrition Support Nutren Pulmonary start with 10ml/hr, increase to goal rate [id number] Pertinent Medications Vitamin C, Glucontrol, Levemir Insulin, Nacl 100ml/hr, Zn Pertinent Labs 01/14: Na 159H, K 4.2, Cl 129H, BUN 108H, Cr 2.2H, A1C 8.0, Ca 10.2 01/13: Alb 3.1 L POC: 113-116 (01/13-01/14) Nutritional Hx/Data Height 5 ft 8 in Height (Calculated Centimeters) 172.7 Current Weight (lbs) 144 lb Weight (Calculated Kilograms) 65.3 Weight (Calculated Grams) 13804.3 Usual body Weight (lbs) 153 % Usual Body Weight 94 [place] Body Weight 154 % [place] Body Weight 94 Body Mass Index (BMI) 21.9 Recent Weight Change Yes Weight Status Approriate GI Symptoms GI Symptoms Nausea Usual diet at home [facility] 65ml/hr x 24hr daily Skin Integrity/Comment: small non-intact area to left buttock Estimated Nutritional Goals BEE in Kcals: Using Current wt Calories/Kcals/Kg 30-35 Kcals Calculated 3813-4781 Protein: Using Current wt Protein g/k.2-1.5 Protein Calculated 79-98g monitor renal labs Fluid: ml Per MD d/t acute renal failure Nutritional Problem 1. Problem Problem Increased nutrition needs ( calorie and protein) Etiology increased meltabolic demands with wound healing and sepsis Signs/Symptoms: dx of sepsis, [place] score 14 Malnutrition Alert Muscle Mass (Non-Severe) Mild Depletion Protein-Calorie Malnutrition N/A Is there a minimum of two criteria No selected? Query Text:Check all the applicable criteria. A minimum of two criteria are recommended for diagnosis of either severe or non-severe malnutrition. Intervention/Recommendation Comments 1. Continue current TF regimen , goal rate 65ml/hr x 24hr will provide 2340kcal, 106g protein and 782ml free water, meeting 100% of nutritional needs. 2. consider discontinuing Zinc supplementation as TF is adequate to meet high micronutrient needs for wound healing Expected Outcomes/Goals Expected Outcomes/Goals 1. Monitor TF tolerance and residual, nausea/vomiting 2. pt to meet 100% nutritional needs once TF approcah to goal rate 3. Monitor wt weekly, wt to remain stable 4. Monitor skin condition, wound to improve 5. F/U as high risk in 2-3 days, 01/16-01/17
--- NOTE | 2017-01-15 10:45 | Internal Medicine Prog Note ---
Internal Medicine Subjective - Subjective Service Date: 01/15/17 Patient seen and examined:: with staff Patient is:: awake, confused Per staff patient has:: tolerating meds Internal Medicine Objective - Results Result Diagrams: 01/15/17 05:05 01/15/17 05:05 Recent Labs: Laboratory Last Values WBC 13.9 Th/cmm (4.8-10.8) H 01/15/17 05:05 RBC 3.30 Mil/cmm (3.80-5.80) L 01/15/17 05:05 Hgb 10.3 gm/dL (12-16) L 01/15/17 05:05 Hct 30.4 % (41.0-60) L D 01/15/17 05:05 MCV 92.1 fl (80-99) 01/15/17 05:05 MCH 31.4 pg (27.0-31.0) H 01/15/17 05:05 MCHC Differential 34.0 pg (28.0-36.0) 01/15/17 05:05 RDW 16.9 % (11.5-20.0) 01/15/17 05:05 Plt Count 144 Th/cmm (150-400) L 01/15/17 05:05 MPV 13.6 fl 01/15/17 05:05 Neutrophils % 82.9 % (40.0-80.0) H 01/14/17 05:50 Band Neutrophils % 3 % (0-10) 01/15/17 05:05 Lymphocytes % 10.3 % (20.0-50.0) L 01/14/17 05:50 Monocytes % 4.9 % (2.0-10.0) 01/14/17 05:50 Eosinophils % 1.5 % (0.0-5.0) 01/14/17 05:50 Basophils % 0.4 % (0.0-2.0) 01/14/17 05:50 Neutrophils (Manual) 81 % (40-80) H 01/15/17 05:05 Lymphocytes 7 % (20-50) L 01/15/17 05:05 Monocytes 2 % (2-10) 01/15/17 05:05 Eosinophils 7 % (0-5) H 01/15/17 05:05 Nucleated RBCs 1.0 % (0-0) H 01/15/17 05:05 Platelet Estimate ADEQUATE (NORMAL) 01/13/17 19:13 PT 10.3 SECONDS (9.5-11.5) 01/13/17 19:13 INR 0.99 (0.5-1.4) 01/13/17 19:13 PTT (Actin FS) 22.9 SECONDS (26.0-38.0) L 01/13/17 19:13 Sodium 151 mEq/L (136-145) H 01/15/17 05:05 Potassium 4.5 mEq/L (3.5-5.1) 01/15/17 05:05 Chloride 123 mEq/L (98-107) H 01/15/17 05:05 Carbon Dioxide 24.2 mEq/L (21.0-31.0) 01/15/17 05:05 Anion Gap 8.3 (7.0-16.0) 01/15/17 05:05 BUN 117 mg/dL (7-25) H* 01/15/17 05:05 Creatinine 3.1 mg/dL (0.7-1.3) H 01/15/17 05:05 Est GFR ( Amer) TNP 01/15/17 05:05 Est GFR (Non-Af Amer) TNP 01/15/17 05:05 BUN/Creatinine Ratio 37.7 01/15/17 05:05 Glucose 217 mg/dL 01/15/17 05:05 POC Glucose 219 MG/DL (70 - 105) H 01/14/17 22:33 Hemoglobin A1c % 8.0 % (4.0-6.0) H D 01/14/17 05:50 Whole Bld Lactic Acid 2.94 mmol/L (0.60-1.99) H* 01/13/17 21:34 Calcium 9.3 mg/dL (8.6-10.3) 01/15/17 05:05 Total Bilirubin 0.3 mg/dL (0.3-1.0) 01/13/17 19:13 AST 24 U/L (13-39) 01/13/17 19:13 ALT 4 U/L (7-52) L 01/13/17 19:13 Alkaline Phosphatase 121 U/L (34-104) H 01/13/17 19:13 Ammonia 52 umol/L (16-53) 01/14/17 05:50 B-Natriuretic Peptide 20.2 pg/mL (5.0-100.0) 01/14/17 05:50 Total Protein 9.3 gm/dL (6.0-8.3) H 01/13/17 19:13 Albumin 3.1 gm/dL (4.2-5.5) L 01/13/17 19:13 Globulin 6.2 gm/dL 01/13/17 19:13 Albumin/Globulin Ratio 0.5 (1.0-1.8) L 01/13/17 19:13 TSH 1.45 uIU/ml (0.34-5.60) 01/14/17 05:50 Urine Source [place] 01/13/17 19:30 Urine Color YELLOW 01/13/17 19:30 Urine Clarity HAZY (CLEAR) 01/13/17 19:30 Urine pH 5.5 (4.6 - 8.0) 01/13/17 19:30 Ur Specific [place] 1.015 (1.005-1.030) 01/13/17 19:30 Urine Protein TRACE mg/dL (NEGATIVE) 01/13/17 19:30 Urine Glucose (UA) NEGATIVE mg/dL (NEGATIVE) 01/13/17 19:30 Urine Ketones NEGATIVE mg/dL (NEGATIVE) 01/13/17 19:30 Urine Blood NEGATIVE (NEGATIVE) 01/13/17 19:30 Urine Nitrate NEGATIVE (NEGATIVE) 01/13/17 19:30 Urine Bilirubin NEGATIVE (NEGATIVE) 01/13/17 19:30 Urine Urobilinogen 0.2 E.U./dL (0.2 - 1.0) 01/13/17 19:30 Ur Leukocyte Esterase SMALL (NEGATIVE) H 01/13/17 19:30 Urine RBC NONE SEEN /hpf (0-5) 01/13/17 19:30 Urine WBC 2-5 /hpf (0-5) H 01/13/17 19:30 Ur Epithelial Cells OCCASIONAL /lpf (FEW) 01/13/17 19:30 Urine Bacteria FEW /hpf (NONE SEEN) 01/13/17 19:30 Urine Yeast MANY /hpf (NONE SEEN) H 01/13/17 19:30 - Physical Exam Vitals and I&O: Vital Signs Temp 97.5 F 01/15/17 08:00 Pulse 86 01/15/17 09:42 Resp 20 01/15/17 08:00 BP 116/52 01/15/17 09:42 Pulse Ox 94 01/15/17 08:00 Intake & Output 01/14/17 01/15/17 01/15/17 18:59 06:59 18:59 Intake Total 1000 1780 Output Total 250 Balance 1000 1530 Weight (lbs) 144 lb Intake: Intake, IV Amount 1000 1000 Sodium Chloride 0.45% 1, 1000 1000 000 ml @ 100 mls/hr IV . Q10H [facility] Rx#:[id number] Tube Feeding 780 Output: Urine 250 Active Medications: Current Medications Acetaminophen (Tylenol) 650 mg GT Q8H PRN PRN Reason: PAIN/TEMP>100 Stop: 03/14/17 20:51 Acetaminophen/Hydrocodone Bitart ([place] 5mg/325mg) 1 tab PO Q4H PRN PRN Reason: Pain (Severe) Stop: 03/14/17 20:54 Al Hydrox/Mg Hydrox/Simethicone (Maalox) 30 ml GT Q3HR PRN PRN Reason: Indigestion Stop: 03/14/17 20:51 Albuterol Sulfate (Albuterol 2.5mg/3ml Neb Ud) 2.5 mg HHN QIDRT [facility] Stop: 03/15/17 06:59 Last Admin: 01/15/17 07:19 Dose: 2.5 mg Ascorbic Acid (Vitamin C) 500 mg PO DAILY [facility] Stop: 03/16/17 10:14 Carbidopa/Levodopa (Sinemet 25mg-100 Mg) 2 tab GT BID [facility] Stop: 03/15/17 08:59 Last Admin: 01/15/17 09:44 Dose: 2 tab Donepezil HCl (Aricept) 10 mg GT HS [facility] Stop: 03/14/17 20:59 Last Admin: 01/14/17 21:10 Dose: 10 mg Glipizide (Glucotrol) 5 mg GT BID [facility] Stop: 03/15/17 08:59 Last Admin: 01/15/17 09:44 Dose: 5 mg Heparin Sodium (Porcine) (Heparin) 5,000 units SUBQ Q12HR [facility] Stop: 03/14/17 20:59 Last Admin: 01/15/17 09:42 Dose: 5,000 units Cefepime HCl 1 gm/ Dextrose 50 mls @ 100 mls/hr IV Q24H [facility] Stop: 03/14/17 21:59 Last Admin: 01/14/17 21:09 Dose: 100 mls/hr Sodium Chloride (Nacl 0.45%) 1,000 mls @ 100 mls/hr IV .Q10H [facility] Stop: 03/14/17 20:59 Last Admin: 01/14/17 22:29 Dose: 100 mls/hr Insulin Detemir (Levemir Insulin) 18 units SUBQ Q12H [facility] Stop: 03/14/17 20:59 Last Admin: 01/15/17 09:48 Dose: 18 units Ipratropium [place] (Atrovent Neb 0.5mg/2.5ml) 0.5 mg HHN QIDRT [facility] Stop: 03/15/17 10:59 Last Admin: 01/15/17 07:19 Dose: 0.5 mg Magnesium Hydroxide (Milk Of Magnesia) 30 ml GT DAILY PRN PRN Reason: Constipation Stop: 03/14/17 20:51 Metoprolol Tartrate (Lopressor) 100 mg GT BID [facility] Stop: 03/15/17 08:59 Last Admin: 01/15/17 09:42 Dose: 100 mg Miscellaneous (Vancomycin Iv Per Pharmacy) 1 ea MC DAILY [facility] Stop: 03/16/17 08:59 Nitroglycerin (Nitrostat) 0.4 mg SL Q5MIN PRN PRN Reason: Chest Pain Stop: 03/14/17 20:51 Ondansetron HCl (Zofran) 4 mg IV Q8H PRN PRN Reason: Nausea / Vomiting Stop: 03/14/17 20:54 Last Admin: 01/14/17 11:46 Dose: 4 mg Oxybutynin Chloride (Ditropan) 5 mg GT BID [facility] Stop: 03/15/17 08:59 Last Admin: 01/15/17 09:48 Dose: 5 mg Pantoprazole Sodium (Protonix) 40 mg GT DAILY [facility] Stop: 03/15/17 08:59 Last Admin: 01/15/17 09:42 Dose: 40 mg Pneumococcal Polyvalent Vaccine (Pneumovax) 0.5 ml IM .ONCE ONE Stop: 01/16/17 09:01 Timolol Maleate (Timoptic 0.5% Ophth Soln) 1 drop EACH EYE BID [facility] Stop: 03/15/17 08:59 Last Admin: 01/15/17 09:41 Dose: 1 drop Zinc Sulfate (Zinc Sulfate) 220 mg GT DAILY [facility] Stop: 03/15/17 08:59 Last Admin: 01/15/17 09:43 Dose: 220 mg General: weak, alert HEENT: NC/AT, PERRLA Neck: Supple Lungs: ronchi Cardiovascular: RRR, Normal S1, Normal S2, without murmur Abdomen: soft, non-tender, non-distended, positive bowel sound Extremities: excoriation Neurological: alert - Procedures Procedures: Procedures Procedure Code Date BLOOD TRANSFUSION SERVICE 71641 02/17/13 CHANGE FEEDING DEVICE IN UP INTEST TRACT, CHIMNEY BUILDER HELPER APPROACH [id number] 10/03/16 CHANGE GASTROSTOMY TUBE 08662 10/03/[address] GASTROSTOMY TUBE 24968 03/07/14 EMERGENCY DEPT VISIT 42586 06/07/11 FREEING OF BOWEL ADHESION 99379 01/08/13 INJECT ANTICOAGULANT 99.19 06/07/11 OTH LYSIS-PERITONEAL ADHES 54.59 01/08/13 OTHER ENDOSCOPY OF SM INTEST 45.13 03/07/14 PACKED CELL TRANSFUSION 99.04 02/17/13 PRP I/LINDSAY INIT REDUC >5 YR 31490 01/08/13 REPLACE GASTROSTOMY TUBE 97.02 03/07/14 UNILAT ING LINDSAY REP NOS 53.00 01/08/13 Internal Medicine Assmt/Plan - Assessment Assessment: MRSA nares fever sepsis lactic acidosis leukocytosis malfunction gt s/p peg placement acute hypernatremia acute renal failure moderate protein calorie malnutrition candiduria dm-2 parkinsons dementia htn decubitus ulcer - Plan Plan: will add bactroban continue ivf and iv antibiotics wound care monitor glucose am labs continue current plan of care Nutritional Asmnt/Malnutr-PDOC - Dietary Evaluation Malnutrition Findings (Please click <Entered> for more info): Nutritional Asmnt/Malnutrition Start: 01/14/17 12: 05 Text: Status: Active Freq: Document 01/14/17 12:06 KAVITA (Rec: 01/14/17 12:27 BRYANG [email or web address]) Nutritional Asmnt/Malnutrition Patient General Information Nutritional Screening High Risk Consult Diagnosis Malfunctioning G-Tube, Sepsis, Acute Renal Failure Pertinent Medical Hx/Surgical Hx Dementia, HTN, DM, Althma/COPD , PUD/GERD, Parkinson's Disease Subjective Information Pt came from SNF, admitted for G-Tube replacement. Consult for Wound and low [place] score received. Pt was awake during the time of visit, able to answer questions. Noted pt does not have teeth. 01/14 G- tube replacement. Started Nutren Pulmonary at 10ml/hr, currently running at 20ml/hr. Pt stated nausea, made aware of RN. H&P noted moderate protein-calorie malnutrition. Performed physical exam, mild muscal wasting noted. UBW 153lb on 10/04/16 per EMR. Possible wt loss. Current Diet Order/ Nutrition Support Nutren Pulmonary start with 10ml/hr, increase to goal rate [id number] Pertinent Medications Vitamin C, Glucontrol, Levemir Insulin, Nacl 100ml/hr, Zn Pertinent Labs 01/14: Na 159H, K 4.2, Cl 129H, BUN 108H, Cr 2.2H, A1C 8.0, Ca 10.2 01/13: Alb 3.1 L POC: 113-116 (01/13-01/14) Nutritional Hx/Data Height 5 ft 8 in Height (Calculated Centimeters) 172.7 Current Weight (lbs) 144 lb Weight (Calculated Kilograms) 65.3 Weight (Calculated Grams) 46710.3 Usual body Weight (lbs) 153 % Usual Body Weight 94 Hood Body Weight 154 % Hood Body Weight 94 Body Mass Index (BMI) 21.9 Recent Weight Change Yes Weight Status Approriate GI Symptoms GI Symptoms Nausea Usual diet at home Pulmocare 65ml/hr x 24hr daily Skin Integrity/Comment: small non-intact area to left buttock Estimated Nutritional Goals BEE in Kcals: Using Current wt Calories/Kcals/Kg 30-35 Kcals Calculated 0145-2125 Protein: Using Current wt Protein g/k.2-1.5 Protein Calculated 79-98g monitor renal labs Fluid: ml Per MD d/t acute renal failure Nutritional Problem 1. Problem Problem Increased nutrition needs ( calorie and protein) Etiology increased meltabolic demands with wound healing and sepsis Signs/Symptoms: dx of sepsis, [place] score 14 Malnutrition Alert Muscle Mass (Non-Severe) Mild Depletion Protein-Calorie Malnutrition N/A Is there a minimum of two criteria No selected? Query Text:Check all the applicable criteria. A minimum of two criteria are recommended for diagnosis of either severe or non-severe malnutrition. Intervention/Recommendation Comments 1. Continue current TF regimen , goal rate 65ml/hr x 24hr will provide 2340kcal, 106g protein and 782ml free water, meeting 100% of nutritional needs. 2. consider discontinuing Zinc supplementation as TF is adequate to meet high micronutrient needs for wound healing Expected Outcomes/Goals Expected Outcomes/Goals 1. Monitor TF tolerance and residual, nausea/vomiting 2. pt to meet 100% nutritional needs once TF approcah to goal rate 3. Monitor wt weekly, wt to remain stable 4. Monitor skin condition, wound to improve 5. F/U as high risk in 2-3 days, 01/16-01/17
--- NOTE | 2017-01-15 10:45 | Internal Medicine Prog Note ---
Internal Medicine Subjective - Subjective Service Date: 01/15/17 Patient seen and examined:: with staff Patient is:: awake, confused Per staff patient has:: tolerating meds Internal Medicine Objective - Results Result Diagrams: 01/15/17 05:05 01/15/17 05:05 Recent Labs: Laboratory Last Values WBC 13.9 Th/cmm (4.8-10.8) H 01/15/17 05:05 RBC 3.30 Mil/cmm (3.80-5.80) L 01/15/17 05:05 Hgb 10.3 gm/dL (12-16) L 01/15/17 05:05 Hct 30.4 % (41.0-60) L D 01/15/17 05:05 MCV 92.1 fl (80-99) 01/15/17 05:05 MCH 31.4 pg (27.0-31.0) H 01/15/17 05:05 MCHC Differential 34.0 pg (28.0-36.0) 01/15/17 05:05 RDW 16.9 % (11.5-20.0) 01/15/17 05:05 Plt Count 144 Th/cmm (150-400) L 01/15/17 05:05 MPV 13.6 fl 01/15/17 05:05 Neutrophils % 82.9 % (40.0-80.0) H 01/14/17 05:50 Band Neutrophils % 3 % (0-10) 01/15/17 05:05 Lymphocytes % 10.3 % (20.0-50.0) L 01/14/17 05:50 Monocytes % 4.9 % (2.0-10.0) 01/14/17 05:50 Eosinophils % 1.5 % (0.0-5.0) 01/14/17 05:50 Basophils % 0.4 % (0.0-2.0) 01/14/17 05:50 Neutrophils (Manual) 81 % (40-80) H 01/15/17 05:05 Lymphocytes 7 % (20-50) L 01/15/17 05:05 Monocytes 2 % (2-10) 01/15/17 05:05 Eosinophils 7 % (0-5) H 01/15/17 05:05 Nucleated RBCs 1.0 % (0-0) H 01/15/17 05:05 Platelet Estimate ADEQUATE (NORMAL) 01/13/17 19:13 PT 10.3 SECONDS (9.5-11.5) 01/13/17 19:13 INR 0.99 (0.5-1.4) 01/13/17 19:13 PTT (Actin FS) 22.9 SECONDS (26.0-38.0) L 01/13/17 19:13 Sodium 151 mEq/L (136-145) H 01/15/17 05:05 Potassium 4.5 mEq/L (3.5-5.1) 01/15/17 05:05 Chloride 123 mEq/L (98-107) H 01/15/17 05:05 Carbon Dioxide 24.2 mEq/L (21.0-31.0) 01/15/17 05:05 Anion Gap 8.3 (7.0-16.0) 01/15/17 05:05 BUN 117 mg/dL (7-25) H* 01/15/17 05:05 Creatinine 3.1 mg/dL (0.7-1.3) H 01/15/17 05:05 Est GFR ( Amer) TNP 01/15/17 05:05 Est GFR (Non-Af Amer) TNP 01/15/17 05:05 BUN/Creatinine Ratio 37.7 01/15/17 05:05 Glucose 217 mg/dL 01/15/17 05:05 POC Glucose 219 MG/DL (70 - 105) H 01/14/17 22:33 Hemoglobin A1c % 8.0 % (4.0-6.0) H D 01/14/17 05:50 Whole Bld Lactic Acid 2.94 mmol/L (0.60-1.99) H* 01/13/17 21:34 Calcium 9.3 mg/dL (8.6-10.3) 01/15/17 05:05 Total Bilirubin 0.3 mg/dL (0.3-1.0) 01/13/17 19:13 AST 24 U/L (13-39) 01/13/17 19:13 ALT 4 U/L (7-52) L 01/13/17 19:13 Alkaline Phosphatase 121 U/L (34-104) H 01/13/17 19:13 Ammonia 52 umol/L (16-53) 01/14/17 05:50 B-Natriuretic Peptide 20.2 pg/mL (5.0-100.0) 01/14/17 05:50 Total Protein 9.3 gm/dL (6.0-8.3) H 01/13/17 19:13 Albumin 3.1 gm/dL (4.2-5.5) L 01/13/17 19:13 Globulin 6.2 gm/dL 01/13/17 19:13 Albumin/Globulin Ratio 0.5 (1.0-1.8) L 01/13/17 19:13 TSH 1.45 uIU/ml (0.34-5.60) 01/14/17 05:50 Urine Source [place] 01/13/17 19:30 Urine Color YELLOW 01/13/17 19:30 Urine Clarity HAZY (CLEAR) 01/13/17 19:30 Urine pH 5.5 (4.6 - 8.0) 01/13/17 19:30 Ur Specific [place] 1.015 (1.005-1.030) 01/13/17 19:30 Urine Protein TRACE mg/dL (NEGATIVE) 01/13/17 19:30 Urine Glucose (UA) NEGATIVE mg/dL (NEGATIVE) 01/13/17 19:30 Urine Ketones NEGATIVE mg/dL (NEGATIVE) 01/13/17 19:30 Urine Blood NEGATIVE (NEGATIVE) 01/13/17 19:30 Urine Nitrate NEGATIVE (NEGATIVE) 01/13/17 19:30 Urine Bilirubin NEGATIVE (NEGATIVE) 01/13/17 19:30 Urine Urobilinogen 0.2 E.U./dL (0.2 - 1.0) 01/13/17 19:30 Ur Leukocyte Esterase SMALL (NEGATIVE) H 01/13/17 19:30 Urine RBC NONE SEEN /hpf (0-5) 01/13/17 19:30 Urine WBC 2-5 /hpf (0-5) H 01/13/17 19:30 Ur Epithelial Cells OCCASIONAL /lpf (FEW) 01/13/17 19:30 Urine Bacteria FEW /hpf (NONE SEEN) 01/13/17 19:30 Urine Yeast MANY /hpf (NONE SEEN) H 01/13/17 19:30 - Physical Exam Vitals and I&O: Vital Signs Temp 97.5 F 01/15/17 08:00 Pulse 86 01/15/17 09:42 Resp 20 01/15/17 08:00 BP 116/52 01/15/17 09:42 Pulse Ox 94 01/15/17 08:00 Intake & Output 01/14/17 01/15/17 01/15/17 18:59 06:59 18:59 Intake Total 1000 1780 Output Total 250 Balance 1000 1530 Weight (lbs) 144 lb Intake: Intake, IV Amount 1000 1000 Sodium Chloride 0.45% 1, 1000 1000 000 ml @ 100 mls/hr IV . Q10H [facility] Rx#:[id number] Tube Feeding 780 Output: Urine 250 Active Medications: Current Medications Acetaminophen (Tylenol) 650 mg GT Q8H PRN PRN Reason: PAIN/TEMP>100 Stop: 03/14/17 20:51 Acetaminophen/Hydrocodone Bitart ([place] 5mg/325mg) 1 tab PO Q4H PRN PRN Reason: Pain (Severe) Stop: 03/14/17 20:54 Al Hydrox/Mg Hydrox/Simethicone (Maalox) 30 ml GT Q3HR PRN PRN Reason: Indigestion Stop: 03/14/17 20:51 Albuterol Sulfate (Albuterol 2.5mg/3ml Neb Ud) 2.5 mg HHN QIDRT [facility] Stop: 03/15/17 06:59 Last Admin: 01/15/17 07:19 Dose: 2.5 mg Ascorbic Acid (Vitamin C) 500 mg PO DAILY [facility] Stop: 03/16/17 10:14 Carbidopa/Levodopa (Sinemet 25mg-100 Mg) 2 tab GT BID [facility] Stop: 03/15/17 08:59 Last Admin: 01/15/17 09:44 Dose: 2 tab Donepezil HCl (Aricept) 10 mg GT HS [facility] Stop: 03/14/17 20:59 Last Admin: 01/14/17 21:10 Dose: 10 mg Glipizide (Glucotrol) 5 mg GT BID [facility] Stop: 03/15/17 08:59 Last Admin: 01/15/17 09:44 Dose: 5 mg Heparin Sodium (Porcine) (Heparin) 5,000 units SUBQ Q12HR [facility] Stop: 03/14/17 20:59 Last Admin: 01/15/17 09:42 Dose: 5,000 units Cefepime HCl 1 gm/ Dextrose 50 mls @ 100 mls/hr IV Q24H [facility] Stop: 03/14/17 21:59 Last Admin: 01/14/17 21:09 Dose: 100 mls/hr Sodium Chloride (Nacl 0.45%) 1,000 mls @ 100 mls/hr IV .Q10H [facility] Stop: 03/14/17 20:59 Last Admin: 01/14/17 22:29 Dose: 100 mls/hr Insulin Detemir (Levemir Insulin) 18 units SUBQ Q12H [facility] Stop: 03/14/17 20:59 Last Admin: 01/15/17 09:48 Dose: 18 units Ipratropium [place] (Atrovent Neb 0.5mg/2.5ml) 0.5 mg HHN QIDRT [facility] Stop: 03/15/17 10:59 Last Admin: 01/15/17 07:19 Dose: 0.5 mg Magnesium Hydroxide (Milk Of Magnesia) 30 ml GT DAILY PRN PRN Reason: Constipation Stop: 03/14/17 20:51 Metoprolol Tartrate (Lopressor) 100 mg GT BID [facility] Stop: 03/15/17 08:59 Last Admin: 01/15/17 09:42 Dose: 100 mg Miscellaneous (Vancomycin Iv Per Pharmacy) 1 ea MC DAILY [facility] Stop: 03/16/17 08:59 Nitroglycerin (Nitrostat) 0.4 mg SL Q5MIN PRN PRN Reason: Chest Pain Stop: 03/14/17 20:51 Ondansetron HCl (Zofran) 4 mg IV Q8H PRN PRN Reason: Nausea / Vomiting Stop: 03/14/17 20:54 Last Admin: 01/14/17 11:46 Dose: 4 mg Oxybutynin Chloride (Ditropan) 5 mg GT BID [facility] Stop: 03/15/17 08:59 Last Admin: 01/15/17 09:48 Dose: 5 mg Pantoprazole Sodium (Protonix) 40 mg GT DAILY [facility] Stop: 03/15/17 08:59 Last Admin: 01/15/17 09:42 Dose: 40 mg Pneumococcal Polyvalent Vaccine (Pneumovax) 0.5 ml IM .ONCE ONE Stop: 01/16/17 09:01 Timolol Maleate (Timoptic 0.5% Ophth Soln) 1 drop EACH EYE BID [facility] Stop: 03/15/17 08:59 Last Admin: 01/15/17 09:41 Dose: 1 drop Zinc Sulfate (Zinc Sulfate) 220 mg GT DAILY [facility] Stop: 03/15/17 08:59 Last Admin: 01/15/17 09:43 Dose: 220 mg General: weak, alert HEENT: NC/AT, PERRLA Neck: Supple Lungs: ronchi Cardiovascular: RRR, Normal S1, Normal S2, without murmur Abdomen: soft, non-tender, non-distended, positive bowel sound Extremities: excoriation Neurological: alert - Procedures Procedures: Procedures Procedure Code Date BLOOD TRANSFUSION SERVICE 12914 02/17/13 CHANGE FEEDING DEVICE IN UP INTEST TRACT, LITERACY CONSULTANT APPROACH [id number] 10/03/16 CHANGE GASTROSTOMY TUBE 92465 10/03/[address] GASTROSTOMY TUBE 47788 03/07/14 EMERGENCY DEPT VISIT 90922 06/07/11 FREEING OF BOWEL ADHESION 66956 01/08/13 INJECT ANTICOAGULANT 99.19 06/07/11 OTH LYSIS-PERITONEAL ADHES 54.59 01/08/13 OTHER ENDOSCOPY OF SM INTEST 45.13 03/07/14 PACKED CELL TRANSFUSION 99.04 02/17/13 PRP I/LINDSAY INIT REDUC >5 YR 26680 01/08/13 REPLACE GASTROSTOMY TUBE 97.02 03/07/14 UNILAT ING LINDSAY REP NOS 53.00 01/08/13 Internal Medicine Assmt/Plan - Assessment Assessment: MRSA nares fever sepsis lactic acidosis leukocytosis malfunction gt s/p peg placement acute hypernatremia acute renal failure moderate protein calorie malnutrition candiduria dm-2 parkinsons dementia htn decubitus ulcer - Plan Plan: will add bactroban continue ivf and iv antibiotics wound care monitor glucose am labs continue current plan of care Nutritional Asmnt/Malnutr-PDOC - Dietary Evaluation Malnutrition Findings (Please click <Entered> for more info): Nutritional Asmnt/Malnutrition Start: 01/14/17 12: 05 Text: Status: Active Freq: Document 01/14/17 12:06 KAVITA (Rec: 01/14/17 12:27 BRYANG [email or web address]) Nutritional Asmnt/Malnutrition Patient General Information Nutritional Screening High Risk Consult Diagnosis Malfunctioning G-Tube, Sepsis, Acute Renal Failure Pertinent Medical Hx/Surgical Hx Dementia, HTN, DM, Althma/COPD , PUD/GERD, Parkinson's Disease Subjective Information Pt came from SNF, admitted for G-Tube replacement. Consult for Wound and low [place] score received. Pt was awake during the time of visit, able to answer questions. Noted pt does not have teeth. 01/14 G- tube replacement. Started Nutren Pulmonary at 10ml/hr, currently running at 20ml/hr. Pt stated nausea, made aware of RN. H&P noted moderate protein-calorie malnutrition. Performed physical exam, mild muscal wasting noted. UBW 153lb on 10/04/16 per EMR. Possible wt loss. Current Diet Order/ Nutrition Support Nutren Pulmonary start with 10ml/hr, increase to goal rate [id number] Pertinent Medications Vitamin C, Glucontrol, Levemir Insulin, Nacl 100ml/hr, Zn Pertinent Labs 01/14: Na 159H, K 4.2, Cl 129H, BUN 108H, Cr 2.2H, A1C 8.0, Ca 10.2 01/13: Alb 3.1 L POC: 113-116 (01/13-01/14) Nutritional Hx/Data Height 5 ft 8 in Height (Calculated Centimeters) 172.7 Current Weight (lbs) 144 lb Weight (Calculated Kilograms) 65.3 Weight (Calculated Grams) 56789.3 Usual body Weight (lbs) 153 % Usual Body Weight 94 [place] Body Weight 154 % [place] Body Weight 94 Body Mass Index (BMI) 21.9 Recent Weight Change Yes Weight Status Approriate GI Symptoms GI Symptoms Nausea Usual diet at home Pulmocare 65ml/hr x 24hr daily Skin Integrity/Comment: small non-intact area to left buttock Estimated Nutritional Goals BEE in Kcals: Using Current wt Calories/Kcals/Kg 30-35 Kcals Calculated 9291-2713 Protein: Using Current wt Protein g/k.2-1.5 Protein Calculated 79-98g monitor renal labs Fluid: ml Per MD d/t acute renal failure Nutritional Problem 1. Problem Problem Increased nutrition needs ( calorie and protein) Etiology increased meltabolic demands with wound healing and sepsis Signs/Symptoms: dx of sepsis, [place] score 14 Malnutrition Alert Muscle Mass (Non-Severe) Mild Depletion Protein-Calorie Malnutrition N/A Is there a minimum of two criteria No selected? Query Text:Check all the applicable criteria. A minimum of two criteria are recommended for diagnosis of either severe or non-severe malnutrition. Intervention/Recommendation Comments 1. Continue current TF regimen , goal rate 65ml/hr x 24hr will provide 2340kcal, 106g protein and 782ml free water, meeting 100% of nutritional needs. 2. consider discontinuing Zinc supplementation as TF is adequate to meet high micronutrient needs for wound healing Expected Outcomes/Goals Expected Outcomes/Goals 1. Monitor TF tolerance and residual, nausea/vomiting 2. pt to meet 100% nutritional needs once TF approcah to goal rate 3. Monitor wt weekly, wt to remain stable 4. Monitor skin condition, wound to improve 5. F/U as high risk in 2-3 days, 01/16-01/17
[2017-01-15] MEDS: Sodium Chloride 0.45% 1,000 ML IV SCH ×6 (12:15→23:44)
--- NOTE | 2017-01-15 14:24 | Consultation ---
Consult Note - Consult Note Service Date: 01/15/17 Referring Physician: Nikhil Patel Consult Note: PHYSICIAN Consultation Note: Date of Admission: 01/13/17 Purpose of Consultation: Sepsis. Chief Complaint: Patient THADDEUS GLASS was admitted to [facility] with MALFUNCTIONING G-TUBE,FEVER,SEPSIS. History of Present Illness: This 81 year male with past medical history of dysphagia G-tube placed and malnutrition, diabetes mellitus type 2, Parkinson's disease, dementia, hypertension, diagnosed ulcers, brought in from a nursing facility for low- grade fever. Besides this patient's G-tube came out accidentally. Could not 12th of this for the G-tube back again. On initial evaluation, patient's temperature was 99.6F and WBC count was 16,900. Patient diagnosed to have sepsis and started on cefepime. Patient is severely demented and unable to give any history. So far, patient remains afebrile. No G-tube was placed in. Currently, receiving G-tube feeding. Past Medical History: As mentioned above. Diagnoses SEPSIS, UNSPECIFIED ORGANISM (01/13/17) OTHER SPECIFIED INFESTATIONS (01/13/17) TYPE 2 DIABETES MELLITUS WITHOUT COMPLICATIONS (01/13/17) MODERATE PROTEIN-CALORIE MALNUTRITION (01/13/17) HYPEROSMOLALITY AND HYPERNATREMIA (01/13/17) ACIDOSIS (01/13/17) DEMENTIA IN OTH DISEASES CLASSD ELSWHR W/O BEHAVRL DISTURB (01/13/17) PARKINSON'S DISEASE (01/13/17) ESSENTIAL (PRIMARY) HYPERTENSION (01/13/17) GASTROSTOMY MALFUNCTION (01/13/17) PRESSURE ULCER OF UNSPECIFIED SITE, UNSPECIFIED STAGE (01/13/17) ACUTE KIDNEY FAILURE, UNSPECIFIED (01/13/17) FEVER, UNSPECIFIED (01/13/17) Allergies Allergy/AdvReac Type Severity Reaction Status Date / Time piperacillin Allergy Verified 09/10/16 13:25 tazobactam Allergy Verified 09/10/16 13:26 Vital Signs Temp 97.7 F 01/15/17 12:00 Pulse 75 01/15/17 12:00 Resp 20 01/15/17 12:00 BP 111/57 01/15/17 12:00 Pulse Ox 94 01/15/17 12:00 Intake & Output 01/14/17 01/15/17 01/15/17 18:59 06:59 18:59 Intake Total 1000 1780 1000 Output Total 250 Balance 1000 1530 1000 Weight (lbs) 65.317 kg Intake: Intake, IV Amount 1000 1000 1000 Sodium Chloride 0.45% 1, 1000 1000 1000 000 ml @ 100 mls/hr IV . Q10H [facility] Rx#:[id number] Tube Feeding 780 Output: Urine 250 Laboratory Results - last 24 hr 01/14/17 01/15/17 01/15/17 22:33 05:05 05:05 WBC 13.9 H RBC 3.30 L Hgb 10.3 L Hct 30.4 L D MCV 92.1 MCH 31.4 H MCHC Differential 34.0 RDW 16.9 Plt Count 144 L MPV 13.6 Band Neutrophils % 3 Neutrophils (Manual) 81 H Lymphocytes 7 L Monocytes 2 Eosinophils 7 H Nucleated RBCs 1.0 H Sodium 151 H Potassium 4.5 Chloride 123 H Carbon Dioxide 24.2 Anion Gap 8.3 BUN 117 H* Creatinine 3.1 H Est GFR ( Amer) TNP Est GFR (Non-Af Amer) TNP BUN/Creatinine Ratio 37.7 Glucose 217 POC Glucose 219 H Calcium 9.3 Vancomycin Trough 01/15/17 01/15/17 01/15/17 09:47 11:20 11:51 WBC RBC Hgb Hct MCV MCH MCHC Differential RDW Plt Count MPV Band Neutrophils % Neutrophils (Manual) Lymphocytes Monocytes Eosinophils Nucleated RBCs Sodium Potassium Chloride Carbon Dioxide Anion Gap BUN Creatinine Est GFR ( Amer) Est GFR (Non-Af Amer) BUN/Creatinine Ratio Glucose POC Glucose 216 H 167 H Calcium Vancomycin Trough 24.5 H Home Medication Medication Instructions Recorded Type Magnesium Hydroxide [Milk of 30 ml GT DAILY PRN 01/08/13 History Magnesia] Insulin Human Regular [NovoLIN R*] 0 units SUBQ ACHS 02/17/13 History Carbidopa/Levodopa [Carbidopa-Levo 2 odt GT BID 03/07/14 History 25-100 mg Odt] Donepezil Hcl [Aricept] 10 mg GT HS 03/07/14 History Ascorbic Acid [Vitamin C] 500 mg GT DAILY 01/09/16 History Levalbuterol [Xopenex] 0.63 mg IH QID 01/09/16 History Metoprolol Tartrate [Lopressor] 100 mg GT BID 01/09/16 History Acetaminophen [Tylenol] 650 mg GT Q8H PRN 09/10/16 History Metformin HCl [Glucophage] 1,000 mg GT BID 09/10/16 History Oxybutynin Chloride [Ditropan*] 5 mg GT BID 09/10/16 History Timolol Maleate/Pf [Timoptic 0.5% 1 each OP BID 09/10/16 History Ocudose Drop] Al Hyd/Mg Hyd/Simethicone [Maalox] 30 ml GT Q3HR PRN 01/13/17 History Amino Acids/Protein Hydrolys 30 ml GT BID 01/13/17 History [Pro-Stat Sugar Free 887 ml] Esomeprazole Magnesium [Nexium] 40 mg GT DAILY 01/13/17 History Glipizide [Glucotrol] 5 mg GT BID 01/13/17 History Insulin Glargine, Recombinan 18 unit SQ Q12H 01/13/17 History [Lantus] Ipratropium [place] [Atrovent Hfa] 0.02 % IH QID 01/13/17 History Juren Powder [place] 1 pkg GT DAILY 01/13/17 History Multivit &Minerals/Ferrous Fum 15 ml GT DAILY 01/13/17 History [Multivitamin Liquid] Nitroglycerin [Nitrostat] 0.4 mg SL Q5MIN PRN 01/13/17 History Zinc Sulfate 220 mg GT DAILY 01/13/17 History Current Medications Generic Name Dose Route Start Last Admin Trade Name Freq PRN Reason Stop Dose Admin Acetaminophen 650 mg 01/13/17 20:52 Tylenol GT 03/14/17 20:51 Q8H PRN PAIN/TEMP>100 Acetaminophen/Hydrocodone Bitart 1 tab 01/13/17 20:55 [place] 5mg/325mg PO 03/14/17 20:54 Q4H PRN Pain (Severe) Al Hydrox/Mg Hydrox/Simethicone 30 ml 01/13/17 20:52 Maalox GT 03/14/17 20:51 Q3HR PRN Indigestion Albuterol Sulfate 2.5 mg 01/14/17 07:00 01/15/17 10:57 Albuterol 2.5mg/3ml Neb Ud HHN 03/15/17 06:59 2.5 mg QIDRT REBA Administration Ascorbic Acid 500 mg 01/15/17 10:15 01/15/17 10:30 Vitamin C PO 03/16/17 10:14 500 mg DAILY REBA Administration Carbidopa/Levodopa 2 tab 01/14/17 09:00 01/15/17 09:44 Sinemet 25mg-100 Mg GT 03/15/17 08:59 2 tab BID REBA Administration Donepezil HCl 10 mg 01/13/17 21:00 01/14/17 21:10 Aricept GT 03/14/17 20:59 10 mg HS REBA Administration Glipizide 5 mg 01/14/17 09:00 01/15/17 09:44 Glucotrol GT 03/15/17 08:59 5 mg BID REBA Administration Heparin Sodium (Porcine) 5,000 units 01/13/17 21:00 01/15/17 09:42 Heparin SUBQ 03/14/17 20:59 5,000 units Q12HR REBA Administration Cefepime HCl 1 gm/ Dextrose 50 mls @ 100 mls/hr 01/13/17 22:00 01/14/17 21:09 IV 03/14/17 21:59 100 mls/hr Q24H REBA Administration Sodium Chloride 1,000 mls @ 100 mls/hr 01/13/17 21:00 01/15/17 12:15 Nacl 0.45% IV 03/14/17 20:59 100 mls/hr .Q10H REBA Administration Vancomycin HCl 1.25 gm/ Sodium 250 mls @ 165 mls/hr 01/15/17 21:00 Chloride IV 01/15/17 22:30 ONCE ONE Insulin Detemir 18 units 01/13/17 21:00 01/15/17 09:48 Levemir Insulin SUBQ 03/14/17 20:59 18 units Q12H REBA Administration Ipratropium [place] 0.5 mg 01/14/17 11:00 01/15/17 10:57 Atrovent Neb 0.5mg/2.5ml HHN 03/15/17 10:59 0.5 mg QIDRT REBA Administration Magnesium Hydroxide 30 ml 01/13/17 20:52 Milk Of Magnesia GT 03/14/17 20:51 DAILY PRN Constipation Metoprolol Tartrate 100 mg 01/14/17 09:00 01/15/17 09:42 Lopressor GT 03/15/17 08:59 100 mg BID REBA Administration Miscellaneous 1 ea 01/15/17 09:00 Vancomycin Iv Per Pharmacy MC 03/16/17 08:59 DAILY REBA Mupirocin 1 appl 01/15/17 17:00 Bactroban Oint NS 01/20/17 09:01 BID REBA Nitroglycerin 0.4 mg 01/13/17 20:52 Nitrostat SL 03/14/17 20:51 Q5MIN PRN Chest Pain Ondansetron HCl 4 mg 01/13/17 20:55 01/14/17 11:46 Zofran IV 03/14/17 20:54 4 mg Q8H PRN Administration Nausea / Vomiting Oxybutynin Chloride 5 mg 01/14/17 09:00 01/15/17 09:48 Ditropan GT 03/15/17 08:59 5 mg BID REBA Administration Pantoprazole Sodium 40 mg 01/14/17 09:00 01/15/17 09:42 Protonix GT 03/15/17 08:59 40 mg DAILY REBA Administration Pneumococcal Polyvalent Vaccine 0.5 ml 01/16/17 09:00 Pneumovax IM 01/16/17 09:01 .ONCE ONE Timolol Maleate 1 drop 01/14/17 09:00 01/15/17 09:41 Timoptic 0.5% Ophth Soln EACH EYE 03/15/17 08:59 1 drop BID REBA Administration Zinc Sulfate 220 mg 01/14/17 09:00 01/15/17 09:43 Zinc Sulfate GT 03/15/17 08:59 220 mg DAILY REBA Administration Review of Systems: A 12 point ROS was reviewed with the pertinent positive and negatives noted in the HPI. Patient is unable to give any history. Social History Lives at nursing facility. Smoking Status Never smoker Family Medical History Family Medical History Start: 01/13/17 21: 22 Freq: ONCE Status: Active Document 01/13/17 21:22 IVETTEAVERY (Rec: 01/13/17 23:54 IVETTEAVERY [email or web address]) Family Medical History Father History Unknown Yes Physical Exam: General: Comfortable, cachectic. HEENT: Head: Normocephalic, atraumatic. Oral cavity: Dry with white patches involving his lips also. Face: Symmetrical. Eyes: Pallor is present, no icterus. Pupils PERRLA. Neck: Supple, no JVD, no use of X his neck muscles. Cardio: S1 and S2 within normal limits. Respiratory: Vesicular breath sound, no crackles no wheezing. Abdominal: Soft, nontender, nondistended. Bowel sounds present Genital/Urinary: Deferred. Extremities: No cyanosis, no clubbing, no edema. Pulses are palpable in all 4 limbs. Neurological: Not communicating. Assessment: 1. Leukocytosis, may have sepsis. Source unknown. May have aspiration. May be reactive. 2. Oral candidiasis. Due to poor hygiene. 3. Acute renal failure. 4. Diabetes mellitus type 2. 5. Hypertension. 6. Bedridden status. 7. Metabolic encephalopathy. 8. Dementia. Plan: Discontinue vancomycin. Change of dose of cefepime as per renal function. Add Diflucan. IV hydration. Renal consult following. Signed, Steve Villalobos M.D. [id number]
[2017-01-15 15:17] LABS: FOLIC ACID >20.0 ng/mL (>3.0)
[2017-01-16 06:33] LABS: % EOSINOPHILS 5.3 % (0.0-5.0); % LYMPHOCYTES 9.4 % (20.0-50.0); % MONOCYTES 4.7 % (2.0-10.0); % NEUTROPHILS 80.6 % (40.0-80.0); EOSINOPHILE ABSOLUTE 0.7 Th/cmm (0.1-0.4); HEMATOCRIT 27.6 % (41.0-60); HEMOGLOBIN 9.2 gm/dL (12-16); LYMPHOCYTE ABSOLUTE 1.3 Th/cmm (1.5-3.0); MEAN CELL VOLUME 91.6 fl (80-99); MEAN CORPUSCULAR HEMOGLOBIN 30.5 pg (27.0-31.0); MEAN CORPUSCULAR HGB CONC 33.3 pg (28.0-36.0); MEAN PLATELET VOLUME 15.1 fl; MONOCYTE ABSOLUTE 0.6 Th/cmm (0.3-1.0); NEUTROPHILE ABSOLUTE 10.9 Th/cmm (1.8-8.0); PLATELET COUNT 147 Th/cmm (150-400); RED BLOOD COUNT 3.01 Mil/cmm (3.80-5.80); RED CELL DISTRIBUTION WIDTH 15.9 % (11.5-20.0)
[2017-01-16 07:00] LABS: ANION GAP 9.6 (7.0-16.0); BUN - UREA NITROGEN 77 mg/dL (7-25); CALCIUM SERUM 9.3 mg/dL (8.6-10.3); CARBON DIOXIDE 21.5 mEq/L (21.0-31.0); CHLORIDE 124 mEq/L (98-107); CREATININE - SERUM 2.1 mg/dL (0.7-1.3); POTASSIUM SERUM 3.1 mEq/L (3.5-5.1); SODIUM SERUM 152 mEq/L (136-145)
[2017-01-16 07:06] LABS: WHITE BLOOD COUNT 13.5 Th/cmm (4.8-10.8)
[2017-01-16 07:32] LABS: GLUCOSE 47 mg/dL
[2017-01-16] MEDS ORDERED: GLUCAGON HCl 1 MG KIT IM PRN ×2 (07:37)
[2017-01-16] MEDS: Ipratropium Neb 0.5 mg/2.5 mL UD HHN SCH ×8 (07:39→19:28)
[2017-01-16] MEDS: Albuterol Nebulizer 2.5mg/3mL HHN SCH ×8 (07:39→19:27)
[2017-01-16] MEDS ORDERED: Dextrose 50% 50 mL Abboject IVP PRN ×2 (07:39)
--- NOTE | 2017-01-16 08:02 | Diagnostic Imaging Report ---
Renal ultrasound HISTORY: Renal failure patient has Miranda catheter clamped for 2 hours. COMPARISON: CT abdomen and pelvis performed on 10/05/2016 Technique: Sonography of the kidneys and urinary bladder was performed in multiple planes. FINDINGS: Exam is limited due to body habitus and lack of patient cooperation. The right kidney measures 10.6 x 4.8 cm. There is fullness of the right renal collecting system without carlos hydronephrosis. The right renal margin is not well-defined however no evidence of focal lesions. The left kidney was not visualized. The prevoid bladder volume is 234 mL's. The patient's Miranda catheter was clamped. Mild generalized bladder wall thickening is noted. IMPRESSION: Limited exam due to body habitus and patient lack of cooperation. The left kidney was not visualized. If indicated short-term follow-up CT may be obtained for further assessment. Fullness of the right renal collecting system without evidence of carlos hydronephrosis. Mild generalized prominency of the urinary bladder wall. Underlying infectious or inflammatory process cannot be excluded. Prevoid bladder volume of 234 mL.
[2017-01-16] MEDS ORDERED: Pneumococcal Vaccine 0.5 mL Vial IM ONE ×2 (09:00)
--- NOTE | 2017-01-16 09:33 | Diagnostic Imaging Report ---
Portable chest x-ray HISTORY: Shortness of breath The heart appears enlarged. Atherosclerotic calcification seen in the aorta. Chronic elevation of the right hemidiaphragm unchanged since November 26, 2016. No hilar or mediastinal abnormalities. No focal pulmonary processes. IMPRESSION: 1. No acute focal pulmonary processes 2. Cardiomegaly with atherosclerotic vascular changes
[2017-01-16] MEDS ORDERED: Potassium Chloride Elixir 20 mEq /15 mL UDC GT ONE ×2 (09:34)
[2017-01-16] MEDS: Fluconazole 100mg/50mL 100 MG/50 ML BOTTLE IV SCH ×2 (09:53)
[2017-01-16] MEDS: Insulin Detemir 100 units/mL 10mL Vial SUBQ SCH ×4 (09:55→22:16)
[2017-01-16] MEDS: Multivitamin w/ Minerals Tab GT SCH ×2 (09:56)
[2017-01-16] MEDS: Pantoprazole 40 mg/Packet GT SCH ×2 (09:56)
--- NOTE | 2017-01-16 12:01 | Internal Medicine Prog Note ---
Internal Medicine Subjective - Subjective Service Date: 01/16/17 Patient is:: awake, confused Per staff patient has:: tolerating meds Internal Medicine Objective - Results Result Diagrams: 01/16/17 05:15 01/16/17 05:15 Recent Labs: Laboratory Last Values WBC 13.5 Th/cmm (4.8-10.8) H 01/16/17 05:15 RBC 3.01 Mil/cmm (3.80-5.80) L 01/16/17 05:15 Hgb 9.2 gm/dL (12-16) L 01/16/17 05:15 Hct 27.6 % (41.0-60) L 01/16/17 05:15 MCV 91.6 fl (80-99) 01/16/17 05:15 MCH 30.5 pg (27.0-31.0) 01/16/17 05:15 MCHC Differential 33.3 pg (28.0-36.0) 01/16/17 05:15 RDW 15.9 % (11.5-20.0) 01/16/17 05:15 Plt Count 147 Th/cmm (150-400) L 01/16/17 05:15 MPV 15.1 fl 01/16/17 05:15 Neutrophils % 80.6 % (40.0-80.0) H 01/16/17 05:15 Band Neutrophils % 3 % (0-10) 01/15/17 05:05 Lymphocytes % 9.4 % (20.0-50.0) L 01/16/17 05:15 Monocytes % 4.7 % (2.0-10.0) 01/16/17 05:15 Eosinophils % 5.3 % (0.0-5.0) H 01/16/17 05:15 Basophils % 0.0 % (0.0-2.0) 01/16/17 05:15 Neutrophils (Manual) 81 % (40-80) H 01/15/17 05:05 Lymphocytes 7 % (20-50) L 01/15/17 05:05 Monocytes 2 % (2-10) 01/15/17 05:05 Eosinophils 7 % (0-5) H 01/15/17 05:05 Nucleated RBCs 1.0 % (0-0) H 01/15/17 05:05 Platelet Estimate ADEQUATE (NORMAL) 01/13/17 19:13 PT 10.3 SECONDS (9.5-11.5) 01/13/17 19:13 INR 0.99 (0.5-1.4) 01/13/17 19:13 PTT (Actin FS) 22.9 SECONDS (26.0-38.0) L 01/13/17 19:13 Sodium 152 mEq/L (136-145) H 01/16/17 05:15 Potassium 3.1 mEq/L (3.5-5.1) L 01/16/17 05:15 Chloride 124 mEq/L (98-107) H 01/16/17 05:15 Carbon Dioxide 21.5 mEq/L (21.0-31.0) 01/16/17 05:15 Anion Gap 9.6 (7.0-16.0) 01/16/17 05:15 BUN 77 mg/dL (7-25) H 01/16/17 05:15 Creatinine 2.1 mg/dL (0.7-1.3) H 01/16/17 05:15 Est GFR ( Amer) TNP 01/16/17 05:15 Est GFR (Non-Af Amer) TNP 01/16/17 05:15 BUN/Creatinine Ratio 36.7 01/16/17 05:15 Glucose 47 mg/dL 01/16/17 05:15 POC Glucose 79 MG/DL (70 - 105) 01/16/17 08:05 Hemoglobin A1c % 8.0 % (4.0-6.0) H D 01/14/17 05:50 Whole Bld Lactic Acid 0.70 mmol/L (0.60-1.99) 01/16/17 05:15 Calcium 9.3 mg/dL (8.6-10.3) 01/16/17 05:15 Magnesium 2.6 mg/dL (1.9-2.7) 01/16/17 05:15 Total Bilirubin 0.3 mg/dL (0.3-1.0) 01/13/17 19:13 AST 24 U/L (13-39) 01/13/17 19:13 ALT 4 U/L (7-52) L 01/13/17 19:13 Alkaline Phosphatase 121 U/L (34-104) H 01/13/17 19:13 Ammonia 52 umol/L (16-53) 01/14/17 05:50 B-Natriuretic Peptide 62.0 pg/mL (5.0-100.0) 01/16/17 05:15 Total Protein 9.3 gm/dL (6.0-8.3) H 01/13/17 19:13 Albumin 3.1 gm/dL (4.2-5.5) L 01/13/17 19:13 Globulin 6.2 gm/dL 01/13/17 19:13 Albumin/Globulin Ratio 0.5 (1.0-1.8) L 01/13/17 19:13 Vitamin B12 545 pg/mL (211-946) 01/14/17 05:50 Folic Acid >20.0 ng/mL (>3.0) 01/14/17 05:50 TSH 1.45 uIU/ml (0.34-5.60) 01/14/17 05:50 Urine Source [place] 01/13/17 19:30 Urine Color YELLOW 01/13/17 19:30 Urine Clarity HAZY (CLEAR) 01/13/17 19:30 Urine pH 5.5 (4.6 - 8.0) 01/13/17 19:30 Ur Specific [place] 1.015 (1.005-1.030) 01/13/17 19:30 Urine Protein TRACE mg/dL (NEGATIVE) 01/13/17 19:30 Urine Glucose (UA) NEGATIVE mg/dL (NEGATIVE) 01/13/17 19:30 Urine Ketones NEGATIVE mg/dL (NEGATIVE) 01/13/17 19:30 Urine Blood NEGATIVE (NEGATIVE) 01/13/17 19:30 Urine Nitrate NEGATIVE (NEGATIVE) 01/13/17 19:30 Urine Bilirubin NEGATIVE (NEGATIVE) 01/13/17 19:30 Urine Urobilinogen 0.2 E.U./dL (0.2 - 1.0) 01/13/17 19:30 Ur Leukocyte Esterase SMALL (NEGATIVE) H 01/13/17 19:30 Urine RBC NONE SEEN /hpf (0-5) 01/13/17 19:30 Urine WBC 2-5 /hpf (0-5) H 01/13/17 19:30 Ur Epithelial Cells OCCASIONAL /lpf (FEW) 01/13/17 19:30 Urine Bacteria FEW /hpf (NONE SEEN) 01/13/17 19:30 Urine Yeast MANY /hpf (NONE SEEN) H 01/13/17 19:30 Vancomycin Trough 24.5 ug/mL (10-20) H 01/15/17 11:20 - Physical Exam Vitals and I&O: Vital Signs Temp 97.3 F 01/16/17 08:00 Pulse 60 01/16/17 09:55 Resp 17 01/16/17 08:00 BP 114/56 01/16/17 09:55 Pulse Ox 97 01/16/17 08:00 Intake & Output 01/15/17 01/16/17 01/16/17 18:59 06:59 18:59 Intake Total 1511.667 986.667 Output Total 700 Balance 1511.667 286.667 Weight (lbs) 150 lb Intake: Intake, IV Amount 1511.667 686.667 Cefepime 1 gm In Dextrose 50 5% 50 ml @ 100 mls/hr IV Q24H [facility] Rx#:[id number] Sodium Chloride 0.45% 1, 1511.667 636.667 000 ml @ 100 mls/hr IV . Q10H [facility] Rx#:[id number] Tube Feeding 300 Output: Urine 700 Other: # Bowel Movements 1 Stool Characteristics Soft Brown Active Medications: Current Medications Acetaminophen (Tylenol) 650 mg GT Q8H PRN PRN Reason: PAIN/TEMP>100 Stop: 03/14/17 20:51 Last Admin: 01/15/17 23:44 Dose: 650 mg Acetaminophen/Hydrocodone Bitart ([place] 5mg/325mg) 1 tab PO Q4H PRN PRN Reason: Pain (Severe) Stop: 03/14/17 20:54 Al Hydrox/Mg Hydrox/Simethicone (Maalox) 30 ml GT Q3HR PRN PRN Reason: Indigestion Stop: 03/14/17 20:51 Albuterol Sulfate (Albuterol 2.5mg/3ml Neb Ud) 2.5 mg HHN QIDRT [facility] Stop: 03/15/17 06:59 Last Admin: 01/16/17 07:39 Dose: 2.5 mg Ascorbic Acid (Vitamin C) 500 mg PO DAILY [facility] Stop: 03/16/17 10:14 Last Admin: 01/16/17 09:56 Dose: 500 mg Carbidopa/Levodopa (Sinemet 25mg-100 Mg) 2 tab GT BID [facility] Stop: 03/15/17 08:59 Last Admin: 01/16/17 09:56 Dose: 2 tab Dextrose (D50w) 50 ml IVP PRN PRN PRN Reason: Blood Glucose less than 60 Stop: 03/17/17 07:38 Donepezil HCl (Aricept) 10 mg GT HS [facility] Stop: 03/14/17 20:59 Last Admin: 01/15/17 20:26 Dose: 10 mg Glucagon (Glucagen) 1 mg IM PRN PRN PRN Reason: Blood Glucose less than 70 Stop: 03/17/17 07:36 Last Admin: 01/16/17 07:50 Dose: 1 mg Heparin Sodium (Porcine) (Heparin) 5,000 units SUBQ Q12HR [facility] Stop: 03/14/17 20:59 Last Admin: 01/16/17 09:56 Dose: 5,000 units Cefepime HCl 1 gm/ Dextrose 50 mls @ 100 mls/hr IV Q24H [facility] Stop: 03/14/17 21:59 Last Infusion: 01/15/17 22:15 Dose: Infused Sodium Chloride (Nacl 0.45%) 1,000 mls @ 100 mls/hr IV .Q10H [facility] Stop: 03/14/17 20:59 Last Admin: 01/15/17 23:44 Dose: 100 mls/hr Fluconazole (Diflucan) 100 mg in 50 mls @ 50 mls/hr IV DAILY [facility] Stop: 03/17/17 08:59 Last Admin: 01/16/17 09:53 Dose: 50 mls/hr Insulin Aspart (Novolog Insulin Sliding Scale) 0 units SUBQ Q6HR REBA PRN Reason: Protocol Stop: 03/17/17 11:59 Insulin Detemir (Levemir Insulin) 18 units SUBQ Q12H [facility] Stop: 03/14/17 20:59 Last Admin: 01/16/17 09:55 Dose: Not Given Ipratropium [place] (Atrovent Neb 0.5mg/2.5ml) 0.5 mg HHN QIDRT [facility] Stop: 03/15/17 10:59 Last Admin: 01/16/17 07:39 Dose: 0.5 mg Magnesium Hydroxide (Milk Of Magnesia) 30 ml GT DAILY PRN PRN Reason: Constipation Stop: 03/14/17 20:51 Metoprolol Tartrate (Lopressor) 100 mg GT BID [facility] Stop: 03/15/17 08:59 Last Admin: 01/16/17 09:55 Dose: Not Given Mupirocin (Bactroban Oint) 1 appl NS BID [facility] Stop: 01/20/17 09:01 Last Admin: 01/16/17 09:57 Dose: 1 appl Nitroglycerin (Nitrostat) 0.4 mg SL Q5MIN PRN PRN Reason: Chest Pain Stop: 03/14/17 20:51 Ondansetron HCl (Zofran) 4 mg IV Q8H PRN PRN Reason: Nausea / Vomiting Stop: 03/14/17 20:54 Last Admin: 01/14/17 11:46 Dose: 4 mg Oxybutynin Chloride (Ditropan) 5 mg GT BID [facility] Stop: 03/15/17 08:59 Last Admin: 01/16/17 09:56 Dose: 5 mg Pantoprazole Sodium (Protonix) 40 mg GT DAILY [facility] Stop: 03/15/17 08:59 Last Admin: 01/16/17 09:56 Dose: 40 mg Timolol Maleate (Timoptic 0.5% Ophth Soln) 1 drop EACH EYE BID [facility] Stop: 03/15/17 08:59 Last Admin: 01/16/17 09:56 Dose: 1 drop Zinc Sulfate (Zinc Sulfate) 220 mg GT DAILY [facility] Stop: 03/15/17 08:59 Last Admin: 01/16/17 09:56 Dose: 220 mg General: weak, alert HEENT: NC/AT, PERRLA Neck: Supple Lungs: ronchi Cardiovascular: RRR, Normal S1, Normal S2, without murmur Abdomen: soft, non-tender, non-distended, positive bowel sound Extremities: excoriation Neurological: alert - Procedures Procedures: Procedures Procedure Code Date BLOOD TRANSFUSION SERVICE 67058 02/17/13 CHANGE FEEDING DEVICE IN UP INTEST TRACT, SPOTLIGHT OPERATOR APPROACH [id number] 10/03/16 CHANGE GASTROSTOMY TUBE 17589 10/03/[address] GASTROSTOMY TUBE 77970 03/07/14 EMERGENCY DEPT VISIT 04305 06/07/11 FREEING OF BOWEL ADHESION 20460 01/08/13 INJECT ANTICOAGULANT 99.19 03/29/12 OTH LYSIS-PERITONEAL ADHES 54.59 01/08/13 OTHER ENDOSCOPY OF SM INTEST 45.13 03/07/14 PACKED CELL TRANSFUSION 99.04 02/17/13 PRP I/LINDSAY INIT REDUC >5 YR 67993 01/08/13 REPLACE GASTROSTOMY TUBE 97.02 03/07/14 UNILAT ING LINDSAY REP NOS 53.00 01/08/13 Internal Medicine Assmt/Plan - Assessment Assessment: MRSA nares fever sepsis lactic acidosis leukocytosis malfunction gt s/p peg placement acute hypernatremia acute renal failure moderate protein calorie malnutrition candiduria dm-2 parkinsons dementia htn decubitus ulcer - Plan Plan: gtf 100ml q6h continue ivf and iv antibiotics wound care monitor glucose am labs continue current plan of care Nutritional Asmnt/Malnutr-PDOC - Dietary Evaluation Malnutrition Findings (Please click <Entered> for more info): Nutritional Asmnt/Malnutrition Start: 01/14/17 12: 05 Text: Status: Active Freq: Document 01/14/17 12:06 [facility] ([facility]14[facility]17 [id number] Nutritional Asmnt/Malnutrition Patient General Information Nutritional Screening High Risk Consult Diagnosis Malfunctioning G-Tube, Sepsis, Acute Renal Failure Pertinent Medical Hx/Surgical Hx Dementia, HTN, DM, Althma/COPD , PUD/GERD, Parkinson's Disease Subjective Information Pt came from SNF, admitted for G-Tube replacement. Consult for Wound and low [place] score received. Pt was awake during the time of visit, able to answer questions. Noted pt does not have teeth. 01/14 G- tube replacement. Started Nutren Pulmonary at 10ml/hr, currently running at 20ml/hr. Pt stated nausea, made aware of RN. H&P noted moderate protein-calorie malnutrition. Performed physical exam, mild muscal wasting noted. UBW 153lb on 10/04/16 per EMR. Possible wt loss. Current Diet Order/ Nutrition Support Nutren Pulmonary start with 10ml/hr, increase to goal rate [id number] Pertinent Medications Vitamin C, Glucontrol, Levemir Insulin, Nacl 100ml/hr, Zn Pertinent Labs 01/14: Na 159H, K 4.2, Cl 129H, BUN 108H, Cr 2.2H, A1C 8.0, Ca 10.2 01/13: Alb 3.1 L POC: 113-116 (01/13-01/14) Nutritional Hx/Data Height 5 ft 8 in Height (Calculated Centimeters) 172.7 Current Weight (lbs) 144 lb Weight (Calculated Kilograms) 65.3 Weight (Calculated Grams) 79812.3 Usual body Weight (lbs) 153 % Usual Body Weight 94 [place] Body Weight 154 % [place] Body Weight 94 Body Mass Index (BMI) 21.9 Recent Weight Change Yes Weight Status Approriate GI Symptoms GI Symptoms Nausea Usual diet at home Pulmocare 65ml/hr x 24hr daily Skin Integrity/Comment: small non-intact area to left buttock Estimated Nutritional Goals BEE in Kcals: Using Current wt Calories/Kcals/Kg 30-35 Kcals Calculated 4003-8594 Protein: Using Current wt Protein g/k.2-1.5 Protein Calculated 79-98g monitor renal labs Fluid: ml Per MD d/t acute renal failure Nutritional Problem 1. Problem Problem Increased nutrition needs ( calorie and protein) Etiology increased meltabolic demands with wound healing and sepsis Signs/Symptoms: dx of sepsis, [place] score 14 Malnutrition Alert Muscle Mass (Non-Severe) Mild Depletion Protein-Calorie Malnutrition N/A Is there a minimum of two criteria No selected? Query Text:Check all the applicable criteria. A minimum of two criteria are recommended for diagnosis of either severe or non-severe malnutrition. Intervention/Recommendation Comments 1. Continue current TF regimen , goal rate 65ml/hr x 24hr will provide 2340kcal, 106g protein and 782ml free water, meeting 100% of nutritional needs. 2. consider discontinuing Zinc supplementation as TF is adequate to meet high micronutrient needs for wound healing Expected Outcomes/Goals Expected Outcomes/Goals 1. Monitor TF tolerance and residual, nausea/vomiting 2. pt to meet 100% nutritional needs once TF approcah to goal rate 3. Monitor wt weekly, wt to remain stable 4. Monitor skin condition, wound to improve 5. F/U as high risk in 2-3 days, 01/16-01/17
--- NOTE | 2017-01-16 12:01 | Internal Medicine Prog Note ---
Internal Medicine Subjective - Subjective Service Date: 01/16/17 Patient is:: awake, confused Per staff patient has:: tolerating meds Internal Medicine Objective - Results Result Diagrams: 01/16/17 05:15 01/16/17 05:15 Recent Labs: Laboratory Last Values WBC 13.5 Th/cmm (4.8-10.8) H 01/16/17 05:15 RBC 3.01 Mil/cmm (3.80-5.80) L 01/16/17 05:15 Hgb 9.2 gm/dL (12-16) L 01/16/17 05:15 Hct 27.6 % (41.0-60) L 01/16/17 05:15 MCV 91.6 fl (80-99) 01/16/17 05:15 MCH 30.5 pg (27.0-31.0) 01/16/17 05:15 MCHC Differential 33.3 pg (28.0-36.0) 01/16/17 05:15 RDW 15.9 % (11.5-20.0) 01/16/17 05:15 Plt Count 147 Th/cmm (150-400) L 01/16/17 05:15 MPV 15.1 fl 01/16/17 05:15 Neutrophils % 80.6 % (40.0-80.0) H 01/16/17 05:15 Band Neutrophils % 3 % (0-10) 01/15/17 05:05 Lymphocytes % 9.4 % (20.0-50.0) L 01/16/17 05:15 Monocytes % 4.7 % (2.0-10.0) 01/16/17 05:15 Eosinophils % 5.3 % (0.0-5.0) H 01/16/17 05:15 Basophils % 0.0 % (0.0-2.0) 01/16/17 05:15 Neutrophils (Manual) 81 % (40-80) H 01/15/17 05:05 Lymphocytes 7 % (20-50) L 01/15/17 05:05 Monocytes 2 % (2-10) 01/15/17 05:05 Eosinophils 7 % (0-5) H 01/15/17 05:05 Nucleated RBCs 1.0 % (0-0) H 01/15/17 05:05 Platelet Estimate ADEQUATE (NORMAL) 01/13/17 19:13 PT 10.3 SECONDS (9.5-11.5) 01/13/17 19:13 INR 0.99 (0.5-1.4) 01/13/17 19:13 PTT (Actin FS) 22.9 SECONDS (26.0-38.0) L 01/13/17 19:13 Sodium 152 mEq/L (136-145) H 01/16/17 05:15 Potassium 3.1 mEq/L (3.5-5.1) L 01/16/17 05:15 Chloride 124 mEq/L (98-107) H 01/16/17 05:15 Carbon Dioxide 21.5 mEq/L (21.0-31.0) 01/16/17 05:15 Anion Gap 9.6 (7.0-16.0) 01/16/17 05:15 BUN 77 mg/dL (7-25) H 01/16/17 05:15 Creatinine 2.1 mg/dL (0.7-1.3) H 01/16/17 05:15 Est GFR ( Amer) TNP 01/16/17 05:15 Est GFR (Non-Af Amer) TNP 01/16/17 05:15 BUN/Creatinine Ratio 36.7 01/16/17 05:15 Glucose 47 mg/dL 01/16/17 05:15 POC Glucose 79 MG/DL (70 - 105) 01/16/17 08:05 Hemoglobin A1c % 8.0 % (4.0-6.0) H D 01/14/17 05:50 Whole Bld Lactic Acid 0.70 mmol/L (0.60-1.99) 01/16/17 05:15 Calcium 9.3 mg/dL (8.6-10.3) 01/16/17 05:15 Magnesium 2.6 mg/dL (1.9-2.7) 01/16/17 05:15 Total Bilirubin 0.3 mg/dL (0.3-1.0) 01/13/17 19:13 AST 24 U/L (13-39) 01/13/17 19:13 ALT 4 U/L (7-52) L 01/13/17 19:13 Alkaline Phosphatase 121 U/L (34-104) H 01/13/17 19:13 Ammonia 52 umol/L (16-53) 01/14/17 05:50 B-Natriuretic Peptide 62.0 pg/mL (5.0-100.0) 01/16/17 05:15 Total Protein 9.3 gm/dL (6.0-8.3) H 01/13/17 19:13 Albumin 3.1 gm/dL (4.2-5.5) L 01/13/17 19:13 Globulin 6.2 gm/dL 01/13/17 19:13 Albumin/Globulin Ratio 0.5 (1.0-1.8) L 01/13/17 19:13 Vitamin B12 545 pg/mL (211-946) 01/14/17 05:50 Folic Acid >20.0 ng/mL (>3.0) 01/14/17 05:50 TSH 1.45 uIU/ml (0.34-5.60) 01/14/17 05:50 Urine Source [place] 01/13/17 19:30 Urine Color YELLOW 01/13/17 19:30 Urine Clarity HAZY (CLEAR) 01/13/17 19:30 Urine pH 5.5 (4.6 - 8.0) 01/13/17 19:30 Ur Specific [place] 1.015 (1.005-1.030) 01/13/17 19:30 Urine Protein TRACE mg/dL (NEGATIVE) 01/13/17 19:30 Urine Glucose (UA) NEGATIVE mg/dL (NEGATIVE) 01/13/17 19:30 Urine Ketones NEGATIVE mg/dL (NEGATIVE) 01/13/17 19:30 Urine Blood NEGATIVE (NEGATIVE) 01/13/17 19:30 Urine Nitrate NEGATIVE (NEGATIVE) 01/13/17 19:30 Urine Bilirubin NEGATIVE (NEGATIVE) 01/13/17 19:30 Urine Urobilinogen 0.2 E.U./dL (0.2 - 1.0) 01/13/17 19:30 Ur Leukocyte Esterase SMALL (NEGATIVE) H 01/13/17 19:30 Urine RBC NONE SEEN /hpf (0-5) 01/13/17 19:30 Urine WBC 2-5 /hpf (0-5) H 01/13/17 19:30 Ur Epithelial Cells OCCASIONAL /lpf (FEW) 01/13/17 19:30 Urine Bacteria FEW /hpf (NONE SEEN) 01/13/17 19:30 Urine Yeast MANY /hpf (NONE SEEN) H 01/13/17 19:30 Vancomycin Trough 24.5 ug/mL (10-20) H 01/15/17 11:20 - Physical Exam Vitals and I&O: Vital Signs Temp 97.3 F 01/16/17 08:00 Pulse 60 01/16/17 09:55 Resp 17 01/16/17 08:00 BP 114/56 01/16/17 09:55 Pulse Ox 97 01/16/17 08:00 Intake & Output 01/15/17 01/16/17 01/16/17 18:59 06:59 18:59 Intake Total 1511.667 986.667 Output Total 700 Balance 1511.667 286.667 Weight (lbs) 150 lb Intake: Intake, IV Amount 1511.667 686.667 Cefepime 1 gm In Dextrose 50 5% 50 ml @ 100 mls/hr IV Q24H [facility] Rx#:[id number] Sodium Chloride 0.45% 1, 1511.667 636.667 000 ml @ 100 mls/hr IV . Q10H [facility] Rx#:[id number] Tube Feeding 300 Output: Urine 700 Other: # Bowel Movements 1 Stool Characteristics Soft Brown Active Medications: Current Medications Acetaminophen (Tylenol) 650 mg GT Q8H PRN PRN Reason: PAIN/TEMP>100 Stop: 03/14/17 20:51 Last Admin: 01/15/17 23:44 Dose: 650 mg Acetaminophen/Hydrocodone Bitart (Burtrum 5mg/325mg) 1 tab PO Q4H PRN PRN Reason: Pain (Severe) Stop: 03/14/17 20:54 Al Hydrox/Mg Hydrox/Simethicone (Maalox) 30 ml GT Q3HR PRN PRN Reason: Indigestion Stop: 03/14/17 20:51 Albuterol Sulfate (Albuterol 2.5mg/3ml Neb Ud) 2.5 mg HHN QIDRT [facility] Stop: 03/15/17 06:59 Last Admin: 01/16/17 07:39 Dose: 2.5 mg Ascorbic Acid (Vitamin C) 500 mg PO DAILY [facility] Stop: 03/16/17 10:14 Last Admin: 01/16/17 09:56 Dose: 500 mg Carbidopa/Levodopa (Sinemet 25mg-100 Mg) 2 tab GT BID [facility] Stop: 03/15/17 08:59 Last Admin: 01/16/17 09:56 Dose: 2 tab Dextrose (D50w) 50 ml IVP PRN PRN PRN Reason: Blood Glucose less than 60 Stop: 03/17/17 07:38 Donepezil HCl (Aricept) 10 mg GT HS [facility] Stop: 03/14/17 20:59 Last Admin: 01/15/17 20:26 Dose: 10 mg Glucagon (Glucagen) 1 mg IM PRN PRN PRN Reason: Blood Glucose less than 70 Stop: 03/17/17 07:36 Last Admin: 01/16/17 07:50 Dose: 1 mg Heparin Sodium (Porcine) (Heparin) 5,000 units SUBQ Q12HR [facility] Stop: 03/14/17 20:59 Last Admin: 01/16/17 09:56 Dose: 5,000 units Cefepime HCl 1 gm/ Dextrose 50 mls @ 100 mls/hr IV Q24H [facility] Stop: 03/14/17 21:59 Last Infusion: 01/15/17 22:15 Dose: Infused Sodium Chloride (Nacl 0.45%) 1,000 mls @ 100 mls/hr IV .Q10H [facility] Stop: 03/14/17 20:59 Last Admin: 01/15/17 23:44 Dose: 100 mls/hr Fluconazole (Diflucan) 100 mg in 50 mls @ 50 mls/hr IV DAILY [facility] Stop: 03/17/17 08:59 Last Admin: 01/16/17 09:53 Dose: 50 mls/hr Insulin Aspart (Novolog Insulin Sliding Scale) 0 units SUBQ Q6HR REBA PRN Reason: Protocol Stop: 03/17/17 11:59 Insulin Detemir (Levemir Insulin) 18 units SUBQ Q12H [facility] Stop: 03/14/17 20:59 Last Admin: 01/16/17 09:55 Dose: Not Given Ipratropium Ferguson (Atrovent Neb 0.5mg/2.5ml) 0.5 mg HHN QIDRT [facility] Stop: 03/15/17 10:59 Last Admin: 01/16/17 07:39 Dose: 0.5 mg Magnesium Hydroxide (Milk Of Magnesia) 30 ml GT DAILY PRN PRN Reason: Constipation Stop: 03/14/17 20:51 Metoprolol Tartrate (Lopressor) 100 mg GT BID [facility] Stop: 03/15/17 08:59 Last Admin: 01/16/17 09:55 Dose: Not Given Mupirocin (Bactroban Oint) 1 appl NS BID [facility] Stop: 01/20/17 09:01 Last Admin: 01/16/17 09:57 Dose: 1 appl Nitroglycerin (Nitrostat) 0.4 mg SL Q5MIN PRN PRN Reason: Chest Pain Stop: 03/14/17 20:51 Ondansetron HCl (Zofran) 4 mg IV Q8H PRN PRN Reason: Nausea / Vomiting Stop: 03/14/17 20:54 Last Admin: 01/14/17 11:46 Dose: 4 mg Oxybutynin Chloride (Ditropan) 5 mg GT BID [facility] Stop: 03/15/17 08:59 Last Admin: 01/16/17 09:56 Dose: 5 mg Pantoprazole Sodium (Protonix) 40 mg GT DAILY [facility] Stop: 03/15/17 08:59 Last Admin: 01/16/17 09:56 Dose: 40 mg Timolol Maleate (Timoptic 0.5% Ophth Soln) 1 drop EACH EYE BID [facility] Stop: 03/15/17 08:59 Last Admin: 01/16/17 09:56 Dose: 1 drop Zinc Sulfate (Zinc Sulfate) 220 mg GT DAILY [facility] Stop: 03/15/17 08:59 Last Admin: 01/16/17 09:56 Dose: 220 mg General: weak, alert HEENT: NC/AT, PERRLA Neck: Supple Lungs: ronchi Cardiovascular: RRR, Normal S1, Normal S2, without murmur Abdomen: soft, non-tender, non-distended, positive bowel sound Extremities: excoriation Neurological: alert - Procedures Procedures: Procedures Procedure Code Date BLOOD TRANSFUSION SERVICE 98023 02/17/13 CHANGE FEEDING DEVICE IN UP INTEST TRACT, CLERK RATING APPROACH [id number] 10/03/16 CHANGE GASTROSTOMY TUBE 41090 10/03/[address] GASTROSTOMY TUBE 76429 03/07/14 EMERGENCY DEPT VISIT 73651 06/07/11 FREEING OF BOWEL ADHESION 60357 01/08/13 INJECT ANTICOAGULANT 99.19 03/29/12 OTH LYSIS-PERITONEAL ADHES 54.59 01/08/13 OTHER ENDOSCOPY OF SM INTEST 45.13 03/07/14 PACKED CELL TRANSFUSION 99.04 02/17/13 PRP I/LINDSAY INIT REDUC >5 YR 59022 01/08/13 REPLACE GASTROSTOMY TUBE 97.02 03/07/14 UNILAT ING LINDSAY REP NOS 53.00 01/08/13 Internal Medicine Assmt/Plan - Assessment Assessment: MRSA nares fever sepsis lactic acidosis leukocytosis malfunction gt s/p peg placement acute hypernatremia acute renal failure moderate protein calorie malnutrition candiduria dm-2 parkinsons dementia htn decubitus ulcer - Plan Plan: gtf 100ml q6h continue ivf and iv antibiotics wound care monitor glucose am labs continue current plan of care Nutritional Asmnt/Malnutr-PDOC - Dietary Evaluation Malnutrition Findings (Please click <Entered> for more info): Nutritional Asmnt/Malnutrition Start: 01/14/17 12: 05 Text: Status: Active Freq: Document 01/14/17 12:06 BRYAN (Rec: 01/14/17 12:27 [id number]) Nutritional Asmnt/Malnutrition Patient General Information Nutritional Screening High Risk Consult Diagnosis Malfunctioning G-Tube, Sepsis, Acute Renal Failure Pertinent Medical Hx/Surgical Hx Dementia, HTN, DM, Althma/COPD , PUD/GERD, Parkinson's Disease Subjective Information Pt came from SNF, admitted for G-Tube replacement. Consult for Wound and low [place] score received. Pt was awake during the time of visit, able to answer questions. Noted pt does not have teeth. 01/14 G- tube replacement. Started Nutren Pulmonary at 10ml/hr, currently running at 20ml/hr. Pt stated nausea, made aware of RN. H&P noted moderate protein-calorie malnutrition. Performed physical exam, mild muscal wasting noted. UBW 153lb on 10/04/16 per EMR. Possible wt loss. Current Diet Order/ Nutrition Support Nutren Pulmonary start with 10ml/hr, increase to goal rate [id number] Pertinent Medications Vitamin C, Glucontrol, Levemir Insulin, Nacl 100ml/hr, Zn Pertinent Labs 01/14: Na 159H, K 4.2, Cl 129H, BUN 108H, Cr 2.2H, A1C 8.0, Ca 10.2 01/13: Alb 3.1 L POC: 113-116 (01/13-01/14) Nutritional Hx/Data Height 5 ft 8 in Height (Calculated Centimeters) 172.7 Current Weight (lbs) 144 lb Weight (Calculated Kilograms) 65.3 Weight (Calculated Grams) 81766.3 Usual body Weight (lbs) 153 % Usual Body Weight 94 [place] Body Weight 154 % [place] Body Weight 94 Body Mass Index (BMI) 21.9 Recent Weight Change Yes Weight Status Approriate GI Symptoms GI Symptoms Nausea Usual diet at home Pulmocare 65ml/hr x 24hr daily Skin Integrity/Comment: small non-intact area to left buttock Estimated Nutritional Goals BEE in Kcals: Using Current wt Calories/Kcals/Kg 30-35 Kcals Calculated 2222-2078 Protein: Using Current wt Protein g/k.2-1.5 Protein Calculated 79-98g monitor renal labs Fluid: ml Per MD d/t acute renal failure Nutritional Problem 1. Problem Problem Increased nutrition needs ( calorie and protein) Etiology increased meltabolic demands with wound healing and sepsis Signs/Symptoms: dx of sepsis, [place] score 14 Malnutrition Alert Muscle Mass (Non-Severe) Mild Depletion Protein-Calorie Malnutrition N/A Is there a minimum of two criteria No selected? Query Text:Check all the applicable criteria. A minimum of two criteria are recommended for diagnosis of either severe or non-severe malnutrition. Intervention/Recommendation Comments 1. Continue current TF regimen , goal rate 65ml/hr x 24hr will provide 2340kcal, 106g protein and 782ml free water, meeting 100% of nutritional needs. 2. consider discontinuing Zinc supplementation as TF is adequate to meet high micronutrient needs for wound healing Expected Outcomes/Goals Expected Outcomes/Goals 1. Monitor TF tolerance and residual, nausea/vomiting 2. pt to meet 100% nutritional needs once TF approcah to goal rate 3. Monitor wt weekly, wt to remain stable 4. Monitor skin condition, wound to improve 5. F/U as high risk in 2-3 days, 01/16-01/17
--- NOTE | 2017-01-16 12:01 | Internal Medicine Prog Note ---
Internal Medicine Subjective - Subjective Service Date: 01/16/17 Patient is:: awake, confused Per staff patient has:: tolerating meds Internal Medicine Objective - Results Result Diagrams: 01/16/17 05:15 01/16/17 05:15 Recent Labs: Laboratory Last Values WBC 13.5 Th/cmm (4.8-10.8) H 01/16/17 05:15 RBC 3.01 Mil/cmm (3.80-5.80) L 01/16/17 05:15 Hgb 9.2 gm/dL (12-16) L 01/16/17 05:15 Hct 27.6 % (41.0-60) L 01/16/17 05:15 MCV 91.6 fl (80-99) 01/16/17 05:15 MCH 30.5 pg (27.0-31.0) 01/16/17 05:15 MCHC Differential 33.3 pg (28.0-36.0) 01/16/17 05:15 RDW 15.9 % (11.5-20.0) 01/16/17 05:15 Plt Count 147 Th/cmm (150-400) L 01/16/17 05:15 MPV 15.1 fl 01/16/17 05:15 Neutrophils % 80.6 % (40.0-80.0) H 01/16/17 05:15 Band Neutrophils % 3 % (0-10) 01/15/17 05:05 Lymphocytes % 9.4 % (20.0-50.0) L 01/16/17 05:15 Monocytes % 4.7 % (2.0-10.0) 01/16/17 05:15 Eosinophils % 5.3 % (0.0-5.0) H 01/16/17 05:15 Basophils % 0.0 % (0.0-2.0) 01/16/17 05:15 Neutrophils (Manual) 81 % (40-80) H 01/15/17 05:05 Lymphocytes 7 % (20-50) L 01/15/17 05:05 Monocytes 2 % (2-10) 01/15/17 05:05 Eosinophils 7 % (0-5) H 01/15/17 05:05 Nucleated RBCs 1.0 % (0-0) H 01/15/17 05:05 Platelet Estimate ADEQUATE (NORMAL) 01/13/17 19:13 PT 10.3 SECONDS (9.5-11.5) 01/13/17 19:13 INR 0.99 (0.5-1.4) 01/13/17 19:13 PTT (Actin FS) 22.9 SECONDS (26.0-38.0) L 01/13/17 19:13 Sodium 152 mEq/L (136-145) H 01/16/17 05:15 Potassium 3.1 mEq/L (3.5-5.1) L 01/16/17 05:15 Chloride 124 mEq/L (98-107) H 01/16/17 05:15 Carbon Dioxide 21.5 mEq/L (21.0-31.0) 01/16/17 05:15 Anion Gap 9.6 (7.0-16.0) 01/16/17 05:15 BUN 77 mg/dL (7-25) H 01/16/17 05:15 Creatinine 2.1 mg/dL (0.7-1.3) H 01/16/17 05:15 Est GFR ( Amer) TNP 01/16/17 05:15 Est GFR (Non-Af Amer) TNP 01/16/17 05:15 BUN/Creatinine Ratio 36.7 01/16/17 05:15 Glucose 47 mg/dL 01/16/17 05:15 POC Glucose 79 MG/DL (70 - 105) 01/16/17 08:05 Hemoglobin A1c % 8.0 % (4.0-6.0) H D 01/14/17 05:50 Whole Bld Lactic Acid 0.70 mmol/L (0.60-1.99) 01/16/17 05:15 Calcium 9.3 mg/dL (8.6-10.3) 01/16/17 05:15 Magnesium 2.6 mg/dL (1.9-2.7) 01/16/17 05:15 Total Bilirubin 0.3 mg/dL (0.3-1.0) 01/13/17 19:13 AST 24 U/L (13-39) 01/13/17 19:13 ALT 4 U/L (7-52) L 01/13/17 19:13 Alkaline Phosphatase 121 U/L (34-104) H 01/13/17 19:13 Ammonia 52 umol/L (16-53) 01/14/17 05:50 B-Natriuretic Peptide 62.0 pg/mL (5.0-100.0) 01/16/17 05:15 Total Protein 9.3 gm/dL (6.0-8.3) H 01/13/17 19:13 Albumin 3.1 gm/dL (4.2-5.5) L 01/13/17 19:13 Globulin 6.2 gm/dL 01/13/17 19:13 Albumin/Globulin Ratio 0.5 (1.0-1.8) L 01/13/17 19:13 Vitamin B12 545 pg/mL (211-946) 01/14/17 05:50 Folic Acid >20.0 ng/mL (>3.0) 01/14/17 05:50 TSH 1.45 uIU/ml (0.34-5.60) 01/14/17 05:50 Urine Source [place] 01/13/17 19:30 Urine Color YELLOW 01/13/17 19:30 Urine Clarity HAZY (CLEAR) 01/13/17 19:30 Urine pH 5.5 (4.6 - 8.0) 01/13/17 19:30 Ur Specific [place] 1.015 (1.005-1.030) 01/13/17 19:30 Urine Protein TRACE mg/dL (NEGATIVE) 01/13/17 19:30 Urine Glucose (UA) NEGATIVE mg/dL (NEGATIVE) 01/13/17 19:30 Urine Ketones NEGATIVE mg/dL (NEGATIVE) 01/13/17 19:30 Urine Blood NEGATIVE (NEGATIVE) 01/13/17 19:30 Urine Nitrate NEGATIVE (NEGATIVE) 01/13/17 19:30 Urine Bilirubin NEGATIVE (NEGATIVE) 01/13/17 19:30 Urine Urobilinogen 0.2 E.U./dL (0.2 - 1.0) 01/13/17 19:30 Ur Leukocyte Esterase SMALL (NEGATIVE) H 01/13/17 19:30 Urine RBC NONE SEEN /hpf (0-5) 01/13/17 19:30 Urine WBC 2-5 /hpf (0-5) H 01/13/17 19:30 Ur Epithelial Cells OCCASIONAL /lpf (FEW) 01/13/17 19:30 Urine Bacteria FEW /hpf (NONE SEEN) 01/13/17 19:30 Urine Yeast MANY /hpf (NONE SEEN) H 01/13/17 19:30 Vancomycin Trough 24.5 ug/mL (10-20) H 01/15/17 11:20 - Physical Exam Vitals and I&O: Vital Signs Temp 97.3 F 01/16/17 08:00 Pulse 60 01/16/17 09:55 Resp 17 01/16/17 08:00 BP 114/56 01/16/17 09:55 Pulse Ox 97 01/16/17 08:00 Intake & Output 01/15/17 01/16/17 01/16/17 18:59 06:59 18:59 Intake Total 1511.667 986.667 Output Total 700 Balance 1511.667 286.667 Weight (lbs) 150 lb Intake: Intake, IV Amount 1511.667 686.667 Cefepime 1 gm In Dextrose 50 5% 50 ml @ 100 mls/hr IV Q24H [facility] Rx#:[id number] Sodium Chloride 0.45% 1, 1511.667 636.667 000 ml @ 100 mls/hr IV . Q10H [facility] Rx#:[id number] Tube Feeding 300 Output: Urine 700 Other: # Bowel Movements 1 Stool Characteristics Soft Brown Active Medications: Current Medications Acetaminophen (Tylenol) 650 mg GT Q8H PRN PRN Reason: PAIN/TEMP>100 Stop: 03/14/17 20:51 Last Admin: 01/15/17 23:44 Dose: 650 mg Acetaminophen/Hydrocodone Bitart (Oketo 5mg/325mg) 1 tab PO Q4H PRN PRN Reason: Pain (Severe) Stop: 03/14/17 20:54 Al Hydrox/Mg Hydrox/Simethicone (Maalox) 30 ml GT Q3HR PRN PRN Reason: Indigestion Stop: 03/14/17 20:51 Albuterol Sulfate (Albuterol 2.5mg/3ml Neb Ud) 2.5 mg HHN QIDRT [facility] Stop: 03/15/17 06:59 Last Admin: 01/16/17 07:39 Dose: 2.5 mg Ascorbic Acid (Vitamin C) 500 mg PO DAILY [facility] Stop: 03/16/17 10:14 Last Admin: 01/16/17 09:56 Dose: 500 mg Carbidopa/Levodopa (Sinemet 25mg-100 Mg) 2 tab GT BID [facility] Stop: 03/15/17 08:59 Last Admin: 01/16/17 09:56 Dose: 2 tab Dextrose (D50w) 50 ml IVP PRN PRN PRN Reason: Blood Glucose less than 60 Stop: 03/17/17 07:38 Donepezil HCl (Aricept) 10 mg GT HS [facility] Stop: 03/14/17 20:59 Last Admin: 01/15/17 20:26 Dose: 10 mg Glucagon (Glucagen) 1 mg IM PRN PRN PRN Reason: Blood Glucose less than 70 Stop: 03/17/17 07:36 Last Admin: 01/16/17 07:50 Dose: 1 mg Heparin Sodium (Porcine) (Heparin) 5,000 units SUBQ Q12HR [facility] Stop: 03/14/17 20:59 Last Admin: 01/16/17 09:56 Dose: 5,000 units Cefepime HCl 1 gm/ Dextrose 50 mls @ 100 mls/hr IV Q24H [facility] Stop: 03/14/17 21:59 Last Infusion: 01/15/17 22:15 Dose: Infused Sodium Chloride (Nacl 0.45%) 1,000 mls @ 100 mls/hr IV .Q10H [facility] Stop: 03/14/17 20:59 Last Admin: 01/15/17 23:44 Dose: 100 mls/hr Fluconazole (Diflucan) 100 mg in 50 mls @ 50 mls/hr IV DAILY [facility] Stop: 03/17/17 08:59 Last Admin: 01/16/17 09:53 Dose: 50 mls/hr Insulin Aspart (Novolog Insulin Sliding Scale) 0 units SUBQ Q6HR REBA PRN Reason: Protocol Stop: 03/17/17 11:59 Insulin Detemir (Levemir Insulin) 18 units SUBQ Q12H [facility] Stop: 03/14/17 20:59 Last Admin: 01/16/17 09:55 Dose: Not Given Ipratropium [place] (Atrovent Neb 0.5mg/2.5ml) 0.5 mg HHN QIDRT [facility] Stop: 03/15/17 10:59 Last Admin: 01/16/17 07:39 Dose: 0.5 mg Magnesium Hydroxide (Milk Of Magnesia) 30 ml GT DAILY PRN PRN Reason: Constipation Stop: 03/14/17 20:51 Metoprolol Tartrate (Lopressor) 100 mg GT BID [facility] Stop: 03/15/17 08:59 Last Admin: 01/16/17 09:55 Dose: Not Given Mupirocin (Bactroban Oint) 1 appl NS BID [facility] Stop: 01/20/17 09:01 Last Admin: 01/16/17 09:57 Dose: 1 appl Nitroglycerin (Nitrostat) 0.4 mg SL Q5MIN PRN PRN Reason: Chest Pain Stop: 03/14/17 20:51 Ondansetron HCl (Zofran) 4 mg IV Q8H PRN PRN Reason: Nausea / Vomiting Stop: 03/14/17 20:54 Last Admin: 01/14/17 11:46 Dose: 4 mg Oxybutynin Chloride (Ditropan) 5 mg GT BID [facility] Stop: 03/15/17 08:59 Last Admin: 01/16/17 09:56 Dose: 5 mg Pantoprazole Sodium (Protonix) 40 mg GT DAILY [facility] Stop: 03/15/17 08:59 Last Admin: 01/16/17 09:56 Dose: 40 mg Timolol Maleate (Timoptic 0.5% Ophth Soln) 1 drop EACH EYE BID [facility] Stop: 03/15/17 08:59 Last Admin: 01/16/17 09:56 Dose: 1 drop Zinc Sulfate (Zinc Sulfate) 220 mg GT DAILY [facility] Stop: 03/15/17 08:59 Last Admin: 01/16/17 09:56 Dose: 220 mg General: weak, alert HEENT: NC/AT, PERRLA Neck: Supple Lungs: ronchi Cardiovascular: RRR, Normal S1, Normal S2, without murmur Abdomen: soft, non-tender, non-distended, positive bowel sound Extremities: excoriation Neurological: alert - Procedures Procedures: Procedures Procedure Code Date BLOOD TRANSFUSION SERVICE 81628 02/17/13 CHANGE FEEDING DEVICE IN UP INTEST TRACT, DOUBLE SURFACE OPERATOR APPROACH [id number] 10/03/16 CHANGE GASTROSTOMY TUBE 84435 10/03/[address] GASTROSTOMY TUBE 77561 03/07/14 EMERGENCY DEPT VISIT 25162 06/07/11 FREEING OF BOWEL ADHESION 74907 01/08/13 INJECT ANTICOAGULANT 99.19 03/29/12 OTH LYSIS-PERITONEAL ADHES 54.59 01/08/13 OTHER ENDOSCOPY OF SM INTEST 45.13 03/07/14 PACKED CELL TRANSFUSION 99.04 02/17/13 PRP I/LINDSAY INIT REDUC >5 YR 08288 01/08/13 REPLACE GASTROSTOMY TUBE 97.02 03/07/14 UNILAT ING LINDSAY REP NOS 53.00 01/08/13 Internal Medicine Assmt/Plan - Assessment Assessment: MRSA nares fever sepsis lactic acidosis leukocytosis malfunction gt s/p peg placement acute hypernatremia acute renal failure moderate protein calorie malnutrition candiduria dm-2 parkinsons dementia htn decubitus ulcer - Plan Plan: gtf 100ml q6h continue ivf and iv antibiotics wound care monitor glucose am labs continue current plan of care Nutritional Asmnt/Malnutr-PDOC - Dietary Evaluation Malnutrition Findings (Please click <Entered> for more info): Nutritional Asmnt/Malnutrition Start: 01/14/17 12: 05 Text: Status: Active Freq: Document 01/14/17 12:06 BRYAN (Rec: 01/14/17 12:27 [email or web address] Nutritional Asmnt/Malnutrition Patient General Information Nutritional Screening High Risk Consult Diagnosis Malfunctioning G-Tube, Sepsis, Acute Renal Failure Pertinent Medical Hx/Surgical Hx Dementia, HTN, DM, Althma/COPD , PUD/GERD, Parkinson's Disease Subjective Information Pt came from SNF, admitted for G-Tube replacement. Consult for Wound and low [place] score received. Pt was awake during the time of visit, able to answer questions. Noted pt does not have teeth. 01/14 G- tube replacement. Started Nutren Pulmonary at 10ml/hr, currently running at 20ml/hr. Pt stated nausea, made aware of RN. H&P noted moderate protein-calorie malnutrition. Performed physical exam, mild muscal wasting noted. UBW 153lb on 10/04/16 per EMR. Possible wt loss. Current Diet Order/ Nutrition Support Nutren Pulmonary start with 10ml/hr, increase to goal rate [id number] Pertinent Medications Vitamin C, Glucontrol, Levemir Insulin, Nacl 100ml/hr, Zn Pertinent Labs 01/14: Na 159H, K 4.2, Cl 129H, BUN 108H, Cr 2.2H, A1C 8.0, Ca 10.2 01/13: Alb 3.1 L POC: 113-116 (01/13-01/14) Nutritional Hx/Data Height 5 ft 8 in Height (Calculated Centimeters) 172.7 Current Weight (lbs) 144 lb Weight (Calculated Kilograms) 65.3 Weight (Calculated Grams) 22083.3 Usual body Weight (lbs) 153 % Usual Body Weight 94 [place] Body Weight 154 % [place] Body Weight 94 Body Mass Index (BMI) 21.9 Recent Weight Change Yes Weight Status Approriate GI Symptoms GI Symptoms Nausea Usual diet at home Pulmocare 65ml/hr x 24hr daily Skin Integrity/Comment: small non-intact area to left buttock Estimated Nutritional Goals BEE in Kcals: Using Current wt Calories/Kcals/Kg 30-35 Kcals Calculated 8524-5227 Protein: Using Current wt Protein g/k.2-1.5 Protein Calculated 79-98g monitor renal labs Fluid: ml Per MD d/t acute renal failure Nutritional Problem 1. Problem Problem Increased nutrition needs ( calorie and protein) Etiology increased meltabolic demands with wound healing and sepsis Signs/Symptoms: dx of sepsis, [place] score 14 Malnutrition Alert Muscle Mass (Non-Severe) Mild Depletion Protein-Calorie Malnutrition N/A Is there a minimum of two criteria No selected? Query Text:Check all the applicable criteria. A minimum of two criteria are recommended for diagnosis of either severe or non-severe malnutrition. Intervention/Recommendation Comments 1. Continue current TF regimen , goal rate 65ml/hr x 24hr will provide 2340kcal, 106g protein and 782ml free water, meeting 100% of nutritional needs. 2. consider discontinuing Zinc supplementation as TF is adequate to meet high micronutrient needs for wound healing Expected Outcomes/Goals Expected Outcomes/Goals 1. Monitor TF tolerance and residual, nausea/vomiting 2. pt to meet 100% nutritional needs once TF approcah to goal rate 3. Monitor wt weekly, wt to remain stable 4. Monitor skin condition, wound to improve 5. F/U as high risk in 2-3 days, 01/16-01/17
[2017-01-16] MEDS: Sodium Chloride 0.45% 1,000 ML IV SCH ×2 (12:42)
[2017-01-16] MEDS: INSULIN ASPART SLIDING SCALE 100 UNITS/ML UNIT SUBQ SCH ×4 (12:46→18:22)
--- NOTE | 2017-01-16 13:30 | Infectious Disease Prog Note ---
Infectious Disease Subjective - Review of Systems Service Date: 01/16/17 Infectious Disease Objective - Results Result Diagrams: 01/16/17 05:15 01/16/17 05:15 Recent Labs: Laboratory Last Values WBC 13.5 Th/cmm (4.8-10.8) H 01/16/17 05:15 RBC 3.01 Mil/cmm (3.80-5.80) L 01/16/17 05:15 Hgb 9.2 gm/dL (12-16) L 01/16/17 05:15 Hct 27.6 % (41.0-60) L 01/16/17 05:15 MCV 91.6 fl (80-99) 01/16/17 05:15 MCH 30.5 pg (27.0-31.0) 01/16/17 05:15 MCHC Differential 33.3 pg (28.0-36.0) 01/16/17 05:15 RDW 15.9 % (11.5-20.0) 01/16/17 05:15 Plt Count 147 Th/cmm (150-400) L 01/16/17 05:15 MPV 15.1 fl 01/16/17 05:15 Neutrophils % 80.6 % (40.0-80.0) H 01/16/17 05:15 Band Neutrophils % 3 % (0-10) 01/15/17 05:05 Lymphocytes % 9.4 % (20.0-50.0) L 01/16/17 05:15 Monocytes % 4.7 % (2.0-10.0) 01/16/17 05:15 Eosinophils % 5.3 % (0.0-5.0) H 01/16/17 05:15 Basophils % 0.0 % (0.0-2.0) 01/16/17 05:15 Neutrophils (Manual) 81 % (40-80) H 01/15/17 05:05 Lymphocytes 7 % (20-50) L 01/15/17 05:05 Monocytes 2 % (2-10) 01/15/17 05:05 Eosinophils 7 % (0-5) H 01/15/17 05:05 Nucleated RBCs 1.0 % (0-0) H 01/15/17 05:05 Platelet Estimate ADEQUATE (NORMAL) 01/13/17 19:13 PT 10.3 SECONDS (9.5-11.5) 01/13/17 19:13 INR 0.99 (0.5-1.4) 01/13/17 19:13 PTT (Actin FS) 22.9 SECONDS (26.0-38.0) L 01/13/17 19:13 Sodium 152 mEq/L (136-145) H 01/16/17 05:15 Potassium 3.1 mEq/L (3.5-5.1) L 01/16/17 05:15 Chloride 124 mEq/L (98-107) H 01/16/17 05:15 Carbon Dioxide 21.5 mEq/L (21.0-31.0) 01/16/17 05:15 Anion Gap 9.6 (7.0-16.0) 01/16/17 05:15 BUN 77 mg/dL (7-25) H 01/16/17 05:15 Creatinine 2.1 mg/dL (0.7-1.3) H 01/16/17 05:15 Est GFR ( Amer) TNP 01/16/17 05:15 Est GFR (Non-Af Amer) TNP 01/16/17 05:15 BUN/Creatinine Ratio 36.7 01/16/17 05:15 Glucose 47 mg/dL 01/16/17 05:15 POC Glucose 230 MG/DL (70 - 105) H 01/16/17 12:45 Hemoglobin A1c % 8.0 % (4.0-6.0) H D 01/14/17 05:50 Whole Bld Lactic Acid 0.70 mmol/L (0.60-1.99) 01/16/17 05:15 Calcium 9.3 mg/dL (8.6-10.3) 01/16/17 05:15 Magnesium 2.6 mg/dL (1.9-2.7) 01/16/17 05:15 Total Bilirubin 0.3 mg/dL (0.3-1.0) 01/13/17 19:13 AST 24 U/L (13-39) 01/13/17 19:13 ALT 4 U/L (7-52) L 01/13/17 19:13 Alkaline Phosphatase 121 U/L (34-104) H 01/13/17 19:13 Ammonia 52 umol/L (16-53) 01/14/17 05:50 B-Natriuretic Peptide 62.0 pg/mL (5.0-100.0) 01/16/17 05:15 Total Protein 9.3 gm/dL (6.0-8.3) H 01/13/17 19:13 Albumin 3.1 gm/dL (4.2-5.5) L 01/13/17 19:13 Globulin 6.2 gm/dL 01/13/17 19:13 Albumin/Globulin Ratio 0.5 (1.0-1.8) L 01/13/17 19:13 Vitamin B12 545 pg/mL (211-946) 01/14/17 05:50 Folic Acid >20.0 ng/mL (>3.0) 01/14/17 05:50 TSH 1.45 uIU/ml (0.34-5.60) 01/14/17 05:50 Urine Source [place] 01/13/17 19:30 Urine Color YELLOW 01/13/17 19:30 Urine Clarity HAZY (CLEAR) 01/13/17 19:30 Urine pH 5.5 (4.6 - 8.0) 01/13/17 19:30 Ur Specific [place] 1.015 (1.005-1.030) 01/13/17 19:30 Urine Protein TRACE mg/dL (NEGATIVE) 01/13/17 19:30 Urine Glucose (UA) NEGATIVE mg/dL (NEGATIVE) 01/13/17 19:30 Urine Ketones NEGATIVE mg/dL (NEGATIVE) 01/13/17 19:30 Urine Blood NEGATIVE (NEGATIVE) 01/13/17 19:30 Urine Nitrate NEGATIVE (NEGATIVE) 01/13/17 19:30 Urine Bilirubin NEGATIVE (NEGATIVE) 01/13/17 19:30 Urine Urobilinogen 0.2 E.U./dL (0.2 - 1.0) 01/13/17 19:30 Ur Leukocyte Esterase SMALL (NEGATIVE) H 01/13/17 19:30 Urine RBC NONE SEEN /hpf (0-5) 01/13/17 19:30 Urine WBC 2-5 /hpf (0-5) H 01/13/17 19:30 Ur Epithelial Cells OCCASIONAL /lpf (FEW) 01/13/17 19:30 Urine Bacteria FEW /hpf (NONE SEEN) 01/13/17 19:30 Urine Yeast MANY /hpf (NONE SEEN) H 01/13/17 19:30 Vancomycin Trough 24.5 ug/mL (10-20) H 01/15/17 11:20 - Physical Exam Vitals and I&O: Vital Signs Temp 97.3 F 01/16/17 08:00 Pulse 69 01/16/17 12:10 Resp 18 01/16/17 12:10 BP 114/56 01/16/17 09:55 Pulse Ox 94 01/16/17 12:10 Intake & Output 01/15/17 01/16/17 01/16/17 18:59 06:59 18:59 Intake Total 1511.667 227.076 0423 Output Total 700 Balance 1511.667 503.951 5081 Weight (lbs) 68.039 kg Intake: Intake, IV Amount 1511.667 933.114 8971 Cefepime 1 gm In Dextrose 50 5% 50 ml @ 100 mls/hr IV Q24H [facility] Rx#:[id number] Sodium Chloride 0.45% 1, 1511.667 877.919 2979 000 ml @ 100 mls/hr IV . Q10H [facility] Rx#:[id number] Tube Feeding 300 Output: Urine 700 Other: # Bowel Movements 1 Stool Characteristics Soft Brown Active Medications: Current Medications Acetaminophen (Tylenol) 650 mg GT Q8H PRN PRN Reason: PAIN/TEMP>100 Stop: 03/14/17 20:51 Last Admin: 01/15/17 23:44 Dose: 650 mg Acetaminophen/Hydrocodone Bitart ([place] 5mg/325mg) 1 tab PO Q4H PRN PRN Reason: Pain (Severe) Stop: 03/14/17 20:54 Al Hydrox/Mg Hydrox/Simethicone (Maalox) 30 ml GT Q3HR PRN PRN Reason: Indigestion Stop: 03/14/17 20:51 Albuterol Sulfate (Albuterol 2.5mg/3ml Neb Ud) 2.5 mg HHN QIDRT [facility] Stop: 03/15/17 06:59 Last Admin: 01/16/17 12:11 Dose: 2.5 mg Ascorbic Acid (Vitamin C) 500 mg PO DAILY [facility] Stop: 03/16/17 10:14 Last Admin: 01/16/17 09:56 Dose: 500 mg Carbidopa/Levodopa (Sinemet 25mg-100 Mg) 2 tab GT BID [facility] Stop: 03/15/17 08:59 Last Admin: 01/16/17 09:56 Dose: 2 tab Dextrose (D50w) 50 ml IVP PRN PRN PRN Reason: Blood Glucose less than 60 Stop: 03/17/17 07:38 Donepezil HCl (Aricept) 10 mg GT HS [facility] Stop: 03/14/17 20:59 Last Admin: 01/15/17 20:26 Dose: 10 mg Glucagon (Glucagen) 1 mg IM PRN PRN PRN Reason: Blood Glucose less than 70 Stop: 03/17/17 07:36 Last Admin: 01/16/17 07:50 Dose: 1 mg Heparin Sodium (Porcine) (Heparin) 5,000 units SUBQ Q12HR [facility] Stop: 03/14/17 20:59 Last Admin: 01/16/17 09:56 Dose: 5,000 units Cefepime HCl 1 gm/ Dextrose 50 mls @ 100 mls/hr IV Q24H [facility] Stop: 03/14/17 21:59 Last Infusion: 01/15/17 22:15 Dose: Infused Sodium Chloride (Nacl 0.45%) 1,000 mls @ 100 mls/hr IV .Q10H [facility] Stop: 03/14/17 20:59 Last Admin: 01/16/17 12:42 Dose: 100 mls/hr Fluconazole (Diflucan) 100 mg in 50 mls @ 50 mls/hr IV DAILY [facility] Stop: 03/17/17 08:59 Last Admin: 01/16/17 09:53 Dose: 50 mls/hr Insulin Aspart (Novolog Insulin Sliding Scale) 0 units SUBQ Q6HR REBA PRN Reason: Protocol Stop: 03/17/17 11:59 Last Admin: 01/16/17 12:46 Dose: 2 units Insulin Detemir (Levemir Insulin) 18 units SUBQ Q12H [facility] Stop: 03/14/17 20:59 Last Admin: 01/16/17 09:55 Dose: Not Given Ipratropium [place] (Atrovent Neb 0.5mg/2.5ml) 0.5 mg HHN QIDRT [facility] Stop: 03/15/17 10:59 Last Admin: 01/16/17 12:11 Dose: 0.5 mg Magnesium Hydroxide (Milk Of Magnesia) 30 ml GT DAILY PRN PRN Reason: Constipation Stop: 03/14/17 20:51 Metoprolol Tartrate (Lopressor) 100 mg GT BID [facility] Stop: 03/15/17 08:59 Last Admin: 01/16/17 09:55 Dose: Not Given Mupirocin (Bactroban Oint) 1 appl NS BID [facility] Stop: 01/20/17 09:01 Last Admin: 01/16/17 09:57 Dose: 1 appl Nitroglycerin (Nitrostat) 0.4 mg SL Q5MIN PRN PRN Reason: Chest Pain Stop: 03/14/17 20:51 Ondansetron HCl (Zofran) 4 mg IV Q8H PRN PRN Reason: Nausea / Vomiting Stop: 03/14/17 20:54 Last Admin: 01/14/17 11:46 Dose: 4 mg Oxybutynin Chloride (Ditropan) 5 mg GT BID [facility] Stop: 03/15/17 08:59 Last Admin: 01/16/17 09:56 Dose: 5 mg Pantoprazole Sodium (Protonix) 40 mg GT DAILY [facility] Stop: 03/15/17 08:59 Last Admin: 01/16/17 09:56 Dose: 40 mg Timolol Maleate (Timoptic 0.5% Oph Soln) 1 drop EACH EYE BID [facility] Stop: 03/15/17 08:59 Last Admin: 01/16/17 09:56 Dose: 1 drop Zinc Sulfate (Zinc Sulfate) 220 mg GT DAILY [facility] Stop: 03/15/17 08:59 Last Admin: 01/16/17 09:56 Dose: 220 mg - Procedures Procedures: Procedures Procedure Code Date BLOOD TRANSFUSION SERVICE 72895 02/17/13 CHANGE FEEDING DEVICE IN UP INTEST TRACT, NUCLEAR MEDICINE SPECIALIST APPROACH [id number] 10/03/16 CHANGE GASTROSTOMY TUBE 04978 10/03/[address] GASTROSTOMY TUBE 10651 03/07/14 EMERGENCY DEPT VISIT 32500 06/07/11 FREEING OF BOWEL ADHESION 97446 01/08/13 INJECT ANTICOAGULANT 99.19 06/07/11 OTH LYSIS-PERITONEAL ADHES 54.59 01/08/13 OTHER ENDOSCOPY OF SM INTEST 45.13 03/07/14 PACKED CELL TRANSFUSION 99.04 02/17/13 PRP I/LINDSAY INIT REDUC >5 YR 25687 01/08/13 REPLACE GASTROSTOMY TUBE 97.02 03/07/14 UNILAT ING LINDSAY REP NOS 53.00 01/08/13 Infectious Disease Assmt/Plan - Problem List Patient Problems: All Active Problems Gastrostomy tube dysfunction (Acute) K94.23 Malfunction of gastrostomy tube (Acute) K94.23 NAUSEA AND VOMITING (Acute) NAUSEA VOMITING AND DIARRHEA (Acute) REDNESS AND TENDERNESS TO GASTRIC STOMA (Acute) - Assessment Assessment: 1. Leukocytosis, may have sepsis. Source unknown. May have aspiration. May be reactive. 2. Oral candidiasis. Due to poor hygiene. 3. Acute renal failure. 4. Diabetes mellitus type 2. 5. Hypertension. 6. Bedridden status. 7. Metabolic encephalopathy. 8. Dementia. 9. 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 10. malfunction gt s/p peg placement, G tube was replaced. 11. protein calorie malnutrition 12. parkinsons disease. - Plan Plan: Conitue cefepime. Nutritional Asmnt/Malnutr-PDOC - Dietary Evaluation Malnutrition Findings (Please click <Entered> for more info): Nutritional Asmnt/Malnutrition Start: 01/14/17 12: 05 Text: Status: Active Freq: Document 01/14/17 12:06 KAVITA (Rec: 01/14/17 12:27 KAVITA [id number]) Nutritional Asmnt/Malnutrition Patient General Information Nutritional Screening High Risk Consult Diagnosis Malfunctioning G-Tube, Sepsis, Acute Renal Failure Pertinent Medical Hx/Surgical Hx Dementia, HTN, DM, Althma/COPD , PUD/GERD, Parkinson's Disease Subjective Information Pt came from SNF, admitted for G-Tube replacement. Consult for Wound and low [place] score received. Pt was awake during the time of visit, able to answer questions. Noted pt does not have teeth. 01/14 G- tube replacement. Started Nutren Pulmonary at 10ml/hr, currently running at 20ml/hr. Pt stated nausea, made aware of RN. H&P noted moderate protein-calorie malnutrition. Performed physical exam, mild muscal wasting noted. UBW 153lb on 10/04/16 per EMR. Possible wt loss. Current Diet Order/ Nutrition Support Nutren Pulmonary start with 10ml/hr, increase to goal rate [id number] Pertinent Medications Vitamin C, Glucontrol, Levemir Insulin, Nacl 100ml/hr, Zn Pertinent Labs 01/14: Na 159H, K 4.2, Cl 129H, BUN 108H, Cr 2.2H, A1C 8.0, Ca 10.2 01/13: Alb 3.1 L POC: 113-116 (01/13-01/14) Nutritional Hx/Data Height 1.73 m Height (Calculated Centimeters) 172.7 Current Weight (lbs) 65.317 kg Weight (Calculated Kilograms) 65.3 Weight (Calculated Grams) 38407.3 Usual body Weight (lbs) 153 % Usual Body Weight 94 Wallace Body Weight 154 % Wallace Body Weight 94 Body Mass Index (BMI) 21.9 Recent Weight Change Yes Weight Status Approriate GI Symptoms GI Symptoms Nausea Usual diet at home Pulmocare 65ml/hr x 24hr daily Skin Integrity/Comment: small non-intact area to left buttock Estimated Nutritional Goals BEE in Kcals: Using Current wt Calories/Kcals/Kg 30-35 Kcals Calculated 2925-6177 Protein: Using Current wt Protein g/k.2-1.5 Protein Calculated 79-98g monitor renal labs Fluid: ml Per MD d/t acute renal failure Nutritional Problem 1. Problem Problem Increased nutrition needs ( calorie and protein) Etiology increased meltabolic demands with wound healing and sepsis Signs/Symptoms: dx of sepsis, [place] score 14 Malnutrition Alert Muscle Mass (Non-Severe) Mild Depletion Protein-Calorie Malnutrition N/A Is there a minimum of two criteria No selected? Query Text:Check all the applicable criteria. A minimum of two criteria are recommended for diagnosis of either severe or non-severe malnutrition. Intervention/Recommendation Comments 1. Continue current TF regimen , goal rate 65ml/hr x 24hr will provide 2340kcal, 106g protein and 782ml free water, meeting 100% of nutritional needs. 2. consider discontinuing Zinc supplementation as TF is adequate to meet high micronutrient needs for wound healing Expected Outcomes/Goals Expected Outcomes/Goals 1. Monitor TF tolerance and residual, nausea/vomiting 2. pt to meet 100% nutritional needs once TF approcah to goal rate 3. Monitor wt weekly, wt to remain stable 4. Monitor skin condition, wound to improve 5. F/U as high risk in 2-3 days, 01/16-01/17
--- NOTE | 2017-01-16 13:30 | Infectious Disease Prog Note ---
Infectious Disease Subjective - Review of Systems Service Date: 01/16/17 Infectious Disease Objective - Results Result Diagrams: 01/16/17 05:15 01/16/17 05:15 Recent Labs: Laboratory Last Values WBC 13.5 Th/cmm (4.8-10.8) H 01/16/17 05:15 RBC 3.01 Mil/cmm (3.80-5.80) L 01/16/17 05:15 Hgb 9.2 gm/dL (12-16) L 01/16/17 05:15 Hct 27.6 % (41.0-60) L 01/16/17 05:15 MCV 91.6 fl (80-99) 01/16/17 05:15 MCH 30.5 pg (27.0-31.0) 01/16/17 05:15 MCHC Differential 33.3 pg (28.0-36.0) 01/16/17 05:15 RDW 15.9 % (11.5-20.0) 01/16/17 05:15 Plt Count 147 Th/cmm (150-400) L 01/16/17 05:15 MPV 15.1 fl 01/16/17 05:15 Neutrophils % 80.6 % (40.0-80.0) H 01/16/17 05:15 Band Neutrophils % 3 % (0-10) 01/15/17 05:05 Lymphocytes % 9.4 % (20.0-50.0) L 01/16/17 05:15 Monocytes % 4.7 % (2.0-10.0) 01/16/17 05:15 Eosinophils % 5.3 % (0.0-5.0) H 01/16/17 05:15 Basophils % 0.0 % (0.0-2.0) 01/16/17 05:15 Neutrophils (Manual) 81 % (40-80) H 01/15/17 05:05 Lymphocytes 7 % (20-50) L 01/15/17 05:05 Monocytes 2 % (2-10) 01/15/17 05:05 Eosinophils 7 % (0-5) H 01/15/17 05:05 Nucleated RBCs 1.0 % (0-0) H 01/15/17 05:05 Platelet Estimate ADEQUATE (NORMAL) 01/13/17 19:13 PT 10.3 SECONDS (9.5-11.5) 01/13/17 19:13 INR 0.99 (0.5-1.4) 01/13/17 19:13 PTT (Actin FS) 22.9 SECONDS (26.0-38.0) L 01/13/17 19:13 Sodium 152 mEq/L (136-145) H 01/16/17 05:15 Potassium 3.1 mEq/L (3.5-5.1) L 01/16/17 05:15 Chloride 124 mEq/L (98-107) H 01/16/17 05:15 Carbon Dioxide 21.5 mEq/L (21.0-31.0) 01/16/17 05:15 Anion Gap 9.6 (7.0-16.0) 01/16/17 05:15 BUN 77 mg/dL (7-25) H 01/16/17 05:15 Creatinine 2.1 mg/dL (0.7-1.3) H 01/16/17 05:15 Est GFR ( Amer) TNP 01/16/17 05:15 Est GFR (Non-Af Amer) TNP 01/16/17 05:15 BUN/Creatinine Ratio 36.7 01/16/17 05:15 Glucose 47 mg/dL 01/16/17 05:15 POC Glucose 230 MG/DL (70 - 105) H 01/16/17 12:45 Hemoglobin A1c % 8.0 % (4.0-6.0) H D 01/14/17 05:50 Whole Bld Lactic Acid 0.70 mmol/L (0.60-1.99) 01/16/17 05:15 Calcium 9.3 mg/dL (8.6-10.3) 01/16/17 05:15 Magnesium 2.6 mg/dL (1.9-2.7) 01/16/17 05:15 Total Bilirubin 0.3 mg/dL (0.3-1.0) 01/13/17 19:13 AST 24 U/L (13-39) 01/13/17 19:13 ALT 4 U/L (7-52) L 01/13/17 19:13 Alkaline Phosphatase 121 U/L (34-104) H 01/13/17 19:13 Ammonia 52 umol/L (16-53) 01/14/17 05:50 B-Natriuretic Peptide 62.0 pg/mL (5.0-100.0) 01/16/17 05:15 Total Protein 9.3 gm/dL (6.0-8.3) H 01/13/17 19:13 Albumin 3.1 gm/dL (4.2-5.5) L 01/13/17 19:13 Globulin 6.2 gm/dL 01/13/17 19:13 Albumin/Globulin Ratio 0.5 (1.0-1.8) L 01/13/17 19:13 Vitamin B12 545 pg/mL (211-946) 01/14/17 05:50 Folic Acid >20.0 ng/mL (>3.0) 01/14/17 05:50 TSH 1.45 uIU/ml (0.34-5.60) 01/14/17 05:50 Urine Source [place] 01/13/17 19:30 Urine Color YELLOW 01/13/17 19:30 Urine Clarity HAZY (CLEAR) 01/13/17 19:30 Urine pH 5.5 (4.6 - 8.0) 01/13/17 19:30 Ur Specific [place] 1.015 (1.005-1.030) 01/13/17 19:30 Urine Protein TRACE mg/dL (NEGATIVE) 01/13/17 19:30 Urine Glucose (UA) NEGATIVE mg/dL (NEGATIVE) 01/13/17 19:30 Urine Ketones NEGATIVE mg/dL (NEGATIVE) 01/13/17 19:30 Urine Blood NEGATIVE (NEGATIVE) 01/13/17 19:30 Urine Nitrate NEGATIVE (NEGATIVE) 01/13/17 19:30 Urine Bilirubin NEGATIVE (NEGATIVE) 01/13/17 19:30 Urine Urobilinogen 0.2 E.U./dL (0.2 - 1.0) 01/13/17 19:30 Ur Leukocyte Esterase SMALL (NEGATIVE) H 01/13/17 19:30 Urine RBC NONE SEEN /hpf (0-5) 01/13/17 19:30 Urine WBC 2-5 /hpf (0-5) H 01/13/17 19:30 Ur Epithelial Cells OCCASIONAL /lpf (FEW) 01/13/17 19:30 Urine Bacteria FEW /hpf (NONE SEEN) 01/13/17 19:30 Urine Yeast MANY /hpf (NONE SEEN) H 01/13/17 19:30 Vancomycin Trough 24.5 ug/mL (10-20) H 01/15/17 11:20 - Physical Exam Vitals and I&O: Vital Signs Temp 97.3 F 01/16/17 08:00 Pulse 69 01/16/17 12:10 Resp 18 01/16/17 12:10 BP 114/56 01/16/17 09:55 Pulse Ox 94 01/16/17 12:10 Intake & Output 01/15/17 01/16/17 01/16/17 18:59 06:59 18:59 Intake Total 1511.667 705.557 6901 Output Total 700 Balance 1511.667 677.730 4942 Weight (lbs) 68.039 kg Intake: Intake, IV Amount 1511.667 029.741 1569 Cefepime 1 gm In Dextrose 50 5% 50 ml @ 100 mls/hr IV Q24H [facility] Rx#:[id number] Sodium Chloride 0.45% 1, 1511.667 877.222 0505 000 ml @ 100 mls/hr IV . Q10H [facility] Rx#:[id number] Tube Feeding 300 Output: Urine 700 Other: # Bowel Movements 1 Stool Characteristics Soft Brown Active Medications: Current Medications Acetaminophen (Tylenol) 650 mg GT Q8H PRN PRN Reason: PAIN/TEMP>100 Stop: 03/14/17 20:51 Last Admin: 01/15/17 23:44 Dose: 650 mg Acetaminophen/Hydrocodone Bitart ([place] 5mg/325mg) 1 tab PO Q4H PRN PRN Reason: Pain (Severe) Stop: 03/14/17 20:54 Al Hydrox/Mg Hydrox/Simethicone (Maalox) 30 ml GT Q3HR PRN PRN Reason: Indigestion Stop: 03/14/17 20:51 Albuterol Sulfate (Albuterol 2.5mg/3ml Neb Ud) 2.5 mg HHN QIDRT [facility] Stop: 03/15/17 06:59 Last Admin: 01/16/17 12:11 Dose: 2.5 mg Ascorbic Acid (Vitamin C) 500 mg PO DAILY [facility] Stop: 03/16/17 10:14 Last Admin: 01/16/17 09:56 Dose: 500 mg Carbidopa/Levodopa (Sinemet 25mg-100 Mg) 2 tab GT BID [facility] Stop: 03/15/17 08:59 Last Admin: 01/16/17 09:56 Dose: 2 tab Dextrose (D50w) 50 ml IVP PRN PRN PRN Reason: Blood Glucose less than 60 Stop: 03/17/17 07:38 Donepezil HCl (Aricept) 10 mg GT HS [facility] Stop: 03/14/17 20:59 Last Admin: 01/15/17 20:26 Dose: 10 mg Glucagon (Glucagen) 1 mg IM PRN PRN PRN Reason: Blood Glucose less than 70 Stop: 03/17/17 07:36 Last Admin: 01/16/17 07:50 Dose: 1 mg Heparin Sodium (Porcine) (Heparin) 5,000 units SUBQ Q12HR [facility] Stop: 03/14/17 20:59 Last Admin: 01/16/17 09:56 Dose: 5,000 units Cefepime HCl 1 gm/ Dextrose 50 mls @ 100 mls/hr IV Q24H [facility] Stop: 03/14/17 21:59 Last Infusion: 01/15/17 22:15 Dose: Infused Sodium Chloride (Nacl 0.45%) 1,000 mls @ 100 mls/hr IV .Q10H [facility] Stop: 03/14/17 20:59 Last Admin: 01/16/17 12:42 Dose: 100 mls/hr Fluconazole (Diflucan) 100 mg in 50 mls @ 50 mls/hr IV DAILY [facility] Stop: 03/17/17 08:59 Last Admin: 01/16/17 09:53 Dose: 50 mls/hr Insulin Aspart (Novolog Insulin Sliding Scale) 0 units SUBQ Q6HR REBA PRN Reason: Protocol Stop: 03/17/17 11:59 Last Admin: 01/16/17 12:46 Dose: 2 units Insulin Detemir (Levemir Insulin) 18 units SUBQ Q12H [facility] Stop: 03/14/17 20:59 Last Admin: 01/16/17 09:55 Dose: Not Given Ipratropium [place] (Atrovent Neb 0.5mg/2.5ml) 0.5 mg HHN QIDRT [facility] Stop: 03/15/17 10:59 Last Admin: 01/16/17 12:11 Dose: 0.5 mg Magnesium Hydroxide (Milk Of Magnesia) 30 ml GT DAILY PRN PRN Reason: Constipation Stop: 03/14/17 20:51 Metoprolol Tartrate (Lopressor) 100 mg GT BID [facility] Stop: 03/15/17 08:59 Last Admin: 01/16/17 09:55 Dose: Not Given Mupirocin (Bactroban Oint) 1 appl NS BID [facility] Stop: 01/20/17 09:01 Last Admin: 01/16/17 09:57 Dose: 1 appl Nitroglycerin (Nitrostat) 0.4 mg SL Q5MIN PRN PRN Reason: Chest Pain Stop: 03/14/17 20:51 Ondansetron HCl (Zofran) 4 mg IV Q8H PRN PRN Reason: Nausea / Vomiting Stop: 03/14/17 20:54 Last Admin: 01/14/17 11:46 Dose: 4 mg Oxybutynin Chloride (Ditropan) 5 mg GT BID [facility] Stop: 03/15/17 08:59 Last Admin: 01/16/17 09:56 Dose: 5 mg Pantoprazole Sodium (Protonix) 40 mg GT DAILY [facility] Stop: 03/15/17 08:59 Last Admin: 01/16/17 09:56 Dose: 40 mg Timolol Maleate (Timoptic 0.5% Oph Soln) 1 drop EACH EYE BID [facility] Stop: 03/15/17 08:59 Last Admin: 01/16/17 09:56 Dose: 1 drop Zinc Sulfate (Zinc Sulfate) 220 mg GT DAILY [facility] Stop: 03/15/17 08:59 Last Admin: 01/16/17 09:56 Dose: 220 mg - Procedures Procedures: Procedures Procedure Code Date BLOOD TRANSFUSION SERVICE 20113 02/17/13 CHANGE FEEDING DEVICE IN UP INTEST TRACT, [employer] APPROACH [id number] 10/03/16 CHANGE GASTROSTOMY TUBE 11924 10/03/[address] GASTROSTOMY TUBE 73320 03/07/14 EMERGENCY DEPT VISIT 02995 06/07/11 FREEING OF BOWEL ADHESION 91842 01/08/13 INJECT ANTICOAGULANT 99.19 06/07/11 OTH LYSIS-PERITONEAL ADHES 54.59 01/08/13 OTHER ENDOSCOPY OF SM INTEST 45.13 03/07/14 PACKED CELL TRANSFUSION 99.04 02/17/13 PRP I/LINDSAY INIT REDUC >5 YR 12686 01/08/13 REPLACE GASTROSTOMY TUBE 97.02 03/07/14 UNILAT ING LINDSAY REP NOS 53.00 01/08/13 Infectious Disease Assmt/Plan - Problem List Patient Problems: All Active Problems Gastrostomy tube dysfunction (Acute) K94.23 Malfunction of gastrostomy tube (Acute) K94.23 NAUSEA AND VOMITING (Acute) NAUSEA VOMITING AND DIARRHEA (Acute) REDNESS AND TENDERNESS TO GASTRIC STOMA (Acute) - Assessment Assessment: 1. Leukocytosis, may have sepsis. Source unknown. May have aspiration. May be reactive. 2. Oral candidiasis. Due to poor hygiene. 3. Acute renal failure. 4. Diabetes mellitus type 2. 5. Hypertension. 6. Bedridden status. 7. Metabolic encephalopathy. 8. Dementia. 9. 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 10. malfunction gt s/p peg placement, G tube was replaced. 11. protein calorie malnutrition 12. parkinsons disease. - Plan Plan: Conitue cefepime. Nutritional Asmnt/Malnutr-PDOC - Dietary Evaluation Malnutrition Findings (Please click <Entered> for more info): Nutritional Asmnt/Malnutrition Start: 01/14/17 12: 05 Text: Status: Active Freq: Document 01/14/17 12:06 KAVITA (Rec: 01/14/17 12:27 [email or web address] [id number]) Nutritional Asmnt/Malnutrition Patient General Information Nutritional Screening High Risk Consult Diagnosis Malfunctioning G-Tube, Sepsis, Acute Renal Failure Pertinent Medical Hx/Surgical Hx Dementia, HTN, DM, Althma/COPD , PUD/GERD, Parkinson's Disease Subjective Information Pt came from SNF, admitted for G-Tube replacement. Consult for Wound and low [place] score received. Pt was awake during the time of visit, able to answer questions. Noted pt does not have teeth. 01/14 G- tube replacement. Started Nutren Pulmonary at 10ml/hr, currently running at 20ml/hr. Pt stated nausea, made aware of RN. H&P noted moderate protein-calorie malnutrition. Performed physical exam, mild muscal wasting noted. UBW 153lb on 10/04/16 per EMR. Possible wt loss. Current Diet Order/ Nutrition Support Nutren Pulmonary start with 10ml/hr, increase to goal rate [id number] Pertinent Medications Vitamin C, Glucontrol, Levemir Insulin, Nacl 100ml/hr, Zn Pertinent Labs 01/14: Na 159H, K 4.2, Cl 129H, BUN 108H, Cr 2.2H, A1C 8.0, Ca 10.2 01/13: Alb 3.1 L POC: 113-116 (01/13-01/14) Nutritional Hx/Data Height 1.73 m Height (Calculated Centimeters) 172.7 Current Weight (lbs) 65.317 kg Weight (Calculated Kilograms) 65.3 Weight (Calculated Grams) 44932.3 Usual body Weight (lbs) 153 % Usual Body Weight 94 [place] Body Weight 154 % [place] Body Weight 94 Body Mass Index (BMI) 21.9 Recent Weight Change Yes Weight Status Approriate GI Symptoms GI Symptoms Nausea Usual diet at home Pulmocare 65ml/hr x 24hr daily Skin Integrity/Comment: small non-intact area to left buttock Estimated Nutritional Goals BEE in Kcals: Using Current wt Calories/Kcals/Kg 30-35 Kcals Calculated 9869-7384 Protein: Using Current wt Protein g/k.2-1.5 Protein Calculated 79-98g monitor renal labs Fluid: ml Per MD d/t acute renal failure Nutritional Problem 1. Problem Problem Increased nutrition needs ( calorie and protein) Etiology increased meltabolic demands with wound healing and sepsis Signs/Symptoms: dx of sepsis, [place] score 14 Malnutrition Alert Muscle Mass (Non-Severe) Mild Depletion Protein-Calorie Malnutrition N/A Is there a minimum of two criteria No selected? Query Text:Check all the applicable criteria. A minimum of two criteria are recommended for diagnosis of either severe or non-severe malnutrition. Intervention/Recommendation Comments 1. Continue current TF regimen , goal rate 65ml/hr x 24hr will provide 2340kcal, 106g protein and 782ml free water, meeting 100% of nutritional needs. 2. consider discontinuing Zinc supplementation as TF is adequate to meet high micronutrient needs for wound healing Expected Outcomes/Goals Expected Outcomes/Goals 1. Monitor TF tolerance and residual, nausea/vomiting 2. pt to meet 100% nutritional needs once TF approcah to goal rate 3. Monitor wt weekly, wt to remain stable 4. Monitor skin condition, wound to improve 5. F/U as high risk in 2-3 days, 01/16-01/17
--- NOTE | 2017-01-16 13:30 | Infectious Disease Prog Note ---
Infectious Disease Subjective - Review of Systems Service Date: 01/16/17 Infectious Disease Objective - Results Result Diagrams: 01/16/17 05:15 01/16/17 05:15 Recent Labs: Laboratory Last Values WBC 13.5 Th/cmm (4.8-10.8) H 01/16/17 05:15 RBC 3.01 Mil/cmm (3.80-5.80) L 01/16/17 05:15 Hgb 9.2 gm/dL (12-16) L 01/16/17 05:15 Hct 27.6 % (41.0-60) L 01/16/17 05:15 MCV 91.6 fl (80-99) 01/16/17 05:15 MCH 30.5 pg (27.0-31.0) 01/16/17 05:15 MCHC Differential 33.3 pg (28.0-36.0) 01/16/17 05:15 RDW 15.9 % (11.5-20.0) 01/16/17 05:15 Plt Count 147 Th/cmm (150-400) L 01/16/17 05:15 MPV 15.1 fl 01/16/17 05:15 Neutrophils % 80.6 % (40.0-80.0) H 01/16/17 05:15 Band Neutrophils % 3 % (0-10) 01/15/17 05:05 Lymphocytes % 9.4 % (20.0-50.0) L 01/16/17 05:15 Monocytes % 4.7 % (2.0-10.0) 01/16/17 05:15 Eosinophils % 5.3 % (0.0-5.0) H 01/16/17 05:15 Basophils % 0.0 % (0.0-2.0) 01/16/17 05:15 Neutrophils (Manual) 81 % (40-80) H 01/15/17 05:05 Lymphocytes 7 % (20-50) L 01/15/17 05:05 Monocytes 2 % (2-10) 01/15/17 05:05 Eosinophils 7 % (0-5) H 01/15/17 05:05 Nucleated RBCs 1.0 % (0-0) H 01/15/17 05:05 Platelet Estimate ADEQUATE (NORMAL) 01/13/17 19:13 PT 10.3 SECONDS (9.5-11.5) 01/13/17 19:13 INR 0.99 (0.5-1.4) 01/13/17 19:13 PTT (Actin FS) 22.9 SECONDS (26.0-38.0) L 01/13/17 19:13 Sodium 152 mEq/L (136-145) H 01/16/17 05:15 Potassium 3.1 mEq/L (3.5-5.1) L 01/16/17 05:15 Chloride 124 mEq/L (98-107) H 01/16/17 05:15 Carbon Dioxide 21.5 mEq/L (21.0-31.0) 01/16/17 05:15 Anion Gap 9.6 (7.0-16.0) 01/16/17 05:15 BUN 77 mg/dL (7-25) H 01/16/17 05:15 Creatinine 2.1 mg/dL (0.7-1.3) H 01/16/17 05:15 Est GFR ( Amer) TNP 01/16/17 05:15 Est GFR (Non-Af Amer) TNP 01/16/17 05:15 BUN/Creatinine Ratio 36.7 01/16/17 05:15 Glucose 47 mg/dL 01/16/17 05:15 POC Glucose 230 MG/DL (70 - 105) H 01/16/17 12:45 Hemoglobin A1c % 8.0 % (4.0-6.0) H D 01/14/17 05:50 Whole Bld Lactic Acid 0.70 mmol/L (0.60-1.99) 01/16/17 05:15 Calcium 9.3 mg/dL (8.6-10.3) 01/16/17 05:15 Magnesium 2.6 mg/dL (1.9-2.7) 01/16/17 05:15 Total Bilirubin 0.3 mg/dL (0.3-1.0) 01/13/17 19:13 AST 24 U/L (13-39) 01/13/17 19:13 ALT 4 U/L (7-52) L 01/13/17 19:13 Alkaline Phosphatase 121 U/L (34-104) H 01/13/17 19:13 Ammonia 52 umol/L (16-53) 01/14/17 05:50 B-Natriuretic Peptide 62.0 pg/mL (5.0-100.0) 01/16/17 05:15 Total Protein 9.3 gm/dL (6.0-8.3) H 01/13/17 19:13 Albumin 3.1 gm/dL (4.2-5.5) L 01/13/17 19:13 Globulin 6.2 gm/dL 01/13/17 19:13 Albumin/Globulin Ratio 0.5 (1.0-1.8) L 01/13/17 19:13 Vitamin B12 545 pg/mL (211-946) 01/14/17 05:50 Folic Acid >20.0 ng/mL (>3.0) 01/14/17 05:50 TSH 1.45 uIU/ml (0.34-5.60) 01/14/17 05:50 Urine Source [place] 01/13/17 19:30 Urine Color YELLOW 01/13/17 19:30 Urine Clarity HAZY (CLEAR) 01/13/17 19:30 Urine pH 5.5 (4.6 - 8.0) 01/13/17 19:30 Ur Specific [place] 1.015 (1.005-1.030) 01/13/17 19:30 Urine Protein TRACE mg/dL (NEGATIVE) 01/13/17 19:30 Urine Glucose (UA) NEGATIVE mg/dL (NEGATIVE) 01/13/17 19:30 Urine Ketones NEGATIVE mg/dL (NEGATIVE) 01/13/17 19:30 Urine Blood NEGATIVE (NEGATIVE) 01/13/17 19:30 Urine Nitrate NEGATIVE (NEGATIVE) 01/13/17 19:30 Urine Bilirubin NEGATIVE (NEGATIVE) 01/13/17 19:30 Urine Urobilinogen 0.2 E.U./dL (0.2 - 1.0) 01/13/17 19:30 Ur Leukocyte Esterase SMALL (NEGATIVE) H 01/13/17 19:30 Urine RBC NONE SEEN /hpf (0-5) 01/13/17 19:30 Urine WBC 2-5 /hpf (0-5) H 01/13/17 19:30 Ur Epithelial Cells OCCASIONAL /lpf (FEW) 01/13/17 19:30 Urine Bacteria FEW /hpf (NONE SEEN) 01/13/17 19:30 Urine Yeast MANY /hpf (NONE SEEN) H 01/13/17 19:30 Vancomycin Trough 24.5 ug/mL (10-20) H 01/15/17 11:20 - Physical Exam Vitals and I&O: Vital Signs Temp 97.3 F 01/16/17 08:00 Pulse 69 01/16/17 12:10 Resp 18 01/16/17 12:10 BP 114/56 01/16/17 09:55 Pulse Ox 94 01/16/17 12:10 Intake & Output 01/15/17 01/16/17 01/16/17 18:59 06:59 18:59 Intake Total 1511.667 907.261 4528 Output Total 700 Balance 1511.667 284.771 7758 Weight (lbs) 68.039 kg Intake: Intake, IV Amount 1511.667 662.961 8647 Cefepime 1 gm In Dextrose 50 5% 50 ml @ 100 mls/hr IV Q24H [facility] Rx#:[id number] Sodium Chloride 0.45% 1, 1511.667 492.753 4962 000 ml @ 100 mls/hr IV . Q10H [facility] Rx#:[id number] Tube Feeding 300 Output: Urine 700 Other: # Bowel Movements 1 Stool Characteristics Soft Brown Active Medications: Current Medications Acetaminophen (Tylenol) 650 mg GT Q8H PRN PRN Reason: PAIN/TEMP>100 Stop: 03/14/17 20:51 Last Admin: 01/15/17 23:44 Dose: 650 mg Acetaminophen/Hydrocodone Bitart ([place] 5mg/325mg) 1 tab PO Q4H PRN PRN Reason: Pain (Severe) Stop: 03/14/17 20:54 Al Hydrox/Mg Hydrox/Simethicone (Maalox) 30 ml GT Q3HR PRN PRN Reason: Indigestion Stop: 03/14/17 20:51 Albuterol Sulfate (Albuterol 2.5mg/3ml Neb Ud) 2.5 mg HHN QIDRT [facility] Stop: 03/15/17 06:59 Last Admin: 01/16/17 12:11 Dose: 2.5 mg Ascorbic Acid (Vitamin C) 500 mg PO DAILY [facility] Stop: 03/16/17 10:14 Last Admin: 01/16/17 09:56 Dose: 500 mg Carbidopa/Levodopa (Sinemet 25mg-100 Mg) 2 tab GT BID [facility] Stop: 03/15/17 08:59 Last Admin: 01/16/17 09:56 Dose: 2 tab Dextrose (D50w) 50 ml IVP PRN PRN PRN Reason: Blood Glucose less than 60 Stop: 03/17/17 07:38 Donepezil HCl (Aricept) 10 mg GT HS [facility] Stop: 03/14/17 20:59 Last Admin: 01/15/17 20:26 Dose: 10 mg Glucagon (Glucagen) 1 mg IM PRN PRN PRN Reason: Blood Glucose less than 70 Stop: 03/17/17 07:36 Last Admin: 01/16/17 07:50 Dose: 1 mg Heparin Sodium (Porcine) (Heparin) 5,000 units SUBQ Q12HR [facility] Stop: 03/14/17 20:59 Last Admin: 01/16/17 09:56 Dose: 5,000 units Cefepime HCl 1 gm/ Dextrose 50 mls @ 100 mls/hr IV Q24H [facility] Stop: 03/14/17 21:59 Last Infusion: 01/15/17 22:15 Dose: Infused Sodium Chloride (Nacl 0.45%) 1,000 mls @ 100 mls/hr IV .Q10H [facility] Stop: 03/14/17 20:59 Last Admin: 01/16/17 12:42 Dose: 100 mls/hr Fluconazole (Diflucan) 100 mg in 50 mls @ 50 mls/hr IV DAILY [facility] Stop: 03/17/17 08:59 Last Admin: 01/16/17 09:53 Dose: 50 mls/hr Insulin Aspart (Novolog Insulin Sliding Scale) 0 units SUBQ Q6HR REBA PRN Reason: Protocol Stop: 03/17/17 11:59 Last Admin: 01/16/17 12:46 Dose: 2 units Insulin Detemir (Levemir Insulin) 18 units SUBQ Q12H [facility] Stop: 03/14/17 20:59 Last Admin: 01/16/17 09:55 Dose: Not Given Ipratropium [place] (Atrovent Neb 0.5mg/2.5ml) 0.5 mg HHN QIDRT [facility] Stop: 03/15/17 10:59 Last Admin: 01/16/17 12:11 Dose: 0.5 mg Magnesium Hydroxide (Milk Of Magnesia) 30 ml GT DAILY PRN PRN Reason: Constipation Stop: 03/14/17 20:51 Metoprolol Tartrate (Lopressor) 100 mg GT BID [facility] Stop: 03/15/17 08:59 Last Admin: 01/16/17 09:55 Dose: Not Given Mupirocin (Bactroban Oint) 1 appl NS BID [facility] Stop: 01/20/17 09:01 Last Admin: 01/16/17 09:57 Dose: 1 appl Nitroglycerin (Nitrostat) 0.4 mg SL Q5MIN PRN PRN Reason: Chest Pain Stop: 03/14/17 20:51 Ondansetron HCl (Zofran) 4 mg IV Q8H PRN PRN Reason: Nausea / Vomiting Stop: 03/14/17 20:54 Last Admin: 01/14/17 11:46 Dose: 4 mg Oxybutynin Chloride (Ditropan) 5 mg GT BID [facility] Stop: 03/15/17 08:59 Last Admin: 01/16/17 09:56 Dose: 5 mg Pantoprazole Sodium (Protonix) 40 mg GT DAILY [facility] Stop: 03/15/17 08:59 Last Admin: 01/16/17 09:56 Dose: 40 mg Timolol Maleate (Timoptic 0.5% Oph Soln) 1 drop EACH EYE BID [facility] Stop: 03/15/17 08:59 Last Admin: 01/16/17 09:56 Dose: 1 drop Zinc Sulfate (Zinc Sulfate) 220 mg GT DAILY [facility] Stop: 03/15/17 08:59 Last Admin: 01/16/17 09:56 Dose: 220 mg - Procedures Procedures: Procedures Procedure Code Date BLOOD TRANSFUSION SERVICE 43420 02/17/13 CHANGE FEEDING DEVICE IN UP INTEST TRACT, TRAFFIC COORDINATOR APPROACH [id number] 10/03/16 CHANGE GASTROSTOMY TUBE 79481 10/03/[address] GASTROSTOMY TUBE 12731 03/07/14 EMERGENCY DEPT VISIT 18883 06/07/11 FREEING OF BOWEL ADHESION 28661 01/08/13 INJECT ANTICOAGULANT 99.19 06/07/11 OTH LYSIS-PERITONEAL ADHES 54.59 01/08/13 OTHER ENDOSCOPY OF SM INTEST 45.13 03/07/14 PACKED CELL TRANSFUSION 99.04 02/17/13 PRP I/LINDSAY INIT REDUC >5 YR 08925 01/08/13 REPLACE GASTROSTOMY TUBE 97.02 03/07/14 UNILAT ING LINDSAY REP NOS 53.00 01/08/13 Infectious Disease Assmt/Plan - Problem List Patient Problems: All Active Problems Gastrostomy tube dysfunction (Acute) K94.23 Malfunction of gastrostomy tube (Acute) K94.23 NAUSEA AND VOMITING (Acute) NAUSEA VOMITING AND DIARRHEA (Acute) REDNESS AND TENDERNESS TO GASTRIC STOMA (Acute) - Assessment Assessment: 1. Leukocytosis, may have sepsis. Source unknown. May have aspiration. May be reactive. 2. Oral candidiasis. Due to poor hygiene. 3. Acute renal failure. 4. Diabetes mellitus type 2. 5. Hypertension. 6. Bedridden status. 7. Metabolic encephalopathy. 8. Dementia. 9. 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 10. malfunction gt s/p peg placement, G tube was replaced. 11. protein calorie malnutrition 12. parkinsons disease. - Plan Plan: Conitue cefepime. Nutritional Asmnt/Malnutr-PDOC - Dietary Evaluation Malnutrition Findings (Please click <Entered> for more info): Nutritional Asmnt/Malnutrition Start: 01/14/17 12: 05 Text: Status: Active Freq: Document 01/14/17 12:06 KAVITA (Rec: 01/14/17 12:27 [email or web address] [id number]) Nutritional Asmnt/Malnutrition Patient General Information Nutritional Screening High Risk Consult Diagnosis Malfunctioning G-Tube, Sepsis, Acute Renal Failure Pertinent Medical Hx/Surgical Hx Dementia, HTN, DM, Althma/COPD , PUD/GERD, Parkinson's Disease Subjective Information Pt came from SNF, admitted for G-Tube replacement. Consult for Wound and low [place] score received. Pt was awake during the time of visit, able to answer questions. Noted pt does not have teeth. 01/14 G- tube replacement. Started Nutren Pulmonary at 10ml/hr, currently running at 20ml/hr. Pt stated nausea, made aware of RN. H&P noted moderate protein-calorie malnutrition. Performed physical exam, mild muscal wasting noted. UBW 153lb on 10/04/16 per EMR. Possible wt loss. Current Diet Order/ Nutrition Support Nutren Pulmonary start with 10ml/hr, increase to goal rate [id number] Pertinent Medications Vitamin C, Glucontrol, Levemir Insulin, Nacl 100ml/hr, Zn Pertinent Labs 01/14: Na 159H, K 4.2, Cl 129H, BUN 108H, Cr 2.2H, A1C 8.0, Ca 10.2 01/13: Alb 3.1 L POC: 113-116 (01/13-01/14) Nutritional Hx/Data Height 1.73 m Height (Calculated Centimeters) 172.7 Current Weight (lbs) 65.317 kg Weight (Calculated Kilograms) 65.3 Weight (Calculated Grams) 46261.3 Usual body Weight (lbs) 153 % Usual Body Weight 94 [place] Body Weight 154 % [place] Body Weight 94 Body Mass Index (BMI) 21.9 Recent Weight Change Yes Weight Status Approriate GI Symptoms GI Symptoms Nausea Usual diet at home Pulmocare 65ml/hr x 24hr daily Skin Integrity/Comment: small non-intact area to left buttock Estimated Nutritional Goals BEE in Kcals: Using Current wt Calories/Kcals/Kg 30-35 Kcals Calculated 1512-5828 Protein: Using Current wt Protein g/k.2-1.5 Protein Calculated 79-98g monitor renal labs Fluid: ml Per MD d/t acute renal failure Nutritional Problem 1. Problem Problem Increased nutrition needs ( calorie and protein) Etiology increased meltabolic demands with wound healing and sepsis Signs/Symptoms: dx of sepsis, [place] score 14 Malnutrition Alert Muscle Mass (Non-Severe) Mild Depletion Protein-Calorie Malnutrition N/A Is there a minimum of two criteria No selected? Query Text:Check all the applicable criteria. A minimum of two criteria are recommended for diagnosis of either severe or non-severe malnutrition. Intervention/Recommendation Comments 1. Continue current TF regimen , goal rate 65ml/hr x 24hr will provide 2340kcal, 106g protein and 782ml free water, meeting 100% of nutritional needs. 2. consider discontinuing Zinc supplementation as TF is adequate to meet high micronutrient needs for wound healing Expected Outcomes/Goals Expected Outcomes/Goals 1. Monitor TF tolerance and residual, nausea/vomiting 2. pt to meet 100% nutritional needs once TF approcah to goal rate 3. Monitor wt weekly, wt to remain stable 4. Monitor skin condition, wound to improve 5. F/U as high risk in 2-3 days, 01/16-01/17
[2017-01-17] MEDS: INSULIN ASPART SLIDING SCALE 100 UNITS/ML UNIT SUBQ SCH ×8 (01:20→18:34)
[2017-01-17 05:54] LABS: % BASOPHILS 0.7 % (0.0-2.0); % LYMPHOCYTES 20.2 % (20.0-50.0); % MONOCYTES 5.5 % (2.0-10.0); % NEUTROPHILS 61.6 % (40.0-80.0); BASOPHILE ABSOLUTE 0.1 Th/cumm (0-0.2); EOSINOPHILE ABSOLUTE 0.9 Th/cmm (0.1-0.4); HEMATOCRIT 27.4 % (41.0-60); HEMOGLOBIN 9.4 gm/dL (12-16); LYMPHOCYTE ABSOLUTE 1.5 Th/cmm (1.5-3.0); MEAN CELL VOLUME 90.8 fl (80-99); MEAN CORPUSCULAR HGB CONC 34.1 pg (28.0-36.0); MEAN PLATELET VOLUME 13.5 fl; MONOCYTE ABSOLUTE 0.4 Th/cmm (0.3-1.0); NEUTROPHILE ABSOLUTE 4.7 Th/cmm (1.8-8.0); PLATELET COUNT 144 Th/cmm (150-400); RED BLOOD COUNT 3.02 Mil/cmm (3.80-5.80); RED CELL DISTRIBUTION WIDTH 15.7 % (11.5-20.0)
[2017-01-17 05:55] LABS: WHITE BLOOD COUNT 7.6 Th/cmm (4.8-10.8)
[2017-01-17 06:16] LABS: ANION GAP 10.4 (7.0-16.0); BUN - UREA NITROGEN 46 mg/dL (7-25); CALCIUM SERUM 9.2 mg/dL (8.6-10.3); CARBON DIOXIDE 20.5 mEq/L (21.0-31.0); CHLORIDE 120 mEq/L (98-107); CREATININE - SERUM 1.4 mg/dL (0.7-1.3); GLUCOSE 176 mg/dL (70-105); POTASSIUM SERUM 3.9 mEq/L (3.5-5.1); SODIUM SERUM 147 mEq/L (136-145)
[2017-01-17] MEDS: Albuterol Nebulizer 2.5mg/3mL HHN SCH ×6 (07:34→14:38)
[2017-01-17] MEDS: Ipratropium Neb 0.5 mg/2.5 mL UD HHN SCH ×6 (07:34→14:38)
[2017-01-17] MEDS: Fluconazole 100mg/50mL 100 MG/50 ML BOTTLE IV SCH ×2 (08:59)
[2017-01-17] MEDS: Pantoprazole 40 mg/Packet GT SCH ×2 (09:04)
[2017-01-17] MEDS: Multivitamin w/ Minerals Tab GT SCH ×2 (09:04)
[2017-01-17] MEDS: Insulin Detemir 100 units/mL 10mL Vial SUBQ SCH ×2 (09:12)
--- NOTE | 2017-01-17 12:08 | Internal Medicine Prog Note ---
Internal Medicine Subjective - Subjective Service Date: 01/17/17 Patient is:: awake, confused Per staff patient has:: tolerating meds Internal Medicine Objective - Results Result Diagrams: 01/17/17 05:37 01/17/17 05:37 Recent Labs: Laboratory Last Values WBC 7.6 Th/cmm (4.8-10.8) D 01/17/17 05:37 RBC 3.02 Mil/cmm (3.80-5.80) L 01/17/17 05:37 Hgb 9.4 gm/dL (12-16) L 01/17/17 05:37 Hct 27.4 % (41.0-60) L 01/17/17 05:37 MCV 90.8 fl (80-99) 01/17/17 05:37 MCH 31.0 pg (27.0-31.0) 01/17/17 05:37 MCHC Differential 34.1 pg (28.0-36.0) 01/17/17 05:37 RDW 15.7 % (11.5-20.0) 01/17/17 05:37 Plt Count 144 Th/cmm (150-400) L 01/17/17 05:37 MPV 13.5 fl 01/17/17 05:37 Neutrophils % 61.6 % (40.0-80.0) 01/17/17 05:37 Band Neutrophils % 3 % (0-10) 01/15/17 05:05 Lymphocytes % 20.2 % (20.0-50.0) 01/17/17 05:37 Monocytes % 5.5 % (2.0-10.0) 01/17/17 05:37 Eosinophils % 12.0 % (0.0-5.0) H 01/17/17 05:37 Basophils % 0.7 % (0.0-2.0) 01/17/17 05:37 Neutrophils (Manual) 81 % (40-80) H 01/15/17 05:05 Lymphocytes 7 % (20-50) L 01/15/17 05:05 Monocytes 2 % (2-10) 01/15/17 05:05 Eosinophils 7 % (0-5) H 01/15/17 05:05 Nucleated RBCs 1.0 % (0-0) H 01/15/17 05:05 Platelet Estimate ADEQUATE (NORMAL) 01/13/17 19:13 PT 10.3 SECONDS (9.5-11.5) 01/13/17 19:13 INR 0.99 (0.5-1.4) 01/13/17 19:13 PTT (Actin FS) 22.9 SECONDS (26.0-38.0) L 01/13/17 19:13 Sodium 147 mEq/L (136-145) H 01/17/17 05:37 Potassium 3.9 mEq/L (3.5-5.1) 01/17/17 05:37 Chloride 120 mEq/L (98-107) H 01/17/17 05:37 Carbon Dioxide 20.5 mEq/L (21.0-31.0) L 01/17/17 05:37 Anion Gap 10.4 (7.0-16.0) 01/17/17 05:37 BUN 46 mg/dL (7-25) H 01/17/17 05:37 Creatinine 1.4 mg/dL (0.7-1.3) H 01/17/17 05:37 Est GFR ( Amer) TNP 01/17/17 05:37 Est GFR (Non-Af Amer) TNP 01/17/17 05:37 BUN/Creatinine Ratio 32.9 01/17/17 05:37 Glucose 176 mg/dL (70-105) H 01/17/17 05:37 POC Glucose 140 MG/DL (70 - 105) H 01/17/17 11:44 Hemoglobin A1c % 8.0 % (4.0-6.0) H D 01/14/17 05:50 Whole Bld Lactic Acid 0.70 mmol/L (0.60-1.99) 01/16/17 05:15 Calcium 9.2 mg/dL (8.6-10.3) 01/17/17 05:37 Magnesium 2.6 mg/dL (1.9-2.7) 01/16/17 05:15 Total Bilirubin 0.3 mg/dL (0.3-1.0) 01/13/17 19:13 AST 24 U/L (13-39) 01/13/17 19:13 ALT 4 U/L (7-52) L 01/13/17 19:13 Alkaline Phosphatase 121 U/L (34-104) H 01/13/17 19:13 Ammonia 52 umol/L (16-53) 01/14/17 05:50 B-Natriuretic Peptide 62.0 pg/mL (5.0-100.0) 01/16/17 05:15 Total Protein 9.3 gm/dL (6.0-8.3) H 01/13/17 19:13 Albumin 3.1 gm/dL (4.2-5.5) L 01/13/17 19:13 Globulin 6.2 gm/dL 01/13/17 19:13 Albumin/Globulin Ratio 0.5 (1.0-1.8) L 01/13/17 19:13 Vitamin B12 545 pg/mL (211-946) 01/14/17 05:50 Folic Acid >20.0 ng/mL (>3.0) 01/14/17 05:50 TSH 1.45 uIU/ml (0.34-5.60) 01/14/17 05:50 Urine Source [place] 01/13/17 19:30 Urine Color YELLOW 01/13/17 19:30 Urine Clarity HAZY (CLEAR) 01/13/17 19:30 Urine pH 5.5 (4.6 - 8.0) 01/13/17 19:30 Ur Specific [place] 1.015 (1.005-1.030) 01/13/17 19:30 Urine Protein TRACE mg/dL (NEGATIVE) 01/13/17 19:30 Urine Glucose (UA) NEGATIVE mg/dL (NEGATIVE) 01/13/17 19:30 Urine Ketones NEGATIVE mg/dL (NEGATIVE) 01/13/17 19:30 Urine Blood NEGATIVE (NEGATIVE) 01/13/17 19:30 Urine Nitrate NEGATIVE (NEGATIVE) 01/13/17 19:30 Urine Bilirubin NEGATIVE (NEGATIVE) 01/13/17 19:30 Urine Urobilinogen 0.2 E.U./dL (0.2 - 1.0) 01/13/17 19:30 Ur Leukocyte Esterase SMALL (NEGATIVE) H 01/13/17 19:30 Urine RBC NONE SEEN /hpf (0-5) 01/13/17 19:30 Urine WBC 2-5 /hpf (0-5) H 01/13/17 19:30 Ur Epithelial Cells OCCASIONAL /lpf (FEW) 01/13/17 19:30 Urine Bacteria FEW /hpf (NONE SEEN) 01/13/17 19:30 Urine Yeast MANY /hpf (NONE SEEN) H 01/13/17 19:30 Vancomycin Trough 24.5 ug/mL (10-20) H 01/15/17 11:20 - Physical Exam Vitals and I&O: Vital Signs Temp 98.6 F 01/17/17 07:42 Pulse 79 01/17/17 11:59 Resp 18 01/17/17 11:59 BP 137/61 01/17/17 09:08 Pulse Ox 97 01/17/17 11:59 Intake & Output 01/16/17 01/17/17 01/17/17 18:59 06:59 18:59 Intake Total 2000 950 50 Output Total 1400 1300 Balance 600 -350 50 Weight (lbs) 150 lb 150 lb Intake: Intake, IV Amount 1050 50 Fluconazole 100mg/50mL 50 50 100 mg In 50 ml @ 50 mls/ hr IV DAILY [facility] Rx#: [id number] Sodium Chloride 0.45% 1, 1000 000 ml @ 100 mls/hr IV . Q10H [facility] Rx#:[id number] Tube Feeding 650 650 Other 300 300 Output: Urine 1400 1300 Active Medications: Current Medications Acetaminophen (Tylenol) 650 mg GT Q8H PRN PRN Reason: PAIN/TEMP>100 Stop: 03/14/17 20:51 Last Admin: 01/15/17 23:44 Dose: 650 mg Acetaminophen/Hydrocodone Bitart ([place] 5mg/325mg) 1 tab PO Q4H PRN PRN Reason: Pain (Severe) Stop: 03/14/17 20:54 Al Hydrox/Mg Hydrox/Simethicone (Maalox) 30 ml GT Q3HR PRN PRN Reason: Indigestion Stop: 03/14/17 20:51 Albuterol Sulfate (Albuterol 2.5mg/3ml Neb Ud) 2.5 mg HHN QIDRT [facility] Stop: 03/15/17 06:59 Last Admin: 01/17/17 11:58 Dose: 2.5 mg Ascorbic Acid (Vitamin C) 500 mg PO DAILY [facility] Stop: 03/16/17 10:14 Last Admin: 01/17/17 09:04 Dose: 500 mg Carbidopa/Levodopa (Sinemet 25mg-100 Mg) 2 tab GT BID [facility] Stop: 03/15/17 08:59 Last Admin: 01/17/17 09:04 Dose: 2 tab Dextrose (D50w) 50 ml IVP PRN PRN PRN Reason: Blood Glucose less than 60 Stop: 03/17/17 07:38 Donepezil HCl (Aricept) 10 mg GT HS [facility] Stop: 03/14/17 20:59 Last Admin: 01/16/17 22:16 Dose: 10 mg Glucagon (Glucagen) 1 mg IM PRN PRN PRN Reason: Blood Glucose less than 70 Stop: 03/17/17 07:36 Last Admin: 01/16/17 07:50 Dose: 1 mg Heparin Sodium (Porcine) (Heparin) 5,000 units SUBQ Q12HR [facility] Stop: 03/14/17 20:59 Last Admin: 01/17/17 09:04 Dose: 5,000 units Cefepime HCl 1 gm/ Dextrose 50 mls @ 100 mls/hr IV Q24H [facility] Stop: 03/14/17 21:59 Last Admin: 01/16/17 23:00 Dose: 100 mls/hr Sodium Chloride (Nacl 0.45%) 1,000 mls @ 100 mls/hr IV .Q10H [facility] Stop: 03/14/17 20:59 Last Admin: 01/16/17 12:42 Dose: 100 mls/hr Fluconazole (Diflucan) 100 mg in 50 mls @ 50 mls/hr IV DAILY [facility] Stop: 03/17/17 08:59 Last Infusion: 01/17/17 10:00 Dose: Infused Insulin Aspart (Novolog Insulin Sliding Scale) 0 units SUBQ Q6HR REBA PRN Reason: Protocol Stop: 03/17/17 11:59 Last Admin: 01/17/17 11:45 Dose: Not Given Insulin Detemir (Levemir Insulin) 18 units SUBQ Q12H [facility] Stop: 03/14/17 20:59 Last Admin: 01/17/17 09:12 Dose: 18 units Ipratropium [place] (Atrovent Neb 0.5mg/2.5ml) 0.5 mg HHN QIDRT [facility] Stop: 03/15/17 10:59 Last Admin: 01/17/17 11:58 Dose: 0.5 mg Magnesium Hydroxide (Milk Of Magnesia) 30 ml GT DAILY PRN PRN Reason: Constipation Stop: 03/14/17 20:51 Metoprolol Tartrate (Lopressor) 100 mg GT BID [facility] Stop: 03/15/17 08:59 Last Admin: 01/17/17 09:08 Dose: 100 mg Mupirocin (Bactroban Oint) 1 appl NS BID [facility] Stop: 01/20/17 09:01 Last Admin: 01/17/17 09:05 Dose: 1 appl Nitroglycerin (Nitrostat) 0.4 mg SL Q5MIN PRN PRN Reason: Chest Pain Stop: 03/14/17 20:51 Ondansetron HCl (Zofran) 4 mg IV Q8H PRN PRN Reason: Nausea / Vomiting Stop: 03/14/17 20:54 Last Admin: 01/14/17 11:46 Dose: 4 mg Oxybutynin Chloride (Ditropan) 5 mg GT BID [facility] Stop: 03/15/17 08:59 Last Admin: 01/17/17 09:05 Dose: 5 mg Pantoprazole Sodium (Protonix) 40 mg GT DAILY [facility] Stop: 03/15/17 08:59 Last Admin: 01/17/17 09:04 Dose: 40 mg Timolol Maleate (Timoptic 0.5% Oph Soln) 1 drop EACH EYE BID [facility] Stop: 03/15/17 08:59 Last Admin: 01/17/17 09:03 Dose: 1 drop Zinc Sulfate (Zinc Sulfate) 220 mg GT DAILY [facility] Stop: 03/15/17 08:59 Last Admin: 01/17/17 09:04 Dose: 220 mg General: weak, alert HEENT: NC/AT, PERRLA Neck: Supple Lungs: ronchi Cardiovascular: RRR, Normal S1, Normal S2, without murmur Abdomen: soft, non-tender, non-distended, positive bowel sound Extremities: excoriation Neurological: alert - Procedures Procedures: Procedures Procedure Code Date BLOOD TRANSFUSION SERVICE 61593 02/17/13 CHANGE FEEDING DEVICE IN UP INTEST TRACT, LITIGATION SERVICES MANAGER APPROACH [id number] 10/03/16 CHANGE GASTROSTOMY TUBE 91542 10/03/[address] GASTROSTOMY TUBE 90114 03/07/14 EMERGENCY DEPT VISIT 39594 06/07/11 FREEING OF BOWEL ADHESION 40619 01/08/13 INJECT ANTICOAGULANT 99.19 06/07/11 OTH LYSIS-PERITONEAL ADHES 54.59 01/08/13 OTHER ENDOSCOPY OF SM INTEST 45.13 03/07/14 PACKED CELL TRANSFUSION 99.04 02/17/13 PRP I/LINDSAY INIT REDUC >5 YR 16220 01/08/13 REPLACE GASTROSTOMY TUBE 97.02 03/07/14 UNILAT ING LINDSAY REP NOS 53.00 01/08/13 Internal Medicine Assmt/Plan - Assessment Assessment: MRSA nares fever sepsis lactic acidosis leukocytosis malfunction gt s/p peg placement acute hypernatremia acute renal failure moderate protein calorie malnutrition candiduria dm-2 parkinsons dementia htn decubitus ulcer - Plan Plan: gtf 100ml q6h continue ivf and iv antibiotics wound care monitor glucose am labs continue current plan of care Nutritional Asmnt/Malnutr-PDOC - Dietary Evaluation Malnutrition Findings (Please click <Entered> for more info): Nutritional Asmnt/Malnutrition Start: 01/14/17 12: 05 Text: Status: Active Freq: Document 01/14/17 12:06 BRYAN (Rec: 01/14/17 12:27 [id number] Nutritional Asmnt/Malnutrition Patient General Information Nutritional Screening High Risk Consult Diagnosis Malfunctioning G-Tube, Sepsis, Acute Renal Failure Pertinent Medical Hx/Surgical Hx Dementia, HTN, DM, Althma/COPD , PUD/GERD, Parkinson's Disease Subjective Information Pt came from SNF, admitted for G-Tube replacement. Consult for Wound and low [place] score received. Pt was awake during the time of visit, able to answer questions. Noted pt does not have teeth. 01/14 G- tube replacement. Started Nutren Pulmonary at 10ml/hr, currently running at 20ml/hr. Pt stated nausea, made aware of RN. H&P noted moderate protein-calorie malnutrition. Performed physical exam, mild muscal wasting noted. UBW 153lb on 10/04/16 per EMR. Possible wt loss. Current Diet Order/ Nutrition Support Nutren Pulmonary start with 10ml/hr, increase to goal rate [id number] Pertinent Medications Vitamin C, Glucontrol, Levemir Insulin, Nacl 100ml/hr, Zn Pertinent Labs 01/14: Na 159H, K 4.2, Cl 129H, BUN 108H, Cr 2.2H, A1C 8.0, Ca 10.2 11/5: Alb 3.1 L POC: 113-116 (01/13-01/14) Nutritional Hx/Data Height 5 ft 8 in Height (Calculated Centimeters) 172.7 Current Weight (lbs) 144 lb Weight (Calculated Kilograms) 65.3 Weight (Calculated Grams) 57650.3 Usual body Weight (lbs) 153 % Usual Body Weight 94 [place] Body Weight 154 % [place] Body Weight 94 Body Mass Index (BMI) 21.9 Recent Weight Change Yes Weight Status Approriate GI Symptoms GI Symptoms Nausea Usual diet at home Pulmocare 65ml/hr x 24hr daily Skin Integrity/Comment: small non-intact area to left buttock Estimated Nutritional Goals BEE in Kcals: Using Current wt Calories/Kcals/Kg 30-35 Kcals Calculated 7823-8756 Protein: Using Current wt Protein g/k.2-1.5 Protein Calculated 79-98g monitor renal labs Fluid: ml Per MD d/t acute renal failure Nutritional Problem 1. Problem Problem Increased nutrition needs ( calorie and protein) Etiology increased meltabolic demands with wound healing and sepsis Signs/Symptoms: dx of sepsis, [place] score 14 Malnutrition Alert Muscle Mass (Non-Severe) Mild Depletion Protein-Calorie Malnutrition N/A Is there a minimum of two criteria No selected? Query Text:Check all the applicable criteria. A minimum of two criteria are recommended for diagnosis of either severe or non-severe malnutrition. Intervention/Recommendation Comments 1. Continue current TF regimen , goal rate 65ml/hr x 24hr will provide 2340kcal, 106g protein and 782ml free water, meeting 100% of nutritional needs. 2. consider discontinuing Zinc supplementation as TF is adequate to meet high micronutrient needs for wound healing Expected Outcomes/Goals Expected Outcomes/Goals 1. Monitor TF tolerance and residual, nausea/vomiting 2. pt to meet 100% nutritional needs once TF approcah to goal rate 3. Monitor wt weekly, wt to remain stable 4. Monitor skin condition, wound to improve 5. F/U as high risk in 2-3 days, 01/16-01/17
--- NOTE | 2017-01-17 12:08 | Internal Medicine Prog Note ---
Internal Medicine Subjective - Subjective Service Date: 01/17/17 Patient is:: awake, confused Per staff patient has:: tolerating meds Internal Medicine Objective - Results Result Diagrams: 01/17/17 05:37 01/17/17 05:37 Recent Labs: Laboratory Last Values WBC 7.6 Th/cmm (4.8-10.8) D 01/17/17 05:37 RBC 3.02 Mil/cmm (3.80-5.80) L 01/17/17 05:37 Hgb 9.4 gm/dL (12-16) L 01/17/17 05:37 Hct 27.4 % (41.0-60) L 01/17/17 05:37 MCV 90.8 fl (80-99) 01/17/17 05:37 MCH 31.0 pg (27.0-31.0) 01/17/17 05:37 MCHC Differential 34.1 pg (28.0-36.0) 01/17/17 05:37 RDW 15.7 % (11.5-20.0) 01/17/17 05:37 Plt Count 144 Th/cmm (150-400) L 01/17/17 05:37 MPV 13.5 fl 01/17/17 05:37 Neutrophils % 61.6 % (40.0-80.0) 01/17/17 05:37 Band Neutrophils % 3 % (0-10) 01/15/17 05:05 Lymphocytes % 20.2 % (20.0-50.0) 01/17/17 05:37 Monocytes % 5.5 % (2.0-10.0) 01/17/17 05:37 Eosinophils % 12.0 % (0.0-5.0) H 01/17/17 05:37 Basophils % 0.7 % (0.0-2.0) 01/17/17 05:37 Neutrophils (Manual) 81 % (40-80) H 01/15/17 05:05 Lymphocytes 7 % (20-50) L 01/15/17 05:05 Monocytes 2 % (2-10) 01/15/17 05:05 Eosinophils 7 % (0-5) H 01/15/17 05:05 Nucleated RBCs 1.0 % (0-0) H 01/15/17 05:05 Platelet Estimate ADEQUATE (NORMAL) 01/13/17 19:13 PT 10.3 SECONDS (9.5-11.5) 01/13/17 19:13 INR 0.99 (0.5-1.4) 01/13/17 19:13 PTT (Actin FS) 22.9 SECONDS (26.0-38.0) L 01/13/17 19:13 Sodium 147 mEq/L (136-145) H 01/17/17 05:37 Potassium 3.9 mEq/L (3.5-5.1) 01/17/17 05:37 Chloride 120 mEq/L (98-107) H 01/17/17 05:37 Carbon Dioxide 20.5 mEq/L (21.0-31.0) L 01/17/17 05:37 Anion Gap 10.4 (7.0-16.0) 01/17/17 05:37 BUN 46 mg/dL (7-25) H 01/17/17 05:37 Creatinine 1.4 mg/dL (0.7-1.3) H 01/17/17 05:37 Est GFR ( Amer) TNP 01/17/17 05:37 Est GFR (Non-Af Amer) TNP 01/17/17 05:37 BUN/Creatinine Ratio 32.9 01/17/17 05:37 Glucose 176 mg/dL (70-105) H 01/17/17 05:37 POC Glucose 140 MG/DL (70 - 105) H 01/17/17 11:44 Hemoglobin A1c % 8.0 % (4.0-6.0) H D 01/14/17 05:50 Whole Bld Lactic Acid 0.70 mmol/L (0.60-1.99) 01/16/17 05:15 Calcium 9.2 mg/dL (8.6-10.3) 01/17/17 05:37 Magnesium 2.6 mg/dL (1.9-2.7) 01/16/17 05:15 Total Bilirubin 0.3 mg/dL (0.3-1.0) 01/13/17 19:13 AST 24 U/L (13-39) 01/13/17 19:13 ALT 4 U/L (7-52) L 01/13/17 19:13 Alkaline Phosphatase 121 U/L (34-104) H 01/13/17 19:13 Ammonia 52 umol/L (16-53) 01/14/17 05:50 B-Natriuretic Peptide 62.0 pg/mL (5.0-100.0) 01/16/17 05:15 Total Protein 9.3 gm/dL (6.0-8.3) H 01/13/17 19:13 Albumin 3.1 gm/dL (4.2-5.5) L 01/13/17 19:13 Globulin 6.2 gm/dL 01/13/17 19:13 Albumin/Globulin Ratio 0.5 (1.0-1.8) L 01/13/17 19:13 Vitamin B12 545 pg/mL (211-946) 01/14/17 05:50 Folic Acid >20.0 ng/mL (>3.0) 01/14/17 05:50 TSH 1.45 uIU/ml (0.34-5.60) 01/14/17 05:50 Urine Source [place] 01/13/17 19:30 Urine Color YELLOW 01/13/17 19:30 Urine Clarity HAZY (CLEAR) 01/13/17 19:30 Urine pH 5.5 (4.6 - 8.0) 01/13/17 19:30 Ur Specific [place] 1.015 (1.005-1.030) 01/13/17 19:30 Urine Protein TRACE mg/dL (NEGATIVE) 01/13/17 19:30 Urine Glucose (UA) NEGATIVE mg/dL (NEGATIVE) 01/13/17 19:30 Urine Ketones NEGATIVE mg/dL (NEGATIVE) 01/13/17 19:30 Urine Blood NEGATIVE (NEGATIVE) 01/13/17 19:30 Urine Nitrate NEGATIVE (NEGATIVE) 01/13/17 19:30 Urine Bilirubin NEGATIVE (NEGATIVE) 01/13/17 19:30 Urine Urobilinogen 0.2 E.U./dL (0.2 - 1.0) 01/13/17 19:30 Ur Leukocyte Esterase SMALL (NEGATIVE) H 01/13/17 19:30 Urine RBC NONE SEEN /hpf (0-5) 01/13/17 19:30 Urine WBC 2-5 /hpf (0-5) H 01/13/17 19:30 Ur Epithelial Cells OCCASIONAL /lpf (FEW) 01/13/17 19:30 Urine Bacteria FEW /hpf (NONE SEEN) 01/13/17 19:30 Urine Yeast MANY /hpf (NONE SEEN) H 01/13/17 19:30 Vancomycin Trough 24.5 ug/mL (10-20) H 01/15/17 11:20 - Physical Exam Vitals and I&O: Vital Signs Temp 98.6 F 01/17/17 07:42 Pulse 79 01/17/17 11:59 Resp 18 01/17/17 11:59 BP 137/61 01/17/17 09:08 Pulse Ox 97 01/17/17 11:59 Intake & Output 01/16/17 01/17/17 01/17/17 18:59 06:59 18:59 Intake Total 2000 950 50 Output Total 1400 1300 Balance 600 -350 50 Weight (lbs) 150 lb 150 lb Intake: Intake, IV Amount 1050 50 Fluconazole 100mg/50mL 50 50 100 mg In 50 ml @ 50 mls/ hr IV DAILY [facility] Rx#: [id number] Sodium Chloride 0.45% 1, 1000 000 ml @ 100 mls/hr IV . Q10H [facility] Rx#:[id number] Tube Feeding 650 650 Other 300 300 Output: Urine 1400 1300 Active Medications: Current Medications Acetaminophen (Tylenol) 650 mg GT Q8H PRN PRN Reason: PAIN/TEMP>100 Stop: 03/14/17 20:51 Last Admin: 01/15/17 23:44 Dose: 650 mg Acetaminophen/Hydrocodone Bitart ([place] 5mg/325mg) 1 tab PO Q4H PRN PRN Reason: Pain (Severe) Stop: 03/14/17 20:54 Al Hydrox/Mg Hydrox/Simethicone (Maalox) 30 ml GT Q3HR PRN PRN Reason: Indigestion Stop: 03/14/17 20:51 Albuterol Sulfate (Albuterol 2.5mg/3ml Neb Ud) 2.5 mg HHN QIDRT [facility] Stop: 03/15/17 06:59 Last Admin: 01/17/17 11:58 Dose: 2.5 mg Ascorbic Acid (Vitamin C) 500 mg PO DAILY [facility] Stop: 03/16/17 10:14 Last Admin: 01/17/17 09:04 Dose: 500 mg Carbidopa/Levodopa (Sinemet 25mg-100 Mg) 2 tab GT BID [facility] Stop: 03/15/17 08:59 Last Admin: 01/17/17 09:04 Dose: 2 tab Dextrose (D50w) 50 ml IVP PRN PRN PRN Reason: Blood Glucose less than 60 Stop: 03/17/17 07:38 Donepezil HCl (Aricept) 10 mg GT HS [facility] Stop: 03/14/17 20:59 Last Admin: 01/16/17 22:16 Dose: 10 mg Glucagon (Glucagen) 1 mg IM PRN PRN PRN Reason: Blood Glucose less than 70 Stop: 03/17/17 07:36 Last Admin: 01/16/17 07:50 Dose: 1 mg Heparin Sodium (Porcine) (Heparin) 5,000 units SUBQ Q12HR [facility] Stop: 03/14/17 20:59 Last Admin: 01/17/17 09:04 Dose: 5,000 units Cefepime HCl 1 gm/ Dextrose 50 mls @ 100 mls/hr IV Q24H [facility] Stop: 03/14/17 21:59 Last Admin: 01/16/17 23:00 Dose: 100 mls/hr Sodium Chloride (Nacl 0.45%) 1,000 mls @ 100 mls/hr IV .Q10H [facility] Stop: 03/14/17 20:59 Last Admin: 01/16/17 12:42 Dose: 100 mls/hr Fluconazole (Diflucan) 100 mg in 50 mls @ 50 mls/hr IV DAILY [facility] Stop: 03/17/17 08:59 Last Infusion: 01/17/17 10:00 Dose: Infused Insulin Aspart (Novolog Insulin Sliding Scale) 0 units SUBQ Q6HR REBA PRN Reason: Protocol Stop: 03/17/17 11:59 Last Admin: 01/17/17 11:45 Dose: Not Given Insulin Detemir (Levemir Insulin) 18 units SUBQ Q12H [facility] Stop: 03/14/17 20:59 Last Admin: 01/17/17 09:12 Dose: 18 units Ipratropium Mora (Atrovent Neb 0.5mg/2.5ml) 0.5 mg HHN QIDRT [facility] Stop: 03/15/17 10:59 Last Admin: 01/17/17 11:58 Dose: 0.5 mg Magnesium Hydroxide (Milk Of Magnesia) 30 ml GT DAILY PRN PRN Reason: Constipation Stop: 03/14/17 20:51 Metoprolol Tartrate (Lopressor) 100 mg GT BID [facility] Stop: 03/15/17 08:59 Last Admin: 01/17/17 09:08 Dose: 100 mg Mupirocin (Bactroban Oint) 1 appl NS BID [facility] Stop: 01/20/17 09:01 Last Admin: 01/17/17 09:05 Dose: 1 appl Nitroglycerin (Nitrostat) 0.4 mg SL Q5MIN PRN PRN Reason: Chest Pain Stop: 03/14/17 20:51 Ondansetron HCl (Zofran) 4 mg IV Q8H PRN PRN Reason: Nausea / Vomiting Stop: 03/14/17 20:54 Last Admin: 01/14/17 11:46 Dose: 4 mg Oxybutynin Chloride (Ditropan) 5 mg GT BID [facility] Stop: 03/15/17 08:59 Last Admin: 01/17/17 09:05 Dose: 5 mg Pantoprazole Sodium (Protonix) 40 mg GT DAILY [facility] Stop: 03/15/17 08:59 Last Admin: 01/17/17 09:04 Dose: 40 mg Timolol Maleate (Timoptic 0.5% Oph Soln) 1 drop EACH EYE BID [facility] Stop: 03/15/17 08:59 Last Admin: 01/17/17 09:03 Dose: 1 drop Zinc Sulfate (Zinc Sulfate) 220 mg GT DAILY [facility] Stop: 03/15/17 08:59 Last Admin: 01/17/17 09:04 Dose: 220 mg General: weak, alert HEENT: NC/AT, PERRLA Neck: Supple Lungs: ronchi Cardiovascular: RRR, Normal S1, Normal S2, without murmur Abdomen: soft, non-tender, non-distended, positive bowel sound Extremities: excoriation Neurological: alert - Procedures Procedures: Procedures Procedure Code Date BLOOD TRANSFUSION SERVICE 61291 02/17/13 CHANGE FEEDING DEVICE IN UP INTEST TRACT, [facility] APPRENTICE APPROACH [id number] 10/03/16 CHANGE GASTROSTOMY TUBE 48019 10/03/[address] GASTROSTOMY TUBE 86076 03/07/14 EMERGENCY DEPT VISIT 82395 06/07/11 FREEING OF BOWEL ADHESION 99125 01/08/13 INJECT ANTICOAGULANT 99.19 06/07/11 OTH LYSIS-PERITONEAL ADHES 54.59 01/08/13 OTHER ENDOSCOPY OF SM INTEST 45.13 03/07/14 PACKED CELL TRANSFUSION 99.04 02/17/13 PRP I/LINDSAY INIT REDUC >5 YR 62689 01/08/13 REPLACE GASTROSTOMY TUBE 97.02 03/07/14 UNILAT ING LINDSAY REP NOS 53.00 01/08/13 Internal Medicine Assmt/Plan - Assessment Assessment: MRSA nares fever sepsis lactic acidosis leukocytosis malfunction gt s/p peg placement acute hypernatremia acute renal failure moderate protein calorie malnutrition candiduria dm-2 parkinsons dementia htn decubitus ulcer - Plan Plan: gtf 100ml q6h continue ivf and iv antibiotics wound care monitor glucose am labs continue current plan of care Nutritional Asmnt/Malnutr-PDOC - Dietary Evaluation Malnutrition Findings (Please click <Entered> for more info): Nutritional Asmnt/Malnutrition Start: 01/14/17 12: 05 Text: Status: Active Freq: Document 01/14/17 12:06 [facility] (Rec: 01/14/17 12:[id number] Nutritional Asmnt/Malnutrition Patient General Information Nutritional Screening High Risk Consult Diagnosis Malfunctioning G-Tube, Sepsis, Acute Renal Failure Pertinent Medical Hx/Surgical Hx Dementia, HTN, DM, Althma/COPD , PUD/GERD, Parkinson's Disease Subjective Information Pt came from SNF, admitted for G-Tube replacement. Consult for Wound and low [place] score received. Pt was awake during the time of visit, able to answer questions. Noted pt does not have teeth. 01/14 G- tube replacement. Started Nutren Pulmonary at 10ml/hr, currently running at 20ml/hr. Pt stated nausea, made aware of RN. H&P noted moderate protein-calorie malnutrition. Performed physical exam, mild muscal wasting noted. UBW 153lb on 10/04/16 per EMR. Possible wt loss. Current Diet Order/ Nutrition Support Nutren Pulmonary start with 10ml/hr, increase to goal rate [id number] Pertinent Medications Vitamin C, Glucontrol, Levemir Insulin, Nacl 100ml/hr, Zn Pertinent Labs 01/14: Na 159H, K 4.2, Cl 129H, BUN 108H, Cr 2.2H, A1C 8.0, Ca 10.2 11/5: Alb 3.1 L POC: 113-116 (01/13-01/14) Nutritional Hx/Data Height 5 ft 8 in Height (Calculated Centimeters) 172.7 Current Weight (lbs) 144 lb Weight (Calculated Kilograms) 65.3 Weight (Calculated Grams) 23958.3 Usual body Weight (lbs) 153 % Usual Body Weight 94 [place] Body Weight 154 % [place] Body Weight 94 Body Mass Index (BMI) 21.9 Recent Weight Change Yes Weight Status Approriate GI Symptoms GI Symptoms Nausea Usual diet at home Pulmocare 65ml/hr x 24hr daily Skin Integrity/Comment: small non-intact area to left buttock Estimated Nutritional Goals BEE in Kcals: Using Current wt Calories/Kcals/Kg 30-35 Kcals Calculated 4248-2032 Protein: Using Current wt Protein g/k.2-1.5 Protein Calculated 79-98g monitor renal labs Fluid: ml Per MD d/t acute renal failure Nutritional Problem 1. Problem Problem Increased nutrition needs ( calorie and protein) Etiology increased meltabolic demands with wound healing and sepsis Signs/Symptoms: dx of sepsis, [place] score 14 Malnutrition Alert Muscle Mass (Non-Severe) Mild Depletion Protein-Calorie Malnutrition N/A Is there a minimum of two criteria No selected? Query Text:Check all the applicable criteria. A minimum of two criteria are recommended for diagnosis of either severe or non-severe malnutrition. Intervention/Recommendation Comments 1. Continue current TF regimen , goal rate 65ml/hr x 24hr will provide 2340kcal, 106g protein and 782ml free water, meeting 100% of nutritional needs. 2. consider discontinuing Zinc supplementation as TF is adequate to meet high micronutrient needs for wound healing Expected Outcomes/Goals Expected Outcomes/Goals 1. Monitor TF tolerance and residual, nausea/vomiting 2. pt to meet 100% nutritional needs once TF approcah to goal rate 3. Monitor wt weekly, wt to remain stable 4. Monitor skin condition, wound to improve 5. F/U as high risk in 2-3 days, 01/16-01/17
--- NOTE | 2017-01-17 12:08 | Internal Medicine Prog Note ---
Internal Medicine Subjective - Subjective Service Date: 01/17/17 Patient is:: awake, confused Per staff patient has:: tolerating meds Internal Medicine Objective - Results Result Diagrams: 01/17/17 05:37 01/17/17 05:37 Recent Labs: Laboratory Last Values WBC 7.6 Th/cmm (4.8-10.8) D 01/17/17 05:37 RBC 3.02 Mil/cmm (3.80-5.80) L 01/17/17 05:37 Hgb 9.4 gm/dL (12-16) L 01/17/17 05:37 Hct 27.4 % (41.0-60) L 01/17/17 05:37 MCV 90.8 fl (80-99) 01/17/17 05:37 MCH 31.0 pg (27.0-31.0) 01/17/17 05:37 MCHC Differential 34.1 pg (28.0-36.0) 01/17/17 05:37 RDW 15.7 % (11.5-20.0) 01/17/17 05:37 Plt Count 144 Th/cmm (150-400) L 01/17/17 05:37 MPV 13.5 fl 01/17/17 05:37 Neutrophils % 61.6 % (40.0-80.0) 01/17/17 05:37 Band Neutrophils % 3 % (0-10) 01/15/17 05:05 Lymphocytes % 20.2 % (20.0-50.0) 01/17/17 05:37 Monocytes % 5.5 % (2.0-10.0) 01/17/17 05:37 Eosinophils % 12.0 % (0.0-5.0) H 01/17/17 05:37 Basophils % 0.7 % (0.0-2.0) 01/17/17 05:37 Neutrophils (Manual) 81 % (40-80) H 01/15/17 05:05 Lymphocytes 7 % (20-50) L 01/15/17 05:05 Monocytes 2 % (2-10) 01/15/17 05:05 Eosinophils 7 % (0-5) H 01/15/17 05:05 Nucleated RBCs 1.0 % (0-0) H 01/15/17 05:05 Platelet Estimate ADEQUATE (NORMAL) 01/13/17 19:13 PT 10.3 SECONDS (9.5-11.5) 01/13/17 19:13 INR 0.99 (0.5-1.4) 01/13/17 19:13 PTT (Actin FS) 22.9 SECONDS (26.0-38.0) L 01/13/17 19:13 Sodium 147 mEq/L (136-145) H 01/17/17 05:37 Potassium 3.9 mEq/L (3.5-5.1) 01/17/17 05:37 Chloride 120 mEq/L (98-107) H 01/17/17 05:37 Carbon Dioxide 20.5 mEq/L (21.0-31.0) L 01/17/17 05:37 Anion Gap 10.4 (7.0-16.0) 01/17/17 05:37 BUN 46 mg/dL (7-25) H 01/17/17 05:37 Creatinine 1.4 mg/dL (0.7-1.3) H 01/17/17 05:37 Est GFR ( Amer) TNP 01/17/17 05:37 Est GFR (Non-Af Amer) TNP 01/17/17 05:37 BUN/Creatinine Ratio 32.9 01/17/17 05:37 Glucose 176 mg/dL (70-105) H 01/17/17 05:37 POC Glucose 140 MG/DL (70 - 105) H 01/17/17 11:44 Hemoglobin A1c % 8.0 % (4.0-6.0) H D 01/14/17 05:50 Whole Bld Lactic Acid 0.70 mmol/L (0.60-1.99) 01/16/17 05:15 Calcium 9.2 mg/dL (8.6-10.3) 01/17/17 05:37 Magnesium 2.6 mg/dL (1.9-2.7) 01/16/17 05:15 Total Bilirubin 0.3 mg/dL (0.3-1.0) 01/13/17 19:13 AST 24 U/L (13-39) 01/13/17 19:13 ALT 4 U/L (7-52) L 01/13/17 19:13 Alkaline Phosphatase 121 U/L (34-104) H 01/13/17 19:13 Ammonia 52 umol/L (16-53) 01/14/17 05:50 B-Natriuretic Peptide 62.0 pg/mL (5.0-100.0) 01/16/17 05:15 Total Protein 9.3 gm/dL (6.0-8.3) H 01/13/17 19:13 Albumin 3.1 gm/dL (4.2-5.5) L 01/13/17 19:13 Globulin 6.2 gm/dL 01/13/17 19:13 Albumin/Globulin Ratio 0.5 (1.0-1.8) L 01/13/17 19:13 Vitamin B12 545 pg/mL (211-946) 01/14/17 05:50 Folic Acid >20.0 ng/mL (>3.0) 01/14/17 05:50 TSH 1.45 uIU/ml (0.34-5.60) 01/14/17 05:50 Urine Source [place] 01/13/17 19:30 Urine Color YELLOW 01/13/17 19:30 Urine Clarity HAZY (CLEAR) 01/13/17 19:30 Urine pH 5.5 (4.6 - 8.0) 01/13/17 19:30 Ur Specific [place] 1.015 (1.005-1.030) 01/13/17 19:30 Urine Protein TRACE mg/dL (NEGATIVE) 01/13/17 19:30 Urine Glucose (UA) NEGATIVE mg/dL (NEGATIVE) 01/13/17 19:30 Urine Ketones NEGATIVE mg/dL (NEGATIVE) 01/13/17 19:30 Urine Blood NEGATIVE (NEGATIVE) 01/13/17 19:30 Urine Nitrate NEGATIVE (NEGATIVE) 01/13/17 19:30 Urine Bilirubin NEGATIVE (NEGATIVE) 01/13/17 19:30 Urine Urobilinogen 0.2 E.U./dL (0.2 - 1.0) 01/13/17 19:30 Ur Leukocyte Esterase SMALL (NEGATIVE) H 01/13/17 19:30 Urine RBC NONE SEEN /hpf (0-5) 01/13/17 19:30 Urine WBC 2-5 /hpf (0-5) H 01/13/17 19:30 Ur Epithelial Cells OCCASIONAL /lpf (FEW) 01/13/17 19:30 Urine Bacteria FEW /hpf (NONE SEEN) 01/13/17 19:30 Urine Yeast MANY /hpf (NONE SEEN) H 01/13/17 19:30 Vancomycin Trough 24.5 ug/mL (10-20) H 01/15/17 11:20 - Physical Exam Vitals and I&O: Vital Signs Temp 98.6 F 01/17/17 07:42 Pulse 79 01/17/17 11:59 Resp 18 01/17/17 11:59 BP 137/61 01/17/17 09:08 Pulse Ox 97 01/17/17 11:59 Intake & Output 01/16/17 01/17/17 01/17/17 18:59 06:59 18:59 Intake Total 2000 950 50 Output Total 1400 1300 Balance 600 -350 50 Weight (lbs) 150 lb 150 lb Intake: Intake, IV Amount 1050 50 Fluconazole 100mg/50mL 50 50 100 mg In 50 ml @ 50 mls/ hr IV DAILY [facility] Rx#: [id number] Sodium Chloride 0.45% 1, 1000 000 ml @ 100 mls/hr IV . Q10H [facility] Rx#:[id number] Tube Feeding 650 650 Other 300 300 Output: Urine 1400 1300 Active Medications: Current Medications Acetaminophen (Tylenol) 650 mg GT Q8H PRN PRN Reason: PAIN/TEMP>100 Stop: 03/14/17 20:51 Last Admin: 01/15/17 23:44 Dose: 650 mg Acetaminophen/Hydrocodone Bitart ([place] 5mg/325mg) 1 tab PO Q4H PRN PRN Reason: Pain (Severe) Stop: 03/14/17 20:54 Al Hydrox/Mg Hydrox/Simethicone (Maalox) 30 ml GT Q3HR PRN PRN Reason: Indigestion Stop: 03/14/17 20:51 Albuterol Sulfate (Albuterol 2.5mg/3ml Neb Ud) 2.5 mg HHN QIDRT [facility] Stop: 03/15/17 06:59 Last Admin: 01/17/17 11:58 Dose: 2.5 mg Ascorbic Acid (Vitamin C) 500 mg PO DAILY [facility] Stop: 03/16/17 10:14 Last Admin: 01/17/17 09:04 Dose: 500 mg Carbidopa/Levodopa (Sinemet 25mg-100 Mg) 2 tab GT BID [facility] Stop: 03/15/17 08:59 Last Admin: 01/17/17 09:04 Dose: 2 tab Dextrose (D50w) 50 ml IVP PRN PRN PRN Reason: Blood Glucose less than 60 Stop: 03/17/17 07:38 Donepezil HCl (Aricept) 10 mg GT HS [facility] Stop: 03/14/17 20:59 Last Admin: 01/16/17 22:16 Dose: 10 mg Glucagon (Glucagen) 1 mg IM PRN PRN PRN Reason: Blood Glucose less than 70 Stop: 03/17/17 07:36 Last Admin: 01/16/17 07:50 Dose: 1 mg Heparin Sodium (Porcine) (Heparin) 5,000 units SUBQ Q12HR [facility] Stop: 03/14/17 20:59 Last Admin: 01/17/17 09:04 Dose: 5,000 units Cefepime HCl 1 gm/ Dextrose 50 mls @ 100 mls/hr IV Q24H [facility] Stop: 03/14/17 21:59 Last Admin: 01/16/17 23:00 Dose: 100 mls/hr Sodium Chloride (Nacl 0.45%) 1,000 mls @ 100 mls/hr IV .Q10H [facility] Stop: 03/14/17 20:59 Last Admin: 01/16/17 12:42 Dose: 100 mls/hr Fluconazole (Diflucan) 100 mg in 50 mls @ 50 mls/hr IV DAILY [facility] Stop: 03/17/17 08:59 Last Infusion: 01/17/17 10:00 Dose: Infused Insulin Aspart (Novolog Insulin Sliding Scale) 0 units SUBQ Q6HR REBA PRN Reason: Protocol Stop: 03/17/17 11:59 Last Admin: 01/17/17 11:45 Dose: Not Given Insulin Detemir (Levemir Insulin) 18 units SUBQ Q12H [facility] Stop: 03/14/17 20:59 Last Admin: 01/17/17 09:12 Dose: 18 units Ipratropium [place] (Atrovent Neb 0.5mg/2.5ml) 0.5 mg HHN QIDRT [facility] Stop: 03/15/17 10:59 Last Admin: 01/17/17 11:58 Dose: 0.5 mg Magnesium Hydroxide (Milk Of Magnesia) 30 ml GT DAILY PRN PRN Reason: Constipation Stop: 03/14/17 20:51 Metoprolol Tartrate (Lopressor) 100 mg GT BID [facility] Stop: 03/15/17 08:59 Last Admin: 01/17/17 09:08 Dose: 100 mg Mupirocin (Bactroban Oint) 1 appl NS BID [facility] Stop: 01/20/17 09:01 Last Admin: 01/17/17 09:05 Dose: 1 appl Nitroglycerin (Nitrostat) 0.4 mg SL Q5MIN PRN PRN Reason: Chest Pain Stop: 03/14/17 20:51 Ondansetron HCl (Zofran) 4 mg IV Q8H PRN PRN Reason: Nausea / Vomiting Stop: 03/14/17 20:54 Last Admin: 01/14/17 11:46 Dose: 4 mg Oxybutynin Chloride (Ditropan) 5 mg GT BID [facility] Stop: 03/15/17 08:59 Last Admin: 01/17/17 09:05 Dose: 5 mg Pantoprazole Sodium (Protonix) 40 mg GT DAILY [facility] Stop: 03/15/17 08:59 Last Admin: 01/17/17 09:04 Dose: 40 mg Timolol Maleate (Timoptic 0.5% Oph Soln) 1 drop EACH EYE BID [facility] Stop: 03/15/17 08:59 Last Admin: 01/17/17 09:03 Dose: 1 drop Zinc Sulfate (Zinc Sulfate) 220 mg GT DAILY [facility] Stop: 03/15/17 08:59 Last Admin: 01/17/17 09:04 Dose: 220 mg General: weak, alert HEENT: NC/AT, PERRLA Neck: Supple Lungs: ronchi Cardiovascular: RRR, Normal S1, Normal S2, without murmur Abdomen: soft, non-tender, non-distended, positive bowel sound Extremities: excoriation Neurological: alert - Procedures Procedures: Procedures Procedure Code Date BLOOD TRANSFUSION SERVICE 53112 02/17/13 CHANGE FEEDING DEVICE IN UP INTEST TRACT, LOGGER APPROACH [id number] 10/03/16 CHANGE GASTROSTOMY TUBE 11446 10/03/[address] GASTROSTOMY TUBE 19286 03/07/14 EMERGENCY DEPT VISIT 81571 06/07/11 FREEING OF BOWEL ADHESION 62825 01/08/13 INJECT ANTICOAGULANT 99.19 06/07/11 OTH LYSIS-PERITONEAL ADHES 54.59 01/08/13 OTHER ENDOSCOPY OF SM INTEST 45.13 03/07/14 PACKED CELL TRANSFUSION 99.04 02/17/13 PRP I/LINDSAY INIT REDUC >5 YR 55214 01/08/13 REPLACE GASTROSTOMY TUBE 97.02 03/07/14 UNILAT ING LINDSAY REP NOS 53.00 01/08/13 Internal Medicine Assmt/Plan - Assessment Assessment: MRSA nares fever sepsis lactic acidosis leukocytosis malfunction gt s/p peg placement acute hypernatremia acute renal failure moderate protein calorie malnutrition candiduria dm-2 parkinsons dementia htn decubitus ulcer - Plan Plan: gtf 100ml q6h continue ivf and iv antibiotics wound care monitor glucose am labs continue current plan of care Nutritional Asmnt/Malnutr-PDOC - Dietary Evaluation Malnutrition Findings (Please click <Entered> for more info): Nutritional Asmnt/Malnutrition Start: 01/14/17 12: 05 Text: Status: Active Freq: Document 01/14/17 12:06 BRYAN (Rec: 01/14/17 12:27 [email or web address] Nutritional Asmnt/Malnutrition Patient General Information Nutritional Screening High Risk Consult Diagnosis Malfunctioning G-Tube, Sepsis, Acute Renal Failure Pertinent Medical Hx/Surgical Hx Dementia, HTN, DM, Althma/COPD , PUD/GERD, Parkinson's Disease Subjective Information Pt came from SNF, admitted for G-Tube replacement. Consult for Wound and low [place] score received. Pt was awake during the time of visit, able to answer questions. Noted pt does not have teeth. 01/14 G- tube replacement. Started Nutren Pulmonary at 10ml/hr, currently running at 20ml/hr. Pt stated nausea, made aware of RN. H&P noted moderate protein-calorie malnutrition. Performed physical exam, mild muscal wasting noted. UBW 153lb on 10/04/16 per EMR. Possible wt loss. Current Diet Order/ Nutrition Support Nutren Pulmonary start with 10ml/hr, increase to goal rate 65m/fhs40pt Pertinent Medications Vitamin C, Glucontrol, Levemir Insulin, Nacl 100ml/hr, Zn Pertinent Labs 01/14: Na 159H, K 4.2, Cl 129H, BUN 108H, Cr 2.2H, A1C 8.0, Ca 10.2 11/5: Alb 3.1 L POC: 113-116 (01/13-01/14) Nutritional Hx/Data Height 5 ft 8 in Height (Calculated Centimeters) 172.7 Current Weight (lbs) 144 lb Weight (Calculated Kilograms) 65.3 Weight (Calculated Grams) 71626.3 Usual body Weight (lbs) 153 % Usual Body Weight 94 [place] Body Weight 154 % [place] Body Weight 94 Body Mass Index (BMI) 21.9 Recent Weight Change Yes Weight Status Approriate GI Symptoms GI Symptoms Nausea Usual diet at home Pulmocare 65ml/hr x 24hr daily Skin Integrity/Comment: small non-intact area to left buttock Estimated Nutritional Goals BEE in Kcals: Using Current wt Calories/Kcals/Kg 30-35 Kcals Calculated 2917-7683 Protein: Using Current wt Protein g/k.2-1.5 Protein Calculated 79-98g monitor renal labs Fluid: ml Per MD d/t acute renal failure Nutritional Problem 1. Problem Problem Increased nutrition needs ( calorie and protein) Etiology increased meltabolic demands with wound healing and sepsis Signs/Symptoms: dx of sepsis, [place] score 14 Malnutrition Alert Muscle Mass (Non-Severe) Mild Depletion Protein-Calorie Malnutrition N/A Is there a minimum of two criteria No selected? Query Text:Check all the applicable criteria. A minimum of two criteria are recommended for diagnosis of either severe or non-severe malnutrition. Intervention/Recommendation Comments 1. Continue current TF regimen , goal rate 65ml/hr x 24hr will provide 2340kcal, 106g protein and 782ml free water, meeting 100% of nutritional needs. 2. consider discontinuing Zinc supplementation as TF is adequate to meet high micronutrient needs for wound healing Expected Outcomes/Goals Expected Outcomes/Goals 1. Monitor TF tolerance and residual, nausea/vomiting 2. pt to meet 100% nutritional needs once TF approcah to goal rate 3. Monitor wt weekly, wt to remain stable 4. Monitor skin condition, wound to improve 5. F/U as high risk in 2-3 days, 01/16-01/17
== END 2017-01-17 17:30 | DRG 393 ==
LOC: ER 18:23 → TELE 20:50
PROVIDERS: ADMIT Internal Medicine; ATTEND Internal Medicine
PROC: 0D20XUZ Change Feeding Device in Upper Intestinal Tract, External Approach (ICD-10-PCS; principal; 2017-01-14)
DX: K94.23 Gastrostomy malfunction (principal); A41.9 Sepsis, unspecified organism; G93.41 Metabolic encephalopathy; N17.9 Acute kidney failure, unspecified; E44.0 Moderate protein-calorie malnutrition; B37.0 Candidal stomatitis; E87.0 Hyperosmolality and hypernatremia; L03.314 Cellulitis of groin; R13.10 Dysphagia, unspecified; G20 Parkinson's disease; E11.9 Type 2 diabetes mellitus without complications; I10 Essential (primary) hypertension; F02.80 Dementia in other diseases classified elsewhere, unspecified severity, without behavioral disturbance, psychotic disturbance, mood disturbance, and anxiety; L89.90 Pressure ulcer of unspecified site, unspecified stage; J44.9 Chronic obstructive pulmonary disease, unspecified; K21.9 Gastro-esophageal reflux disease without esophagitis; E86.0 Dehydration; Y83.3 Surgical operation with formation of external stoma as the cause of abnormal reaction of the patient, or of later complication, without mention of misadventure at the time of the procedure; Y92.89 Other specified places as the place of occurrence of the external cause; Z88.8 Allergy status to other drugs, medicaments and biological substances; Z68.22 Body mass index [BMI] 22.0-22.9, adult; Z74.01 Bed confinement status; Z22.322 Carrier or suspected carrier of Methicillin resistant Staphylococcus aureus
CPT/HCPCS: 36415-UA; 71010-TC; 76770-TC; 80048-TC; 80053-TC; 80202-TC; 81001-TC; 82140-TC; 82607-90; 82746-90; 82948-90; 83036-90; 83605; 83735-TC; 83880-TC; 84443-TC; 85007-TC; 85025-TC; 85027-TC; 85610-TC; 90779; 93005; 94640; 94760; J0692; J1610; J1644; J1815; J1956; J2405; J3370; J7030; J7613; Z7610

== ENCOUNTER 2017-05-20 11:45 | Inpatient (IN) | payer MEDICARE, OTHER ==
--- NOTE | 2017-05-20 11:54 | ED Physician Chart ---
ED Chief Complaint/HPI - Patient Information Date Seen:: 05/20/17 Chief Complaint:: G-Tube leakage History of Present Illness:: onset x one day of g-tube leakage and dysfunction; no report of trauma, H/As, neck pain, C/P, SOB, Abd. pain, A/N/V/D/C, fever, chills, or urinary s/s Allergies:: Allergies Allergy/AdvReac Type Severity Reaction Status Date / Time piperacillin Allergy Verified 09/10/16 13:25 tazobactam Allergy Verified 09/10/16 13:26 Historian:: Patient, EMS Review:: Nurse's Note Reviewed, Old Chart Reviewed, EMS run form Reviewed ED Review of Systems - Review of Systems General/Constitutional: No fever, No chills, No weight loss, No weakness, No diaphoresis, No edema, No loss of appetite Skin: No skin lesions, No rash, No bruising Head: No headache, No light-headedness Eyes: No loss of vision, No pain, No diplopia ENT: No earache, No nasal drainage, No sore throat, No tinnitus Neck: No neck pain, No swelling, No thyromegaly, No stiffness, No mass noted Cardio Vascular: No chest pain, No palpitations, No PND, No orthopnea, No edema Pulmonary: SOB, Cough, No sputum, Wheezing GI: No nausea, No vomiting, No diarrhea, No pain, No melena, No hematochezia, No constipation, No hematemesis G/U: No dysuria, No frequency, No hematuria, No nacturia Musculoskeletal: No bone or joint pain, No back pain, No muscle pain Endocrine: Polyuria, Polydipsia Psychiatric: No prior psych history, No depression, No anxiety, No suicidal ideation, No homicidal ideation, No auditory hallucination, No visual hallucination Hematopoietic: No bruising, No lymphadenopathy Allergic/Immuno: No urticaria, No angioedema Neurological: No syncope, No focal symptoms, No weakness, No paresthesia, No headache, No seizure, No dizziness, Confusion, No vertigo ED Past Medical History - Past Medical History Obtainable: Yes Past Medical History: HTN, DM, Asthma/COPD, Dyslipidemia, Dementia, Other ( Parkinson's Disease) Family History: Diabetes Melitus, HTN Social History: Non Smoker, No Alcohol, No Drug Use, Single, Care Facility Surgical History: PEG/GTube Psychiatricy History: Dementia Medication: Reviewed Family Medical History - Family Member Father History Unknown: Yes Ethnicity: Living Status: Unknown Hx Family Cancer: No Hx Family Coronary Artery Disease: No Hx Family Congestive Heart Failure: No Hx Family Hypertension: No Hx Family Stroke: No Hx Family Diabetes: No Hx Family Seizures: No Hx Family Dementia: No Hx Family AIDS: No Hx Family HIV: No Hx Family COPD: No Hx Family Hepatitis: No Hx Family Psychiatric Problems: No Hx Family Tuberculosis: No ED Physical Exam - Physical Examination General/Constitutional: Awake, Well-developed, well-nourished, Alert, No distress, GCS 15, Non-toxic appearing, Ambulatory Head: Atraumatic Eyes: Lids, conjuctiva normal, PERRL, EOMI Skin: Nl inspection, No rash, No skin lesions, No ecchymosis, Well hydrated, No lymphadenopathy ENMT: External ears, nose nl, TM canals nl, Nasal exam nl, Lips, teeth, gums nl , Oropharynx nl, Tonsils nl Neck: Nontender, Full ROM w/o pain, No JVD, No nuchal rigidity, No bruit, No mass, No stridor Respiratory: Nl effort/Exclusion, Clear to Auscultation, No Wheeze/Rhonchi/Rales Cardio Vascular: RRR, No murmur, gallop, rubs, NL S1 S2, Carotid/Femoral/Distal pulses equal bilaterally GI: No tenderness/rebounding/guarding, No organomegaly, No hernia, Normal BS's, Nondistended, No mass/bruits, No McBurney tenderness Other GI comments:: + g-Tube Leakage : No CVA tenderness Extremities: No tenderness or effusion, Full ROM, normal strength in all extremities, No edema, Normal digits & nails Neuro/Psych: Alert/oriented, DTR's symmetric, Normal sensory exam, Normal motor strength, Judgement/insight normal, Mood normal, Normal gait, No focal deficits Other Neuro/Psych comments:: Disoriented and Confused Misc: Normal back, No paraspinal tenderness ED Labs/Radiology/EKG Results - Lab Results Comments:: Ca+: 10.7; BUN: 26 - Radiology Results Comments:: NAD - EKG Interpretations EKG Time:: 12:45 Rate & Rhythm: 82; NSR Comments:: non-specific st-t changes ED Septic Shock - . Is Septic Shock (SBP<90, OR Lactate>4 mmol\L) present?: No ED Reassessment (Disposition) - Reassessment Reassessment Condition:: Improved - Diagnosis Diagnosis:: G-Tube Leakage; Hypercalcemia; Dehydration; G-Tube Dysfunction - Aftercare/Follow up Instructions Aftercare/Follow-Up Instructions:: Counseled pt regarding lab results/diagnosis & need follow up, Counseled pt & family regarding lab results/diagnosis & need follow up - Patient Disposition Discharge/Transfer:: Acute Care w/in this hosp Accepting Physician:: Dr. Patel Time Called:: 1315 Time Responded:: 13:15 Admitted to:: Med/Surg Spoke to:: Dr. Patel Admitting Medical Physician:: Dr. Patel Condition at Disposition:: Stable, Improved
[2017-05-20] MEDS ORDERED: Sodium Chloride 0.9% 1,000 ML IV ONE (11:55)
[2017-05-20 12:22] LABS: % BASOPHILS 0.6 % (0.0-2.0); % EOSINOPHILS 4.7 % (0.0-5.0); % MONOCYTES 5.6 % (2.0-10.0); % NEUTROPHILS 72.1 % (40.0-80.0); BASOPHILE ABSOLUTE 0.1 Th/cumm (0-0.2); EOSINOPHILE ABSOLUTE 0.5 Th/cmm (0.1-0.4); HEMATOCRIT 37.3 % (41.0-60); HEMOGLOBIN 12.4 gm/dL (12-16); LYMPHOCYTE ABSOLUTE 1.8 Th/cmm (1.5-3.0); MEAN CELL VOLUME 90.5 fl (80-99); MEAN CORPUSCULAR HEMOGLOBIN 30.2 pg (27.0-31.0); MEAN CORPUSCULAR HGB CONC 33.4 pg (28.0-36.0); MEAN PLATELET VOLUME 9.9 fl; MONOCYTE ABSOLUTE 0.6 Th/cmm (0.3-1.0); NEUTROPHILE ABSOLUTE 7.6 Th/cmm (1.8-8.0); PLATELET COUNT 235 Th/cmm (150-400); RED BLOOD COUNT 4.12 Mil/cmm (3.80-5.80); RED CELL DISTRIBUTION WIDTH 15.1 % (11.5-20.0); WHITE BLOOD COUNT 10.6 Th/cmm (4.8-10.8)
--- NOTE | 2017-05-20 12:33 | Diagnostic Imaging Report ---
CHEST X-RAY: AP view INDICATION: pain COMPARISON: 01/16/2017 FINDINGS: Increased interstitial lung markings are noted. No focal consolidation or effusions. There is elevation of the right hemidiaphragm. Cardiomegaly with atherosclerosis. Degenerative changes of the spine are noted. IMPRESSION: Increased interstitial lung markings favoring chronic lung changes. No focal consolidation identified Cardiomegaly and atherosclerotic vascular disease.
[2017-05-20 12:35] LABS: ALB/GLOB RATIO 0.9 (1.0-1.8); ALKALINE PHOSPHATASE 81 U/L (34-104); ANION GAP 8.3 (7.0-16.0); BILIRUBIN,TOTAL 0.7 mg/dL (0.3-1.0); BUN - UREA NITROGEN 26 mg/dL (7-25); CALCIUM SERUM 10.7 mg/dL (8.6-10.3); CARBON DIOXIDE 28.4 mEq/L (21.0-31.0); CHLORIDE 104 mEq/L (98-107); CHOLESTEROL 193 mg/dL (<200); CREATININE - SERUM 1.1 mg/dL (0.7-1.3); CREATININE KINASE 48 U/L (30-223); GLUCOSE 145 mg/dL (70-105); HDL -HIGH DENSITY LIPOPROTEIN 37 mg/dL (23-92); POTASSIUM SERUM 3.7 mEq/L (3.5-5.1); SGOT 20 U/L (13-39); SGPT/ALT 13 U/L (7-52); SODIUM SERUM 137 mEq/L (136-145); TOTAL PROTEIN,SERUM 8.3 gm/dL (6.0-8.3); TRIGLYCERIDES 293 mg/dL (<150)
[2017-05-20 12:36] LABS: AMYLASE SERUM 33 U/L (29-103)
[2017-05-20 12:42] LABS: INR 0.96 (0.5-1.4)
[2017-05-20 12:54] LABS: LIPASE < 3 U/L (11-82)
[2017-05-20] MEDS ORDERED: Albuterol Nebulizer 2.5mg/3mL HHN PRN (13:20)
[2017-05-20] MEDS ORDERED: Ipratropium Neb 0.5 mg/2.5 mL UD IH PRN (13:20)
[2017-05-20] MEDS ORDERED: Morphine Sulfate 2 mg/mL 1mL Syr IVP PRN (13:20)
[2017-05-20] MEDS: Albuterol/Ipratropium Neb 3 ML AERS HHN SCH ×2 (19:00→23:57)
[2017-05-20] MEDS: INSULIN ASPART, RECOMBINANT 100 UNITS/ML SUBQ SCH (21:35)
[2017-05-20] MEDS: D5-0.9%NS 1,000 ML IV SCH (21:41)
[2017-05-20] MEDS: Lactulose 10 Gm/15 mL 30mL UDC GT SCH (22:30)
--- NOTE | 2017-05-20 23:09 | History & Physical ---
ADMIT DATE: 05/20/2017 CHIEF COMPLAINT: Malfunctioning G-tube. HISTORY OF PRESENT ILLNESS: This is an 79-year-old male with history of Parkinson's, hypertension, dysphagia with G-tube, malnutrition, admitted per nursing facility. Apparently, there was a small opening on the end of the G-tube. The nurses tried to fix it at which point are placing a Miranda, but none are functioning. The patient was brought in the ER. Dr. Crain saw the patient and did not feel comfortable replacing. Thus, our recommendation to the patient is we will try to see the patient. The patient is dehydrated. The patient is nonverbal and noncommunicative. PAST MEDICAL HISTORY: As mentioned in history of present illness. PAST SURGICAL HISTORY: G-tube. ALLERGIES: ZOSYN. MEDICATIONS: Insulin sliding scale, Tylenol, Sinemet, ProAmatine, lactulose, and Zofran. FAMILY HISTORY: Noncontributory. SOCIAL HISTORY: The patient in [facility]ci. The patient requiring 24-hour total care. REVIEW OF SYSTEMS: This is limited secondary to the patient's current mental state. We will try to obtain more detailed review of systems at a later date by talking to family members, Marguerite Jeffers, from [place] at #[phone]. We will also try to get more information from the staff at [facility], . PHYSICAL EXAMINATION: VITAL SIGNS: Blood pressure 123/57, respirations 16, pulse 80, temperature 98.3. GENERAL: Elderly male, appears chronically ill. NECK: Supple. No mass. LUNGS: Equal breath sounds, few rhonchi. HEART: Regular rate and rhythm with systolic ejection murmur. ABDOMEN: Soft, globular, but will hold G-tube. EXTREMITIES: Positive excoriation atrophy contractures. LABORATORY DATA: WBC 10.6, hemoglobin 12.4, platelets 235, BUN 26, creatinine 1.1, blood sugar 145, calcium 10.7, albumin 4.0. ASSESSMENT AND PLAN: Malfunctioning G-tube, dehydration, renal insufficiency, diabetes, Parkinson, hypertension, decubitus ulcer, malnutrition. We will continue the patient on oxygen and bronchodilator treatment. We will refer the patient to GI for replacement. Continue IV hydration, continue with current care. We will follow the patient closely. [facility]# [id number]
[2017-05-21] MEDS: INSULIN ASPART, RECOMBINANT 100 UNITS/ML SUBQ SCH ×3 (06:59→22:20)
[2017-05-21] MEDS: Albuterol/Ipratropium Neb 3 ML AERS HHN SCH ×3 (07:18→19:14)
[2017-05-21] MEDS: Lactulose 10 Gm/15 mL 30mL UDC GT SCH ×2 (09:21→21:43)
--- NOTE | 2017-05-21 13:56 | Diagnostic Imaging Report ---
Upper GI with Gastrografin HISTORY: G-tube confirmation COMPARISON: None FINDINGS: Screen Printing Inspector view demonstrates nonspecific gas-filled loops of bowel. An IVC filter is noted at L2/L3. The second image demonstrates contrast opacification of the stomach and small bowel loops. IMPRESSION: Intraluminal confirmation of patient's percutaneous gastric feeding tube.
[2017-05-21] MEDS: D5-0.9%NS 1,000 ML IV SCH ×2 (13:58→22:20)
--- NOTE | 2017-05-21 14:01 | Operative Report ---
DATE OF SURGERY: 05/21/2017 INPATIENT GASTROINTESTINAL PROCEDURE NAME OF PROCEDURE: G-tube change. REFERRING PHYSICIAN: Dr. Patel. REASON FOR PROCEDURE: Malfunctioning G-tube. PREOPERATIVE DIAGNOSIS: Malfunctioning G-tube, dysphagia. POSTOPERATIVE DIAGNOSIS: New G-tube placed. PROCEDURE: The patient was placed on his back. The old G-tube was a balloon type. It was removed after deflating the internal balloon and pulled out. A new 20-Macanese gastrostomy tube was lubricated. The tip inserted through the gastrocutaneous fistula entering into stomach lumen. Internal balloon was inflated with 15 mL of sterile saline. Outer flange was secured in position. Procedure was then completed. COMPLICATIONS: None. FINDINGS: New 20-Mac[place] gastrostomy tube placed. RECOMMENDATION: 1. KUB with Gastrografin to confirm placement. 2. If it is in stomach, may begin using it. 3. Check residual every 6 hours and hold if greater than 100 mL. Thank you for allowing me to participate. Please call me if any questions. JOB# [id number]
--- NOTE | 2017-05-21 16:30 | Internal Medicine Prog Note ---
Internal Medicine Subjective - Subjective Service Date: 05/21/17 Patient seen and examined:: with staff Patient is:: awake, verbal, in bed Per staff patient has:: tolerating meds Internal Medicine Objective - Results Result Diagrams: 05/20/17 12:10 05/20/17 12:10 Recent Labs: Laboratory Last Values WBC 10.6 Th/cmm (4.8-10.8) 05/20/17 12:10 RBC 4.12 Mil/cmm (3.80-5.80) 05/20/17 12:10 Hgb 12.4 gm/dL (12-16) 05/20/17 12:10 Hct 37.3 % (41.0-60) L 05/20/17 12:10 MCV 90.5 fl (80-99) 05/20/17 12:10 MCH 30.2 pg (27.0-31.0) 05/20/17 12:10 MCHC Differential 33.4 pg (28.0-36.0) 05/20/17 12:10 RDW 15.1 % (11.5-20.0) 05/20/17 12:10 Plt Count 235 Th/cmm (150-400) 05/20/17 12:10 MPV 9.9 fl 05/20/17 12:10 Neutrophils % 72.1 % (40.0-80.0) 05/20/17 12:10 Lymphocytes % 17.0 % (20.0-50.0) L 05/20/17 12:10 Monocytes % 5.6 % (2.0-10.0) 05/20/17 12:10 Eosinophils % 4.7 % (0.0-5.0) 05/20/17 12:10 Basophils % 0.6 % (0.0-2.0) 05/20/17 12:10 PT 10.0 SECONDS (9.5-11.5) 05/20/17 12:10 INR 0.96 (0.5-1.4) 05/20/17 12:10 Sodium 137 mEq/L (136-145) 05/20/17 12:10 Potassium 3.7 mEq/L (3.5-5.1) 05/20/17 12:10 Chloride 104 mEq/L (98-107) 05/20/17 12:10 Carbon Dioxide 28.4 mEq/L (21.0-31.0) 05/20/17 12:10 Anion Gap 8.3 (7.0-16.0) 05/20/17 12:10 BUN 26 mg/dL (7-25) H 05/20/17 12:10 Creatinine 1.1 mg/dL (0.7-1.3) 05/20/17 12:10 Est GFR ( Amer) TNP 05/20/17 12:10 Est GFR (Non-Af Amer) TNP 05/20/17 12:10 BUN/Creatinine Ratio 23.6 05/20/17 12:10 Glucose 145 mg/dL (70-105) H 05/20/17 12:10 POC Glucose 188 MG/DL (70 - 105) H 05/21/17 11:59 Calcium 10.7 mg/dL (8.6-10.3) H 05/20/17 12:10 Total Bilirubin 0.7 mg/dL (0.3-1.0) 05/20/17 12:10 AST 20 U/L (13-39) 05/20/17 12:10 ALT 13 U/L (7-52) 05/20/17 12:10 Alkaline Phosphatase 81 U/L (34-104) 05/20/17 12:10 Creatine Kinase 48 U/L (30-223) 05/20/17 12:10 Troponin I 0.01 ng/mL (0.01-0.05) 05/20/17 12:10 B-Natriuretic Peptide 12.1 pg/mL (5.0-100.0) 05/20/17 12:10 Total Protein 8.3 gm/dL (6.0-8.3) 05/20/17 12:10 Albumin 4.0 gm/dL (4.2-5.5) L 05/20/17 12:10 Globulin 4.3 gm/dL 05/20/17 12:10 Albumin/Globulin Ratio 0.9 (1.0-1.8) L 05/20/17 12:10 Triglycerides 293 mg/dL (<150) H 05/20/17 12:10 Cholesterol 193 mg/dL (<200) 05/20/17 12:10 LDL Cholesterol Direct 113 mg/dL (75-193) 05/20/17 12:10 HDL Cholesterol 37 mg/dL (23-92) 05/20/17 12:10 Amylase 33 U/L (29-103) 05/20/17 12:10 Lipase < 3 U/L (11-82) L 05/20/17 12:10 - Physical Exam Vitals and I&O: Vital Signs Temp 98.2 F 05/21/17 09:11 Pulse 87 05/21/17 12:50 Resp 18 05/21/17 12:50 BP 134/71 05/21/17 11:34 Pulse Ox 96 05/21/17 12:50 Intake & Output 05/20/17 05/21/17 05/21/17 18:59 06:59 18:59 Intake Total 1633 477 7974 Balance 0384 697 7625 Weight (lbs) 152 lb 144 lb 12.8 oz Intake: Intake, IV Amount 1000 1000 D5-0.9%Ns 1,000 ml @ 80 1000 mls/hr IV .[id number] [facility] Rx #:[id number] Sodium Chloride 0.9% 1, 1000 000 ml @ 100 mls/hr IV . Q10H ONE Rx#:[id number] Oral 240 0 Other: # Voids 2 # Bowel Movements 0 Active Medications: Current Medications Acetaminophen (Tylenol) 650 mg PO Q4H PRN PRN Reason: Pain Or Fever above 101 Stop: 07/19/17 13:19 Albuterol Sulfate (Albuterol 2.5mg/3ml Neb Ud) 2.5 mg HHN Q2HRT PRN PRN Reason: Shortness of Breath or Wheeze Stop: 07/19/17 13:19 Albuterol/Ipratropium (Duoneb Neb) 3 ml HHN Q6HR REBA Stop: 07/19/17 17:59 Last Admin: 05/21/17 12:46 Dose: 3 ml Carbidopa/Levodopa (Sinemet 25mg-100 Mg) 1 tab GT TID REBA Stop: 07/19/17 20:59 Last Admin: 05/21/17 09:21 Dose: Not Given Diphenhydramine HCl (Benadryl) 50 mg GT Q8H PRN PRN Reason: BODY ITCHING Stop: 07/19/17 13:18 Famotidine (Pepcid) 40 mg PO Q12HR REBA Stop: 07/19/17 20:59 Last Admin: 05/21/17 09:21 Dose: Not Given Heparin Sodium (Porcine) (Heparin) 5,000 units SUBQ Q12HR [facility] Stop: 07/19/17 20:59 Last Admin: 05/21/17 09:20 Dose: 5,000 units Dextrose/Sodium Chloride (D5-0.9%Ns) 1,000 mls @ 80 mls/hr IV .[id number] [facility] Stop: 07/19/17 13:29 Last Admin: 05/21/17 13:58 Dose: 80 mls/hr Insulin Aspart (Novolog) 0 units SUBQ ACHS REBA PRN Reason: Protocol Stop: 07/19/17 16:29 Last Admin: 05/21/17 12:26 Dose: Not Given Ipratropium [place] (Atrovent Neb 0.5mg/2.5ml) 0.5 mg IH Q2HRT PRN PRN Reason: Shortness of Breath or Wheeze Stop: 07/19/17 13:19 Lactulose (Cephulac) 20 gm GT Q12HR [facility] Stop: 07/19/17 20:59 Last Admin: 05/21/17 09:21 Dose: Not Given Morphine Sulfate (Morphine) 2 mg IVP Q4H PRN PRN Reason: Pain (Severe) Stop: 07/19/17 13:19 Ondansetron HCl (Zofran Odt) 4 mg PO Q4H PRN PRN Reason: Nausea / Vomiting Stop: 07/19/17 20:29 Ondansetron HCl (Zofran) 4 mg IV Q8H PRN PRN Reason: Nausea / Vomiting Stop: 07/19/17 13:19 General: alert HEENT: NC/AT, PERRLA Neck: Supple Lungs: CTAB Cardiovascular: RRR, Normal S1, Normal S2, without murmur Abdomen: soft, non-tender, non-distended, positive bowel sound - Procedures Procedures: Procedures Procedure Code Date BLOOD TRANSFUSION SERVICE 18970 02/17/13 CHANGE FEEDING DEVICE IN UP INTEST TRACT, ASSAYER APPROACH [id number] 01/13/17 CHANGE GASTROSTOMY TUBE 45921 10/03/[address] GASTROSTOMY TUBE 54028 03/07/14 EMERGENCY DEPT VISIT 08440 06/07/11 FREEING OF BOWEL ADHESION 26991 10/31/13 INJECT ANTICOAGULANT 99.19 06/07/11 OTH LYSIS-PERITONEAL ADHES 54.59 01/08/13 OTHER ENDOSCOPY OF SM INTEST 45.13 03/07/14 PACKED CELL TRANSFUSION 99.04 02/17/13 PRP I/LINDSAY INIT REDUC >5 YR 20612 01/08/13 REPLACE GASTROSTOMY TUBE 97.02 03/07/14 UNILAT ING LINDSAY REP NOS 53.00 01/08/13 Internal Medicine Assmt/Plan - Assessment Assessment: GT malfunction s/p placement acute dehydration acute renal insufficiency diabetes htn malnutrition - Plan Plan: cbc/bmp in am gi follow up continue current plan of care
--- NOTE | 2017-05-21 16:54 | Consultation ---
DATE OF CONSULTATION: 05/21/2017 INPATIENT GASTROINTESTINAL CONSULTATION REFERRING PHYSICIAN: Dr. Patel. REASON FOR CONSULTATION: Malfunctioning G-tube: HISTORY OF PRESENT ILLNESS: An 81-year-old male with underlying Parkinson's, dysphagia, was at a facility and they noticed that the G-tube was malfunctioning. Therefore, the patient was sent to the hospital for changing it. The patient is otherwise a poor historian. PAST MEDICAL HISTORY: Parkinson's disease, hypertension, dysphagia. PAST SURGICAL HISTORY: G-tube placement. FAMILY HISTORY: Noncontributory. SOCIAL HISTORY: No tobacco, alcohol or IV drug usage. ALLERGIES: ZOSYN. CURRENT MEDICATIONS: Tylenol, albuterol, ipratropium, Sinemet, Benadryl, Pepcid, heparin, insulin, lactulose, morphine, Zofran. REVIEW OF SYSTEMS: A 10-point review of system was unobtainable. PHYSICAL EXAMINATION: VITAL SIGNS: Temperature 98.2, breathing ___, pulse of 86, blood pressure is 134/71, satting 99%. GENERAL: In no apparent distress. Eyes are anicteric. Normal conjunctivae. HEENT: Normocephalic, atraumatic. Moist mucous membranes. NECK: Soft, supple. CHEST: Clear. No effort. CARDIOVASCULAR: Regular rate and rhythm. ABDOMEN: Soft, nontender, nondistended. SKIN: Warm, dry. EXTREMITIES: Reveal no cyanosis. PSYCHOLOGIC: Alert and oriented x 3. LABORATORY DATA: Show white count 10.6, hemoglobin 12.4, platelets of 235. INR 0.96. LFTs within normal limits. Lipase within normal limits. IMPRESSION: This is an 81-year-old male with malfunctioning G-tube, underlying dysphagia. We will need to have it changed. PLAN: 1. G-tube to be changed. 2. Continue supportive care. Thank you for allowing me to participate. Please call me if any questions. JOB# [id number]
[2017-05-22] MEDS: Albuterol/Ipratropium Neb 3 ML AERS HHN SCH ×2 (01:07→07:54)
[2017-05-22 02:33] LABS: URINE MICROSCOPIC INDICATED? YES; URINE SOURCE CLEAN C
[2017-05-22 02:37] LABS: URINE BILIRUBIN NEGATIVE (NEGATIVE); URINE BLOOD NEGATIVE (NEGATIVE); URINE GLUCOSE (UA) 250 mg/dL (NEGATIVE); URINE KETONE NEGATIVE (NEGATIVE); URINE LEUKOCYTE ESTERASE LARGE (NEGATIVE); URINE NITRATE NEGATIVE (NEGATIVE); URINE PH 7.5 (4.6 - 8.0); URINE PROTEIN TRACE mg/dL (NEGATIVE); URINE UROBILINOGEN 0.2 E.U./dL (0.2 - 1.0)
[2017-05-22 02:42] LABS: URINE CLARITY HAZY (CLEAR); URINE COLOR YELLOW
[2017-05-22 02:43] LABS: URINE RBC 0-2 /hpf (0-5)
[2017-05-22 02:44] LABS: URINE BACTERIA MANY /hpf (NONE SEEN); URINE EPITHELIAL CELLS FEW /lpf (FEW); URINE WBC 25-50 /hpf (0-5)
[2017-05-22 07:00] LABS: % BASOPHILS 0.6 % (0.0-2.0); % EOSINOPHILS 6.9 % (0.0-5.0); % LYMPHOCYTES 19.2 % (20.0-50.0); % MONOCYTES 7.3 % (2.0-10.0); EOSINOPHILE ABSOLUTE 0.5 Th/cmm (0.1-0.4); HEMATOCRIT 33.4 % (41.0-60); HEMOGLOBIN 11.3 gm/dL (12-16); LYMPHOCYTE ABSOLUTE 1.3 Th/cmm (1.5-3.0); MEAN CORPUSCULAR HEMOGLOBIN 30.8 pg (27.0-31.0); MEAN CORPUSCULAR HGB CONC 33.8 pg (28.0-36.0); MEAN PLATELET VOLUME 10.8 fl; MONOCYTE ABSOLUTE 0.5 Th/cmm (0.3-1.0); NEUTROPHILE ABSOLUTE 4.3 Th/cmm (1.8-8.0); PLATELET COUNT 205 Th/cmm (150-400); RED BLOOD COUNT 3.67 Mil/cmm (3.80-5.80); RED CELL DISTRIBUTION WIDTH 14.6 % (11.5-20.0); WHITE BLOOD COUNT 6.6 Th/cmm (4.8-10.8)
[2017-05-22 07:24] LABS: ALBUMIN 3.5 gm/dL (4.2-5.5); ALKALINE PHOSPHATASE 88 U/L (34-104); ANION GAP 10.2 (7.0-16.0); BILIRUBIN,TOTAL 0.5 mg/dL (0.3-1.0); BUN - UREA NITROGEN 16 mg/dL (7-25); CALCIUM SERUM 9.6 mg/dL (8.6-10.3); CARBON DIOXIDE 22.8 mEq/L (21.0-31.0); CHLORIDE 109 mEq/L (98-107); CREATININE - SERUM 0.9 mg/dL (0.7-1.3); GLUCOSE 210 mg/dL (70-105); MAGNESIUM 1.9 mg/dL (1.9-2.7); SGOT 15 U/L (13-39); SGPT/ALT 7 U/L (7-52); SODIUM SERUM 139 mEq/L (136-145); TOTAL PROTEIN,SERUM 7.2 gm/dL (6.0-8.3)
[2017-05-22] MEDS ORDERED: Potassium Chloride Elixir 20 mEq /15 mL UDC GT ONE (08:09)
[2017-05-22] MEDS: INSULIN ASPART, RECOMBINANT 100 UNITS/ML SUBQ SCH ×3 (08:39→16:55)
[2017-05-22] MEDS: Lactulose 10 Gm/15 mL 30mL UDC GT SCH (08:42)
--- NOTE | 2017-05-22 10:00 | Internal Medicine Prog Note ---
Internal Medicine Subjective - Subjective Service Date: 05/22/17 Patient seen and examined:: with staff Patient is:: awake, verbal, in bed Per staff patient has:: tolerating meds Internal Medicine Objective - Results Result Diagrams: 05/22/17 06:15 05/22/17 06:15 Recent Labs: Laboratory Last Values WBC 6.6 Th/cmm (4.8-10.8) 05/22/17 06:15 RBC 3.67 Mil/cmm (3.80-5.80) L 05/22/17 06:15 Hgb 11.3 gm/dL (12-16) L 05/22/17 06:15 Hct 33.4 % (41.0-60) L 05/22/17 06:15 MCV 91.0 fl (80-99) 05/22/17 06:15 MCH 30.8 pg (27.0-31.0) 05/22/17 06:15 MCHC Differential 33.8 pg (28.0-36.0) 05/22/17 06:15 RDW 14.6 % (11.5-20.0) 05/22/17 06:15 Plt Count 205 Th/cmm (150-400) 05/22/17 06:15 MPV 10.8 fl 05/22/17 06:15 Neutrophils % 66.0 % (40.0-80.0) 05/22/17 06:15 Lymphocytes % 19.2 % (20.0-50.0) L 05/22/17 06:15 Monocytes % 7.3 % (2.0-10.0) 05/22/17 06:15 Eosinophils % 6.9 % (0.0-5.0) H 05/22/17 06:15 Basophils % 0.6 % (0.0-2.0) 05/22/17 06:15 PT 10.0 SECONDS (9.5-11.5) 05/20/17 12:10 INR 0.96 (0.5-1.4) 05/20/17 12:10 Sodium 139 mEq/L (136-145) 05/22/17 06:15 Potassium 3.0 mEq/L (3.5-5.1) L 05/22/17 06:15 Chloride 109 mEq/L (98-107) H 05/22/17 06:15 Carbon Dioxide 22.8 mEq/L (21.0-31.0) 05/22/17 06:15 Anion Gap 10.2 (7.0-16.0) 05/22/17 06:15 BUN 16 mg/dL (7-25) 05/22/17 06:15 Creatinine 0.9 mg/dL (0.7-1.3) 05/22/17 06:15 Est GFR ( Amer) TNP 05/22/17 06:15 Est GFR (Non-Af Amer) TNP 05/22/17 06:15 BUN/Creatinine Ratio 17.8 05/22/17 06:15 Glucose 210 mg/dL (70-105) H 05/22/17 06:15 POC Glucose 199 MG/DL (70 - 105) H 05/22/17 07:16 Calcium 9.6 mg/dL (8.6-10.3) 05/22/17 06:15 Magnesium 1.9 mg/dL (1.9-2.7) 05/22/17 06:15 Total Bilirubin 0.5 mg/dL (0.3-1.0) 05/22/17 06:15 AST 15 U/L (13-39) 05/22/17 06:15 ALT 7 U/L (7-52) 05/22/17 06:15 Alkaline Phosphatase 88 U/L (34-104) 05/22/17 06:15 Ammonia 45 umol/L (16-53) 05/22/17 06:15 Creatine Kinase 48 U/L (30-223) 05/20/17 12:10 Troponin I 0.01 ng/mL (0.01-0.05) 05/20/17 12:10 B-Natriuretic Peptide 12.1 pg/mL (5.0-100.0) 05/20/17 12:10 Total Protein 7.2 gm/dL (6.0-8.3) 05/22/17 06:15 Albumin 3.5 gm/dL (4.2-5.5) L 05/22/17 06:15 Globulin 3.7 gm/dL 05/22/17 06:15 Albumin/Globulin Ratio 1.0 (1.0-1.8) 05/22/17 06:15 Triglycerides 293 mg/dL (<150) H 05/20/17 12:10 Cholesterol 193 mg/dL (<200) 05/20/17 12:10 LDL Cholesterol Direct 113 mg/dL (75-193) 05/20/17 12:10 HDL Cholesterol 37 mg/dL (23-92) 05/20/17 12:10 Amylase 33 U/L (29-103) 05/20/17 12:10 Lipase < 3 U/L (11-82) L 05/20/17 12:10 Urine Source CLEAN C 05/21/17 21:00 Urine Color YELLOW 05/21/17 21:00 Urine Clarity HAZY (CLEAR) 05/21/17 21:00 Urine pH 7.5 (4.6 - 8.0) 05/21/17 21:00 Ur Specific [place] 1.015 (1.005-1.030) 05/21/17 21:00 Urine Protein TRACE mg/dL (NEGATIVE) 05/21/17 21:00 Urine Glucose (UA) 250 mg/dL (NEGATIVE) H 05/21/17 21:00 Urine Ketones NEGATIVE mg/dL (NEGATIVE) 05/21/17 21:00 Urine Blood NEGATIVE (NEGATIVE) 05/21/17 21:00 Urine Nitrate NEGATIVE (NEGATIVE) 05/21/17 21:00 Urine Bilirubin NEGATIVE (NEGATIVE) 05/21/17 21:00 Urine Urobilinogen 0.2 E.U./dL (0.2 - 1.0) 05/21/17 21:00 Ur Leukocyte Esterase LARGE (NEGATIVE) H 05/21/17 21:00 Urine RBC 0-2 /hpf (0-5) H 05/21/17 21:00 Urine WBC 25-50 /hpf (0-5) H 05/21/17 21:00 Ur Epithelial Cells FEW /lpf (FEW) 05/21/17 21:00 Urine Bacteria MANY /hpf (NONE SEEN) H 05/21/17 21:00 - Physical Exam Vitals and I&O: Vital Signs Temp 96.9 F 05/22/17 08:00 Pulse 66 05/22/17 08:00 Resp 17 05/22/17 08:00 BP 138/68 05/22/17 08:00 Pulse Ox 98 05/22/17 08:00 Intake & Output 05/21/17 05/22/17 05/22/17 18:59 06:59 18:59 Intake Total 1000 1569.333 Balance 1000 1569.333 Weight (lbs) 144 lb 12.8 oz 145 lb 3.2 oz Intake: Intake, IV Amount 1000 669.333 D5-0.9%Ns 1,000 ml @ 80 1000 669.333 mls/hr IV .[id number] [facility] Rx #:[id number] Oral 0 Tube Feeding 900 Other: # Voids 4 # Bowel Movements 2 Stool Characteristics Soft Active Medications: Current Medications Acetaminophen (Tylenol) 650 mg PO Q4H PRN PRN Reason: Pain Or Fever above 101 Stop: 07/19/17 13:19 Albuterol Sulfate (Albuterol 2.5mg/3ml Neb Ud) 2.5 mg HHN Q2HRT PRN PRN Reason: Shortness of Breath or Wheeze Stop: 07/19/17 13:19 Albuterol/Ipratropium (Duoneb Neb) 3 ml HHN Q6HR [facility] Stop: 07/19/17 17:59 Last Admin: 05/22/17 07:54 Dose: 3 ml Carbidopa/Levodopa (Sinemet 25mg-100 Mg) 1 tab GT TID [facility] Stop: 07/19/17 20:59 Last Admin: 05/22/17 08:42 Dose: 1 tab Diphenhydramine HCl (Benadryl) 50 mg GT Q8H PRN PRN Reason: BODY ITCHING Stop: 07/19/17 13:18 Famotidine (Pepcid) 40 mg PO Q12HR [facility] Stop: 07/19/17 20:59 Last Admin: 05/22/17 08:41 Dose: 40 mg Heparin Sodium (Porcine) (Heparin) 5,000 units SUBQ Q12HR [facility] Stop: 07/19/17 20:59 Last Admin: 05/22/17 08:42 Dose: 5,000 units Dextrose/Sodium Chloride (D5-0.9%Ns) 1,000 mls @ 80 mls/hr IV .[id number] [facility] Stop: 07/19/17 13:29 Last Admin: 05/21/17 22:20 Dose: 80 mls/hr Insulin Aspart (Novolog) 0 units SUBQ ACHS REBA PRN Reason: Protocol Stop: 07/19/17 16:29 Last Admin: 05/22/17 08:39 Dose: Not Given Ipratropium [place] (Atrovent Neb 0.5mg/2.5ml) 0.5 mg IH Q2HRT PRN PRN Reason: Shortness of Breath or Wheeze Stop: 07/19/17 13:19 Lactulose (Cephulac) 20 gm GT Q12HR REBA Stop: 07/19/17 20:59 Last Admin: 05/22/17 08:42 Dose: 20 gm Morphine Sulfate (Morphine) 2 mg IVP Q4H PRN PRN Reason: Pain (Severe) Stop: 07/19/17 13:19 Ondansetron HCl (Zofran Odt) 4 mg PO Q4H PRN PRN Reason: Nausea / Vomiting Stop: 07/19/17 20:29 Ondansetron HCl (Zofran) 4 mg IV Q8H PRN PRN Reason: Nausea / Vomiting Stop: 07/19/17 13:19 General: alert HEENT: NC/AT, PERRLA Neck: Supple Lungs: CTAB Cardiovascular: RRR, Normal S1, Normal S2, without murmur Abdomen: soft, non-tender, non-distended, positive bowel sound - Procedures Procedures: Procedures Procedure Code Date BLOOD TRANSFUSION SERVICE 39525 02/17/13 CHANGE FEEDING DEVICE IN UP INTEST TRACT, FUEL DISTRIBUTION SYSTEM OPERATOR APPROACH [id number] 05/20/17 CHANGE GASTROSTOMY TUBE 42857 05/20/[address] GASTROSTOMY TUBE 53850 03/07/14 EMERGENCY DEPT VISIT 82774 06/07/11 FREEING OF BOWEL ADHESION 13218 01/08/13 INJECT ANTICOAGULANT 99.19 06/07/11 OTH LYSIS-PERITONEAL ADHES 54.59 01/08/13 OTHER ENDOSCOPY OF SM INTEST 45.13 03/07/14 PACKED CELL TRANSFUSION 99.04 02/17/13 PRP I/LINDSAY INIT REDUC >5 YR 76694 01/08/13 REPLACE GASTROSTOMY TUBE 97.02 03/07/14 UNILAT ING LINDSAY REP NOS 53.00 01/08/13 Internal Medicine Assmt/Plan - Assessment Assessment: GT malfunction s/p placement acute dehydration acute renal insufficiency diabetes htn malnutrition - Plan Plan: cbc/bmp in am monitor patients residual replace k+ continue current plan of care
[2017-05-22] MEDS ORDERED: Albuterol/Ipratropium Neb 3 ML AERS HHN SCH (13:00)
--- NOTE | 2017-05-22 13:17 | GI Progress Note ---
Subjective - Review of Systems Subjective: NO EVENTS Objective - Results Result Diagrams: 05/22/17 06:15 05/22/17 06:15 Recent Labs: Laboratory Last Values WBC 6.6 Th/cmm (4.8-10.8) 05/22/17 06:15 RBC 3.67 Mil/cmm (3.80-5.80) L 05/22/17 06:15 Hgb 11.3 gm/dL (12-16) L 05/22/17 06:15 Hct 33.4 % (41.0-60) L 05/22/17 06:15 MCV 91.0 fl (80-99) 05/22/17 06:15 MCH 30.8 pg (27.0-31.0) 05/22/17 06:15 MCHC Differential 33.8 pg (28.0-36.0) 05/22/17 06:15 RDW 14.6 % (11.5-20.0) 05/22/17 06:15 Plt Count 205 Th/cmm (150-400) 05/22/17 06:15 MPV 10.8 fl 05/22/17 06:15 Neutrophils % 66.0 % (40.0-80.0) 05/22/17 06:15 Lymphocytes % 19.2 % (20.0-50.0) L 05/22/17 06:15 Monocytes % 7.3 % (2.0-10.0) 05/22/17 06:15 Eosinophils % 6.9 % (0.0-5.0) H 05/22/17 06:15 Basophils % 0.6 % (0.0-2.0) 05/22/17 06:15 PT 10.0 SECONDS (9.5-11.5) 05/20/17 12:10 INR 0.96 (0.5-1.4) 05/20/17 12:10 Sodium 139 mEq/L (136-145) 05/22/17 06:15 Potassium 3.0 mEq/L (3.5-5.1) L 05/22/17 06:15 Chloride 109 mEq/L (98-107) H 05/22/17 06:15 Carbon Dioxide 22.8 mEq/L (21.0-31.0) 05/22/17 06:15 Anion Gap 10.2 (7.0-16.0) 05/22/17 06:15 BUN 16 mg/dL (7-25) 05/22/17 06:15 Creatinine 0.9 mg/dL (0.7-1.3) 05/22/17 06:15 Est GFR ( Amer) TNP 05/22/17 06:15 Est GFR (Non-Af Amer) TNP 05/22/17 06:15 BUN/Creatinine Ratio 17.8 05/22/17 06:15 Glucose 210 mg/dL (70-105) H 05/22/17 06:15 POC Glucose 174 MG/DL (70 - 105) H 05/22/17 12:06 Calcium 9.6 mg/dL (8.6-10.3) 05/22/17 06:15 Magnesium 1.9 mg/dL (1.9-2.7) 05/22/17 06:15 Total Bilirubin 0.5 mg/dL (0.3-1.0) 05/22/17 06:15 AST 15 U/L (13-39) 05/22/17 06:15 ALT 7 U/L (7-52) 05/22/17 06:15 Alkaline Phosphatase 88 U/L (34-104) 05/22/17 06:15 Ammonia 45 umol/L (16-53) 05/22/17 06:15 Creatine Kinase 48 U/L (30-223) 05/20/17 12:10 Troponin I 0.01 ng/mL (0.01-0.05) 05/20/17 12:10 B-Natriuretic Peptide 12.1 pg/mL (5.0-100.0) 05/20/17 12:10 Total Protein 7.2 gm/dL (6.0-8.3) 05/22/17 06:15 Albumin 3.5 gm/dL (4.2-5.5) L 05/22/17 06:15 Globulin 3.7 gm/dL 05/22/17 06:15 Albumin/Globulin Ratio 1.0 (1.0-1.8) 05/22/17 06:15 Triglycerides 293 mg/dL (<150) H 05/20/17 12:10 Cholesterol 193 mg/dL (<200) 05/20/17 12:10 LDL Cholesterol Direct 113 mg/dL (75-193) 05/20/17 12:10 HDL Cholesterol 37 mg/dL (23-92) 05/20/17 12:10 Amylase 33 U/L (29-103) 05/20/17 12:10 Lipase < 3 U/L (11-82) L 05/20/17 12:10 Urine Source CLEAN C 05/21/17 21:00 Urine Color YELLOW 05/21/17 21:00 Urine Clarity HAZY (CLEAR) 05/21/17 21:00 Urine pH 7.5 (4.6 - 8.0) 05/21/17 21:00 Ur Specific [place] 1.015 (1.005-1.030) 05/21/17 21:00 Urine Protein TRACE mg/dL (NEGATIVE) 05/21/17 21:00 Urine Glucose (UA) 250 mg/dL (NEGATIVE) H 05/21/17 21:00 Urine Ketones NEGATIVE mg/dL (NEGATIVE) 05/21/17 21:00 Urine Blood NEGATIVE (NEGATIVE) 05/21/17 21:00 Urine Nitrate NEGATIVE (NEGATIVE) 05/21/17 21:00 Urine Bilirubin NEGATIVE (NEGATIVE) 05/21/17 21:00 Urine Urobilinogen 0.2 E.U./dL (0.2 - 1.0) 05/21/17 21:00 Ur Leukocyte Esterase LARGE (NEGATIVE) H 05/21/17 21:00 Urine RBC 0-2 /hpf (0-5) H 05/21/17 21:00 Urine WBC 25-50 /hpf (0-5) H 05/21/17 21:00 Ur Epithelial Cells FEW /lpf (FEW) 05/21/17 21:00 Urine Bacteria MANY /hpf (NONE SEEN) H 05/21/17 21:00 - Physical Exam Vitals and I&O: Vital Signs Temp 98.6 F 05/22/17 12:00 Pulse 89 05/22/17 12:00 Resp 17 05/22/17 12:00 BP 120/76 05/22/17 12:00 Pulse Ox 99 05/22/17 12:00 Intake & Output 05/21/17 05/22/17 05/22/17 18:59 06:59 18:59 Intake Total 1000 1569.333 Balance 1000 1569.333 Weight (lbs) 65.68 kg 65.862 kg Intake: Intake, IV Amount 1000 669.333 D5-0.9%Ns 1,000 ml @ 80 1000 669.333 mls/hr IV .[id number] [facility] Rx #:[id number] Oral 0 Tube Feeding 900 Other: # Voids 4 # Bowel Movements 2 Stool Characteristics Soft Soft Active Medications: Current Medications Acetaminophen (Tylenol) 650 mg PO Q4H PRN PRN Reason: Pain Or Fever above 101 Stop: 07/19/17 13:19 Albuterol Sulfate (Albuterol 2.5mg/3ml Neb Ud) 2.5 mg HHN Q2HRT PRN PRN Reason: Shortness of Breath or Wheeze Stop: 07/19/17 13:19 Albuterol/Ipratropium (Duoneb Neb) 3 ml HHN Q6HRT [facility] Stop: 07/19/17 17:59 Carbidopa/Levodopa (Sinemet 25mg-100 Mg) 1 tab GT TID [facility] Stop: 07/19/17 20:59 Last Admin: 05/22/17 08:42 Dose: 1 tab Diphenhydramine HCl (Benadryl) 50 mg GT Q8H PRN PRN Reason: BODY ITCHING Stop: 07/19/17 13:18 Famotidine (Pepcid) 40 mg PO Q12HR [facility] Stop: 07/19/17 20:59 Last Admin: 05/22/17 08:41 Dose: 40 mg Heparin Sodium (Porcine) (Heparin) 5,000 units SUBQ Q12HR [facility] Stop: 07/19/17 20:59 Last Admin: 05/22/17 08:42 Dose: 5,000 units Insulin Aspart (Novolog) 0 units SUBQ ACHS [facility] PRN Reason: Protocol Stop: 07/19/17 16:29 Last Admin: 05/22/17 08:39 Dose: Not Given Ipratropium [place] (Atrovent Neb 0.5mg/2.5ml) 0.5 mg IH Q2HRT PRN PRN Reason: Shortness of Breath or Wheeze Stop: 07/19/17 13:19 Lactulose (Cephulac) 20 gm GT Q12HR [facility] Stop: 07/19/17 20:59 Last Admin: 05/22/17 08:42 Dose: 20 gm Morphine Sulfate (Morphine) 2 mg IVP Q4H PRN PRN Reason: Pain (Severe) Stop: 07/19/17 13:19 Ondansetron HCl (Zofran Odt) 4 mg PO Q4H PRN PRN Reason: Nausea / Vomiting Stop: 07/19/17 20:29 Ondansetron HCl (Zofran) 4 mg IV Q8H PRN PRN Reason: Nausea / Vomiting Stop: 07/19/17 13:19 Trimethoprim/Sulfamethoxazole (Bactrim Ds) 1 tab PO BID REBA Stop: 05/27/17 16:59 - Procedures Procedures: Procedures Procedure Code Date BLOOD TRANSFUSION SERVICE 30957 02/17/13 CHANGE FEEDING DEVICE IN UP INTEST TRACT, GIN CLERK APPROACH [id number] 05/20/17 CHANGE GASTROSTOMY TUBE 09476 05/20/[address] GASTROSTOMY TUBE 76128 03/07/14 EMERGENCY DEPT VISIT 68242 06/07/11 FREEING OF BOWEL ADHESION 85662 01/08/13 INJECT ANTICOAGULANT 99.19 06/07/11 OTH LYSIS-PERITONEAL ADHES 54.59 01/08/13 OTHER ENDOSCOPY OF SM INTEST 45.13 03/07/14 PACKED CELL TRANSFUSION 99.04 02/17/13 PRP I/LINDSAY INIT REDUC >5 YR 41254 01/08/13 REPLACE GASTROSTOMY TUBE 97.02 03/07/14 UNILAT ING LINDSAY REP NOS 53.00 01/08/13 Assessment/Plan - Problem List Patient Problems: All Active Problems GASTRIC FEEDING TUBE LEAKAGE (Acute) - Assessment Assessment: 81 YO MALE WITH MALFUNCTION G TUBE GT WAS CHANGES UGI SERIES CONFIRM GT IN THE STOMACH DONY TUBE FEEDS 1.CONT SUPP CARE 2.CONT TUBE FEEDS DONY 3.WILL SIGN OFF, CALL IF QUESTIONS
[2017-05-22] MEDS ORDERED: Sulfamethoxazole/TMP 800/160mg Tab PO SCH (17:00)
[2017-05-22 18:26] LABS: A1C % 5.4 % (4.0-6.0)
[2017-05-23 14:20] LABS: FOLIC ACID >20.0 ng/mL (>3.0)
== END 2017-05-22 17:26 | disposition home or self-care (01) | DRG 920 ==
LOC: ER 11:45 → MSI 13:23
PROVIDERS: ADMIT Internal Medicine; ATTEND Internal Medicine
PROC: 0D20XUZ Change Feeding Device in Upper Intestinal Tract, External Approach (ICD-10-PCS; principal; 2017-05-21)
DX: T85.598A Other mechanical complication of other gastrointestinal prosthetic devices, implants and grafts, initial encounter (principal); K94.23 Gastrostomy malfunction; E46 Unspecified protein-calorie malnutrition; G20 Parkinson's disease; L89.90 Pressure ulcer of unspecified site, unspecified stage; E83.52 Hypercalcemia; R13.10 Dysphagia, unspecified; E86.0 Dehydration; E11.9 Type 2 diabetes mellitus without complications; I10 Essential (primary) hypertension; Y92.89 Other specified places as the place of occurrence of the external cause; Z66 Do not resuscitate; N28.9 Disorder of kidney and ureter, unspecified; J44.9 Chronic obstructive pulmonary disease, unspecified; E78.5 Hyperlipidemia, unspecified; F02.80 Dementia in other diseases classified elsewhere, unspecified severity, without behavioral disturbance, psychotic disturbance, mood disturbance, and anxiety; Y83.8 Other surgical procedures as the cause of abnormal reaction of the patient, or of later complication, without mention of misadventure at the time of the procedure; Z83.3 Family history of diabetes mellitus; Z82.49 Family history of ischemic heart disease and other diseases of the circulatory system; Z68.22 Body mass index [BMI] 22.0-22.9, adult; Z88.8 Allergy status to other drugs, medicaments and biological substances
CPT/HCPCS: 36415-UA; 71045-TC; 80053-TC; 80061-TC; 81001-TC; 82140-TC; 82150-TC; 82550-TC; 82607-90; 82746-90; 82948-90; 83036-90; 83690-TC; 83735-TC; 83880-TC; 84484-TC; 85025-TC; 85610-TC; 87086-90; 93005; 94640; 94760; J1644; J1815; J7030; J7042; Z7610

== ENCOUNTER 2017-08-26 12:23 | Inpatient (IN) | payer MEDICAID, MEDICARE, OTHER ==
--- NOTE | 2017-08-26 12:51 | ED Physician Chart ---
ED Chief Complaint/HPI - Patient Information Date Seen:: 08/26/17 Time Seen:: 12:30 Chief Complaint:: Fever History of Present Illness:: onset x 3 days of fever, cough, dyspnea, and congestion; no report of trauma, H/ as, S/T, neck pain, C/P, Abd. pain, A/n/V/D/C, chills, or urinary s/s Allergies:: Allergies Allergy/AdvReac Type Severity Reaction Status Date / Time piperacillin Allergy Verified 09/10/16 13:25 tazobactam Allergy Verified 09/10/16 13:26 Historian:: Patient, EMS Review:: Nurse's Note Reviewed, Old Chart Reviewed, EMS run form Reviewed ED Review of Systems - Review of Systems General/Constitutional: Fever, No chills, No weight loss, No weakness, No diaphoresis, No edema, No loss of appetite Skin: No skin lesions, No rash, No bruising Head: No headache, No light-headedness Eyes: No loss of vision, No pain, No diplopia ENT: No earache, No nasal drainage, No sore throat, No tinnitus Neck: No neck pain, No swelling, No thyromegaly, No stiffness, No mass noted Cardio Vascular: No chest pain, No palpitations, No PND, No orthopnea, No edema Pulmonary: SOB, Cough, No sputum, No wheezing GI: No nausea, No vomiting, No diarrhea, No pain, No melena, No hematochezia, No constipation, No hematemesis G/U: No dysuria, No frequency, No hematuria Musculoskeletal: No bone or joint pain, No back pain, No muscle pain Endocrine: No polyuria, No polydipsia Psychiatric: No prior psych history, No depression, No anxiety, No suicidal ideation, No homicidal ideation, No auditory hallucination, No visual hallucination Hematopoietic: No bruising, No lymphadenopathy Allergic/Immuno: No urticaria, No angioedema Neurological: No syncope, No focal symptoms, No weakness, No paresthesia, No headache, No seizure, No dizziness, Confusion, No vertigo ED Past Medical History - Past Medical History Obtainable: Yes Past Medical History: HTN, DM, Asthma/COPD, Dyslipidemia, Dementia Family History: Diabetes Melitus, HTN Social History: Non Smoker, No Alcohol, No Drug Use, , Care Facility Surgical History: None Psychiatricy History: Dementia Medication: Reviewed Family Medical History - Family Member Father History Unknown: Yes Ethnicity: Living Status: Unknown Hx Family Cancer: No Hx Family Coronary Artery Disease: No Hx Family Congestive Heart Failure: No Hx Family Hypertension: No Hx Family Stroke: No Hx Family Diabetes: No Hx Family Seizures: No Hx Family Dementia: No Hx Family AIDS: No Hx Family HIV: No Hx Family COPD: No Hx Family Hepatitis: No Hx Family Psychiatric Problems: No Hx Family Tuberculosis: No ED Physical Exam - Physical Examination General/Constitutional: Awake, Well-developed, well-nourished, Alert, No distress, GCS 15, Non-toxic appearing, Ambulatory Head: Atraumatic Eyes: Lids, conjuctiva normal, PERRL, EOMI Skin: Nl inspection, No rash, No skin lesions, No ecchymosis, Well hydrated, No lymphadenopathy ENMT: External ears, nose nl, TM canals nl, Nasal exam nl, Lips, teeth, gums nl , Oropharynx nl, Tonsils nl Neck: Nontender, Full ROM w/o pain, No JVD, No nuchal rigidity, No bruit, No mass, No stridor Respiratory: Nl effort/Exclusion Other Respiratory comments:: Lungs: + Rales and Rhonchi Cardio Vascular: RRR, No murmur, gallop, rubs, NL S1 S2, Carotid/Femoral/Distal pulses equal bilaterally GI: No tenderness/rebounding/guarding, No organomegaly, No hernia, Normal BS's, Nondistended, No mass/bruits, No McBurney tenderness : No CVA tenderness Extremities: No tenderness or effusion, Full ROM, normal strength in all extremities, No edema, Normal digits & nails Neuro/Psych: Alert/oriented, DTR's symmetric, Normal sensory exam, Normal motor strength, Judgement/insight normal, Mood normal, Normal gait, No focal deficits Misc: Normal back, No paraspinal tenderness ED Labs/Radiology/EKG Results - Lab Results Comments:: WBC: 31.7; Glucose: 1035; LA: 11.45; BUN: 94; Cr: 2.8; Ca+: 11.2 - Radiology Results Comments:: + Left Base Infiltrate - EKG Interpretations EKG Time:: 12:37 Rate & Rhythm: 131; ST Comments:: LVH; non-specific st-t changes ED Septic Shock - . Is Septic Shock (SBP<90, OR Lactate>4 mmol\L) present?: No ED Reassessment (Disposition) - Reassessment Reassessment Condition:: Improved - Diagnosis Diagnosis:: Dx: Fever; Dyspnea; Cough; Congestion; Tachycardia; Dehydration; Sepsis; PNA; Leukocytosis; DKA; DM; Hyperglycemia; Renal Isufficiency; Hypercalcemia; Hypokalemia; Lactic Acidosis; - Aftercare/Follow up Instructions Aftercare/Follow-Up Instructions:: Counseled pt regarding lab results/diagnosis & need follow up, Counseled pt & family regarding lab results/diagnosis & need follow up - Patient Disposition Discharge/Transfer:: Acute Care w/in this hosp Accepting Physician:: Dr. Patel Time Called:: 0 Time Responded:: 14:10 Admitted to:: ICU Spoke to:: Dr. Patel Admitting Medical Physician:: Dr. Patel Condition at Disposition:: Critical, Improved
[2017-08-26 13:18] LABS: HEMATOCRIT 48.4 % (41.0-60); HEMOGLOBIN 15.3 gm/dL (12-16); LYMPHOCYTE ABSOLUTE 1.7 Th/cmm (1.5-3.0); MANUAL DIFF REQUIRED? YES; MEAN CELL VOLUME 92.2 fl (80-99); MEAN CORPUSCULAR HEMOGLOBIN 29.3 pg (27.0-31.0); MEAN CORPUSCULAR HGB CONC 31.7 pg (28.0-36.0); MEAN PLATELET VOLUME 12.1 fl; MONOCYTE ABSOLUTE 0.1 Th/cmm (0.3-1.0); NEUTROPHILE ABSOLUTE 29.9 Th/cmm (1.8-8.0); PLATELET COUNT 273 Th/cmm (150-400); RED BLOOD COUNT 5.24 Mil/cmm (3.80-5.80); RED CELL DISTRIBUTION WIDTH 16.5 % (11.5-20.0)
[2017-08-26 13:28] LABS: INR 1.09 (0.5-1.4); PROTHROMBIN TIME (TEST) 11.3 SECONDS (9.5-11.5)
[2017-08-26 13:35] LABS: ALB/GLOB RATIO 0.8 (1.0-1.8); ALBUMIN 3.8 gm/dL (4.2-5.5); ALKALINE PHOSPHATASE 150 U/L (34-104); ANION GAP 26.4 (7.0-16.0); CALCIUM SERUM 11.2 mg/dL (8.6-10.3); CHLORIDE 114 mEq/L (98-107); CREATININE - SERUM 2.8 mg/dL (0.7-1.3); CREATININE KINASE 100 U/L (30-223); POTASSIUM SERUM 3.4 mEq/L (3.5-5.1); SGOT 13 U/L (13-39); SGPT/ALT 7 U/L (7-52); TOTAL PROTEIN,SERUM 8.8 gm/dL (6.0-8.3)
--- NOTE | 2017-08-26 13:40 | Diagnostic Imaging Report ---
CHEST X-RAY: AP view INDICATION: pain COMPARISON: 05/20/2017 FINDINGS: Increased interstitial lung markings are noted greatest within the left base. No effusions. Heart size is normal. Atherosclerosis is noted. Degenerative changes of the spine are noted. Sub-CM radiodensity seen projecting along the left scapular region. IMPRESSION: Increased interstitial lung markings, greatest in the left lung base. Findings may be chronic, however, acute infiltrate of the left base cannot be excluded. Please correlate with clinical findings. Atherosclerotic vascular disease. Subcentimeter radiodensity projecting along the left scapular region, correlate clinically.
[2017-08-26 13:49] LABS: WHITE BLOOD COUNT 31.7 Th/cmm (4.8-10.8)
[2017-08-26] MEDS ORDERED: Levofloxacin 500mg/100mL 500 MG/100 ML BAG IV ONE ×2 (13:52→13:57)
[2017-08-26 14:13] LABS: BUN - UREA NITROGEN 94 mg/dL (7-25); GLUCOSE 1035 mg/dL (70-105)
[2017-08-26] MEDS ORDERED: INSULIN HUMAN REGULAR 100 UNITS/ML UNIT IV ONE (14:14)
[2017-08-26] MEDS ORDERED: Potassium Chloride 20 mEq ER Tab PO ONE (14:26)
[2017-08-26 14:29] LABS: ALLEN TEST Positive; pH 7.39 (7.35-7.45)
[2017-08-26] MEDS ORDERED: INSULIN HUMAN REGULAR 100 UNITS/ML UNIT ONE ×2 (14:38→14:50)
[2017-08-26] MEDS ORDERED: Potassium Chloride Elixir 20 mEq /15 mL UDC ONE (14:39)
[2017-08-26 14:57] LABS: TROP I 0.06 ng/mL (0.01-0.05)
[2017-08-26] MEDS ORDERED: DOPamine 400 MG/250 ML BAG IV PRN (15:37)
[2017-08-26] MEDS ORDERED: Morphine Sulfate 2 mg/mL 1mL Syr IVP PRN (15:38)
[2017-08-26] MEDS ORDERED: Sodium Chloride 0.9% 1,000 ML IV SCH ×2 (15:45)
[2017-08-26 16:27] LABS: TOTAL CELLS COUNTED 100
[2017-08-26 16:28] LABS: BAND NEUTROPHILE 12 % (0-10); BASOPHIL 0 % (0-3); EOSINOPHIL 0 % (0-5); LYMPHOCYTE 5 % (20-50); MONOCYTE 1 % (2-10); NEUTROPHILS 82 % (40-80); PLATELET ESTIMATE ADEQUATE (NORMAL); PLATELET MORPHOLOGY NORMAL (NORMAL)
[2017-08-26] MEDS ORDERED: INSULIN ASPART, RECOMBINANT 100 UNITS/ML SUBQ SCH (16:30)
[2017-08-26] MEDS ORDERED: Pantoprazole 40 mg EC Tab PO SCH (17:00)
[2017-08-26] MEDS ORDERED: Meropenem 500 MG in Sodium Chloride 0.9% 100 ML IV SCH (17:00)
[2017-08-26 18:01] LABS: URINE MICROSCOPIC INDICATED? YES; URINE SOURCE MIDSTREAM
[2017-08-26 18:04] LABS: URINE BILIRUBIN NEGATIVE (NEGATIVE); URINE BLOOD TRACE (NEGATIVE); URINE GLUCOSE (UA) >=1000 mg/dL (NEGATIVE); URINE KETONE NEGATIVE (NEGATIVE); URINE LEUKOCYTE ESTERASE SMALL (NEGATIVE); URINE NITRATE NEGATIVE (NEGATIVE); URINE PH 5.5 (4.6 - 8.0); URINE PROTEIN TRACE mg/dL (NEGATIVE); URINE UROBILINOGEN 0.2 E.U./dL (0.2 - 1.0)
--- NOTE | 2017-08-26 18:05 | History & Physical ---
ADMIT DATE: 08/26/2017 CHIEF COMPLAINT: Low oxygen saturation, fever, and respiratory failure. HISTORY OF PRESENT ILLNESS: This is an 81-year-old male with history of Parkinson's, hypertension, malnutrition, G-tube secondary to dysphagia, admitted from nursing facility secondary to fever and respiratory distress. The patient was evaluated in the ER and noted to have a white count of 31,000. Blood sugar in excess of 1000. The patient is nonverbal and not interactive. PAST MEDICAL HISTORY: As mentioned in history of present illness. PAST SURGICAL HISTORY: Status post G-tube. ALLERGIES: ZOSYN. MEDICATIONS: Sinemet, Tylenol, albuterol, and Aricept. FAMILY HISTORY: Noncontributory. SOCIAL HISTORY: The patient lives in [facility]. The patient requiring 24-hour total care. REVIEW OF SYSTEMS: This is limited secondary to the patient's current mental state. We will try to obtain more detailed review of system at a later date by talking to family members. Marguerite Jeffers is the daughter, #[phone]. We will also try to get information from the nursing staff at [facility], #[phone]. PHYSICAL EXAMINATION: VITAL SIGNS: Blood pressure 95/41, respirations 34, heart rate is 120, temperature 98.0. GENERAL: Elderly male who appears chronically ill. NECK: Supple. No mass. LUNGS: Equal breath sounds, few rhonchi. HEART: Regular rate and rhythm with systolic ejection murmur. ABDOMEN: Soft, globular, positive bowel sounds. EXTREMITIES: Positive excoriation. NEUROLOGIC: Limited. LABORATORY DATA: WBC 31, hemoglobin 15, platelets 273, pO2 of 50, pCO2 of 32. Potassium is 3.4. Sodium is not available. BUN 84, creatinine 2.8, glucose 1035. Albumin 3.8. Moderate ketones. ASSESSMENT AND PLAN: Fever, diabetes out of control, leukocytosis, sepsis, acute respiratory failure, Parkinson's, hypertension, malnutrition, hypoxemia, acute renal failure, lactic acidosis, hyperglycemia, low albumin. Continue the patient on IV antibiotic. Continue on insulin drip, on IV antibiotic on meropenem as well as vancomycin. We will aggressively ____ the patient with IV fluids. We will place the patient on albumin and dopamine. Continue with current care. Continue with ICU protocol. We will place the patient on BiPAP. Pulmonary has been consulted/Critical Care. JOB# [id number]
[2017-08-26 18:18] LABS: URINE CLARITY CLEAR (CLEAR); URINE COLOR YELLOW
[2017-08-26 18:47] LABS: URINE WBC 50-100 /hpf (0-5)
[2017-08-26 18:50] LABS: URINE BACTERIA FEW /hpf (NONE SEEN); URINE EPITHELIAL CELLS FEW /lpf (FEW)
[2017-08-26] MEDS ORDERED: Ipratropium Neb 0.5 mg/2.5 mL UD IH SCH (19:00)
[2017-08-26] MEDS ORDERED: Albuterol Nebulizer 2.5mg/3mL HHN SCH (19:00)
[2017-08-26 20:09] LABS: SODIUM SERUM 163 mEq/L (136-145)
--- NOTE | 2017-09-04 19:50 | Discharge Summary ---
DATE OF DISCHARGE: 08/26/2017 The patient on 08/26/2017. FINAL DIAGNOSES: Febrile diabetes, out of control, leukocytosis, sepsis, acute respiratory failure, Parkinson's, hypertension, malnutrition, hypoxemia, acute renal failure, lactic acidosis, hyperglycemia and low albumin. HISTORY OF PRESENT ILLNESS: An 81-year-old male with history of Parkinson's, hypertension, malnutrition, G-tube secondary to dysphagia, admitted from nursing facility secondary to fever, respiratory distress. The patient was evaluated in the ER, noted to have a white count of 31,000. Blood sugar in excess of 1000. HOSPITAL COURSE: During the hospital stay, the patient was initially admitted to the ICU unit. The patient was given aggressive IV fluids and placed on albumin and dopamine and the patient was placed on BiPAP as well. The patient was also started on regular insulin drip at 5 units per hour. The patient was also noted to have sinus tachycardic. The patient was having respiratory distress and patient's family made the patient no code by sister and was witnessed by two RNs. The patient's blood pressure dropped to the low systolic pressures of the 70s, heart rate in the low 70s. On 1851 hours, the patient was noted with agonal breathing and went to systole. Fortunately, the patient . JOB# [id number]
== END 2017-08-26 18:51 | disposition expired | DRG 871 ==
LOC: ER 12:23 → ICU 15:37
PROVIDERS: ADMIT Internal Medicine; ATTEND Internal Medicine
PROC: 5A09357 Assistance with Respiratory Ventilation, Less than 24 Consecutive Hours, Continuous Positive Airway Pressure (ICD-10-PCS; principal; 2017-08-26)
DX: A41.9 Sepsis, unspecified organism (principal); J18.9 Pneumonia, unspecified organism; E11.10 Type 2 diabetes mellitus with ketoacidosis without coma; J96.01 Acute respiratory failure with hypoxia; J44.0 Chronic obstructive pulmonary disease with (acute) lower respiratory infection; N17.9 Acute kidney failure, unspecified; E46 Unspecified protein-calorie malnutrition; I10 Essential (primary) hypertension; E78.5 Hyperlipidemia, unspecified; E86.0 Dehydration; E87.6 Hypokalemia; F02.80 Dementia in other diseases classified elsewhere, unspecified severity, without behavioral disturbance, psychotic disturbance, mood disturbance, and anxiety; E83.52 Hypercalcemia; G20 Parkinson's disease; Z93.1 Gastrostomy status; Z68.23 Body mass index [BMI] 23.0-23.9, adult; Z83.3 Family history of diabetes mellitus; Z82.49 Family history of ischemic heart disease and other diseases of the circulatory system; Z66 Do not resuscitate
CPT/HCPCS: 36415-UA; 36600-90; 71045-TC; 80053-TC; 81001-TC; 82010-TC; 82550-TC; 82803-TC; 82948-90; 83605; 84484-TC; 85007-TC; 85025-TC; 85027-TC; 85610-TC; 85730-TC; 87086-90; 93005; 94660; J1265; J1815; J1956; J2185; J3370; J7030; J7042; Z7610